=== PATIENT | male | born 1940 | race Caucasian/White ===

== ENCOUNTER 2017-10-17 21:05 | Inpatient (IN) | END 2017-10-20 15:30 | disposition home or self-care (01) | DRG 389 ==

== ENCOUNTER 2017-10-31 19:34 | Emergency (ER) | END 2017-10-31 23:35 | disposition home or self-care (01) ==

== ENCOUNTER 2018-07-01 09:39 | Inpatient (IN) | payer OTHER ==
[~2018-07-01] VITALS: Ht 165.1 cm; Wt 86.2 kg
[~2018-07-01 09:39] MED LIST: AMLO-147 PO; ATOR10TA65 PO; BIMA2.5D BOTH EYES; CEPH-443 PO; DOCU-144 PO; HYDR-4011 PO; HYDR25TA6 PO; METF-849 PO
[2018-07-01] MEDS ORDERED: CEFTRIAXONE 1 GM/50 ML (PMX) 50 ML IVPB STA (10:04)
[2018-07-01] MEDS ORDERED: SODIUM CHLORIDE 0.9% 1L BAG IV* STA (10:04)
[2018-07-01] MEDS ORDERED: ACETAMINOPHEN 500 MG TAB PO STA (10:35)
[2018-07-01] MEDS ORDERED: BENA40TA56 PO (11:28)
[2018-07-01] MEDS ORDERED: MELO7.5T38 ORAL (11:37)
[2018-07-01] MEDS ORDERED: TRIA15CR52 TOP (11:37)
[2018-07-01] MEDS ORDERED: [UNRECOGNIZED DRUG - CODE] ORAL (11:37)
--- NOTE | 2018-07-01 12:11 | ERD ---
ER Documentation Chief Complaint Chief Complaint FEVER, CHILLS SINCE YESTERDAY HPI 77-year-old male presents to the emergency department with his family complaining of fever and chills. Patient was apparently in his usual state of health until the last 24 hours at least at which time he developed fevers and chills. Patient had no other significant symptoms associated with his fevers. He denies any URI symptoms. According to the son, he had an occasional cough but no difficulty breathing or sputum production. He reported no dysuria or hematuria. He had no diarrhea or abdominal pain. He was started on amoxicillin, but has not improved and continued to have high fevers with shaking chills and came to the emergency department for evaluation. ROS All systems reviewed and are negative except as per history of present illness. Medications Home Meds Reported Medications Triamcinolone Acetonide* (Kenalog*) 0.5%-15GM Cr, TOP BID 07/01/18 Sildenafil Citrate (Sildenafil Citrate) 100 Mg Tablet, 1 TAB ORAL DAILY PRN for NEEDED 07/01/18 Meloxicam* (Meloxicam*) 7.5 Mg Tablet, 1 TAB ORAL DAILY PRN for PAIN LEVEL 4-6 07/01/18 Benazepril Hcl* (Benazepril Hcl*) 40 Mg Tablet, 40 MG PO DAILY, #30 TAB 07/01/18 Atorvastatin Calcium (Atorvastatin Calcium) 10 Mg Tablet, 10 MG PO QHS, #30 TAB 10/17/17 Amlodipine Besylate* (Amlodipine Besylate*) 10 Mg Tablet, 10 MG PO DAILY, #30 TAB 10/17/17 Hydrochlorothiazide* (Hydrochlorothiazide*) 25 Mg Tab, 25 MG PO DAILY, #30 TAB 10/17/17 Bimatoprost* (Lumigan*) 0.01%-2.5 Ml Opht Drops, 1 DROP BOTH EYES HS, EA 10/17/17 Metformin* (Glucophage*) 500 Mg Tab, 500 MG PO BID, #30 TAB 10/17/17 Discontinued Scripts Docusate Sodium* (Colace*) 100 Mg Capsule, 100 MG PO TID, #30 CAP Prov:ANTHONY MAIER MD 10/31/17 Hydrocodone/Acetaminophen ([place] 5-325 Tablet) 1 Each Tablet, 1 TAB PO Q6H PRN for PAIN, #7 TAB Prov:ANTHONY MAIER MD 10/31/17 Cephalexin* (Keflex*) 500 Mg Capsule, 500 MG PO QID for 7 Days, CAP Prov:ANTHONY MAIER MD 10/31/17 Allergies Allergies: Coded Allergies: No Known Allergy (Unverified , 07/01/18) PMhx/Soc History of Surgery: Yes (Right knee replacement 2009, Back sx 20 years ago, prostectomy 10/06/17) Anesthesia Reaction: No Hx Neurological Disorder: No Hx Respiratory Disorders: No Hx Cardiac Disorders: Yes (htn) Hx Psychiatric Problems: No Hx Miscellaneous Medical Probl: Yes (hypercholesterol, dm) Hx Alcohol Use: No Hx Substance Use: No Hx Tobacco Use: No FmHx Noncontributory for chief complaint with no known sick contacts Physical Exam Vitals Vital Signs Date Temp Pulse Resp B/P (MAP) Pulse Ox O2 O2 Flow FiO2 Time Delivery Rate 07/01/18 101.9 90 10:53 07/01/18 101.9 10:52 07/01/18 Nasal 2 10:32 Cannula 07/01/18 90 20 146/73 94 Room Air 10:31 (97) 07/01/18 102.1 108 18 153/76 95 09:48 (101) Physical Exam GENERAL: The patient is well developed and appropriate for usual state of health in no apparent distress HEENT: Pupils equal, round, and reactive to light. EOMI. There is no scleral icterus. NECK: C-spine is soft and supple, there is no meningismus. There is no cervical lymphadenopathy. LUNGS: Clear to auscultation bilaterally. There are no rales, wheezes or rhonchi. HEART: Regular rate and rhythm, no murmurs, clicks, rubs or gallops. ABDOMEN: Soft, non-tender, non-distended. There are bowel sounds in all four quadrants. No rebound or guarding. EXTREMITIES: There is no peripheral cyanosis or edema. No focal swelling or erythema. NEURO: The patient moves all four extremities with 5/5 strength. Cranial nerves II - XII are intact. Normal gait. Alert and oriented SKIN: There is no apparent rash or petechiae. HEME/LYMPHATIC: There is no evidence of excessive bruising or lymphedema. PSYCHIATRIC: The patient does not appear anxious or depressed. Result Diagram: 07/01/18 1012 07/01/18 1012 Results 24 hrs Laboratory Tests Test 07/01/18 10:10 07/01/18 10:12 07/01/18 10:13 Lactic Acid Level 1.5 mmol/L White Blood Count 14.6 10^3/ul Red Blood Count 4.14 10^6/ul Hemoglobin 12.6 g/dl Hematocrit 37.2 % Mean Corpuscular Volume 89.9 fl Mean Corpuscular Hemoglobin 30.4 pg Mean Corpuscular 33.9 g/dl Hemoglobin Concent Red Cell Distribution Width 12.5 % Platelet Count 218 10^3/UL Mean Platelet Volume 10.5 fl Immature Granulocytes % 0.800 % Neutrophils % 84.0 % Lymphocytes % 8.8 % Monocytes % 6.0 % Eosinophils % 0.1 % Basophils % 0.3 % Nucleated Red Blood Cells % 0.0 /100WBC Immature Granulocytes # 0.120 10^3/ul Neutrophils # 12.3 10^3/ul Lymphocytes # 1.3 10^3/ul Monocytes # 0.9 10^3/ul Eosinophils # 0.0 10^3/ul Basophils # 0.0 10^3/ul Nucleated Red Blood Cells # 0.0 10^3/ul Prothrombin Time 14.4 Sec Prothrombin Time Ratio 1.1 INR International 1.11 Normalized Ratio Activated Partial Thromboplast 35.4 Sec Time Sodium Level 138 mmol/L Potassium Level 3.5 mmol/L Chloride Level 98 mmol/L Carbon Dioxide Level 26 mmol/L Anion Gap 14 Blood Urea Nitrogen 20 mg/dl Creatinine 1.37 mg/dl Est Glomerular Filtrat mL/min Rate mL/min Glucose Level 175 mg/dl Calcium Level 9.5 mg/dl Total Bilirubin 0.8 mg/dl Direct Bilirubin 0.00 mg/dl Indirect Bilirubin 0.8 mg/dl Aspartate Amino 24 IU/L Transf (AST/SGOT) Alanine 19 IU/L Aminotransferase (ALT/SGPT) Alkaline Phosphatase 57 IU/L Troponin I < 0.012 ng/ml Total Protein 8.2 g/dl Albumin 4.3 g/dl Globulin 3.90 g/dl Albumin/Globulin Ratio 1.10 Urine Color YELLOW Urine Clarity CLEAR Urine pH 6.0 Urine Specific [place] 1.016 Urine Ketones NEGATIVE mg/dL Urine Nitrite NEGATIVE mg/dL Urine Bilirubin NEGATIVE mg/dL Urine Urobilinogen NEGATIVE mg/dL Urine Leukocyte Esterase NEGATIVE Jacqueline/ul Urine Hemoglobin NEGATIVE mg/dL Urine Glucose NEGATIVE mg/dL Urine Total Protein NEGATIVE mg/dl Current Medications Medications Dose Sig/Nuvia Start Time Status Last (Trade) Ordered Route PRN Stop Time Admin Dose Reason Admin Sodium 2,400 ml BOLUS OVER 2 07/01/18 DC 07/01/18 Chloride HOURS STAT 10:04 10:31 (NS) IV* 07/01/18 10:05 Ceftriaxone 50 ml @ ONCE STAT 07/01/18 DC 07/01/18 Sodium 100 mls/hr IVPB 10:04 10:31 07/01/18 10:33 1,000 mg ONCE STAT 07/01/18 DC 07/01/18 Acetaminophen PO 10:35 10:52 (Tylenol 07/01/18 10:36 Tab) Procedures/MDM Patient was taken to a room, seen and evaluated. Comfort measures were initiated. Diagnostic tests were ordered and reviewed. 3 LEAD RHYTHM STRIP: Normal sinus rhythm without ectopy EK lead EKG reviewed by myself: Normal Sinus Rhythm Normal [place] and intervals No ST elevation, depression, or T wave inversion Impression: Normal EKG RADIOLOGY: Reviewed with the radiologist CONSULTATION: Hospitalist was notified for admission REEVALUATION: 1210: Diagnostic tests were appreciated. Case was discussed with the patient who felt much more comfortable staying in the hospital for observation MEDICAL DECISION MAKIN-year-old male presents the emergency department with fever of uncertain etiology. He is at high risk of being diabetic and has an elevated white count. He does not appear to be severely septic as his blood pressure and vital signs are adequate and his lactate is less than 2. Of concern is that I do not know the source of infection at this time and this is even more complicated given his history of recently being on an antibiotic. Patient will be admitted to the hospital for further diagnostic evaluation, IV fluids. He has received empiric antibiotics for fever of unknown source. Departure Diagnosis: Primary Impression: Fever Condition: ADAM Beck Jul 01, 2018 12:11
[2018-07-01 16:35] VITALS: BP 171/74; PULSE 105; RESP 22
[2018-07-01 16:45] VITALS: Ht 165.1 cm; Wt 86.2 kg
[2018-07-01] MEDS ORDERED: GLUCOSE GEL 15 GRAM TUBE BUCCAL PRN (17:30)
[2018-07-01] MEDS ORDERED: GLUCAGON 1 MG INJ IM PRN (17:30)
[2018-07-01] MEDS: ACCU-CHEK XX SCH ×2 (17:30→21:00)
[2018-07-01] MEDS ORDERED: DEXTROSE 50% 50 ML SYRINGE IV PRN ×2 (17:30)
[2018-07-01] MEDS ORDERED: GLUCOSE GEL 15 GRAM TUBE PO PRN ×2 (17:30)
[2018-07-01] MEDS ORDERED: VANCOMYCIN IV PER PHARMACY XX SCH (17:30)
[2018-07-01] MEDS: INSULIN ASPART [NOVOLOG] 3 ML PEN SC SCH ×2 (17:50→20:44)
--- NOTE | 2018-07-01 18:03 | HP ---
DATE OF ADMISSION: 07/01/2018 PRESENTING COMPLAINT: Fever and chills. HISTORY OF PRESENTING COMPLAINT: A 77-year-old male was brought in by his family because of fever an d chills over the last 24 hours. Apparently, symptoms started over 24 hours ago, but the patient has not had no cough, no abdominal pain, no chest pain, no dysuria, no hematuria. His only complaint is left shoulder pain with limiting range of motion but other than that, has no other symptoms. There has been no passing out episodes, no extremity swelling. In that shoulder, there is no gross deformi ty. The patient is not able to move it due to pain, but other than that, he has no other symptoms. PAST MEDICAL HISTORY: 1. High blood pressure. 2. Diabetes. 3. Dyslipidemia. 4. Erectile dysfunction. 5. Glaucoma. PAST SURGICAL HISTORY: 1. Right knee replacement. 2. Back surgery. 3. Cholecystectomy. ALLERGIES: NO KNOWN DRUG ALLERGIES. SOCIAL HISTORY: Denies tobacco, alcohol or illicit drug use. FAMILY HISTORY: Noncontributory. REVIEW OF SYSTEMS: A 12-point review of systems is as per HPI. PHYSICAL EXAMINATION: VITAL SIGNS: T-max is 102.1, pulse 105, respirations 22, blood pressure 171/74, saturations 96% on r oom air. GENERAL: The patient at this time is calm, alert, in no distress. HEENT: Head is normocephalic without evidence of trauma. Pupils are equal and reactive. Mucous mem branes are moist. Posterior pharynx is clear of erythema and exudate. NECK: Supple, nontender without adenopathy. CHEST: Clear to auscultation with good air entry on both sides. CARDIOVASCULAR: Heart sounds, S1 and S2 without added sounds or murmurs. ABDOMEN: Soft, nontender, nondistended. Normoactive bowel sounds. EXTREMITIES: He has no lower extremity edema; however on assessment of his left shoulder, he does gatica ve very limited range of motion and tends to preserve motion by keeping his elbow close to his chest. He is able to fully extend, but with significant pain and the patient is very resistant to evaluati on, but there is no visible deformity. LABORATORY VALUES: He has a leukocytosis of 14,000 with normocytic anemia. His creatinine is 1.37 w hich is actually improved from previous admitted facility. Other than that, his basic metabolic prof ile is unremarkable. Urinalysis is negative. Influenza screen is also negative. ASSESSMENT: This is a 77-year-old male who presented with fever of 1 day's duration to the high of 1 02. His only other significant finding has been reduction in range of motion in left shoulder. He i s currently admitted and managed as follows: 1. Sepsis versus systemic inflammatory response syndrome. Source is not quite clear. 2. Rule out septic joint, left shoulder. 3. Chronic kidney disease. 4. Hypertension with suboptimal control. 5. Chronic diabetes mellitus type 2. 6. Chronic dyslipidemia. 7. Erectile dysfunction. DISPOSITION: He will be admitted and started on empiric antibiotics with ID consult. We will start by getting x-rays of the shoulder. The patient would benefit from an MRI at some point, antipyretics and supportive care as needed. Further intervention will depend on clinical course. Dictated By: LEONARD DARLING MD BA/NTS Conf#: [id number] DID#: [id number] CC: JOSE MIGUEL POLLACK MD; CELIA MORALES;*End*
[2018-07-01] MEDS: metFORMIN 500 MG TAB PO SCH (18:07)
[2018-07-01] MEDS: LEVOFLOXACIN 500MG/D5W (PMX) 100 ML IVPB SCH (18:38)
--- NOTE | 2018-07-01 19:09 | CONS ---
DATE OF ADMISSION: 07/01/2018 DATE OF CONSULTATION: 07/01/2018 TYPE OF CONSULTATION: Infectious disease. REASON FOR CONSULTATION: Antibiotic management. HISTORY OF PRESENT ILLNESS: Dnaish Parson is a 77-year-old male who comes in with fever and chills beginning yesterday. The patient was in his usual state of health until the last 24 hours when he developed fever and chills, had no other significant symptoms. He had no dysuria or hematur ia. He had occasional cough, but no difficulty breathing. He was started on amoxicillin, but did no t improve and continued to spike fevers with shaking chills. Past problems include: 1. Status post right knee replacement in 2009. 2. Back surgery 20 years ago. 3. Status post prostatectomy in 10/06/2017. 4. Hypercholesterolemia. 5. Hypertension. 6. Diabetes mellitus. Acutely, the patient comes in with a white count of 14.6, H and H of 12.6 and 37.2, platelet count 21 8,000. BUN and creatinine is 20/1.37. His glucose was 175. PAST MEDICAL HISTORY: Operations as outlined. FAMILY HISTORY: Noncontributory. SOCIAL HISTORY: He does not smoke, drink or abuse drugs. ALLERGIES: NONE TO PENICILLIN, SULFA OR FOODS. MEDICATIONS: Per chart. REVIEW OF SYSTEMS: As per HPI. PHYSICAL EXAMINATION: VITAL SIGNS: The patient comes in with a temperature of 102.1; otherwise stable. SKIN: Without generalized rash. HEENT: Within normal limits. NECK: Supple. LYMPH NODES: None palpable. CHEST: Decreased breath sounds at the bases without rales or rhonchi. HEART: Without murmur or gallop. ABDOMEN: Soft, nontender, nondistended without organosplenomegaly or masses. EXTREMITIES: Without cyanosis, clubbing or edema. RECTAL AND GENITAL: Deferred. NEUROLOGIC: No focal neurological abnormality. ANCILLARY LABORATORY DATA: His white count was 14.6 with 84% neutrophils. The patient was started o n ceftriaxone. Urinalysis was negative. Influenza type A and B were negative. DIAGNOSTIC DATA: X-ray showed no acute disease. IMPRESSION AND PLAN: The patient probably has an upper respiratory tract infection, but he is spikin g fevers to 102.1 and the etiology of his problems is unclear. He is started on ceftriaxone. Blood cultures, urine and feces are cultured. I will dictate my findings to the hospitalist. Dictated By: JOSE MIGUEL POLLACK MD, JD/GILMA Conf#: [id number] DID#: [id number] CC: CELIA MORALES;*End*
[2018-07-01 19:52] VITALS: BP 156/65; PULSE 100; PULSE 89; RESP 20
[2018-07-01] MEDS: ACETAMINOPHEN 325 MG TAB PO PRN (19:58)
[2018-07-01] MEDS ORDERED: VANCOMYCIN HCL 1.75 GM in SOD CHLORIDE 0.9% 500 ML IVPB SCH (20:00)
[2018-07-01] MEDS: ATORVASTATIN 10 MG TAB PO SCH (20:41)
[2018-07-01] MEDS: BIMATOPROST 0.01% 2.5 ML BTL BOTH EYES SCH (20:43)
[2018-07-02] MEDS: traMADol 50 MG TAB PO PRN ×2 (00:18→21:33)
[2018-07-02] MEDS: ACCU-CHEK XX SCH ×5 (01:07→21:00)
[2018-07-02 01:33] VITALS: BP 124/72; PULSE 84; RESP 20
[2018-07-02] MEDS: ACETAMINOPHEN 325 MG TAB PO PRN ×3 (02:23→19:41)
[2018-07-02 07:32] VITALS: BP 157/64; PULSE 79; RESP 18
[2018-07-02] MEDS: INSULIN ASPART [NOVOLOG] 3 ML PEN SC SCH ×4 (08:00→21:00)
[2018-07-02] MEDS: BENAZEPRIL 40 MG TAB PO SCH (08:44)
[2018-07-02] MEDS: metFORMIN 500 MG TAB PO SCH ×2 (08:44→17:15)
[2018-07-02] MEDS: HYDROCHLOROTHIAZIDE 25 MG TAB PO SCH (08:44)
[2018-07-02] MEDS: AMLODIPINE 10 MG TAB PO SCH (08:44)
[2018-07-02 13:41] VITALS: BP 119/68; PULSE 71; RESP 18
[2018-07-02] MEDS ORDERED: POTASSIUM CHLORIDE (SR) 20 MEQ TAB PO ONE (14:30)
--- NOTE | 2018-07-02 17:16 | CONS ---
Assessment/Plan Assessment/Plan Hospital Course (Demo Recall) Patient is alert looks comfortable complaining of left shoulder pain unable to lift his arm he is temperature yesterday was 103 T-current 99.1. WBC 12.6 H&H 11.2 and 33.6 platelets 195 neutrophils 83.3 BUN 19 creatinine 1.25 Microbiology: Blood urine and influenza swabs negative MRI of the shoulder revealed possible infection. Please see full report Physical examination this is a well-developed well-nourished elderly man who is alert in no distress. Head atraumatic normocephalic. Neck is supple chest rise symmetrical breath sounds clear heart S1-S2 abdomen soft bowel sounds present extremities with left upper extremity significantly limited range of motion. No erythema no fluctuance over the left shoulder Assessment: 1. Febrile illness, rule out infected left shoulder 2. Diabetes 3. Glaucoma 4. 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 Plan: Patient remains stable, he is on vancomycin and levofloxacin, pending Ortho evaluation Consultation Date/Type/Reason Admit Date/Time Jul 01, 2018 at 16:52 Initial Consult Date Type of Consult id Date/Time of Note DATE: 07/02/18 TIME: 17:16 Exam/Review of Systems Exam Vitals Vital Signs Date Temp Pulse Resp B/P (MAP) Pulse Ox O2 O2 Flow FiO2 Time Delivery Rate 07/02/18 99.1 71 18 119/68 96 13:41 (85) 07/01/18 Room Air 19:52 07/01/18 2 10:32 Intake and Output 07/01/18 07/01/18 07/02/18 1515:00 23:00 07:00 IntakeIntake Total 300 ml 1200 ml OutputOutput Total 200 ml BalanceBalance 300 ml 1000 ml Results Result Diagram: 07/02/18 0450 07/02/18 0450 Results 24hrs Laboratory Tests Test 07/01/18 17:50 07/01/18 20:42 07/02/18 04:50 07/02/18 08:17 Bedside Glucose 127 135 94 White Blood Count 12.6 H Red Blood Count 3.66 L Hemoglobin 11.2 L Hematocrit 33.6 L Mean Corpuscular 91.8 Volume Mean Corpuscular 30.6 Hemoglobin Mean Corpuscular 33.3 Hemoglobin Concent Red Cell 12.6 Distribution Width Platelet Count 195 Mean Platelet Volume 10.9 H Immature 0.800 H Granulocytes % Neutrophils % 83.3 H Lymphocytes % 7.6 L Monocytes % 7.6 Eosinophils % 0.2 Basophils % 0.5 Nucleated Red Blood 0.0 Cells % Immature 0.100 H Granulocytes # Neutrophils # 10.5 H Lymphocytes # 1.0 Monocytes # 1.0 H Eosinophils # 0.0 Basophils # 0.1 Nucleated Red Blood 0.0 Cells # Sodium Level 140 Potassium Level 3.3 L Chloride Level 100 Carbon Dioxide Level 26 Anion Gap 14 H Blood Urea Nitrogen 19 Creatinine 1.25 H Est Glomerular Filtrat Rate mL/min Glucose Level 120 # Calcium Level 8.7 Phosphorus Level 2.8 Magnesium Level 1.7 Test 07/02/18 12:13 07/02/18 14:44 Bedside Glucose 110 Erythrocyte 65 H Sedimentation Rate C-Reactive Protein 25.4 H Medications Medication Current Medications Amlodipine Besylate (Norvasc) 10 mg DAILY PO Last administered on 07/02/18 08:44; Admin Dose 10 MG; Start 07/02/18 at 09:00 Atorvastatin Calcium (Lipitor) 10 mg QHS PO Last administered on 07/01/18 20:41; Admin Dose 10 MG; Start 07/01/18 at 21:00 Benazepril HCl (Lotensin) 40 mg DAILY PO Last administered on 07/02/18 08:44; Admin Dose 40 MG; Start 07/02/18 at 09:00 Bimatoprost (Lumigan 0.01% Oph) 1 drop HS BOTH EYES Last administered on 07/01/18 20:43; Admin Dose 1 DROP; Start 07/01/18 at 21:00 Hydrochlorothiazide (Hydrochlorothiazide) 25 mg DAILY PO Last administered on 07/02/18 08:44; Admin Dose 25 MG; Start 07/02/18 at 09:00 Metformin HCl (Glucophage) 500 mg WITH BREAKFAST DINNE PO Last administered on 07/02/18 08:44; Admin Dose 500 MG; Start 07/01/18 at 18:00 Diagnostic Test (Pha) (Accu-Chek) 1 ea AC MEALS AND BEDTIME XX Last administered on 07/02/18 12:13; Admin Dose 1 EA; Start 07/01/18 at 17:30 Acetaminophen (Tylenol Tab) 650 mg Q6H PRN PO MILD PAIN(1-3)OR ELEVATED TEMP Last administered on 3/28/19at 08:45; Admin Dose 650 MG; Start 07/01/18 at 17:00 Diagnostic Test (Pha) (Accu-Chek) 1 ea 02 XX ; Start 07/02/18 at 02:00 Insulin Aspart (Novolog Insulin Pen) NOVOLOG *MILD* ALGORITHM WITH MEALS BEDTIME SC ; Start 07/01/18 at 18:00 Miscellaneous Information 1 ea NOTE XX ; Start 07/01/18 at 17:30 Glucose (Glutose) 15 gm Q15M PRN PO DECREASED GLUCOSE; Start 07/01/18 at 17:30 Glucose (Glutose) 22.5 gm Q15M PRN PO DECREASED GLUCOSE; Start 07/01/18 at 17:30 Dextrose (D50w Syringe) 25 ml Q15M PRN IV DECREASED GLUCOSE; Start 07/01/18 at 17:30 Dextrose (D50w Syringe) 50 ml Q15M PRN IV DECREASED GLUCOSE; Start 07/01/18 at 17:30 Glucagon (Glucagen) 1 mg Q15M PRN IM DECREASED GLUCOSE; Start 07/01/18 at 17:30 Glucose (Glutose) 15 gm Q15M PRN BUCCAL DECREASED GLUCOSE; Start 07/01/18 at 17 :30 Vancomycin HCl (Vanco Iv Per Pharmacy) VANCOMYCIN PER PHARMACY PER PROTOCOL XX ; Start 07/01/18 at 17:30 Levofloxacin/ Dextrose 100 ml @ 100 mls/hr Q24H IVPB Last administered on 07/01/18at 18:38; Admin Dose 100 MLS/HR; Start 07/01/18 at 18:30 Vancomycin HCl 1.5 gm/Sodium Chloride 250 ml @ 83.333 mls/ hr Q24H IVPB ; Start 07/02/18 at 21:00 Tramadol HCl (Ultram) 50 mg Q6H PRN PO MODERATE PAIN LEVEL 4-6 Last administered on 07/02/18at 00:18; Admin Dose 50 MG; Start 07/01/18 at 21:00 INDERJIT MADDEN NP Jul 02, 2018 17:16
[2018-07-02] MEDS: LEVOFLOXACIN 500MG/D5W (PMX) 100 ML IVPB SCH (17:17)
[2018-07-02 20:00] VITALS: BP 147/66; PULSE 99; RESP 18
[2018-07-02] MEDS: VANCOMYCIN HCL 1.5 GM in SOD CHLORIDE 0.9% 250 ML IVPB SCH (21:31)
[2018-07-02] MEDS: ATORVASTATIN 10 MG TAB PO SCH (21:32)
[2018-07-02] MEDS: BIMATOPROST 0.01% 2.5 ML BTL BOTH EYES SCH (21:33)
--- NOTE | 2018-07-02 22:50 | CONS ---
Assessment/Plan Assessment/Plan Hospital Course (Demo Recall) This is a 77-year-old male who was admitted to the hospital for fevers. Currently there is no known source for fevers. Clinically I have low suspicion for infection of the left shoulder. His range of motion is limited but this is explained by his rotator cuff arthropathy. His shoulder pain has been present for several months. It has not significantly worsened since the fevers have ons et. He also has history of diabetes and he may also be having adhesive capsulitis as his external rotation is severely limited as well. At this time am not recommending aspiration of the shoulder. When infection has been treated and ruled out he could be candidate for steroid injection as an outpatient. Eventually he may need a reverse total shoulder. In the meantime I recommend using NSAIDs if not otherwise contraindicated. Consultation Date/Type/Reason Admit Date/Time Jul 01, 2018 at 16:52 Date of Consultation: Jul 02, 2018 Reason for Consultation Left shoulder pain, concern for infection Date/Time of Note DATE: 07/02/18 TIME: 22:37 Hx of Present Illness This is a 77-year-old male who was admitted to the hospital 1 day ago for persistent fevers of unknown origin. Orthopedics was consulted today to rule infection his left shoulder. Per the patient his left shoulder has been hurting him since April when he was visiting [facility] he hurt his shoulder on the bus. Since then he has had significant pain and limited range of motion in his left shoulder. He has not had any treatment for this. Over the last couple months the pain has improved. But there has been episodes when he has increased. 15 days ago he is putting on a jacket and his pain increased at that time but then got better. Lifting and carrying items have been difficult for him for the last 3 months. Overhead motion is painful. It hurts him at night. Denies any numbness and tingling. But states his left arm feels heavy. His range of motion has decreased recently. Patient denies shortness of breath, chest pain, nausea/vomiting, constipation, diarrhea, numbness, and tingling. Past Medical History 1. High blood pressure. 2. Diabetes. 3. Dyslipidemia. 4. Erectile dysfunction. 5. Glaucoma. Home Meds Reported Medications Triamcinolone Acetonide* (Kenalog*) 0.5%-15GM Cr, TOP BID 07/01/18 Sildenafil Citrate (Sildenafil Citrate) 100 Mg Tablet, 1 TAB ORAL DAILY PRN for NEEDED 07/01/18 Meloxicam* (Meloxicam*) 7.5 Mg Tablet, 1 TAB ORAL DAILY PRN for PAIN LEVEL 4-6 07/01/18 Benazepril Hcl* (Benazepril Hcl*) 40 Mg Tablet, 40 MG PO DAILY, #30 TAB 07/01/18 Atorvastatin Calcium (Atorvastatin Calcium) 10 Mg Tablet, 10 MG PO QHS, #30 TAB 10/17/17 Amlodipine Besylate* (Amlodipine Besylate*) 10 Mg Tablet, 10 MG PO DAILY, #30 TAB 10/17/17 Hydrochlorothiazide* (Hydrochlorothiazide*) 25 Mg Tab, 25 MG PO DAILY, #30 TAB 10/17/17 Bimatoprost* (Lumigan*) 0.01%-2.5 Ml Opht Drops, 1 DROP BOTH EYES HS, EA 10/17/17 Metformin* (Glucophage*) 500 Mg Tab, 500 MG PO BID, #30 TAB 10/17/17 Discontinued Scripts Docusate Sodium* (Colace*) 100 Mg Capsule, 100 MG PO TID, #30 CAP Prov:ANTHONY MAIER MD 10/31/17 Hydrocodone/Acetaminophen ([place] 5-325 Tablet) 1 Each Tablet, 1 TAB PO Q6H PRN for PAIN, #7 TAB Prov:ANTHONY MAIER MD 10/31/17 Cephalexin* (Keflex*) 500 Mg Capsule, 500 MG PO QID for 7 Days, CAP Prov:ANTHONY MAIER MD 10/31/17 Medications Current Medications Amlodipine Besylate (Norvasc) 10 mg DAILY PO Last administered on 07/02/18at 08:44; Admin Dose 10 MG; Start 07/02/18 at 09:00 Atorvastatin Calcium (Lipitor) 10 mg QHS PO Last administered on 07/02/18 21:32; Admin Dose 10 MG; Start 07/01/18 at 21:00 Benazepril HCl (Lotensin) 40 mg DAILY PO Last administered on 07/02/18 08:44; Admin Dose 40 MG; Start 07/02/18 at 09:00 Bimatoprost (Lumigan 0.01% Oph) 1 drop HS BOTH EYES Last administered on 07/02/18at 21:33; Admin Dose 1 DROP; Start 07/01/18 at 21:00 Hydrochlorothiazide (Hydrochlorothiazide) 25 mg DAILY PO Last administered on 07/02/18at 08:44; Admin Dose 25 MG; Start 07/02/18 at 09:00 Metformin HCl (Glucophage) 500 mg WITH BREAKFAST DINNE PO Last administered on 07/02/18at 17:15; Admin Dose 500 MG; Start 07/01/18 at 18:00 Diagnostic Test (Pha) (Accu-Chek) 1 ea AC MEALS AND BEDTIME XX Last administered on 07/02/18at 17:16; Admin Dose 1 EA; Start 07/01/18 at 17:30 Acetaminophen (Tylenol Tab) 650 mg Q6H PRN PO MILD PAIN(1-3)OR ELEVATED TEMP Last administered on 07/02/18at 19:41; Admin Dose 650 MG; Start 07/01/18 at 17:00 Diagnostic Test (Pha) (Accu-Chek) 1 ea 02 XX ; Start 07/02/18 at 02:00 Insulin Aspart (Novolog Insulin Pen) NOVOLOG *MILD* ALGORITHM WITH MEALS BEDTIME SC ; Start 07/01/18 at 18:00 Miscellaneous Information 1 ea NOTE XX ; Start 07/01/18 at 17:30 Glucose (Glutose) 15 gm Q15M PRN PO DECREASED GLUCOSE; Start 07/01/18 at 17:30 Glucose (Glutose) 22.5 gm Q15M PRN PO DECREASED GLUCOSE; Start 07/01/18 at 17: 30 Dextrose (D50w Syringe) 25 ml Q15M PRN IV DECREASED GLUCOSE; Start 07/01/18 at 17:30 Dextrose (D50w Syringe) 50 ml Q15M PRN IV DECREASED GLUCOSE; Start 07/01/18 at 17:30 Glucagon (Glucagen) 1 mg Q15M PRN IM DECREASED GLUCOSE; Start 07/01/18 at 17:30 Glucose (Glutose) 15 gm Q15M PRN BUCCAL DECREASED GLUCOSE; Start 07/01/18 at 17:30 Vancomycin HCl (Vanco Iv Per Pharmacy) VANCOMYCIN PER PHARMACY PER PROTOCOL XX ; Start 07/01/18 at 17:30 Levofloxacin/ Dextrose 100 ml @ 100 mls/hr Q24H IVPB Last administered on 07/02/18at 17:17; Admin Dose 100 MLS/HR; Start 07/01/18 at 18:30 Vancomycin HCl 1.5 gm/Sodium Chloride 250 ml @ 83.333 mls/ hr Q24H IVPB Last administered on 07/02/18at 21:31; Admin Dose 83.333 MLS/HR; Start 07/02/18 at 21:00 Tramadol HCl (Ultram) 50 mg Q6H PRN PO MODERATE PAIN LEVEL 4-6 Last administered on 07/02/18at 21:33; Admin Dose 50 MG; Start 07/01/18 at 21:00 Allergies: Coded Allergies: No Known Allergy (Unverified , 07/01/18) Past Surgical History Right total knee arthroplasty Cholecystectomy Past Surgical Hx: other Family History Significant Family History: no pertinent family hx Social History Smoking Status: Former smoker Exam/Review of Systems Exam Vitals Vital Signs Date Temp Pulse Resp B/P (MAP) Pulse Ox O2 O2 Flow FiO2 Time Delivery Rate 07/02/18 100.1 20:26 07/02/18 99 18 147/66 97 20:00 (93) 07/01/18 Room Air 19:52 07/01/18 2 10:32 Intake and Output 07/01/18 07/01/18 07/02/18 1515:00 23:00 07:00 IntakeIntake Total 300 ml 1200 ml OutputOutput Total 200 ml BalanceBalance 300 ml 1000 ml Exam General Examination: General Appearance Awake, alert, in no acute distress, pleasant and cooperative. Heart regular rhythm. Lungs breathing comfortably, no tachypnea or dyspnea. MUSCULOSKELETAL: Left shoulder Skin is intact. There is significant atrophy with scalloping in the supraspinatus and infraspinatus fossa. TTP around the shoulder. ----- Active ROM: FE: 30 Abd: 30 ER: neutral IR: to side ----- Passive ROM: FE: 60 Abd: 45 ER: neutral IR: to side ----- Sensation intact to light touch in a median, ulnar, radial, and axillary distribution. Motor is intact in a median, ulnar, radial, anterior interosseous, and posterior interosseous nerve distribution. Radial and ulnar artery are +2. Wrist extension and flexion are intact. Compartments are soft Results Result Diagram: 07/02/18 0450 07/02/18 0450 Results 24hrs Laboratory Tests Test 07/02/18 04:50 07/02/18 08:17 07/02/18 12:13 07/02/18 14:44 White Blood Count 12.6 H Red Blood Count 3.66 L Hemoglobin 11.2 L Hematocrit 33.6 L Mean Corpuscular 91.8 Volume Mean Corpuscular 30.6 Hemoglobin Mean Corpuscular 33.3 Hemoglobin Concent Red Cell 12.6 Distribution Width Platelet Count 195 Mean Platelet Volume 10.9 H Immature 0.800 H Granulocytes % Neutrophils % 83.3 H Lymphocytes % 7.6 L Monocytes % 7.6 Eosinophils % 0.2 Basophils % 0.5 Nucleated Red Blood 0.0 Cells % Immature 0.100 H Granulocytes # Neutrophils # 10.5 H Lymphocytes # 1.0 Monocytes # 1.0 H Eosinophils # 0.0 Basophils # 0.1 Nucleated Red Blood 0.0 Cells # Sodium Level 140 Potassium Level 3.3 L Chloride Level 100 Carbon Dioxide Level 26 Anion Gap 14 H Blood Urea Nitrogen 19 Creatinine 1.25 H Est Glomerular Filtrat Rate mL/min Glucose Level 120 # Calcium Level 8.7 Phosphorus Level 2.8 Magnesium Level 1.7 Bedside Glucose 94 110 Erythrocyte 65 H Sedimentation Rate C-Reactive Protein 25.4 H Test 07/02/18 17:15 07/02/18 21:36 Bedside Glucose 122 122 Imaging Imaging 2 views of the left shoulder: 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 The humeral head is slightly high riding. There is mild acetabular cessation of the acromion. No acute fracture. Left shoulder MRI: 1. Severe supraspinatus and infraspinatus tendinosis with full-thickness full width tears as above. Moderate to severe subscapularis tendinosis with a possible small focal interstitial tear. 2. Mild to moderate atrophy and fatty infiltration of the supraspinatus and infraspinatus. Edema within the supraspinatus and infraspinatus may represent strain or denervation change. 3. Long head of the biceps tendon not visualized within the bicipital groove compatible with complete tear and retraction, out of field of view. Superior labral degeneration and degenerative tear. 4. Moderate glenohumeral effusion and subacromial subdeltoid fluid accumulation with synovitis. 5. Mild glenohumeral and moderate to severe acromioclavicular arthropathy. 6. 2 cm multilobulated cystic appearing focus adjacent to the coracoid and rotator interval more likely a ganglion/paralabral cyst, although there is a small adjacent vein, and the varix / vascular malformation cannot be completely excluded. Medications Medication Current Medications Amlodipine Besylate (Norvasc) 10 mg DAILY PO Last administered on 07/02/18 08:44; Admin Dose 10 MG; Start 07/02/18 at 09:00 Atorvastatin Calcium (Lipitor) 10 mg QHS PO Last administered on 07/02/18 21:32; Admin Dose 10 MG; Start 07/01/18 at 21:00 Benazepril HCl (Lotensin) 40 mg DAILY PO Last administered on 07/02/18 08:44; Admin Dose 40 MG; Start 07/02/18 at 09:00 Bimatoprost (Lumigan 0.01% Oph) 1 drop HS BOTH EYES Last administered on 07/02/18 21:33; Admin Dose 1 DROP; Start 07/01/18 at 21:00 Hydrochlorothiazide (Hydrochlorothiazide) 25 mg DAILY PO Last administered on 07/02/18 08:44; Admin Dose 25 MG; Start 07/02/18 at 09:00 Metformin HCl (Glucophage) 500 mg WITH BREAKFAST DINNE PO Last administered on 07/02/18 17:15; Admin Dose 500 MG; Start 07/01/18 at 18:00 Diagnostic Test (Pha) (Accu-Chek) 1 ea AC MEALS AND BEDTIME XX Last administered on 07/02/18 17:16; Admin Dose 1 EA; Start 07/01/18 at 17:30 Acetaminophen (Tylenol Tab) 650 mg Q6H PRN PO MILD PAIN(1-3)OR ELEVATED TEMP Last administered on 07/02/18 19:41; Admin Dose 650 MG; Start 07/01/18 at 17:00 Diagnostic Test (Pha) (Accu-Chek) 1 ea 02 XX ; Start 07/02/18 at 02:00 Insulin Aspart (Novolog Insulin Pen) NOVOLOG *MILD* ALGORITHM WITH MEALS BEDTIME SC ; Start 07/01/18 at 18:00 Miscellaneous Information 1 ea NOTE XX ; Start 07/01/18 at 17:30 Glucose (Glutose) 15 gm Q15M PRN PO DECREASED GLUCOSE; Start 07/01/18 at 17:30 Glucose (Glutose) 22.5 gm Q15M PRN PO DECREASED GLUCOSE; Start 07/01/18 at 17:30 Dextrose (D50w Syringe) 25 ml Q15M PRN IV DECREASED GLUCOSE; Start 07/01/18 at 17:30 Dextrose (D50w Syringe) 50 ml Q15M PRN IV DECREASED GLUCOSE; Start 07/01/18 at 17:30 Glucagon (Glucagen) 1 mg Q15M PRN IM DECREASED GLUCOSE; Start 07/01/18 at 17:30 Glucose (Glutose) 15 gm Q15M PRN BUCCAL DECREASED GLUCOSE; Start 07/01/18 at 17:30 Vancomycin HCl (Vanco Iv Per Pharmacy) VANCOMYCIN PER PHARMACY PER PROTOCOL XX ; Start 07/01/18 at 17:30 Levofloxacin/ Dextrose 100 ml @ 100 mls/hr Q24H IVPB Last administered on 07/02/18at 17:17; Admin Dose 100 MLS/HR; Start 07/01/18 at 18:30 Vancomycin HCl 1.5 gm/Sodium Chloride 250 ml @ 83.333 mls/ hr Q24H IVPB Last administered on 07/02/18at 21:31; Admin Dose 83.333 MLS/HR; Start 07/02/18 at 21:00 Tramadol HCl (Ultram) 50 mg Q6H PRN PO MODERATE PAIN LEVEL 4-6 Last administered on 07/02/18at 21:33; Admin Dose 50 MG; Start 07/01/18 at 21:00 CAMILLA MEREDITH MD Jul 02, 2018 22:48
[2018-07-03] MEDS: ACCU-CHEK XX SCH ×5 (01:35→21:00)
[2018-07-03 02:00] VITALS: BP 142/72; PULSE 75; RESP 19
[2018-07-03 08:00] VITALS: BP 133/63; PULSE 94; RESP 18
[2018-07-03] MEDS: INSULIN ASPART [NOVOLOG] 3 ML PEN SC SCH ×4 (08:00→21:00)
[2018-07-03] MEDS: AMLODIPINE 10 MG TAB PO SCH (08:12)
[2018-07-03] MEDS: metFORMIN 500 MG TAB PO SCH ×2 (08:12→17:28)
[2018-07-03] MEDS: HYDROCHLOROTHIAZIDE 25 MG TAB PO SCH (08:12)
[2018-07-03] MEDS: BENAZEPRIL 40 MG TAB PO SCH (08:12)
--- NOTE | 2018-07-03 12:01 | CONS ---
Assessment/Plan Assessment/Plan Hospital Course (Demo Recall) No events, looks comfortable, still with ongoing fevers Microbiology: Blood urine and influenza swabs negative Physical examination this is a well-developed well-nourished elderly man who is alert in no distress. Head atraumatic normocephalic. Neck is supple chest rise symmetrical breath sounds clear heart S1-S2 abdomen soft bowel sounds present extremities with left upper extremity significantly limited range of motion. No erythema no fluctuance over the left shoulder Assessment: 1. Febrile illness? etiology==> no active infectious process in left shoulder per ortho note 2. Diabetes 3. Glaucoma 4. 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 Plan: Clinically stable, will repeat bld and urine cx, check renal US, blader scan to evaluate for retention, change Levaquin to Cefepime and consider WBC scan, procalcitonin level Consultation Date/Type/Reason Admit Date/Time Jul 01, 2018 at 16:52 Initial Consult Date Type of Consult id Date/Time of Note DATE: 07/03/18 TIME: 11:59 Exam/Review of Systems Exam Vitals Vital Signs Date Temp Pulse Resp B/P (MAP) Pulse Ox O2 O2 Flow FiO2 Time Delivery Rate 07/03/18 100.6 94 18 133/63 97 Room Air 08:00 (86) 07/01/18 2 10:32 Intake and Output 07/02/18 07/02/18 07/03/18 1515:00 23:00 07:00 IntakeIntake Total 600 ml 340 ml 250 ml BalanceBalance 600 ml 340 ml 250 ml Results Result Diagram: 07/03/18 0523 07/03/18 0523 Results 24hrs Laboratory Tests Test 07/02/18 12:13 07/02/18 14:44 07/02/18 17:15 07/02/18 21:36 Bedside Glucose 110 122 122 Erythrocyte 65 H Sedimentation Rate C-Reactive Protein 25.4 H Test 07/03/18 05:23 07/03/18 08:10 White Blood Count 10.6 Red Blood Count 3.79 L Hemoglobin 11.5 L Hematocrit 34.6 L Mean Corpuscular 91.3 Volume Mean Corpuscular 30.3 Hemoglobin Mean Corpuscular 33.2 Hemoglobin Concent Red Cell 12.8 Distribution Width Platelet Count 217 Mean Platelet Volume 10.7 H Immature 0.600 H Granulocytes % Neutrophils % 77.4 H Lymphocytes % 11.6 L Monocytes % 8.5 Eosinophils % 1.5 Basophils % 0.4 Nucleated Red Blood 0.0 Cells % Immature 0.060 H Granulocytes # Neutrophils # 8.2 H Lymphocytes # 1.2 Monocytes # 0.9 Eosinophils # 0.2 Basophils # 0.0 Nucleated Red Blood 0.0 Cells # Sodium Level 139 Potassium Level 4.3 Chloride Level 102 Carbon Dioxide Level 27 Anion Gap 10 Blood Urea Nitrogen 20 Creatinine 1.34 H Est Glomerular Filtrat Rate mL/min Glucose Level 114 Calcium Level 9.3 Bedside Glucose 103 Medications Medication Current Medications Amlodipine Besylate (Norvasc) 10 mg DAILY PO Last administered on 07/03/18 08:12; Admin Dose 10 MG; Start 07/02/18 at 09:00 Atorvastatin Calcium (Lipitor) 10 mg QHS PO Last administered on 07/02/18 21:32; Admin Dose 10 MG; Start 07/01/18 at 21:00 Benazepril HCl (Lotensin) 40 mg DAILY PO Last administered on 07/03/18 08:12; Admin Dose 40 MG; Start 07/02/18 at 09:00 Bimatoprost (Lumigan 0.01% Oph) 1 drop HS BOTH EYES Last administered on 07/02/18 21:33; Admin Dose 1 DROP; Start 07/01/18 at 21:00 Hydrochlorothiazide (Hydrochlorothiazide) 25 mg DAILY PO Last administered on 07/03/18 08:12; Admin Dose 25 MG; Start 07/02/18 at 09:00 Metformin HCl (Glucophage) 500 mg WITH BREAKFAST DINNE PO Last administered on 07/03/18 08:12; Admin Dose 500 MG; Start 07/01/18 at 18:00 Diagnostic Test (Pha) (Accu-Chek) 1 ea AC MEALS AND BEDTIME XX Last administered on 07/03/18 07:00; Admin Dose 1 EA; Start 07/01/18 at 17:30 Acetaminophen (Tylenol Tab) 650 mg Q6H PRN PO MILD PAIN(1-3)OR ELEVATED TEMP Last administered on 07/02/18 19:41; Admin Dose 650 MG; Start 07/01/18 at 17:00 Diagnostic Test (Pha) (Accu-Chek) 1 ea 02 XX ; Start 07/02/18 at 02:00 Insulin Aspart (Novolog Insulin Pen) NOVOLOG *MILD* ALGORITHM WITH MEALS BEDTIME SC ; Start 07/01/18 at 18:00 Miscellaneous Information 1 ea NOTE XX ; Start 07/01/18 at 17:30 Glucose (Glutose) 15 gm Q15M PRN PO DECREASED GLUCOSE; Start 07/01/18 at 17:30 Glucose (Glutose) 22.5 gm Q15M PRN PO DECREASED GLUCOSE; Start 07/01/18 at 17:30 Dextrose (D50w Syringe) 25 ml Q15M PRN IV DECREASED GLUCOSE; Start 07/01/18 at 17:30 Dextrose (D50w Syringe) 50 ml Q15M PRN IV DECREASED GLUCOSE; Start 07/01/18 at 17:30 Glucagon (Glucagen) 1 mg Q15M PRN IM DECREASED GLUCOSE; Start 07/01/18 at 17:30 Glucose (Glutose) 15 gm Q15M PRN BUCCAL DECREASED GLUCOSE; Start 07/01/18 at 17:30 Vancomycin HCl (Vanco Iv Per Pharmacy) VANCOMYCIN PER PHARMACY PER PROTOCOL XX ; Start 07/01/18 at 17:30 Levofloxacin/ Dextrose 100 ml @ 100 mls/hr Q24H IVPB Last administered on 07/02/18at 17:17; Admin Dose 100 MLS/HR; Start 07/01/18 at 18:30 Vancomycin HCl 1.5 gm/Sodium Chloride 250 ml @ 83.333 mls/ hr Q24H IVPB Last administered on 07/02/18at 21:31; Admin Dose 83.333 MLS/HR; Start 07/02/18 at 21:00 Tramadol HCl (Ultram) 50 mg Q6H PRN PO MODERATE PAIN LEVEL 4-6 Last administered on 07/02/18at 21:33; Admin Dose 50 MG; Start 07/01/18 at 21:00 INDERJIT MADDEN NP Jul 03, 2018 12:01
[2018-07-03] MEDS: ACETAMINOPHEN 325 MG TAB PO PRN ×2 (12:07→19:54)
--- NOTE | 2018-07-03 13:14 | PN ---
Date/Time of Note Date/Time of Note DATE: 07/03/18 TIME: 13:13 Assessment/Plan VTE Prophylaxis Risk score (from Nsg)>0 risk: 5 SCD applied (from Nsg): Yes Pharmacological prophylaxis: LMWH Lines/Catheters IV Catheter Type (from Nrs): Saline Lock Assessment/Plan Hospital Course S: Spoke in detail with Ortho, also does not believe the left shoulder joint is infected, recommends against aspiration at this time. Recommends continued workup for alternate source of fever. Patient did have recent travel to [place] earlier this year O: General: A&O x3, answering questions appropriately, no distress HEENT: NC/ AT. PERRL. EOM intact Neck: supple CVS: S1, S2, RRR. no murmurs. no pain on chest wall palpation Lungs: CTA b/l. no wheezing or rhonchi Abd: soft, nontender, +BS Ext: still with limited range of motion in L shoulder skin: no rashes, no edema, no joint deformity on gross exam assessment and plan: This is a 77-year-old male who presented with fever of 1 day's duration to the high of 102. His only other significant finding has been reduction in range of motion in left shoulder. He is currently admitted and managed as follows: 1. Sepsis versus systemic inflammatory response syndrome. Source is not quite clear. -Blood cultures negative so far / Influenza screen also negative / Urine culture showing probable contaminant. -TSH WNL -CRP and sed rate are both elevated, will continue to trend -In view of recent travel, will rule out West Nile virus and malaria parasite, will also send hepatitis screen -Work up also for occult DVT and occult malignancy -2d ECHO -likely Viral syndrome 2. Severe rotator cuff pathology with chronic degenerative changes and concern for synovitis rule out septic joint, left shoulder. -All findings are chronic per Ortho joint does not look infected. Also does not suspect any acute pathology that could explain fevers, -He recommends continued workup for alternate source -May benefit from steroid shot versus shoulder replacement once he is recovered from this acute illness 3. Chronic kidney disease. 4. Hypertension with suboptimal control. 5. Chronic diabetes mellitus type 2. 6. Chronic dyslipidemia. 7. Erectile dysfunction. 8. Chronic Glaucoma Dispo: see #1, continued workup Result Diagram: 07/03/1823 07/03/18 05 Results 24hrs Laboratory Tests Test 07/02/18 14:44 07/02/18 17:15 07/02/18 21:36 07/03/18 05:23 Erythrocyte 65 H Sedimentation Rate C-Reactive Protein 25.4 H Bedside Glucose 122 122 White Blood Count 10.6 Red Blood Count 3.79 L Hemoglobin 11.5 L Hematocrit 34.6 L Mean Corpuscular 91.3 Volume Mean Corpuscular 30.3 Hemoglobin Mean Corpuscular 33.2 Hemoglobin Concent Red Cell 12.8 Distribution Width Platelet Count 217 Mean Platelet Volume 10.7 H Immature 0.600 H Granulocytes % Neutrophils % 77.4 H Lymphocytes % 11.6 L Monocytes % 8.5 Eosinophils % 1.5 Basophils % 0.4 Nucleated Red Blood 0.0 Cells % Immature 0.060 H Granulocytes # Neutrophils # 8.2 H Lymphocytes # 1.2 Monocytes # 0.9 Eosinophils # 0.2 Basophils # 0.0 Nucleated Red Blood 0.0 Cells # Sodium Level 139 Potassium Level 4.3 Chloride Level 102 Carbon Dioxide Level 27 Anion Gap 10 Blood Urea Nitrogen 20 Creatinine 1.34 H Est Glomerular Filtrat Rate mL/min Glucose Level 114 Calcium Level 9.3 Test 07/03/18 08:10 07/03/18 12:09 Bedside Glucose 103 100 Exam/Review of Systems Exam Vitals Vital Signs Date Temp Pulse Resp B/P (MAP) Pulse Ox O2 O2 Flow FiO2 Time Delivery Rate 07/03/18 100.3 12:52 07/03/18 94 18 133/63 97 Room Air 08:00 (86) 07/01/18 2 10:32 Intake and Output 07/02/18 07/02/18 07/03/18 1515:00 23:00 07:00 IntakeIntake Total 600 ml 340 ml 250 ml BalanceBalance 600 ml 340 ml 250 ml Results Results 24hrs Laboratory Tests Test 07/02/18 14:44 07/02/18 17:15 07/02/18 21:36 07/03/18 05:23 Erythrocyte 65 H Sedimentation Rate C-Reactive Protein 25.4 H Bedside Glucose 122 122 White Blood Count 10.6 Red Blood Count 3.79 L Hemoglobin 11.5 L Hematocrit 34.6 L Mean Corpuscular 91.3 Volume Mean Corpuscular 30.3 Hemoglobin Mean Corpuscular 33.2 Hemoglobin Concent Red Cell 12.8 Distribution Width Platelet Count 217 Mean Platelet Volume 10.7 H Immature 0.600 H Granulocytes % Neutrophils % 77.4 H Lymphocytes % 11.6 L Monocytes % 8.5 Eosinophils % 1.5 Basophils % 0.4 Nucleated Red Blood 0.0 Cells % Immature 0.060 H Granulocytes # Neutrophils # 8.2 H Lymphocytes # 1.2 Monocytes # 0.9 Eosinophils # 0.2 Basophils # 0.0 Nucleated Red Blood 0.0 Cells # Sodium Level 139 Potassium Level 4.3 Chloride Level 102 Carbon Dioxide Level 27 Anion Gap 10 Blood Urea Nitrogen 20 Creatinine 1.34 H Est Glomerular Filtrat Rate mL/min Glucose Level 114 Calcium Level 9.3 Test 07/03/18 08:10 07/03/18 12:09 Bedside Glucose 103 100 Medications Medication Current Medications Amlodipine Besylate (Norvasc) 10 mg DAILY PO Last administered on 07/03/18 08:12; Admin Dose 10 MG; Start 07/02/18 at 09:00 Atorvastatin Calcium (Lipitor) 10 mg QHS PO Last administered on 07/02/18 21:32; Admin Dose 10 MG; Start 07/01/18 at 21:00 Benazepril HCl (Lotensin) 40 mg DAILY PO Last administered on 07/03/18 08:12; Admin Dose 40 MG; Start 07/02/18 at 09:00 Bimatoprost (Lumigan 0.01% Oph) 1 drop HS BOTH EYES Last administered on 07/02/18 21:33; Admin Dose 1 DROP; Start 07/01/18 at 21:00 Hydrochlorothiazide (Hydrochlorothiazide) 25 mg DAILY PO Last administered on 07/03/18 08:12; Admin Dose 25 MG; Start 07/02/18 at 09:00 Metformin HCl (Glucophage) 500 mg WITH BREAKFAST DINNE PO Last administered on 07/03/18 08:12; Admin Dose 500 MG; Start 07/01/18 at 18:00 Diagnostic Test (Pha) (Accu-Chek) 1 ea AC MEALS AND BEDTIME XX Last administered on 07/03/18 12:09; Admin Dose 1 EA; Start 07/01/18 at 17:30 Acetaminophen (Tylenol Tab) 650 mg Q6H PRN PO MILD PAIN(1-3)OR ELEVATED TEMP Last administered on 07/03/18 12:07; Admin Dose 650 MG; Start 07/01/18 at 17:00 Diagnostic Test (Pha) (Accu-Chek) 1 ea 02 XX ; Start 07/02/18 at 02:00 Insulin Aspart (Novolog Insulin Pen) NOVOLOG *MILD* ALGORITHM WITH MEALS BEDTIME SC ; Start 07/01/18 at 18:00 Miscellaneous Information 1 ea NOTE XX ; Start 07/01/18 at 17:30 Glucose (Glutose) 15 gm Q15M PRN PO DECREASED GLUCOSE; Start 07/01/18 at 17:30 Glucose (Glutose) 22.5 gm Q15M PRN PO DECREASED GLUCOSE; Start 07/01/18 at 17:30 Dextrose (D50w Syringe) 25 ml Q15M PRN IV DECREASED GLUCOSE; Start 07/01/18 at 17:30 Dextrose (D50w Syringe) 50 ml Q15M PRN IV DECREASED GLUCOSE; Start 07/01/18 at 17:30 Glucagon (Glucagen) 1 mg Q15M PRN IM DECREASED GLUCOSE; Start 07/01/18 at 17:30 Glucose (Glutose) 15 gm Q15M PRN BUCCAL DECREASED GLUCOSE; Start 07/01/18 at 17:30 Vancomycin HCl (Vanco Iv Per Pharmacy) VANCOMYCIN PER PHARMACY PER PROTOCOL XX ; Start 07/01/18 at 17:30 Vancomycin HCl 1.5 gm/Sodium Chloride 250 ml @ 83.333 mls/ hr Q24H IVPB Last administered on 07/02/18at 21:31; Admin Dose 83.333 MLS/HR; Start 07/02/18 at 21 :00 Tramadol HCl (Ultram) 50 mg Q6H PRN PO MODERATE PAIN LEVEL 4-6 Last administered on 07/02/18at 21:33; Admin Dose 50 MG; Start 07/01/18 at 21:00 Cefepime HCl 50 ml @ 100 mls/hr Q12 IVPB ; Start 07/03/18 at 21:00 LEONARD DARLING Jul 03, 2018 13:14
[2018-07-03] MEDS ORDERED: BARIUM SULF 2% 450 ML BTL (BERRY SMOOTHIE) PO ONE (13:30)
[2018-07-03 13:54] VITALS: BP 144/62; PULSE 82; RESP 18
--- NOTE | 2018-07-03 14:16 | PN ---
DATE: 07/02/2018 SUBJECTIVE: The patient continues to have fever. He states that he is happy to stay in the hospital until we figure out what is going on. He continues to have persistent shoulder pain which has been going on since beginning of the year. PHYSICAL EXAMINATION: VITAL SIGNS: Temperature 99.1, pulse 71, respirations 18, blood pressure 119/60, saturations 96% on room air. GENERAL: The patient is alert and oriented, very pleasant elderly man. HEENT: Head is normocephalic. Pupils equal and reactive. NECK: Supple. CHEST: Clear. CARDIOVASCULAR: S1 and 2. ABDOMEN: Soft, nontender. EXTREMITIES: His left upper extremity consistent with reduced range of motion of the shoulder. Please see my prior physical examination for details. No lower extremity edema, no skin rash or jaundice. LABORATORY VALUES: WBC count is down to 12,000, hemoglobin is 11, platelet count 195, suggestive of a neutrophil predominance, no bands. His chemistry: Potassium is low at 3.3, creatinine is 1.25, which is slightly improved from prior. Glucose levels are within normal range. Magnesium is borderline low at 1.7. MRI was reviewed and it showed severe supraspinatus and infraspinatus tendinosis with full thickness tear with moderate to severe subscapularis tendinosis with possible small focal interstitial tear. There is edema. There is atrophy of the rotator cuff muscles. There are degenerative changes also noted. There is moderate glenohumeral effusion and subacromial subdeltoid effusion consistent with synovitis. There is also a multilobulated cystic- appearing focus adjacent to the coracoid and rotator interval concerning for a ganglion versus paralabral cyst and the radiologist has recommended continuously sampling if clinical concern for infection. ASSESSMENT: 1. A 77-year-old male who was admitted yesterday with fever of 1 day's duration to the highs of 102 and reduced range of motion of the left shoulder on examination. Sepsis with unclear source, rule out a septic joint, left shoulder. 2. Severe rotator cuff pathology. Shoulder with possible synovitis which could be causing #1. 3. Chronic kidney disease, rule out acute kidney injury. 4. Hypertension with improved control. 5. Chronic diabetes mellitus type 2. 6. Chronic dyslipidemia. 7. History of erectile dysfunction. PLAN: Will get orthopedic consultation, ID consultation has been obtained, appreciate input. Continue empiric antibiotics for now. The patient will likely require joint aspiration and testing. Continue all other supportive care. Plan of care has been discussed with patient. Dictated By: LEONARD DARLING MD BA/GILMA Conf#: [id number] DID#: [id number] CC: LEONARD DARLING MD;*EndCC* MTDD
[2018-07-03] MEDS ORDERED: IOHEXOL 14.3 MG(I)/ML (ADULT) BTL PO ONE (14:30)
[2018-07-03 19:45] VITALS: BP 155/72; PULSE 87; RESP 18
[2018-07-03] MEDS: BIMATOPROST 0.01% 2.5 ML BTL BOTH EYES SCH (21:27)
[2018-07-03] MEDS: CEFEPIME 1GM/50 ML (PMX) 50 ML IVPB SCH (21:27)
[2018-07-03] MEDS: ATORVASTATIN 10 MG TAB PO SCH (21:27)
[2018-07-03] MEDS: VANCOMYCIN HCL 1.5 GM in SOD CHLORIDE 0.9% 250 ML IVPB SCH (22:19)
[2018-07-03] MEDS ORDERED: ACETAMINOPHEN 325 MG TAB PO ONE (22:30)
[2018-07-03] MEDS ORDERED: ZOLPIDEM 5 MG TAB PO ONE (23:00)
[2018-07-04] MEDS: ACCU-CHEK XX SCH ×5 (01:03→20:27)
[2018-07-04 01:53] VITALS: BP 143/65; PULSE 81; RESP 18
[2018-07-04] MEDS: ACETAMINOPHEN 325 MG TAB PO PRN ×3 (03:18→18:11)
[2018-07-04 08:00] VITALS: BP 147/76; PULSE 74; RESP 18
[2018-07-04] MEDS: metFORMIN 500 MG TAB PO SCH (08:00)
[2018-07-04] MEDS: INSULIN ASPART [NOVOLOG] 3 ML PEN SC SCH ×4 (08:00→20:21)
[2018-07-04] MEDS: HYDROCHLOROTHIAZIDE 25 MG TAB PO SCH (08:24)
[2018-07-04] MEDS: BENAZEPRIL 40 MG TAB PO SCH (08:24)
[2018-07-04] MEDS: ENOXAPARIN 40 MG/0.4 ML SYG SC SCH (08:25)
[2018-07-04] MEDS: CEFEPIME 1GM/50 ML (PMX) 50 ML IVPB SCH (08:25)
[2018-07-04] MEDS: AMLODIPINE 10 MG TAB PO SCH (08:25)
--- NOTE | 2018-07-04 13:18 | CONS ---
Assessment/Plan Assessment/Plan Hospital Course (Demo Recall) ID PROGRESS NOTE CURRENT ABX: DAY # => Vanco IV + Cefepime 07/04/18 0601 07/04/18 0601 24H INTERVAL SUMMARY * High fevers persisting -- fever > 102 reported by daughter today - WBC normalized * The only new complaint is acute left shoulder pain w/inability to move the arm -- DIAGNOSTIC IMAGING * 07/04/18 CXR: * 07/01/18 RIGHT SHOULDER MRI: IMPRESSION: * 1. Severe supraspinatus and infraspinatus tendinosis with full-thickness full width tears as above. Moderate to severe subscapularis tendinosis with a possible small focal interstitial tear. * 2. Mild to moderate atrophy and fatty infiltration of the supraspinatus and infraspinatus. Edema within the supraspinatus and infraspinatus may rep resent strain or denervation change. * 3. Long head of the biceps tendon not visualized within the bicipital groove compatible with complete tear and retraction, out of field of view. Superior labral degeneration and degenerative tear. * 4. Moderate glenohumeral effusion and subacromial subdeltoid fluid accumulation with synovitis. * 5. Mild glenohumeral and moderate to severe acromioclavicular arthropathy. * 6. 2 cm multilobulated cystic appearing focus adjacent to the coracoid and rotator interval more likely a ganglion/paralabral cyst, although there is a small adjacent vein, and the varix / vascular malformation cannot be completely excluded. * 7. Percutaneous fluid sampling may be obtained if there is clinical concern for infection. * 07/03/18 RENAL US: IMPRESSION: Normal kidneys. Complex septated fluid collection with internal debris in the soft tissues of the right lateral pelvic sidewall, not significantly changed since the prior study of 2018.. * 07/03/18 CT CHEST: IMPRESSION: * 6.5 cm circumscribed fluid collection along the right pelvic sidewall, leading directly posteromedial to the right external iliac vessels. Mild fat infiltration is seen adjacent to this collection. Differential considerations for this collection include an abscess, seroma, or resolving hematoma. * Irregular urinary bladder wall thickening, asymmetric to the right, thought to represent cystitis. This may reflect a primary urinary bladder infection versus secondary inflammation related to the adjacent collection. Correlation with urinalysis and CBC is recommended. A urinary bladder neoplasm is considered less likely but cannot be excluded. This could further evaluated with cystoscopy if clinically warranted. * Mild to moderate sigmoid colon diverticulosis. * Moderate atherosclerotic calcifications. MICRO/OTHER * 07/03/18 URINE CX (-) 24H * 07/03/18 BCX (-) * 07/03/18 BLOOD SMEAR: MALARIA SMEAR,THICK & THIN Preliminary Organism 1 NO MALARIAL PARASITE SEEN PHYSICAL EXAMINATION: GENERAL: VSS, NAD HEENT: AT, NC, anicteric, NECK: Supple, CHEST: Equal chest rise bilaterally, without dyspnea on observation HEART: Pulse RRR ABDOMEN: Soft / NT = benign EXTREMITIES: Warm, dry == not able to move left shoulder w/(+)left shoulder pain SKIN: No rash, no diaphoresis ID ASSESSMENT 77 yo M admit with: 1. SIRS vs sepsis w/high fevers, leukocytosis ==> unclear etiology possibly due to shoulder synovitis vs pelvic abscess ? 2. Severe rotator cuff pathology. Shoulder with possible synovitis which could be causing #1. * ==> no active infectious process in left shoulder per ortho note = low clinical suspicion per ORTHO 3. Hx of Prostate CANCER --> s/p Prostatectomy was done on October [address]Soroush Mason at [facility] [place]. 4.STABLE abnormal fluid collection RIGHT PELVIC WALL on CT == abdomen is benign == fluid collection was seen on OCTOBER 2017 CT as well * 6.5 cm circumscribed fluid collection along the right pelvic sidewall, leading directly posteromedial to the right external iliac vessels. Mild fat infiltration is seen adjacent to this collection. * Differential considerations for this collection include an abscess, seroma, or resolving hematoma. * Irregular urinary bladder wall thickening, asymmetric to the right, thought to represent cystitis. This may reflect a primary urinary bladder infection versus secondary inflammation related to the adjacent collection. Correlation with urinalysis and CBC is recommended. A urinary bladder neoplasm is consid ered less likely but cannot be excluded. This could further evaluated with cystoscopy if clinically warranted. * ABNORMALITY ON RENAL US: US: Complex septated fluid collection with internal debris in the soft tissues of the right lateral pelvic sidewall, not significantly changed since the prior study of 2018.. 5. Mild to moderate sigmoid colon diverticulosis. 6. Moderate atherosclerotic calcifications. 7. Diabetes 8. Glaucoma 9. 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 10. 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 Repeat BCx 2. Percutaneous fluid sampling of the shoulder may be obtained if there is clinical concern for infection== can we ask radiology to do this? 3. Consider vs surgical consult == pelvic fluid collection 4. Continue Vanco IV & Change Cefepime to MERREM as fevers persisting Consultation Date/Type/Reason Admit Date/Time Jul 01, 2018 at 16:52 Initial Consult Date 07/02/18 Date/Time of Note DATE: 07/04/18 TIME: 13:18 Exam/Review of Systems Exam Vitals Vital Signs Date Temp Pulse Resp B/P (MAP) Pulse Ox O2 O2 Flow FiO2 Time Delivery Rate 07/04/18 98.0 74 18 147/76 99 08:00 (99) 07/03/18 Room Air 13:54 07/01/18 2 10:32 Intake and Output 07/03/18 07/03/18 07/04/18 1515:00 23:00 07:00 IntakeIntake Total 960 ml 730 ml 450 ml OutputOutput Total 600 ml 400 ml BalanceBalance 960 ml 130 ml 50 ml Results Result Diagram: 07/04/18 0601 07/04/18 0601 Results 24hrs Laboratory Tests Test 07/03/18 14:02 07/03/18 14:08 07/03/18 14:21 07/03/18 17:22 Hepatitis B Surface NEGATIVE Antigen Hepatitis B Core REACTIVE H Total Antibody Hepatitis C NEGATIVE Antibody Hepatitis A IgM NON-REACTIVE Antibody D-Dimer 765.05 H D-Dimer Comment Bedside Glucose 104 Test 07/03/18 21:25 07/04/18 06:01 07/04/18 08:02 07/04/18 11:46 Bedside Glucose 135 100 161 White Blood Count 8.2 # Red Blood Count 3.66 L Hemoglobin 11.3 L Hematocrit 33.4 L Mean Corpuscular 91.3 Volume Mean Corpuscular 30.9 Hemoglobin Mean Corpuscular 33.8 Hemoglobin Concent Red Cell 12.9 Distribution Width Platelet Count 243 Mean Platelet 10.5 H Volume Immature 0.500 H Granulocytes % Neutrophils % 74.4 Lymphocytes % 11.8 L Monocytes % 11.2 H Eosinophils % 1.6 Basophils % 0.5 Nucleated Red Blood 0.0 Cells % Immature 0.040 H Granulocytes # Neutrophils # 6.1 Lymphocytes # 1.0 Monocytes # 0.9 Eosinophils # 0.1 Basophils # 0.0 Nucleated Red Blood 0.0 Cells # Sodium Level 139 Potassium Level 3.9 Chloride Level 101 Carbon Dioxide 29 Level Anion Gap 9 Blood Urea Nitrogen 20 Creatinine 1.40 H Est Glomerular Filtrat Rate mL/min Glucose Level 107 Calcium Level 9.4 Medications Medication Current Medications Amlodipine Besylate (Norvasc) 10 mg DAILY PO Last administered on 07/04/18 08:25; Admin Dose 10 MG; Start 07/02/18 at 09:00 Atorvastatin Calcium (Lipitor) 10 mg QHS PO Last administered on 07/03/18 21:27; Admin Dose 10 MG; Start 07/01/18 at 21:00 Benazepril HCl (Lotensin) 40 mg DAILY PO Last administered on 07/04/18 08:24; Admin Dose 40 MG; Start 07/02/18 at 09:00 Bimatoprost (Lumigan 0.01% Oph) 1 drop HS BOTH EYES Last administered on 07/03/18 21:27; Admin Dose 1 DROP; Start 07/01/18 at 21:00 Hydrochlorothiazide (Hydrochlorothiazide) 25 mg DAILY PO Last administered on 07/04/18 08:24; Admin Dose 25 MG; Start 07/02/18 at 09:00 Metformin HCl (Glucophage) 500 mg WITH BREAKFAST DINNE PO Last administered on 07/03/18 08:12; Admin Dose 500 MG; Start 07/01/18 at 18:00 Diagnostic Test (Pha) (Accu-Chek) 1 ea AC MEALS AND BEDTIME XX Last administered on 07/04/18 11:49; Admin Dose 1 EA; Start 07/01/18 at 17:30 Acetaminophen (Tylenol Tab) 650 mg Q6H PRN PO MILD PAIN(1-3)OR ELEVATED TEMP Last administered on 07/04/18 03:18; Admin Dose 650 MG; Start 07/01/18 at 17:00 Diagnostic Test (Pha) (Accu-Chek) 1 ea 02 XX ; Start 07/02/18 at 02:00 Insulin Aspart (Novolog Insulin Pen) NOVOLOG *MILD* ALGORITHM WITH MEALS BEDTIME SC Last administered on 07/04/18at 12:28; Admin Dose 1 UNIT; Start 07/01/18 at 18:00 Miscellaneous Information 1 ea NOTE XX ; Start 07/01/18 at 17:30 Glucose (Glutose) 15 gm Q15M PRN PO DECREASED GLUCOSE; Start 07/01/18 at 17:30 Glucose (Glutose) 22.5 gm Q15M PRN PO DECREASED GLUCOSE; Start 07/01/18 at 17:30 Dextrose (D50w Syringe) 25 ml Q15M PRN IV DECREASED GLUCOSE; Start 07/01/18 at 17:30 Dextrose (D50w Syringe) 50 ml Q15M PRN IV DECREASED GLUCOSE; Start 07/01/18 at 17:30 Glucagon (Glucagen) 1 mg Q15M PRN IM DECREASED GLUCOSE; Start 07/01/18 at 17:30 Glucose (Glutose) 15 gm Q15M PRN BUCCAL DECREASED GLUCOSE; Start 07/01/18 at 17:30 Vancomycin HCl (Vanco Iv Per Pharmacy) VANCOMYCIN PER PHARMACY PER PROTOCOL XX ; Start 07/01/18 at 17:30 Vancomycin HCl 1.5 gm/Sodium Chloride 250 ml @ 83.333 mls/ hr Q24H IVPB Last administered on 07/03/18at 22:19; Admin Dose 83.333 MLS/HR; Start 07/02/18 at 21:00 Tramadol HCl (Ultram) 50 mg Q6H PRN PO MODERATE PAIN LEVEL 4-6 Last admin istered on 07/02/18at 21:33; Admin Dose 50 MG; Start 07/01/18 at 21:00 Cefepime HCl 50 ml @ 100 mls/hr Q12 IVPB Last administered on 07/04/18at 08:25; Admin Dose 100 MLS/HR; Start 07/03/18 at 21:00 Enoxaparin Sodium (Lovenox) 40 mg DAILY SC Last administered on 07/04/18at 08:25; Admin Dose 40 MG; Start 07/04/18 at 09:00 Miscellaneous Information (*Rx Drug Level Order Reminder*) VANCO TROUGH @ 2,000 ON... 1999 ONCE XX ; Start 07/04/18 at 20:00; Stop 07/04/18 at 20:01 ANGELITO ZHONG NP Jul 04, 2018 13:18
[2018-07-04 14:00] VITALS: BP 137/65; PULSE 85; RESP 18
[2018-07-04] MEDS: MEROPENEM 1 GM/50ML(PMX) 50 ML IVPB SCH ×2 (15:06→20:22)
--- NOTE | 2018-07-04 15:09 | PN ---
Date/Time of Note Date/Time of Note DATE: 07/04/18 TIME: 15:05 Assessment/Plan VTE Prophylaxis Risk score (from Ns)>0 risk: 4 SCD applied (from Ns): No SCD contraindicated: low risk/ambulating Pharmacological prophylaxis: LMWH Pharm contraindication: low risk/ambulating Lines/Catheters [facility] Type (from [facility] Peripheral IV Assessment/Plan Hospital Course Assessment and plan 1. Fever, Undetermined etio. No evidence of lt shoulder abscess. Pelvic/abd f luid collection appears subacute. Consider infected hematoma. Ro endocarditis. Follow-up on cultures. Consider flow cytometry/bone marrow smear. No evidence of flu. 2. 2 diabetes 3. Dyslipidemia 4. Hypertension 5. CKD 6. History of hepatitis B viremia? 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 Abdominal/pelvic fluid collection, consider IR guided drainage to rule out infected hematoma 9. Past tobacco Subjective: Intermittent fever no chills no Reiger. No abdominal pain dysuria Objective: Fever noted Physical exam No pallor. Poor oral hygiene Regular no mrg Clear Bs+ nt nd no RRG No edema Result Diagram: 07/04/18 0601 07/04/18 0601 Results 24hrs Laboratory Tests Test 07/03/18 17:22 07/03/18 21:25 07/04/18 06:01 07/04/18 08:02 Bedside Glucose 104 135 100 White Blood Count 8.2 # Red Blood Count 3.66 L Hemoglobin 11.3 L Hematocrit 33.4 L Mean Corpuscular 91.3 Volume Mean Corpuscular 30.9 Hemoglobin Mean Corpuscular 33.8 Hemoglobin Concent Red Cell 12.9 Distribution Width Platelet Count 243 Mean Platelet Volume 10.5 H Immature 0.500 H Granulocytes % Neutrophils % 74.4 Lymphocytes % 11.8 L Monocytes % 11.2 H Eosinophils % 1.6 Basophils % 0.5 Nucleated Red Blood 0.0 Cells % Immature 0.040 H Granulocytes # Neutrophils # 6.1 Lymphocytes # 1.0 Monocytes # 0.9 Eosinophils # 0.1 Basophils # 0.0 Nucleated Red Blood 0.0 Cells # Sodium Level 139 Potassium Level 3.9 Chloride Level 101 Carbon Dioxide Level 29 Anion Gap 9 Blood Urea Nitrogen 20 Creatinine 1.40 H Est Glomerular Filtrat Rate mL/min Glucose Level 107 Calcium Level 9.4 Test 07/04/18 11:46 Bedside Glucose 161 Exam/Review of Systems Exam Vitals Vital Signs Date Temp Pulse Resp B/P (MAP) Pulse Ox O2 O2 Flow FiO2 Time Delivery Rate 07/04/18 101.3 15:00 07/04/18 85 18 137/65 97 14:00 (89) 07/03/18 Room Air 13:54 07/01/18 2 10:32 Intake and Output 07/03/18 07/03/18 07/04/18 1515:00 23:00 07:00 IntakeIntake Total 960 ml 730 ml 450 ml OutputOutput Total 600 ml 400 ml BalanceBalance 960 ml 130 ml 50 ml Results Results 24hrs Laboratory Tests Test 07/03/18 17:22 07/03/18 21:25 07/04/18 06:01 07/04/18 08:02 Bedside Glucose 104 135 100 White Blood Count 8.2 # Red Blood Count 3.66 L Hemoglobin 11.3 L Hematocrit 33.4 L Mean Corpuscular 91.3 Volume Mean Corpuscular 30.9 Hemoglobin Mean Corpuscular 33.8 Hemoglobin Concent Red Cell 12.9 Distribution Width Platelet Count 243 Mean Platelet Volume 10.5 H Immature 0.500 H Granulocytes % Neutrophils % 74.4 Lymphocytes % 11.8 L Monocytes % 11.2 H Eosinophils % 1.6 Basophils % 0.5 Nucleated Red Blood 0.0 Cells % Immature 0.040 H Granulocytes # Neutrophils # 6.1 Lymphocytes # 1.0 Monocytes # 0.9 Eosinophils # 0.1 Basophils # 0.0 Nucleated Red Blood 0.0 Cells # Sodium Level 139 Potassium Level 3.9 Chloride Level 101 Carbon Dioxide Level 29 Anion Gap 9 Blood Urea Nitrogen 20 Creatinine 1.40 H Est Glomerular Filtrat Rate mL/min Glucose Level 107 Calcium Level 9.4 Test 07/04/18 11:46 Bedside Glucose 161 Medications Medication Current Medications Amlodipine Besylate (Norvasc) 10 mg DAILY PO Last administered on 07/04/18at 08:25; Admin Dose 10 MG; Start 07/02/18 at 09:00 Atorvastatin Calcium (Lipitor) 10 mg QHS PO Last administered on 07/03/18at 21:27; Admin Dose 10 MG; Start 07/01/18 at 21:00 Benazepril HCl (Lotensin) 40 mg DAILY PO Last administered on 07/04/18at 08:24; Admin Dose 40 MG; Start 07/02/18 at 09:00 Bimatoprost (Lumigan 0.01% Oph) 1 drop HS BOTH EYES Last administered on 07/03/18 21:27; Admin Dose 1 DROP; Start 07/01/18 at 21:00 Hydrochlorothiazide (Hydrochlorothiazide) 25 mg DAILY PO Last administered on 07/04/18 08:24; Admin Dose 25 MG; Start 07/02/18 at 09:00 Metformin HCl (Glucophage) 500 mg WITH BREAKFAST DINNE PO Last administered on 07/03/18 08:12; Admin Dose 500 MG; Start 07/01/18 at 18:00 Diagnostic Test (Pha) (Accu-Chek) 1 ea AC MEALS AND BEDTIME XX Last administered on 07/04/18 11:49; Admin Dose 1 EA; Start 07/01/18 at 17:30 Acetaminophen (Tylenol Tab) 650 mg Q6H PRN PO MILD PAIN(1-3)OR ELEVATED TEMP Last administered on 07/04/18 13:54; Admin Dose 650 MG; Start 07/01/18 at 17:00 Diagnostic Test (Pha) (Accu-Chek) 1 ea 02 XX ; Start 07/02/18 at 02:00 Insulin Aspart (Novolog Insulin Pen) NOVOLOG *MILD* ALGORITHM WITH MEALS BEDTIME SC Last administered on 07/04/18 12:28; Admin Dose 1 UNIT; Start 07/01/18 at 18:00 Miscellaneous Information 1 ea NOTE XX ; Start 07/01/18 at 17:30 Glucose (Glutose) 15 gm Q15M PRN PO DECREASED GLUCOSE; Start 07/01/18 at 17:30 Glucose (Glutose) 22.5 gm Q15M PRN PO DECREASED GLUCOSE; Start 07/01/18 at 17:30 Dextrose (D50w Syringe) 25 ml Q15M PRN IV DECREASED GLUCOSE; Start 07/01/18 at 17:30 Dextrose (D50w Syringe) 50 ml Q15M PRN IV DECREASED GLUCOSE; Start 07/01/18 at 17:30 Glucagon (Glucagen) 1 mg Q15M PRN IM DECREASED GLUCOSE; Start 07/01/18 at 17:30 Glucose (Glutose) 15 gm Q15M PRN BUCCAL DECREASED GLUCOSE; Start 07/01/18 at 17:30 Vancomycin HCl (Vanco Iv Per Pharmacy) VANCOMYCIN PER PHARMACY PER PROTOCOL XX ; Start 07/01/18 at 17:30 Vancomycin HCl 1.5 gm/Sodium Chloride 250 ml @ 83.333 mls/ hr Q24H IVPB Last administered on 07/03/18at 22:19; Admin Dose 83.333 MLS/HR; Start 07/02/18 at 21:00 Tramadol HCl (Ultram) 50 mg Q6H PRN PO MODERATE PAIN LEVEL 4-6 Last administered on 07/02/18at 21:33; Admin Dose 50 MG; Start 07/01/18 at 21:00 Enoxaparin Sodium (Lovenox) 40 mg DAILY SC Last administered on 07/04/18at 08:25; Admin Dose 40 MG; Start 07/04/18 at 09:00 Miscellaneous Information (*Rx Drug Level Order Reminder*) VANCO TROUGH @ 2,000 ON... 2000 ONCE XX ; Start 07/04/18 at 20:00; Stop 07/04/18 at 20:01 Meropenem/Sodium Chloride 50 ml @ 100 mls/hr Q12 IVPB ; Start 07/04/18 at 14:30 JUSTYNA ROGERS MD Jul 04, 2018 15:09
[2018-07-04] MEDS: SOD CHLORIDE 0.9% 1,000 ML IV SCH ×2 (15:57→20:24)
[2018-07-04 19:42] VITALS: BP 120/59; PULSE 98; RESP 20
[2018-07-04] MEDS: BIMATOPROST 0.01% 2.5 ML BTL BOTH EYES SCH (20:22)
[2018-07-04] MEDS: ATORVASTATIN 10 MG TAB PO SCH (20:23)
[2018-07-04] MEDS: LACTOBACILLUS RHAMNOSUS CAP PO SCH (20:23)
[2018-07-04] MEDS ORDERED: ZOLPIDEM 5 MG TAB PO ONE (21:00)
[2018-07-04] MEDS: VANCOMYCIN HCL 1.5 GM in SOD CHLORIDE 0.9% 250 ML IVPB SCH (21:08)
[2018-07-05] MEDS: ACCU-CHEK XX SCH ×5 (01:02→21:20)
[2018-07-05] MEDS: ACETAMINOPHEN 325 MG TAB PO PRN ×4 (01:41→16:21)
[2018-07-05 01:49] VITALS: BP 134/63; PULSE 80; RESP 20
[2018-07-05 07:30] VITALS: BP 154/67; PULSE 80; RESP 18
[2018-07-05] MEDS: INSULIN ASPART [NOVOLOG] 3 ML PEN SC SCH ×4 (08:00→20:07)
[2018-07-05] MEDS: AMLODIPINE 10 MG TAB PO SCH (08:07)
[2018-07-05] MEDS: LACTOBACILLUS RHAMNOSUS CAP PO SCH ×2 (08:07→20:08)
[2018-07-05] MEDS: BENAZEPRIL 40 MG TAB PO SCH (08:07)
[2018-07-05] MEDS: MEROPENEM 1 GM/50ML(PMX) 50 ML IVPB SCH ×2 (08:07→20:07)
[2018-07-05] MEDS: ENOXAPARIN 40 MG/0.4 ML SYG SC SCH (08:14)
[2018-07-05] MEDS: SOD CHLORIDE 0.9% 1,000 ML IV SCH ×2 (12:18→22:00)
--- NOTE | 2018-07-05 12:27 | PN ---
Date/Time of Note Date/Time of Note DATE: 07/05/18 TIME: 12:24 Assessment/Plan VTE Prophylaxis Risk score (from Ns)>0 risk: 4 SCD applied (from Ns): No SCD contraindicated: low risk/ambulating Pharmacological prophylaxis: LMWH Lines/Catheters [facility] (from [facility]): Peripheral IV Assessment/Plan Hospital Course Assessment and plan 1. Fever, etio? No evidence of flu or shoulder abscess. Fluid collection appears subacute. Ro endocarditis. F/u cultures/ echo. Consider flow cytometry/bm smear. Viral process? 2. II Dm 3. Dyslipidemia/anabolic syndrome 4. Hypertension 5. CKD 6. History of hepatitis B viremia? 7. Left shoulder DJD; sp injury 8. Abd/pelvic fluid collection, consider IR guided drainage, to rule out infected hematoma 9. Past tobacco 10. Poor oral hygiene. Denies any recent dental work, or toothaches. Subjective: 07/04 intermittent fever no chills no Reiger. No abdominal pain dysuria 07/05 fever appears improved but is on antibiotics Objective: Fever; vss Physical exam No pallor. Poor oral hygiene Regular no mrg Clear Bs+ nt nd no RRG No edema Result Diagram: 07/05/18 0614 07/05/18 0614 Results 24hrs Laboratory Tests Test 07/04/18 17:05 07/04/18 20:00 07/04/18 20:20 07/05/18 06:14 Bedside Glucose 154 145 Vancomycin Level 9.7 L Trough White Blood Count 9.2 Red Blood Count 3.54 L Hemoglobin 10.9 L Hematocrit 32.7 L Mean Corpuscular 92.4 Volume Mean Corpuscular 30.8 Hemoglobin Mean Corpuscular 33.3 Hemoglobin Concent Red Cell 13.0 Distribution Width Platelet Count 267 Mean Platelet Volume 10.3 Immature 0.900 H Granulocytes % Neutrophils % 70.9 Lymphocytes % 14.3 L Monocytes % 11.8 H Eosinophils % 1.7 Basophils % 0.4 Nucleated Red Blood 0.0 Cells % Immature 0.080 H Granulocytes # Neutrophils # 6.5 Lymphocytes # 1.3 Monocytes # 1.1 H Eosinophils # 0.2 Basophils # 0.0 Nucleated Red Blood 0.0 Cells # Sodium Level 139 Potassium Level 3.8 Chloride Level 103 Carbon Dioxide Level 28 Anion Gap 8 Blood Urea Nitrogen 22 H Creatinine 1.51 H Est Glomerular Filtrat Rate mL/min Glucose Level 107 Calcium Level 9.0 Total Bilirubin 0.6 Direct Bilirubin 0.00 Indirect Bilirubin 0.6 Aspartate Amino 72 H Transf (AST/SGOT) Alanine 73 H Aminotransferase (AL T/SGPT) Alkaline Phosphatase 107 Total Protein 7.0 Albumin 3.6 Globulin 3.40 H Albumin/Globulin 1.05 Ratio Prostate Specific 0.5 Antigen Test 07/05/18 07:55 07/05/18 11:43 Bedside Glucose 112 135 Exam/Review of Systems Exam Vitals Vital Signs Date Temp Pulse Resp B/P (MAP) Pulse Ox O2 O2 Flow FiO2 Time Delivery Rate 07/05/18 99.8 07:57 07/05/18 80 18 154/67 96 Room Air 07:30 (96) 07/01/18 2 10:32 Intake and Output 07/04/18 07/04/18 07/05/18 1515:00 23:00 07:00 IntakeIntake Total 810 ml 620 ml 250 ml OutputOutput Total 400 ml 425 ml 1375 ml BalanceBalance 410 ml 195 ml -1125 ml Results Results 24hrs Laboratory Tests Test 07/04/18 17:05 07/04/18 20:00 07/04/18 20:20 07/05/18 06:14 Bedside Glucose 154 145 Vancomycin Level 9.7 L Trough White Blood Count 9.2 Red Blood Count 3.54 L Hemoglobin 10.9 L Hematocrit 32.7 L Mean Corpuscular 92.4 Volume Mean Corpuscular 30.8 Hemoglobin Mean Corpuscular 33.3 Hemoglobin Concent Red Cell 13.0 Distribution Width Platelet Count 267 Mean Platelet Volume 10.3 Immature 0.900 H Granulocytes % Neutrophils % 70.9 Lymphocytes % 14.3 L Monocytes % 11.8 H Eosinophils % 1.7 Basophils % 0.4 Nucleated Red Blood 0.0 Cells % Immature 0.080 H Granulocytes # Neutrophils # 6.5 Lymphocytes # 1.3 Monocytes # 1.1 H Eosinophils # 0.2 Basophils # 0.0 Nucleated Red Blood 0.0 Cells # Sodium Level 139 Potassium Level 3.8 Chloride Level 103 Carbon Dioxide Level 28 Anion Gap 8 Blood Urea Nitrogen 22 H Creatinine 1.51 H Est Glomerular Filtrat Rate mL/min Glucose Level 107 Calcium Level 9.0 Total Bilirubin 0.6 Direct Bilirubin 0.00 Indirect Bilirubin 0.6 Aspartate Amino 72 H Transf (AST/SGOT) Alanine 73 H Aminotransferase (AL T/SGPT) Alkaline Phosphatase 107 Total Protein 7.0 Albumin 3.6 Globulin 3.40 H Albumin/Globulin 1.05 Ratio Prostate Specific 0.5 Antigen Test 07/05/18 07:55 07/05/18 11:43 Bedside Glucose 112 135 Medications Medication Current Medications Amlodipine Besylate (Norvasc) 10 mg DAILY PO Last administered on 07/05/18 08:07; Admin Dose 10 MG; Start 07/02/18 at 09:00 Atorvastatin Calcium (Lipitor) 10 mg QHS PO Last administered on 07/04/18 20: 23; Admin Dose 10 MG; Start 07/01/18 at 21:00 Benazepril HCl (Lotensin) 40 mg DAILY PO Last administered on 07/05/18 08:07; Admin Dose 40 MG; Start 07/02/18 at 09:00 Bimatoprost (Lumigan 0.01% Oph) 1 drop HS BOTH EYES Last administered on 07/04/18 20:22; Admin Dose 1 DROP; Start 07/01/18 at 21:00 Diagnostic Test (Pha) (Accu-Chek) 1 ea AC MEALS AND BEDTIME XX Last administered on 07/05/18at 11:45; Admin Dose 1 EA; Start 07/01/18 at 17:30 Diagnostic Test (Pha) (Accu-Chek) 1 ea 02 XX ; Start 07/02/18 at 02:00 Insulin Aspart (Novolog Insulin Pen) NOVOLOG *MILD* ALGORITHM WITH MEALS BEDTIME SC Last administered on 07/04/18at 17:10; Admin Dose 1 UNIT; Start 07/01/18 at 18:00 Miscellaneous Information 1 ea NOTE XX ; Start 07/01/18 at 17:30 Glucose (Glutose) 15 gm Q15M PRN PO DECREASED GLUCOSE; Start 07/01/18 at 17:30 Glucose (Glutose) 22.5 gm Q15M PRN PO DECREASED GLUCOSE; Start 07/01/18 at 17:30 Dextrose (D50w Syringe) 25 ml Q15M PRN IV DECREASED GLUCOSE; Start 07/01/18 at 17:30 Dextrose (D50w Syringe) 50 ml Q15M PRN IV DECREASED GLUCOSE; Start 07/01/18 at 17:30 Glucagon (Glucagen) 1 mg Q15M PRN IM DECREASED GLUCOSE; Start 07/01/18 at 17:30 Glucose (Glutose) 15 gm Q15M PRN BUCCAL DECREASED GLUCOSE; Start 07/01/18 at 17:30 Vancomycin HCl (Vanco Iv Per Pharmacy) VANCOMYCIN PER PHARMACY PER PROTOCOL XX ; Start 07/01/18 at 17:30 Tramadol HCl (Ultram) 50 mg Q6H PRN PO MODERATE PAIN LEVEL 4-6 Last administered on 07/02/18 21:33; Admin Dose 50 MG; Start 07/01/18 at 21:00 Enoxaparin Sodium (Lovenox) 40 mg DAILY SC Last administered on 07/05/18 08:14; Admin Dose 40 MG; Start 07/04/18 at 09:00 Meropenem/Sodium Chloride 50 ml @ 100 mls/hr Q12 IVPB Last administered on 08:07; Admin Dose 100 MLS/HR; Start 07/04/18 at 14:30 Acetaminophen (Tylenol Tab) 650 mg Q4 PRN PO MILD PAIN(1-3)OR ELEVATED TEMP Last administered on 07/05/18 08:12; Admin Dose 650 MG; Start 07/04/18 at 15:30 Lactobacillus Acidophilus/ Rhamnosus (Culturelle) 1 cap BID PO Last administere d on 07/05/18 08:07; Admin Dose 1 CAP; Start 07/04/18 at 21:00 Sodium Chloride 1,000 ml @ 100 mls/hr Q10H IV Last administered on 07/05/18 12:18; Admin Dose 100 MLS/HR; Start 07/04/18 at 16:00 Vancomycin HCl 1.75 gm/Sodium Chloride 500 ml @ 125 mls/hr Q24H IVPB ; Start 07/05/18 at 21:00 JUSTYNA ROGERS MD Jul 05, 2018 12:27
--- NOTE | 2018-07-05 16:13 | CONS ---
Assessment/Plan Assessment/Plan Hospital Course (Demo Recall) ID PROGRESS NOTE CURRENT ABX: DAY # => Vanco IV + MERREM s/p Cefepime 07/05/18 0614 07/05/18 0614 24H INTERVAL SUMMARY * Fever of unknown origin -- So far etiology remains a mystery * Today doing OK, no fever spike -- ABX changed to Merrem last night * Per Ortho = shoulder synovitis not infection * ABD/Pelvis is benign -- no pain on palpation w/chronic right pelvic wall fluid collection -- unclear ? * Malaria smear (-) * BCx remain (-) -- r/o SBE? * The only new complaint is acute left shoulder pain w/inability to move the arm -- per ortho the status unchanged since APR 2018 DIAGNOSTIC IMAGING * 07/04/18 CXR: * 07/01/18 RIGHT SHOULDER MRI: IMPRESSION: * 1. Severe supraspinatus and infraspinatus tendinosis with full-thickness full width tears as above. Moderate to severe subscapularis tendinosis with a possible small focal interstitial tear. * 2. Mild to moderate atrophy and fatty infiltration of the supraspinatus and infraspinatus. Edema within the supraspinatus and infraspinatus may represent strain or denervation change. * 3. Long head of the biceps tendon not visualized within the bicipital groove compatible with complete tear and retraction, out of field of view. Superior labral degeneration and degenerative tear. * 4. Moderate glenohumeral effusion and subacromial subdeltoid fluid accumulation with synovitis. * 5. Mild glenohumeral and moderate to severe acromioclavicular arthropathy. * 6. 2 cm multilobulated cystic appearing focus adjacent to the coracoid and rotator interval more likely a ganglion/paralabral cyst, although there is a small adjacent vein, and the varix / vascular malformation cannot be completely excluded. * 7. Percutaneous fluid sampling may be obtained if there is clinical concern for infection. * 07/03/18 RENAL US: IMPRESSION: Normal kidneys. Complex septated fluid collection with internal debris in the soft tissues of the right lateral pelvic sidewall, not significantly changed since the prior study of 2018.. * 07/03/18 CT CHEST: IMPRESSION: * 6.5 cm circumscribed fluid collection along the right pelvic sidewall, leading directly posteromedial to the right external iliac vessels. Mild f at infiltration is seen adjacent to this collection. Differential considerations for this collection include an abscess, seroma, or resolving hematoma. * Irregular urinary bladder wall thickening, asymmetric to the right, thought to represent cystitis. This may reflect a primary urinary bladder infection versus secondary inflammation related to the adjacent collection. Correlation with urinalysis and CBC is recommended. A urinary bladder neoplasm is considered less likely but cannot be excluded. This could further evaluated with cystoscopy if clinically warranted. * Mild to moderate sigmoid colon diverticulosis. * Moderate atherosclerotic calcifications. MICRO/OTHER * 07/04/18 BCx (-) 24H * 07/03/18 URINE CX (-) 24H * 07/03/18 BCX (-) * 07/03/18 BLOOD SMEAR: MALARIA SMEAR,THICK & THIN Preliminary Organism 1 NO MALARIAL PARASITE SEEN * 07/01/18 URINE CX: URINE CULTURE Final Organism 1 MIXED GRAM POSITIVE ORGANISMS COLONY COUNT 20,000 - 30,000 CFU/ml PHYSICAL EXAMINATION: GENERAL: VSS, NAD HEENT: AT, NC, anicteric, NECK: Supple, CHEST: Equal chest rise bilaterally, without dyspnea on observation HEART: Pulse RRR ABDOMEN: Soft / NT = benign EXTREMITIES: Warm, dry == not able to move left shoulder w/(+)left shoulder pain SKIN: No rash, no diaphoresis ID ASSESSMENT 77 yo M admit with: 1. SIRS vs sepsis w/high fevers, leukocytosis ==> unclear etiology possibly due to shoulder synovitis vs pelvic abscess ? 2. Severe rotator cuff pathology. Shoulder with possible synovitis which could be causing #1. * ==> no active infectious process in left shoulder per ortho note = low clinical suspicion per ORTHO 3. Hx of Prostate CANCER --> s/p Prostatectomy was done on October [address]Soroush Mason at [facility]. * PSA is normal range (Hx of prostate cancer and mixed pathogen UTI) 4.STABLE abnormal fluid collection RIGHT PELVIC WALL on CT == abdomen is benign == fluid collection was seen on OCTOBER 2017 CT as well * 6.5 cm circumscribed fluid collection along the right pelvic sidewall, leading directly posteromedial to the right external iliac vessels. Mild fat infiltration is seen adjacent to this collection. * Differential considerations for this collection include an abscess, seroma, or resolving hematoma. * Irregular urinary bladder wall thickening, asymmetric to the right, thought to represent cystitis. This may reflect a primary urinary bladder infection versus secondary inflammation related to the adjacent collection. Correlation with urinalysis and CBC is recommended. A urinary bladder neoplasm is consi dered less likely but cannot be excluded. This could further evaluated with cystoscopy if clinically warranted. * ABNORMALITY ON RENAL US: US: Complex septated fluid collection with internal debris in the soft tissues of the right lateral pelvic sidewall, not significantly changed since the prior study of 2018.. 5. Mild to moderate sigmoid colon diverticulosis. 6. Moderate atherosclerotic calcifications. 7. Diabetes 8. Glaucoma 9. 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 10. 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 Mixed pathogen bacteruria = NO SIGNIFICANT = not compelling for acute vs chronic prostatitis * PSA is normal range (Hx of prostate cancer and mixed pathogen bacteruria) (-)MRSA Nares ABX ALLERGIES: None to ABX INVASIVES: PIV CURRENT ABX: DAY # => Vanco IV + MERREM s/p Cefepime ID RECOMMENDATIONS/PLAN: 1. Repeat BCx PRN fevers 2. Percutaneous fluid sampling of the shoulder may be obtained if there is clini gregorio concern for infection== can we ask radiology to do this? 3. Consider vs surgical consult == pelvic fluid collection sampling ? 4. Continue Vanco IV & MERREM 5. Consider WBC Indium-Nuclear Scan Consultation Date/Type/Reason Admit Date/Time Jul 01, 2018 at 16:52 Initial Consult Date 07/02/18 Date/Time of Note DATE: 07/05/18 TIME: 15:34 Exam/Review of Systems Exam Vitals Vital Signs Date Temp Pulse Resp B/P (MAP) Pulse Ox O2 O2 Flow FiO2 Time Delivery Rate 07/05/18 99.8 07:57 07/05/18 80 18 154/67 96 Room Air 07:30 (96) 07/01/18 2 10:32 Intake and Output 07/04/18 07/04/18 07/05/18 1414:59 22:59 06:59 IntakeIntake Total 810 ml 620 ml 250 ml OutputOutput Total 400 ml 425 ml 1375 ml BalanceBalance 410 ml 195 ml -1125 ml Results Result Diagram: 07/05/18 0614 07/05/1814 Results 24hrs Laboratory Tests Test 07/04/18 17:05 07/04/18 20:00 07/04/18 20:20 07/05/18 06:14 Bedside Glucose 154 145 Vancomycin Level 9.7 L Trough White Blood Count 9.2 Red Blood Count 3.54 L Hemoglobin 10.9 L Hematocrit 32.7 L Mean Corpuscular 92.4 Volume Mean Corpuscular 30.8 Hemoglobin Mean Corpuscular 33.3 Hemoglobin Concent Red Cell 13.0 Distribution Width Platelet Count 267 Mean Platelet Volume 10.3 Immature 0.900 H Granulocytes % Neutrophils % 70.9 Lymphocytes % 14.3 L Monocytes % 11.8 H Eosinophils % 1.7 Basophils % 0.4 Nucleated Red Blood 0.0 Cells % Immature 0.080 H Granulocytes # Neutrophils # 6.5 Lymphocytes # 1.3 Monocytes # 1.1 H Eosinophils # 0.2 Basophils # 0.0 Nucleated Red Blood 0.0 Cells # Sodium Level 139 Potassium Level 3.8 Chloride Level 103 Carbon Dioxide Level 28 Anion Gap 8 Blood Urea Nitrogen 22 H Creatinine 1.51 H Est Glomerular Filtrat Rate mL/min Glucose Level 107 Calcium Level 9.0 Total Bilirubin 0.6 Direct Bilirubin 0.00 Indirect Bilirubin 0.6 Aspartate Amino 72 H Transf (AST/SGOT) Alanine 73 H Aminotransferase (AL T/SGPT) Alkaline Phosphatase 107 Total Protein 7.0 Albumin 3.6 Globulin 3.40 H Albumin/Globulin 1.05 Ratio Prostate Specific 0.5 Antigen Test 07/05/18 07:55 07/05/18 11:43 Bedside Glucose 112 135 Medications Medication Current Medications Amlodipine Besylate (Norvasc) 10 mg DAILY PO Last administered on 07/05/18 08:07; Admin Dose 10 MG; Start 07/02/18 at 09:00 Atorvastatin Calcium (Lipitor) 10 mg QHS PO Last administered on 07/04/18 20:23; Admin Dose 10 MG; Start 07/01/18 at 21:00 Benazepril HCl (Lotensin) 40 mg DAILY PO Last administered on 07/05/18 08:07; Admin Dose 40 MG; Start 07/02/18 at 09:00 Bimatoprost (Lumigan 0.01% Oph) 1 drop HS BOTH EYES Last administered on 07/04/18 20:22; Admin Dose 1 DROP; Start 07/01/18 at 21:00 Diagnostic Test (Pha) (Accu-Chek) 1 ea AC MEALS AND BEDTIME XX Last administered on 07/05/18at 11:45; Admin Dose 1 EA; Start 07/01/18 at 17:30 Diagnostic Test (Pha) (Accu-Chek) 1 ea 02 XX ; Start 07/02/18 at 02:00 Insulin Aspart (Novolog Insulin Pen) NOVOLOG *MILD* ALGORITHM WITH MEALS BEDTIME SC Last administered on 07/04/18at 17:10; Admin Dose 1 UNIT; Start 07/01/18 at 18:00 Miscellaneous Information 1 ea NOTE XX ; Start 07/01/18 at 17:30 Glucose (Glutose) 15 gm Q15M PRN PO DECREASED GLUCOSE; Start 07/01/18 at 17:30 Glucose (Glutose) 22.5 gm Q15M PRN PO DECREASED GLUCOSE; Start 07/01/18 at 17:30 Dextrose (D50w Syringe) 25 ml Q15M PRN IV DECREASED GLUCOSE; Start 07/01/18 at 17:30 Dextrose (D50w Syringe) 50 ml Q15M PRN IV DECREASED GLUCOSE; Start 07/01/18 at 17:30 Glucagon (Glucagen) 1 mg Q15M PRN IM DECREASED GLUCOSE; Start 07/01/18 at 17:30 Glucose (Glutose) 15 gm Q15M PRN BUCCAL DECREASED GLUCOSE; Start 07/01/18 at 17:30 Vancomycin HCl (Vanco Iv Per Pharmacy) VANCOMYCIN PER PHARMACY PER PROTOCOL XX ; Start 07/01/18 at 17:30 Tramadol HCl (Ultram) 50 mg Q6H PRN PO MODERATE PAIN LEVEL 4-6 Last administered on 07/02/18at 21:33; Admin Dose 50 MG; Start 07/01/18 at 21:00 Enoxaparin Sodium (Lovenox) 40 mg DAILY SC Last administered on 07/05/18at 08:14; Admin Dose 40 MG; Start 07/04/18 at 09:00 Meropenem/Sodium Chloride 50 ml @ 100 mls/hr Q12 IVPB Last administered on 07/05/18at 08:07; Admin Dose 100 MLS/HR; Start 07/04/18 at 14:30 Acetaminophen (Tylenol Tab) 650 mg Q4 PRN PO MILD PAIN(1-3)OR ELEVATED TEMP Last administered on 07/05/18at 12:25; Admin Dose 650 MG; Start 07/04/18 at 15:30 Lactobacillus Acidophilus/ Rhamnosus (Culturelle) 1 cap BID PO Last administered on 07/05/18at 08:07; Admin Dose 1 CAP; Start 07/04/18 at 21:00 Sodium Chloride 1,000 ml @ 100 mls/hr Q10H IV Last administered on 07/05/18at 12:18; Admin Dose 100 MLS/HR; Start 07/04/18 at 16:00 Vancomycin HCl 1.75 gm/Sodium Chloride 500 ml @ 125 mls/hr Q24H IVPB ; Start 07/05/18 at 21:00 ANGELITO ZHONG NP Jul 05, 2018 15:44
[2018-07-05 19:26] VITALS: BP 127/59; PULSE 78; RESP 18
[2018-07-05] MEDS: ATORVASTATIN 10 MG TAB PO SCH (20:08)
[2018-07-05] MEDS: BIMATOPROST 0.01% 2.5 ML BTL BOTH EYES SCH (20:08)
[2018-07-05] MEDS ORDERED: ZOLPIDEM 5 MG TAB PO ONE (21:00)
[2018-07-05] MEDS: VANCOMYCIN HCL 1.75 GM in SOD CHLORIDE 0.9% 500 ML IVPB SCH (21:27)
[2018-07-06] MEDS: ACCU-CHEK XX SCH ×5 (01:13→21:00)
[2018-07-06 02:02] VITALS: BP 128/60; PULSE 87; RESP 18
[2018-07-06] MEDS: ACETAMINOPHEN 325 MG TAB PO PRN ×4 (02:04→21:07)
[2018-07-06] MEDS: SOD CHLORIDE 0.9% 1,000 ML IV SCH ×2 (04:05→14:34)
[2018-07-06 07:24] VITALS: BP 146/70; PULSE 80; RESP 16
[2018-07-06] MEDS: INSULIN ASPART [NOVOLOG] 3 ML PEN SC SCH ×4 (08:00→21:00)
[2018-07-06] MEDS: AMLODIPINE 10 MG TAB PO SCH (08:21)
[2018-07-06] MEDS: LACTOBACILLUS RHAMNOSUS CAP PO SCH ×2 (08:21→20:30)
[2018-07-06] MEDS: MEROPENEM 1 GM/50ML(PMX) 50 ML IVPB SCH ×2 (08:21→20:30)
[2018-07-06] MEDS: BENAZEPRIL 40 MG TAB PO SCH (08:21)
[2018-07-06] MEDS: ENOXAPARIN 40 MG/0.4 ML SYG SC SCH (08:22)
[2018-07-06 13:50] VITALS: BP 144/67; PULSE 96; RESP 16
--- NOTE | 2018-07-06 14:51 | CONS ---
Assessment/Plan Assessment/Plan Hospital Course (Demo Recall) Alert feels good denies pain, no nausea vomiting diarrhea. T-max 100.9 T- current 99.7. WBC 8.3, neutrophils 72.1 BUN 18 creatinine 1.17. Microbiology: Blood cultures remain negative since admission, urine culture negative CT of the chest abdomen and pelvis revealed 6.5 cm fluid collection along the right pelvic sidewall. Please see full report in the chart Antimicrobials: Vancomycin, meropenem Physical examination this is a well-developed well-nourished elderly man who is alert in no distress. Head atraumatic normocephalic. Neck is supple chest rise symmetrical breath sounds clear heart S1-S2 abdomen soft bowel sounds present extremities with left upper extremity significantly limited range of motion. No erythema no fluctuance over the left shoulder Assessment: 1. Febrile illness, possible pelvic abscess per CT, rule out malignancy versus other 2. Diabetes 3. Glaucoma 4. 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 Plan: Clinically stable, WBC scan noted, continue antibiotics, consider CT- guided fluid aspiration, consider hematology evaluation Consultation Date/Type/Reason Admit Date/Time Jul 01, 2018 at 16:52 Initial Consult Date Type of Consult id Date/Time of Note DATE: 07/06/18 TIME: 14:48 Exam/Review of Systems Exam Vitals Vital Signs Date Temp Pulse Resp B/P (MAP) Pulse Ox O2 O2 Flow FiO2 Time Delivery Rate 07/06/18 99.7 96 16 144/67 99 Room Air 13:50 (92) Intake and Output 07/05/18 07/05/18 07/06/18 1414:59 22:59 06:59 IntakeIntake Total 1050 ml 1250 ml 1503 ml OutputOutput Total 280 ml 225 ml 1325 ml BalanceBalance 770 ml 1025 ml 178 ml Results Result Diagram: 07/06/18 0604 07/06/18 0604 Results 24hrs Laboratory Tests Test 07/05/18 17:04 07/05/18 20:05 07/06/18 01:12 07/06/18 06:04 Bedside Glucose 126 197 148 White Blood Count 8.3 Red Blood Count 3.31 L Hemoglobin 10.2 L Hematocrit 30.3 L Mean Corpuscular 91.5 Volume Mean Corpuscular 30.8 Hemoglobin Mean Corpuscular 33.7 Hemoglobin Concent Red Cell Distribution 13.0 Width Platelet Count 276 Mean Platelet Volume 9.5 Immature Granulocytes 0.700 H % Neutrophils % 72.1 Lymphocytes % 14.1 L Monocytes % 11.2 H Eosinophils % 1.4 Basophils % 0.5 Nucleated Red Blood 0.0 Cells % Immature Granulocytes 0.060 H # Neutrophils # 6.0 Lymphocytes # 1.2 Monocytes # 0.9 Eosinophils # 0.1 Basophils # 0.0 Nucleated Red Blood 0.0 Cells # Sodium Level 140 Potassium Level 3.5 Chloride Level 107 Carbon Dioxide Level 25 Anion Gap 8 Blood Urea Nitrogen 18 Creatinine 1.17 Est Glomerular Filtrat Rate mL/min Glucose Level 111 Calcium Level 8.7 Total Bilirubin 0.4 Direct Bilirubin 0.00 Indirect Bilirubin 0.4 Aspartate Amino 73 H Transf (AST/SGOT) Alanine 85 H Aminotransferase (ALT/ SGPT) Alkaline Phosphatase 103 Total Protein 6.6 Albumin 3.2 L Globulin 3.40 H Albumin/Globulin Ratio 0.94 Test 07/06/18 08:19 07/06/18 12:28 Bedside Glucose 109 105 Medications Medication Current Medications Amlodipine Besylate (Norvasc) 10 mg DAILY PO Last administered on 07/06/18 08:21; Admin Dose 10 MG; Start 07/02/18 at 09:00 Atorvastatin Calcium (Lipitor) 10 mg QHS PO Last administered on 07/05/18 20:08; Admin Dose 10 MG; Start 07/01/18 at 21:00 Benazepril HCl (Lotensin) 40 mg DAILY PO Last administered on 07/06/18 08:21; Admin Dose 40 MG; Start 07/02/18 at 09:00 Bimatoprost (Lumigan 0.01% Oph) 1 drop HS BOTH EYES Last administered on 07/05/18 20:08; Admin Dose 1 DROP; Start 07/01/18 at 21:00 Diagnostic Test (Pha) (Accu-Chek) 1 ea AC MEALS AND BEDTIME XX Last administered on 07/06/18at 12:28; Admin Dose 1 EA; Start 07/01/18 at 17:30 Diagnostic Test (Pha) (Accu-Chek) 1 ea 02 XX Last administered on 07/06/18at 01:13; Admin Dose 1 EA; Start 07/02/18 at 02:00 Insulin Aspart (Novolog Insulin Pen) NOVOLOG *MILD* ALGORITHM WITH MEALS BEDTIME SC Last administered on 07/05/18at 20:07; Admin Dose 1 UNIT; Start 07/01/18 at 18:00 Miscellaneous Information 1 ea NOTE XX ; Start 07/01/18 at 17:30 Glucose (Glutose) 15 gm Q15M PRN PO DECREASED GLUCOSE; Start 07/01/18 at 17:30 Glucose (Glutose) 22.5 gm Q15M PRN PO DECREASED GLUCOSE; Start 07/01/18 at 17:30 Dextrose (D50w Syringe) 25 ml Q15M PRN IV DECREASED GLUCOSE; Start 07/01/18 at 17:30 Dextrose (D50w Syringe) 50 ml Q15M PRN IV DECREASED GLUCOSE; Start 07/01/18 at 17:30 Glucagon (Glucagen) 1 mg Q15M PRN IM DECREASED GLUCOSE; Start 07/01/18 at 17:30 Glucose (Glutose) 15 gm Q15M PRN BUCCAL DECREASED GLUCOSE; Start 07/01/18 at 17:30 Vancomycin HCl (Vanco Iv Per Pharmacy) VANCOMYCIN PER PHARMACY PER PROTOCOL XX ; Start 07/01/18 at 17:30 Tramadol HCl (Ultram) 50 mg Q6H PRN PO MODERATE PAIN LEVEL 4-6 Last administered on 07/02/18at 21:33; Admin Dose 50 MG; Start 07/01/18 at 21:00 Enoxaparin Sodium (Lovenox) 40 mg DAILY SC Last administered on 07/06/18at 08:22; Admin Dose 40 MG; Start 07/04/18 at 09:00 Meropenem/Sodium Chloride 50 ml @ 100 mls/hr Q12 IVPB Last administered on 07/06/18 08:21; Admin Dose 100 MLS/HR; Start 07/04/18 at 14:30 Acetaminophen (Tylenol Tab) 650 mg Q4 PRN PO MILD PAIN(1-3)OR ELEVATED TEMP Last administered on 07/06/18 08:45; Admin Dose 650 MG; Start 07/04/18 at 15:30 Lactobacillus Acidophilus/ Rhamnosus (Culturelle) 1 cap BID PO Last administered on 07/06/18 08:21; Admin Dose 1 CAP; Start 07/04/18 at 21:00 Sodium Chloride 1,000 ml @ 100 mls/hr Q10H IV Last administered on 07/06/18at 14:34; Admin Dose 100 MLS/HR; Start 07/04/18 at 16:00 Vancomycin HCl 1.75 gm/Sodium Chloride 500 ml @ 125 mls/hr Q24H IVPB Last administered on 07/05/18at 21:27; Admin Dose 125 MLS/HR; Start 07/05/18 at 21:00 INDERJIT MADDEN NP Jul 06, 2018 14:51
--- NOTE | 2018-07-06 17:41 | PN ---
Date/Time of Note Date/Time of Note DATE: 07/06/18 TIME: 17:40 Assessment/Plan VTE Prophylaxis Risk score (from N[facility])>0 risk: 4 SCD applied (from [facility] [place]): No SCD contraindicated: other Pharmacological prophylaxis: LMWH Lines/Catheters IV Catheter Type ([facility]): Peripheral IV Assessment/Plan Hospital Course SUBJECTIVE: Complains of chills. Remains afebrile. OBJECTIVE: Physical Exam General: Adequately build 77 year-old male lying in bed in no apparent distress. HEENT: Normocephalic, atraumatic. Eyes: Anicteric sclerae, conjunctivae clear. ENT: Nasal septum midline, oral mucosa moist. Neck supple. Respiratory: Bilaterally diminished breath sounds. No use of accessory muscles of respiration. No adventitious breath sounds. Cardiovascular: S1, S2 heard. Regular rate and rhythm. Abdomen: Soft, nontender, and nondistended. Bowel sounds positive in all 4 quadr ants. Genitourinary: Deferred. Extremities: No cyanosis, no clubbing, no edema. Peripheral pulses palpable. Neurologic: Cranial nerves II through XII grossly intact. The patient is awake, alert, and oriented. Skin: Normal skin turgor. No skin rashes. Labs & Vitals per chart ASSESSMENT & PLAN 77-year-old male with comorbidities including hypertension, diabetes mellitus, dyslipidemia, and erectile dysfunction who came to the emergency room because of fevers and chills over 24 hours. The patient was noticed to have leukocytosis, febrile illness, and tachycardia in the emergency room. The patient was admitted to inpatient setting for further treatment and evaluation. 1. Sepsis with leukocytosis, tachycardia, and febrile illness. -Etiology unclear. -Being followed by infectious diseases. -Pancultures negative so far. -MRI of the left shoulder reviewed by orthopedic surgery and orthopedic surgeon thinks there is no evidence of any septic joint. -CT showing 6.5 cm circumscribed fluid collection along the right pelvic sidewall. -WBC scan showing area of mildly to moderately increased activity along the right pelvic sidewall corresponding to the circumscribed fluid collection on the CT scan. 2. 6.5 cm fluid collection located on the right pelvic sidewall. -Etiology unclear. -Obtain a CT-guided drainage. -Send fluid for studies including culture. 3. Diabetes mellitus type 2. -Continue sliding scale insulin. 4. Dyslipidemia. -Continue statins. 5. Essential hypertension. -Continue antihypertensives. 6. Normocytic, normochromic anemia. -Most probably due to chronic disease. -Monitor H&H closely. 7. Fluids, electrolytes, and nutrition. -Carbohydrate controlled diet. 8. DVT prophylaxis. -SQ Lovenox. 9. Plan. -Continue antimicrobials as per ID. -Obtain CT-guided drainage of the pelvic fluid collection. The patient was seen in collaboration with Dr. Lee. Result Diagram: 07/06/18 0604 07/06/18 0604 Results 24hrs Laboratory Tests Test 07/05/18 20:05 07/06/18 01:12 07/06/18 06:04 07/06/18 08:19 Bedside Glucose 197 148 109 White Blood Count 8.3 Red Blood Count 3.31 L Hemoglobin 10.2 L Hematocrit 30.3 L Mean Corpuscular Volume 91.5 Mean Corpuscular 30.8 Hemoglobin Mean Corpuscular 33.7 Hemoglobin Concent Red Cell Distribution 13.0 Width Platelet Count 276 Mean Platelet Volume 9.5 Immature Granulocytes % 0.700 H Neutrophils % 72.1 Lymphocytes % 14.1 L Monocytes % 11.2 H Eosinophils % 1.4 Basophils % 0.5 Nucleated Red Blood 0.0 Cells % Immature Granulocytes # 0.060 H Neutrophils # 6.0 Lymphocytes # 1.2 Monocytes # 0.9 Eosinophils # 0.1 Basophils # 0.0 Nucleated Red Blood 0.0 Cells # Sodium Level 140 Potassium Level 3.5 Chloride Level 107 Carbon Dioxide Level 25 Anion Gap 8 Blood Urea Nitrogen 18 Creatinine 1.17 Est Glomerular Filtrat Rate mL/min Glucose Level 111 Calcium Level 8.7 Total Bilirubin 0.4 Direct Bilirubin 0.00 Indirect Bilirubin 0.4 Aspartate Amino 73 H Transf (AST/SGOT) Alanine 85 H Aminotransferase (ALT/S GPT) Alkaline Phosphatase 103 Total Protein 6.6 Albumin 3.2 L Globulin 3.40 H Albumin/Globulin Ratio 0.94 Test 07/06/18 12:28 07/06/18 17:06 Bedside Glucose 105 113 Exam/Review of Systems Exam Vitals Vital Signs Date Temp Pulse Resp B/P (MAP) Pulse Ox O2 O2 Flow FiO2 Time Delivery Rate 07/06/18 99.7 96 16 144/67 99 Room Air 13:50 (92) Intake and Output 07/05/18 07/05/18 07/06/18 1515:00 23:00 07:00 IntakeIntake Total 1050 ml 1250 ml 1503 ml OutputOutput Total 280 ml 225 ml 1325 ml BalanceBalance 770 ml 1025 ml 178 ml Results Results 24hrs Laboratory Tests Test 07/05/18 20:05 07/06/18 01:12 07/06/18 06:04 07/06/18 08:19 Bedside Glucose 197 148 109 White Blood Count 8.3 Red Blood Count 3.31 L Hemoglobin 10.2 L Hematocrit 30.3 L Mean Corpuscular Volume 91.5 Mean Corpuscular 30.8 Hemoglobin Mean Corpuscular 33.7 Hemoglobin Concent Red Cell Distribution 13.0 Width Platelet Count 276 Mean Platelet Volume 9.5 Immature Granulocytes % 0.700 H Neutrophils % 72.1 Lymphocytes % 14.1 L Monocytes % 11.2 H Eosinophils % 1.4 Basophils % 0.5 Nucleated Red Blood 0.0 Cells % Immature Granulocytes # 0.060 H Neutrophils # 6.0 Lymphocytes # 1.2 Monocytes # 0.9 Eosinophils # 0.1 Basophils # 0.0 Nucleated Red Blood 0.0 Cells # Sodium Level 140 Potassium Level 3.5 Chloride Level 107 Carbon Dioxide Level 25 Anion Gap 8 Blood Urea Nitrogen 18 Creatinine 1.17 Est Glomerular Filtrat Rate mL/min Glucose Level 111 Calcium Level 8.7 Total Bilirubin 0.4 Direct Bilirubin 0.00 Indirect Bilirubin 0.4 Aspartate Amino 73 H Transf (AST/SGOT) Alanine 85 H Aminotransferase (ALT/S GPT) Alkaline Phosphatase 103 Total Protein 6.6 Albumin 3.2 L Globulin 3.40 H Albumin/Globulin Ratio 0.94 Test 07/06/18 12:28 07/06/18 17:06 Bedside Glucose 105 113 Medications Medication Current Medications Amlodipine Besylate (Norvasc) 10 mg DAILY PO Last administered on 07/06/18at 08:21; Admin Dose 10 MG; Start 07/02/18 at 09:00 Atorvastatin Calcium (Lipitor) 10 mg QHS PO Last administered on 07/05/18at 20:08; Admin Dose 10 MG; Start 07/01/18 at 21:00 Benazepril HCl (Lotensin) 40 mg DAILY PO Last administered on 07/06/18at 08:21; Admin Dose 40 MG; Start 07/02/18 at 09:00 Bimatoprost (Lumigan 0.01% Oph) 1 drop HS BOTH EYES Last administered on 07/05/18 20:08; Admin Dose 1 DROP; Start 07/01/18 at 21:00 Diagnostic Test (Pha) (Accu-Chek) 1 ea AC MEALS AND BEDTIME XX Last administered on 07/06/18at 17:16; Admin Dose 1 EA; Start 07/01/18 at 17:30 Diagnostic Test (Pha) (Accu-Chek) 1 ea 02 XX Last administered on 07/06/18at 01:13; Admin Dose 1 EA; Start 07/02/18 at 02:00 Insulin Aspart (Novolog Insulin Pen) NOVOLOG *MILD* ALGORITHM WITH MEALS BEDTIME SC Last administered on 07/05/18 20:07; Admin Dose 1 UNIT; Start 07/01/18 at 18:00 Miscellaneous Information 1 ea NOTE XX ; Start 07/01/18 at 17:30 Glucose (Glutose) 15 gm Q15M PRN PO DECREASED GLUCOSE; Start 07/01/18 at 17:30 Glucose (Glutose) 22.5 gm Q15M PRN PO DECREASED GLUCOSE; Start 07/01/18 at 17:30 Dextrose (D50w Syringe) 25 ml Q15M PRN IV DECREASED GLUCOSE; Start 07/01/18 at 17:30 Dextrose (D50w Syringe) 50 ml Q15M PRN IV DECREASED GLUCOSE; Start 07/01/18 at 17:30 Glucagon (Glucagen) 1 mg Q15M PRN IM DECREASED GLUCOSE; Start 07/01/18 at 17:30 Glucose (Glutose) 15 gm Q15M PRN BUCCAL DECREASED GLUCOSE; Start 07/01/18 at 17:30 Vancomycin HCl (Vanco Iv Per Pharmacy) VANCOMYCIN PER PHARMACY PER PROTOCOL XX ; Start 07/01/18 at 17:30 Tramadol HCl (Ultram) 50 mg Q6H PRN PO MODERATE PAIN LEVEL 4-6 Last administered on 07/02/18at 21:33; Admin Dose 50 MG; Start 07/01/18 at 21:00 Enoxaparin Sodium (Lovenox) 40 mg DAILY SC Last administered on 07/06/18at 08:22; Admin Dose 40 MG; Start 07/04/18 at 09:00 Meropenem/Sodium Chloride 50 ml @ 100 mls/hr Q12 IVPB Last administered on 4/1/19at 08:21; Admin Dose 100 MLS/HR; Start 07/04/18 at 14:30 Acetaminophen (Tylenol Tab) 650 mg Q4 PRN PO MILD PAIN(1-3)OR ELEVATED TEMP Last administered on 07/06/18 17:15; Admin Dose 650 MG; Start 07/04/18 at 15:30 Lactobacillus Acidophilus/ Rhamnosus (Culturelle) 1 cap BID PO Last administered on 07/06/18 08:21; Admin Dose 1 CAP; Start 07/04/18 at 21:00 Sodium Chloride 1,000 ml @ 100 mls/hr Q10H IV Last administered on 07/06/18 14:34; Admin Dose 100 MLS/HR; Start 07/04/18 at 16:00 Vancomycin HCl 1.75 gm/Sodium Chloride 500 ml @ 125 mls/hr Q24H IVPB Last administered on 07/05/18 21:27; Admin Dose 125 MLS/HR; Start 07/05/18 at 21:00 MAHI TRIPATHI NP Jul 06, 2018 17:41
[2018-07-06 20:00] VITALS: BP 146/67; PULSE 96; RESP 19
[2018-07-06] MEDS: ATORVASTATIN 10 MG TAB PO SCH (20:30)
[2018-07-06] MEDS: LATANOPROST 0.005% 2.5 ML OPH BOTH EYES SCH (21:00)
[2018-07-06] MEDS: VANCOMYCIN HCL 1.75 GM in SOD CHLORIDE 0.9% 500 ML IVPB SCH (21:09)
[2018-07-06] MEDS ORDERED: ZOLPIDEM 5 MG TAB PO ONE (22:00)
[2018-07-07] VITALS (7 sets, daily range): BP systolic 102–147; BP diastolic 56–66; PULSE 75–97; RESP 16–20
[2018-07-07] MEDS: ACCU-CHEK XX SCH ×6 (02:00→20:44)
[2018-07-07] MEDS: INSULIN ASPART [NOVOLOG] 3 ML PEN SC SCH ×4 (08:00→20:44)
[2018-07-07] MEDS: MEROPENEM 1 GM/50ML(PMX) 50 ML IVPB SCH ×2 (08:43→20:41)
[2018-07-07] MEDS: AMLODIPINE 10 MG TAB PO SCH (08:44)
[2018-07-07] MEDS: LACTOBACILLUS RHAMNOSUS CAP PO SCH ×2 (08:44→20:41)
[2018-07-07] MEDS: BENAZEPRIL 40 MG TAB PO SCH (08:44)
[2018-07-07] MEDS: ACETAMINOPHEN 325 MG TAB PO PRN ×2 (08:47→20:41)
[2018-07-07] MEDS ORDERED: LIDOCAINE 1% (MDV) 20 ML INJ ONE (09:56)
[2018-07-07] MEDS ORDERED: SOD CHLORIDE 0.9% 500 ML ONE (10:22)
[2018-07-07] MEDS ORDERED: FENTAnyl 50 MCG/ML VIAL ONE (10:22)
[2018-07-07] MEDS: traMADol 50 MG TAB PO PRN (11:39)
--- NOTE | 2018-07-07 12:08 | CONS ---
Assessment/Plan Assessment/Plan Hospital Course (Demo Recall) No events, s/p CT guided right lateral pelvic fluid collection drainage CT of the chest abdomen and pelvis revealed 6.5 cm fluid collection along the right pelvic sidewall. Please see full report in the chart Antimicrobials: Vancomycin, meropenem Physical examination this is a well-developed well-nourished elderly man who is alert in no distress. Head atraumatic normocephalic. Neck is supple chest rise symmetrical breath sounds clear heart S1-S2 abdomen soft bowel sounds present extremities with left upper extremity significantly limited range of motion. No erythema no fluctuance over the left shoulder Assessment: 1. Febrile illness, possible pelvic abscess per CT, s/p CT guided drainage 2. Diabetes 3. Glaucoma 4. 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 Plan: Stable, with ongoing fevers, continue abx, await for fluid cx Consultation Date/Type/Reason Admit Date/Time Jul 01, 2018 at 16:52 Initial Consult Date Type of Consult id Date/Time of Note DATE: 07/07/18 TIME: 12:05 Exam/Review of Systems Exam Vitals Vital Signs Date Temp Pulse Resp B/P (MAP) Pulse Ox O2 O2 Flow FiO2 Time Delivery Rate 07/07/18 99.7 81 18 134/63 95 11:51 (86) 07/06/18 Room Air 13:50 Intake and Output 07/06/18 07/06/18 07/07/18 1515:00 23:00 07:00 IntakeIntake Total 947 ml 950 ml 500 ml OutputOutput Total 320 ml BalanceBalance 627 ml 950 ml 500 ml Results Result Diagram: 07/07/18 0658 07/07/18 0658 Results 24hrs Laboratory Tests Test 07/06/18 12:28 07/06/18 17:06 07/06/18 20:28 07/07/18 06:58 Bedside Glucose 105 113 127 White Blood Count 7.7 Red Blood Count 3.36 L Hemoglobin 10.2 L Hematocrit 30.7 L Mean Corpuscular Volume 91.4 Mean Corpuscular 30.4 Hemoglobin Mean Corpuscular 33.2 Hemoglobin Concent Red Cell Distribution 13.1 Width Platelet Count 322 Mean Platelet Volume 9.7 Immature Granulocytes % 0.500 H Neutrophils % 72.0 Lymphocytes % 14.5 L Monocytes % 10.6 Eosinophils % 1.7 Basophils % 0.7 Nucleated Red Blood 0.0 Cells % Immature Granulocytes # 0.040 H Neutrophils # 5.5 Lymphocytes # 1.1 Monocytes # 0.8 Eosinophils # 0.1 Basophils # 0.1 Nucleated Red Blood 0.0 Cells # Prothrombin Time 14.5 Prothrombin Time Ratio 1.1 INR International 1.12 Normalized Ratio Activated 38.6 H Partial Thromboplast Time Sodium Level 140 Potassium Level 3.6 Chloride Level 107 Carbon Dioxide Level 24 Anion Gap 9 Blood Urea Nitrogen 14 Creatinine 1.02 Est Glomerular Filtrat Rate mL/min Glucose Level 108 Hemoglobin A1c 5.9 Calcium Level 8.7 Phosphorus Level 2.8 Magnesium Level 2.0 Triglycerides Level 89 Cholesterol Level 101 LDL Cholesterol, 61 Calculated HDL Cholesterol 22 L Cholesterol/HDL Ratio 4.5 Test 07/07/18 08:43 Bedside Glucose 121 Medications Medication Current Medications Amlodipine Besylate (Norvasc) 10 mg DAILY PO Last administered on 07/07/18 08:44; Admin Dose 10 MG; Start 07/02/18 at 09:00 Atorvastatin Calcium (Lipitor) 10 mg QHS PO Last administered on 07/06/18at 20:30; Admin Dose 10 MG; Start 07/01/18 at 21:00 Benazepril HCl (Lotensin) 40 mg DAILY PO Last administered on 07/07/18 08:44; Admin Dose 40 MG; Start 07/02/18 at 09:00 Diagnostic Test (Pha) (Accu-Chek) 1 ea AC MEALS AND BEDTIME XX Last administered on 07/06/18at 17:16; Admin Dose 1 EA; Start 07/01/18 at 17:30 Diagnostic Test (Pha) (Accu-Chek) 1 ea 02 XX Last administered on 07/06/18at 01:13; Admin Dose 1 EA; Start 07/02/18 at 02:00 Insulin Aspart (Novolog Insulin Pen) NOVOLOG *MILD* ALGORITHM WITH MEALS BE DTIME SC Last administered on 07/05/18at 20:07; Admin Dose 1 UNIT; Start 07/01/18 at 18:00 Miscellaneous Information 1 ea NOTE XX ; Start 07/01/18 at 17:30 Glucose (Glutose) 15 gm Q15M PRN PO DECREASED GLUCOSE; Start 07/01/18 at 17:30 Glucose (Glutose) 22.5 gm Q15M PRN PO DECREASED GLUCOSE; Start 07/01/18 at 17:30 Dextrose (D50w Syringe) 25 ml Q15M PRN IV DECREASED GLUCOSE; Start 07/01/18 at 17:30 Dextrose (D50w Syringe) 50 ml Q15M PRN IV DECREASED GLUCOSE; Start 07/01/18 at 17:30 Glucagon (Glucagen) 1 mg Q15M PRN IM DECREASED GLUCOSE; Start 07/01/18 at 17:30 Glucose (Glutose) 15 gm Q15M PRN BUCCAL DECREASED GLUCOSE; Start 07/01/18 at 17:30 Vancomycin HCl (Vanco Iv Per Pharmacy) VANCOMYCIN PER PHARMACY PER PROTOCOL XX ; Start 07/01/18 at 17:30 Tramadol HCl (Ultram) 50 mg Q6H PRN PO MODERATE PAIN LEVEL 4-6 Last administered on 07/07/18 11:39; Admin Dose 50 MG; Start 07/01/18 at 21:00 Enoxaparin Sodium (Lovenox) 40 mg DAILY SC Last administered on 07/06/18 08:22; Admin Dose 40 MG; Start 07/04/18 at 09:00; Status Hold Meropenem/Sodium Chloride 50 ml @ 100 mls/hr Q12 IVPB Last administered on 07/07/18 08:43; Admin Dose 100 MLS/HR; Start 07/04/18 at 14:30 Acetaminophen (Tylenol Tab) 650 mg Q4 PRN PO MILD PAIN(1-3)OR ELEVATED TEMP Last administered on 07/07/18 08:47; Admin Dose 650 MG; Start 07/04/18 at 15:30 Lactobacillus Acidophilus/ Rhamnosus (Culturelle) 1 cap BID PO Last administered on 07/07/18 08:44; Admin Dose 1 CAP; Start 07/04/18 at 21:00 Vancomycin HCl 1.75 gm/Sodium Chloride 500 ml @ 125 mls/hr Q24H IVPB Last administered on 07/06/18 21:09; Admin Dose 125 MLS/HR; Start 07/05/18 at 21:00 Latanoprost (Xalatan) 1 drop QHS BOTH EYES ; Start 07/06/18 at 21:00 INDERJIT MADDEN NP Jul 07, 2018 12:08
--- NOTE | 2018-07-07 15:47 | PN ---
Date/Time of Note Date/Time of Note DATE: 07/07/18 TIME: 15:45 Assessment/Plan VTE Prophylaxis Risk score (from Ns)>0 risk: 7 [place] [facility] [place] contraindicated: other Pharmacological prophylaxis: LMWH Lines/Catheters IV C[facility]ter Type (from [facility]): Peripheral IV Assessment/Plan Hospital Course SUBJECTIVE: Denies any chills. OBJECTIVE: Physical Exam General: Adequately build 77 year-old male lying in bed in no apparent distress. HEENT: Normocephalic, atraumatic. Eyes: Anicteric sclerae, conjunctivae clear. ENT: Nasal septum midline, oral mucosa moist. Neck supple. Respiratory: Bilaterally diminished breath sounds. No use of accessory muscles of respiration. No adventitious breath sounds. Cardiovascular: S1, S2 heard. Regular rate and rhythm. Abdomen: Soft, nontender, and nondistended. Bowel sounds positive in all 4 quadrants. RLQ drain in place. Genitourinary: Deferred. Extremities: No cyanosis, no clubbing, no edema. Peripheral pulses palpable. Neurologic: Cranial nerves II through XII grossly intact. The patient is awake, alert, and oriented. Skin: Normal skin turgor. No skin rashes. Labs & Vitals per chart ASSESSMENT & PLAN 77-year-old male with comorbidities including hypertension, diabetes mellitus, dyslipidemia, and erectile dysfunction who came to the emergency room because of fevers and chills over 24 hours. The patient was noticed to have leukocytosis, febrile illness, and tachycardia in the emergency room. The patient was admitted to inpatient setting for further treatment and evaluation. 1. Sepsis with leukocytosis, tachycardia, and febrile illness. -Etiology unclear. -Being followed by infectious diseases. -Pancultures negative so far. -MRI of the left shoulder reviewed by orthopedic surgery and orthopedic surgeon thinks there is no evidence of any septic joint. -CT showing 6.5 cm circumscribed fluid collection along the right pelvic sidewall. -WBC scan showing area of mildly to moderately increased activity along the right pelvic sidewall corresponding to the circumscribed fluid collection on the CT scan. 2. 6.5 cm fluid collection located on the right pelvic sidewall. -Etiology unclear. -Status post CT-guided drainage on 07/07/2018. -Sent fluid for studies including culture. 3. Diabetes mellitus type 2. -Continue sliding scale insulin. -A1C 5.9. 4. Dyslipidemia. -Continue statins. 5. Essential hypertension. -Continue antihypertensives. 6. Normocytic, normochromic anemia. -Most probably due to chronic disease. -Monitor H&H closely. 7. Fluids, electrolytes, and nutrition. -Carbohydrate controlled diet. 8. DVT prophylaxis. -SQ Lovenox. 9. Plan. -Continue antimicrobials as per ID. -Await final cultures from the drain. The patient was seen in collaboration with Dr. Lee. Result Diagram: 07/07/18 0658 07/07/18 0658 Results 24hrs Laboratory Tests Test 07/06/18 17:06 07/06/18 20:28 07/07/18 06:58 07/07/18 08:43 Bedside Glucose 113 127 121 White Blood Count 7.7 Red Blood Count 3.36 L Hemoglobin 10.2 L Hematocrit 30.7 L Mean Corpuscular Volume 91.4 Mean Corpuscular 30.4 Hemoglobin Mean Corpuscular 33.2 Hemoglobin Concent Red Cell Distribution 13.1 Width Platelet Count 322 Mean Platelet Volume 9.7 Immature Granulocytes % 0.500 H Neutrophils % 72.0 Lymphocytes % 14.5 L Monocytes % 10.6 Eosinophils % 1.7 Basophils % 0.7 Nucleated Red Blood 0.0 Cells % Immature Granulocytes # 0.040 H Neutrophils # 5.5 Lymphocytes # 1.1 Monocytes # 0.8 Eosinophils # 0.1 Basophils # 0.1 Nucleated Red Blood 0.0 Cells # Prothrombin Time 14.5 Prothrombin Time Ratio 1.1 INR International 1.12 Normalized Ratio Activated 38.6 H Partial Thromboplast Time Sodium Level 140 Potassium Level 3.6 Chloride Level 107 Carbon Dioxide Level 24 Anion Gap 9 Blood Urea Nitrogen 14 Creatinine 1.02 Est Glomerular Filtrat Rate mL/min Glucose Level 108 Hemoglobin A1c 5.9 Calcium Level 8.7 Phosphorus Level 2.8 Magnesium Level 2.0 Triglycerides Level 89 Cholesterol Level 101 LDL Cholesterol, 61 Calculated HDL Cholesterol 22 L Cholesterol/HDL Ratio 4.5 Test 07/07/18 11:00 07/07/18 12:40 Body Fluid Type PELVIC Body Fluid Volume 3.0 Body Fluid Color YELLOW Body Fluid Appearance HAZY Body Fluid WBC 2582 Body Fluid RBC (Auto) 1000 Body Fluid Polynuclear 75.0 WBCs (%) Body Fluid Mononuclear 25.0 Cells % Auto Bedside Glucose 117 Exam/Review of Systems Exam Vitals Vital Signs Date Temp Pulse Resp B/P (MAP) Pulse Ox O2 O2 Flow FiO2 Time Delivery Rate 07/07/18 75 16 105/56 97 13:55 (72) 07/07/18 98.2 13:09 07/06/18 Room Air 13:50 Intake and Output 07/06/18 07/06/18 07/07/18 1515:00 23:00 07:00 IntakeIntake Total 947 ml 950 ml 500 ml OutputOutput Total 320 ml BalanceBalance 627 ml 950 ml 500 ml Results Results 24hrs Laboratory Tests Test 07/06/18 17:06 07/06/18 20:28 07/07/18 06:58 07/07/18 08:43 Bedside Glucose 113 127 121 White Blood Count 7.7 Red Blood Count 3.36 L Hemoglobin 10.2 L Hematocrit 30.7 L Mean Corpuscular Volume 91.4 Mean Corpuscular 30.4 Hemoglobin Mean Corpuscular 33.2 Hemoglobin Concent Red Cell Distribution 13.1 Width Platelet Count 322 Mean Platelet Volume 9.7 Immature Granulocytes % 0.500 H Neutrophils % 72.0 Lymphocytes % 14.5 L Monocytes % 10.6 Eosinophils % 1.7 Basophils % 0.7 Nucleated Red Blood 0.0 Cells % Immature Granulocytes # 0.040 H Neutrophils # 5.5 Lymphocytes # 1.1 Monocytes # 0.8 Eosinophils # 0.1 Basophils # 0.1 Nucleated Red Blood 0.0 Cells # Prothrombin Time 14.5 Prothrombin Time Ratio 1.1 INR International 1.12 Normalized Ratio Activated 38.6 H Partial Thromboplast Time Sodium Level 140 Potassium Level 3.6 Chloride Level 107 Carbon Dioxide Level 24 Anion Gap 9 Blood Urea Nitrogen 14 Creatinine 1.02 Est Glomerular Filtrat Rate mL/min Glucose Level 108 Hemoglobin A1c 5.9 Calcium Level 8.7 Phosphorus Level 2.8 Magnesium Level 2.0 Triglycerides Level 89 Cholesterol Level 101 LDL Cholesterol, 61 Calculated HDL Cholesterol 22 L Cholesterol/HDL Ratio 4.5 Test 07/07/18 11:00 07/07/18 12:40 Body Fluid Type PELVIC Body Fluid Volume 3.0 Body Fluid Color YELLOW Body Fluid Appearance HAZY Body Fluid WBC 2582 Body Fluid RBC (Auto) 1000 Body Fluid Polynuclear 75.0 WBCs (%) Body Fluid Mononuclear 25.0 Cells % Auto Bedside Glucose 117 Medications Medication Current Medications Amlodipine Besylate (Norvasc) 10 mg DAILY PO Last administered on 07/07/18 08:44; Admin Dose 10 MG; Start 07/02/18 at 09:00 Atorvastatin Calcium (Lipitor) 10 mg QHS PO Last administered on 07/06/18 20:30; Admin Dose 10 MG; Start 07/01/18 at 21:00 Benazepril HCl (Lotensin) 40 mg DAILY PO Last administered on 07/07/18 08:44; Admin Dose 40 MG; Start 07/02/18 at 09:00 Diagnostic Test (Pha) (Accu-Chek) 1 ea AC MEALS AND BEDTIME XX Last admini stered on 07/06/18 17:16; Admin Dose 1 EA; Start 07/01/18 at 17:30 Diagnostic Test (Pha) (Accu-Chek) 1 ea 02 XX Last administered on 07/06/18 01:13; Admin Dose 1 EA; Start 07/02/18 at 02:00 Insulin Aspart (Novolog Insulin Pen) NOVOLOG *MILD* ALGORITHM WITH MEALS BEDTIME SC Last administered on 07/05/18 20:07; Admin Dose 1 UNIT; Start 07/01/18 at 18:00 Miscellaneous Information 1 ea NOTE XX ; Start 07/01/18 at 17:30 Glucose (Glutose) 15 gm Q15M PRN PO DECREASED GLUCOSE; Start 07/01/18 at 17:30 Glucose (Glutose) 22.5 gm Q15M PRN PO DECREASED GLUCOSE; Start 07/01/18 at 17:30 Dextrose (D50w Syringe) 25 ml Q15M PRN IV DECREASED GLUCOSE; Start 07/01/18 at 17:30 Dextrose (D50w Syringe) 50 ml Q15M PRN IV DECREASED GLUCOSE; Start 07/01/18 at 17:30 Glucagon (Glucagen) 1 mg Q15M PRN IM DECREASED GLUCOSE; Start 07/01/18 at 17:30 Glucose (Glutose) 15 gm Q15M PRN BUCCAL DECREASED GLUCOSE; Start 07/01/18 at 17:30 Vancomycin HCl (Vanco Iv Per Pharmacy) VANCOMYCIN PER PHARMACY PER PROTOCOL XX ; Start 07/01/18 at 17:30 Tramadol HCl (Ultram) 50 mg Q6H PRN PO MODERATE PAIN LEVEL 4-6 Last admi nistered on 07/07/18 11:39; Admin Dose 50 MG; Start 07/01/18 at 21:00 Enoxaparin Sodium (Lovenox) 40 mg DAILY SC Last administered on 07/06/18 08:22; Admin Dose 40 MG; Start 07/04/18 at 09:00; Status Hold Meropenem/Sodium Chloride 50 ml @ 100 mls/hr Q12 IVPB Last administered on 07/07/18 08:43; Admin Dose 100 MLS/HR; Start 07/04/18 at 14:30 Acetaminophen (Tylenol Tab) 650 mg Q4 PRN PO MILD PAIN(1-3)OR ELEVATED TEMP Last administered on 07/07/18 08:47; Admin Dose 650 MG; Start 07/04/18 at 15:30 Lactobacillus Acidophilus/ Rhamnosus (Culturelle) 1 cap BID PO Last administered on 07/07/18 08:44; Admin Dose 1 CAP; Start 07/04/18 at 21:00 Vancomycin HCl 1.75 gm/Sodium Chloride 500 ml @ 125 mls/hr Q24H IVPB Last administered on 07/06/18at 21:09; Admin Dose 125 MLS/HR; Start 07/05/18 at 21:00 Latanoprost (Xalatan) 1 drop QHS BOTH EYES ; Start 07/06/18 at 21:00 Morphine Sulfate (morphine) 2 mg Q4H PRN IV SEVERE PAIN LEVEL 7-10; Start 07/07/18 at 13:00 MAHI TRIPATHI NP Jul 07, 2018 15:47
[2018-07-07] MEDS: morphine 2 MG INJ IV PRN (16:50)
[2018-07-07] MEDS: LATANOPROST 0.005% 2.5 ML OPH BOTH EYES SCH (20:41)
[2018-07-07] MEDS: ATORVASTATIN 10 MG TAB PO SCH (20:41)
--- NOTE | 2018-07-07 21:55 | RADRPT ---
Echocardiogram Report Patient Name: Vishnu WILCOX ID: [id number] : 1940 (77y 8m)Study Date: 07/05/2018 3:23:30 PM Gender: MAccession #: [id number] Tech: JEB Location: Ref.Physician: JUSTYNA ROGERS Height(Cm): 165 BSA: 1.99Weight(Kg): 86.2 Quality: AdequateAccount #: Procedures: Echocardiographic Report: Transthoracic echocardiogram with complete 2D, M-Mode, and doppler examination. Indications: Fever. Measurements: 2D/M Mode Doppler Measurement Value Normal Range Measurement Value Normal Range LVIDd 2D 5.1 [ 4.2 - 5.8 ] cm AV Peak Mike 1.3 [ 100.0 - 170.0 ] cm/se c LVIDs 2D 3.2 [ 2.5 - 4.0 ] cm AV Peak PG 7.0 [ 2.0 - 9.0 ] mmHg LVPWd 2D 1.2 [ 0.6 - 1.0 ] cm LVOT Peak Mike 1.0 [ 70.0 - 110.0 ] cm/sec IVSd 2D 1.3 [ 0.6 - 1.0 ] cm LVOT Peak PG 4.0 [ 2.0 - 6.0 ] mmHg AoR Diam 2D 3.8 [ 2.6 - 3.4 ] cm MV E Peak Mike 0.4 [ 60.0 - 130.0 ] cm/sec EDV 2D 124.0 [ 62.0 - 150.0 ] ml MV A Peak Mike 0.6 [ 100.0 - 120.0 ] cm/se c ESV 2D 39.7 [ 21.0 - 61.0 ] ml MV E/A 0.7 [ 0.8 - 1.5 ] ratio EF 2D 68.0 [ 52.0 - 72.0 ] percent MV PHT 88.0 [ 20.0 - 100.0 ] msec LA Dimen 2D 4.1 [ 3.0 - 4.0 ] cm MV Decel Time 301 [ 104 - 258 ] msec MV Decel Dane 1 Lat E` Mike 0.1 [ 10.0 - 15.0 ] cm/sec Lateral E/E` 5.9 [ 1.0 - 2.0 ] ratio Med E` Mike 0.1 cm/sec MV E/A 0.7 [ 0.8 - 1.5 ] ratio MVA PHT 2.5 [ 2.0 - 4.0 ] cm2 TR Peak Mike 2.4 [ 100.0 - 280.0 ] cm/se c TR Peak PG 22.0 mmHg PV Peak Mike 1.0 [ 40.0 - 80.0 ] cm/sec PV Peak PG 4.0 mmHg RVSP 25.0 [ 10.0 - 36.0 ] mmHg RA Pressure 3.0 mmHg Findings: Left Ventricle: Normal left ventricular systolic function. Normal left ventricular cavity size. Mild concentric left ventricular hypertrophy. Ejection fraction is visually estimated at 60 %. Tissue Doppler/Mitral Doppler indices are consistent with impaired relaxation (Stage I diastolic dysfunction). Right Ventricle: Normal right ventricular size. Normal right ventricular systolic function. Left Atrium: The left atrium is normal in size. Right Atrium: The right atrium is normal in size. Mitral Valve: Mitral valve leaflets appear mildly thickened. Mild mitral annular calcification. Trace mitral regurgitation. Aortic Valve: No significant aortic stenosis or insufficiency. Aortic cusps appear mildly calcified. Tricuspid Valve: Normal appearance of the tricuspid valve. Estimated peak PA systolic pressure 25 mmHg. There is trace tricuspid regurgitation. Pulmonic Valve: Pulmonic valve not well visualized. Pericardium: Normal pericardium with no significant pericardial effusion. Aorta: Normal aortic root. IVC: Normal size and normal respiratory collapse consistent with normal right atrial pressure. Conclusions: Normal left ventricular systolic function. Normal left ventricular cavity size. Mild concentric left ventricular hypertrophy. Ejection fraction is visually estimated at 60 %. Tissue Doppler/Mitral Doppler indices are consistent with impaired relaxation (Stage I diastolic dysfunction). Normal right ventricular size. Normal right ventricular systolic function. The left atrium is normal in size. The right atrium is normal in size. No significant valvular stenosis or regurgitation seen. Normal pericardium with no significant pericardial effusion. Electronically Signed By: Dilshad Tadeo 2018-07-07 21:54:59 PDT
[2018-07-07] MEDS: VANCOMYCIN HCL 1.75 GM in SOD CHLORIDE 0.9% 500 ML IVPB SCH (22:47)
[2018-07-08] VITALS: BP 140/68; PULSE 81; RESP 18
[2018-07-08] MEDS: morphine 2 MG INJ IV PRN (00:39)
[2018-07-08 02:00] VITALS: BP 122/58; PULSE 71; RESP 17
--- NOTE | 2018-07-08 05:42 | PN ---
Date/Time of Note Date/Time of Note DATE: 07/08/18 TIME: 05:42 Assessment/Plan VTE Prophylaxis Risk score (from Ns)>0 risk: 7 SCD applied ([place] [facility] [place] No SCD contraindicated: other Pharmacological prophylaxis: LMWH Lines/Catheters IV Catheter Type (from [facility]): [place] Assessment/Plan Hospital Course SUBJECTIVE: Denies any chills. Complains of diarrhea. OBJECTIVE: Physical Exam General: Adequately build 77 year-old male lying in bed in no apparent distress. HEENT: Normocephalic, atraumatic. Eyes: Anicteric sclerae, conjunctivae clear. ENT: Nasal septum midline, oral mucosa moist. Neck supple. Respiratory: Bilaterally diminished breath sounds. No use of accessory muscles of respiration. No adventitious breath sounds. Cardiovascular: S1, S2 heard. Regular rate and rhythm. Abdomen: Soft, nontender, and nondistended. Bowel sounds positive in all 4 quadr ants. RLQ drain in place. Genitourinary: Deferred. Extremities: No cyanosis, no clubbing, no edema. Peripheral pulses palpable. Neurologic: Cranial nerves II through XII grossly intact. The patient is awake, alert, and oriented. Skin: Normal skin turgor. No skin rashes. Labs & Vitals per chart ASSESSMENT & PLAN 77-year-old male with comorbidities including hypertension, diabetes mellitus, dyslipidemia, and erectile dysfunction who came to the emergency room because of fevers and chills over 24 hours. The patient was noticed to have leukocytosis, febrile illness, and tachycardia in the emergency room. The patient was admitted to inpatient setting for further treatment and evaluation. 1. Sepsis with leukocytosis, tachycardia, and febrile illness. -Etiology unclear. -Being followed by infectious diseases. -Pancultures negative so far. -MRI of the left shoulder reviewed by orthopedic surgery and orthopedic surgeon thinks there is no evidence of any septic joint. -CT showing 6.5 cm circumscribed fluid collection along the right pelvic sidewall. -WBC scan showing area of mildly to moderately increased activity along the right pelvic sidewall corresponding to the circumscribed fluid collection on the CT scan. 2. 6.5 cm fluid collection located on the right pelvic sidewall. -Etiology unclear. -Status post CT-guided drainage on 07/07/2018. -Sent fluid for studies including culture. 3. Diabetes mellitus type 2. -Continue sliding scale insulin. -A1C 5.9. 4. Dyslipidemia. -Continue statins. 5. Essential hypertension. -Continue antihypertensives. 6. Normocytic, normochromic anemia. -Most probably due to chronic disease. -Monitor H&H closely. 7. Fluids, electrolytes, and nutrition. -Carbohydrate controlled diet. 8. DVT prophylaxis. -SQ Lovenox. 9. Plan. -Continue antimicrobials as per ID. -Await final cultures from the drain. Plan of care was updated to the patient's son over the phone. The patient was seen in collaboration with Dr. Lee. Result Diagram: 07/07/1858 07/07/1858 Results 24hrs Laboratory Tests Test 07/07/18 06:58 07/07/18 08:43 07/07/18 11:00 07/07/18 12:40 White Blood Count 7.7 Red Blood Count 3.36 L Hemoglobin 10.2 L Hematocrit 30.7 L Mean Corpuscular Volume 91.4 Mean Corpuscular 30.4 Hemoglobin Mean Corpuscular 33.2 Hemoglobin Concent Red Cell Distribution 13.1 Width Platelet Count 322 Mean Platelet Volume 9.7 Immature Granulocytes % 0.500 H Neutrophils % 72.0 Lymphocytes % 14.5 L Monocytes % 10.6 Eosinophils % 1.7 Basophils % 0.7 Nucleated Red Blood 0.0 Cells % Immature Granulocytes # 0.040 H Neutrophils # 5.5 Lymphocytes # 1.1 Monocytes # 0.8 Eosinophils # 0.1 Basophils # 0.1 Nucleated Red Blood 0.0 Cells # Prothrombin Time 14.5 Prothrombin Time Ratio 1.1 INR International 1.12 Normalized Ratio Activated 38.6 H Partial Thromboplast Time Sodium Level 140 Potassium Level 3.6 Chloride Level 107 Carbon Dioxide Level 24 Anion Gap 9 Blood Urea Nitrogen 14 Creatinine 1.02 Est Glomerular Filtrat Rate mL/min Glucose Level 108 Hemoglobin A1c 5.9 Calcium Level 8.7 Phosphorus Level 2.8 Magnesium Level 2.0 Triglycerides Level 89 Cholesterol Level 101 LDL Cholesterol, 61 Calculated HDL Cholesterol 22 L Cholesterol/HDL Ratio 4.5 Bedside Glucose 121 117 Body Fluid Type PELVIC Body Fluid Volume 3.0 Body Fluid Color YELLOW Body Fluid Appearance HAZY Body Fluid WBC 2582 Body Fluid RBC (Auto) 1000 Body Fluid Polynuclear 75.0 WBCs (%) Body Fluid Mononuclear 25.0 Cells % Auto Test 07/07/18 17:18 07/07/18 20:43 Bedside Glucose 113 129 Exam/Review of Systems Exam Vitals Vital Signs Date Temp Pulse Resp B/P (MAP) Pulse Ox O2 O2 Flow FiO2 Time Delivery Rate 07/08/18 98.6 71 17 122/58 94 02:00 (79) 07/06/18 Room Air 13:50 Intake and Output 07/07/18 07/07/18 07/08/18 1515:00 23:00 07:00 IntakeIntake Total 690 ml 50 ml 500 ml OutputOutput Total 0 ml BalanceBalance 690 ml 50 ml 500 ml Results Results 24hrs Laboratory Tests Test 07/07/18 06:58 07/07/18 08:43 07/07/18 11:00 07/07/18 12:40 White Blood Count 7.7 Red Blood Count 3.36 L Hemoglobin 10.2 L Hematocrit 30.7 L Mean Corpuscular Volume 91.4 Mean Corpuscular 30.4 Hemoglobin Mean Corpuscular 33.2 Hemoglobin Concent Red Cell Distribution 13.1 Width Platelet Count 322 Mean Platelet Volume 9.7 Immature Granulocytes % 0.500 H Neutrophils % 72.0 Lymphocytes % 14.5 L Monocytes % 10.6 Eosinophils % 1.7 Basophils % 0.7 Nucleated Red Blood 0.0 Cells % Immature Granulocytes # 0.040 H Neutrophils # 5.5 Lymphocytes # 1.1 Monocytes # 0.8 Eosinophils # 0.1 Basophils # 0.1 Nucleated Red Blood 0.0 Cells # Prothrombin Time 14.5 Prothrombin Time Ratio 1.1 INR International 1.12 Normalized Ratio Activated 38.6 H Partial Thromboplast Time Sodium Level 140 Potassium Level 3.6 Chloride Level 107 Carbon Dioxide Level 24 Anion Gap 9 Blood Urea Nitrogen 14 Creatinine 1.02 Est Glomerular Filtrat Rate mL/min Glucose Level 108 Hemoglobin A1c 5.9 Calcium Level 8.7 Phosphorus Level 2.8 Magnesium Level 2.0 Triglycerides Level 89 Cholesterol Level 101 LDL Cholesterol, 61 Calculated HDL Cholesterol 22 L Cholesterol/HDL Ratio 4.5 Bedside Glucose 121 117 Body Fluid Type PELVIC Body Fluid Volume 3.0 Body Fluid Color YELLOW Body Fluid Appearance HAZY Body Fluid WBC 2582 Body Fluid RBC (Auto) 1000 Body Fluid Polynuclear 75.0 WBCs (%) Body Fluid Mononuclear 25.0 Cells % Auto Test 07/07/18 17:18 07/07/18 20:43 Bedside Glucose 113 129 Medications Medication Current Medications Amlodipine Besylate (Norvasc) 10 mg DAILY PO Last administered on 07/07/18 08:44; Admin Dose 10 MG; Start 07/02/18 at 09:00 Atorvastatin Calcium (Lipitor) 10 mg QHS PO Last administered on 07/07/18 20:41; Admin Dose 10 MG; Start 07/01/18 at 21:00 Benazepril HCl (Lotensin) 40 mg DAILY PO Last administered on 07/07/18 08:44; Admin Dose 40 MG; Start 07/02/18 at 09:00 Diagnostic Test (Pha) (Accu-Chek) 1 ea AC MEALS AND BEDTIME XX Last administered on 07/06/18 17:16; Admin Dose 1 EA; Start 07/01/18 at 17:30 Diagnostic Test (Pha) (Accu-Chek) 1 ea 02 XX Last administered on 07/06/18 0 1:13; Admin Dose 1 EA; Start 07/02/18 at 02:00 Insulin Aspart (Novolog Insulin Pen) NOVOLOG *MILD* ALGORITHM WITH MEALS BEDTIME SC Last administered on 07/05/18 20:07; Admin Dose 1 UNIT; Start 06/06 10/23 at 18:00 Miscellaneous Information 1 ea NOTE XX ; Start 07/01/18 at 17:30 Glucose (Glutose) 15 gm Q15M PRN PO DECREASED GLUCOSE; Start 07/01/18 at 17:30 Glucose (Glutose) 22.5 gm Q15M PRN PO DECREASED GLUCOSE; Start 07/01/18 at 17:30 Dextrose (D50w Syringe) 25 ml Q15M PRN IV DECREASED GLUCOSE; Start 07/01/18 at 17:30 Dextrose (D50w Syringe) 50 ml Q15M PRN IV DECREASED GLUCOSE; Start 07/01/18 at 17:30 Glucagon (Glucagen) 1 mg Q15M PRN IM DECREASED GLUCOSE; Start 07/01/18 at 17:30 Glucose (Glutose) 15 gm Q15M PRN BUCCAL DECREASED GLUCOSE; Start 07/01/18 at 17:30 Vancomycin HCl (Vanco Iv Per Pharmacy) VANCOMYCIN PER PHARMACY PER PROTOCOL XX ; Start 07/01/18 at 17:30 Tramadol HCl (Ultram) 50 mg Q6H PRN PO MODERATE PAIN LEVEL 4-6 Last administered on 07/07/18 11:39; Admin Dose 50 MG; Start 07/01/18 at 21:00 Enoxaparin Sodium (Lovenox) 40 mg DAILY SC Last administered on 07/06/18 08:22; Admin Dose 40 MG; Start 07/04/18 at 09:00; Status Hold Meropenem/Sodium Chloride 50 ml @ 100 mls/hr Q12 IVPB Last administered on 07/07/18 20:41; Admin Dose 100 MLS/HR; Start 07/04/18 at 14:30 Acetaminophen (Tylenol Tab) 650 mg Q4 PRN PO MILD PAIN(1-3)OR ELEVATED TEMP Last administered on 07/07/18 20:41; Admin Dose 650 MG; Start 07/04/18 at 15:30 Lactobacillus Acidophilus/ Rhamnosus (Culturelle) 1 cap BID PO Last administered on 07/07/18 20:41; Admin Dose 1 CAP; Start 07/04/18 at 21:00 Vancomycin HCl 1.75 gm/Sodium Chloride 500 ml @ 125 mls/hr Q24H IVPB Last administered on 07/07/18 22:47; Admin Dose 125 MLS/HR; Start 07/05/18 at 21:00 Latanoprost (Xalatan) 1 drop QHS BOTH EYES Last administered on 07/07/18 20:41; Admin Dose 1 DROP; Start 07/06/18 at 21:00 Morphine Sulfate (morphine) 2 mg Q4H PRN IV SEVERE PAIN LEVEL 7-10 Last administered on 07/08/18 00:39; Admin Dose 2 MG; Start 07/07/18 at 13:00 MAHI TRIPATHI NP Jul 08, 2018 05:42
[2018-07-08] MEDS: ACCU-CHEK XX SCH ×4 (07:30→21:00)
[2018-07-08 08:00] VITALS: BP 151/64; PULSE 76; RESP 18
[2018-07-08] MEDS: INSULIN ASPART [NOVOLOG] 3 ML PEN SC SCH ×4 (08:00→20:32)
[2018-07-08] MEDS: MEROPENEM 1 GM/50ML(PMX) 50 ML IVPB SCH ×2 (09:05→20:31)
[2018-07-08] MEDS: BENAZEPRIL 40 MG TAB PO SCH (09:05)
[2018-07-08] MEDS: AMLODIPINE 10 MG TAB PO SCH (09:05)
[2018-07-08] MEDS: LACTOBACILLUS RHAMNOSUS CAP PO SCH ×2 (09:05→20:32)
[2018-07-08] MEDS: traMADol 50 MG TAB PO PRN (09:14)
[2018-07-08] MEDS: ENOXAPARIN 40 MG/0.4 ML SYG SC SCH (09:15)
[2018-07-08 14:00] VITALS: BP 128/50; PULSE 78; RESP 18
--- NOTE | 2018-07-08 14:09 | CONS ---
Assessment/Plan Assessment/Plan Hospital Course (Demo Recall) Patient is alert feels better had been afebrile overnight with a T-max yesterday at 10 PM of 99.6. WBC today 9.5 neutrophils 80.7 BUN 16 creatinine 1.02 Antimicrobials: Vanco, meropenem Microbiology: All cultures negative preliminary CT of the chest abdomen and pelvis revealed 6.5 cm fluid collection along the right pelvic sidewall. Please see full report in the chart Physical examination this is a well-developed well-nourished elderly man who is alert in no distress. Head atraumatic normocephalic. Neck is supple chest rise symmetrical breath sounds clear heart S1-S2 abdomen soft bowel sounds present extremities with left upper extremity significantly limited range of motion. No erythema no fluctuance over the left shoulder Assessment: 1. Febrile illness, possible pelvic abscess per CT, s/p CT guided drainage 2. Diabetes 3. Glaucoma 4. 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 Plan: Stable, continue abx, await for fluid cx Consultation Date/Type/Reason Admit Date/Time Jul 01, 2018 at 16:52 Initial Consult Date Type of Consult id Date/Time of Note DATE: 07/08/18 TIME: 14:09 Exam/Review of Systems Exam Vitals Vital Signs Date Temp Pulse Resp B/P (MAP) Pulse Ox O2 O2 Flow FiO2 Time Delivery Rate 07/08/18 98.6 76 18 151/64 96 08:00 (93) 07/06/18 Room Air 13:50 Intake and Output 07/07/18 07/07/18 07/08/18 1414:59 22:59 06:59 IntakeIntake Total 690 ml 50 ml 500 ml OutputOutput Total 0 ml BalanceBalance 690 ml 50 ml 500 ml Results Result Diagram: 07/08/1861807/08/18618 Results 24hrs Laboratory Tests Test 07/07/18 17:18 07/07/18 20:43 07/08/18 06:19 07/08/18 08:09 Bedside Glucose 113 129 108 White Blood Count 9.5 # Red Blood Count 3.52 L Hemoglobin 10.7 L Hematocrit 32.4 L Mean Corpuscular Volume 92.0 Mean Corpuscular 30.4 Hemoglobin Mean Corpuscular 33.0 Hemoglobin Concent Red Cell Distribution 13.2 Width Platelet Count 372 Mean Platelet Volume 9.6 Immature Granulocytes % 0.400 Neutrophils % 80.7 H Lymphocytes % 10.2 L Monocytes % 6.2 Eosinophils % 2.0 Basophils % 0.5 Nucleated Red Blood 0.0 Cells % Immature Granulocytes # 0.040 H Neutrophils # 7.7 H Lymphocytes # 1.0 Monocytes # 0.6 Eosinophils # 0.2 Basophils # 0.1 Nucleated Red Blood 0.0 Cells # Sodium Level 140 Potassium Level 3.5 Chloride Level 104 Carbon Dioxide Level 25 Anion Gap 11 Blood Urea Nitrogen 16 Creatinine 1.02 Est Glomerular Filtrat Rate mL/min Glucose Level 98 Calcium Level 8.7 Phosphorus Level 3.2 Magnesium Level 2.1 Test 07/08/18 12:10 Bedside Glucose 109 Medications Medication Current Medications Amlodipine Besylate (Norvasc) 10 mg DAILY PO Last administered on 07/08/18 09:05; Admin Dose 10 MG; Start 07/02/18 at 09:00 Atorvastatin Calcium (Lipitor) 10 mg QHS PO Last administered on 07/07/18 20:41; Admin Dose 10 MG; Start 07/01/18 at 21:00 Benazepril HCl (Lotensin) 40 mg DAILY PO Last administered on 07/08/18 09:05; Admin Dose 40 MG; Start 07/02/18 at 09:00 Diagnostic Test (Pha) (Accu-Chek) 1 ea AC MEALS AND BEDTIME XX Last administered on 07/06/18at 17:16; Admin Dose 1 EA; Start 07/01/18 at 17:30 Diagnostic Test (Pha) (Accu-Chek) 1 ea 02 XX Last administered on 07/06/18at 01:13; Admin Dose 1 EA; Start 07/02/18 at 02:00 Insulin Aspart (Novolog Insulin Pen) NOVOLOG *MILD* ALGORITHM WITH MEALS BEDTIME SC Last administered on 07/05/18at 20:07; Admin Dose 1 UNIT; Start 07/01/18 at 18:00 Miscellaneous Information 1 ea NOTE XX ; Start 07/01/18 at 17:30 Glucose (Glutose) 15 gm Q15M PRN PO DECREASED GLUCOSE; Start 07/01/18 at 17:30 Glucose (Glutose) 22.5 gm Q15M PRN PO DECREASED GLUCOSE; Start 07/01/18 at 17:30 Dextrose (D50w Syringe) 25 ml Q15M PRN IV DECREASED GLUCOSE; Start 07/01/18 at 17:30 Dextrose (D50w Syringe) 50 ml Q15M PRN IV DECREASED GLUCOSE; Start 07/01/18 at 17:30 Glucagon (Glucagen) 1 mg Q15M PRN IM DECREASED GLUCOSE; Start 07/01/18 at 17:30 Glucose (Glutose) 15 gm Q15M PRN BUCCAL DECREASED GLUCOSE; Start 07/01/18 at 17:30 Vancomycin HCl (Vanco Iv Per Pharmacy) VANCOMYCIN PER PHARMACY PER PROTOCOL XX ; Start 07/01/18 at 17:30 Tramadol HCl (Ultram) 50 mg Q6H PRN PO MODERATE PAIN LEVEL 4-6 Last administered on 07/08/18 09:14; Admin Dose 50 MG; Start 07/01/18 at 21:00 Enoxaparin Sodium (Lovenox) 40 mg DAILY SC Last administered on 07/08/18 09:15; Admin Dose 40 MG; Start 07/04/18 at 09:00 Meropenem/Sodium Chloride 50 ml @ 100 mls/hr Q12 IVPB Last administered on 07/08/18 09:05; Admin Dose 100 MLS/HR; Start 07/04/18 at 14:30 Acetaminophen (Tylenol Tab) 650 mg Q4 PRN PO MILD PAIN(1-3)OR ELEVATED TEMP Last administered on 07/07/18 20:41; Admin Dose 650 MG; Start 07/04/18 at 15:30 Lactobacillus Acidophilus/ Rhamnosus (Culturelle) 1 cap BID PO Last administered on 07/08/18 09:05; Admin Dose 1 CAP; Start 07/04/18 at 21:00 Vancomycin HCl 1.75 gm/Sodium Chloride 500 ml @ 125 mls/hr Q24H IVPB Last administered on 07/07/18 22:47; Admin Dose 125 MLS/HR; Start 07/05/18 at 21:00 Latanoprost (Xalatan) 1 drop QHS BOTH EYES Last administered on 07/07/18 20:41; Admin Dose 1 DROP; Start 07/06/18 at 21:00 Morphine Sulfate (morphine) 2 mg Q4H PRN IV SEVERE PAIN LEVEL 7-10 Last administered on 07/08/18 00:39; Admin Dose 2 MG; Start 07/07/18 at 13:00 INDERJIT MADDEN NP Jul 08, 2018 14:09
[2018-07-08 20:00] VITALS: BP 131/64; PULSE 78; RESP 18
[2018-07-08] MEDS: LATANOPROST 0.005% 2.5 ML OPH BOTH EYES SCH (20:32)
[2018-07-08] MEDS: ATORVASTATIN 10 MG TAB PO SCH (20:32)
[2018-07-08] MEDS: VANCOMYCIN HCL 1.75 GM in SOD CHLORIDE 0.9% 500 ML IVPB SCH (21:55)
[2018-07-08] MEDS ORDERED: traZODone 50 MG TAB PO ONE (23:00)
[2018-07-09 02:00] VITALS: BP 135/64; PULSE 70; RESP 18
[2018-07-09] MEDS: ACCU-CHEK XX SCH ×5 (02:00→20:37)
[2018-07-09] MEDS: INSULIN ASPART [NOVOLOG] 3 ML PEN SC SCH ×4 (07:57→21:00)
[2018-07-09 08:19] VITALS: BP 143/70; PULSE 79; RESP 18
[2018-07-09] MEDS: BENAZEPRIL 40 MG TAB PO SCH (08:32)
[2018-07-09] MEDS: LACTOBACILLUS RHAMNOSUS CAP PO SCH ×2 (08:32→20:34)
[2018-07-09] MEDS: MEROPENEM 1 GM/50ML(PMX) 50 ML IVPB SCH (08:32)
[2018-07-09] MEDS: ENOXAPARIN 40 MG/0.4 ML SYG SC SCH (08:33)
[2018-07-09] MEDS: AMLODIPINE 10 MG TAB PO SCH (08:33)
--- NOTE | 2018-07-09 12:38 | CONS ---
Assessment/Plan Assessment/Plan Hospital Course (Demo Recall) No events, low grade temps persist, nad Antimicrobials: Vanco, meropenem Microbiology: All cultures negative, fluid cx + Staph CT of the chest abdomen and pelvis revealed 6.5 cm fluid collection along the right pelvic sidewall. Please see full report in the chart Physical examination this is a well-developed well-nourished elderly man who is alert in no distress. Head atraumatic normocephalic. Neck is supple chest rise symmetrical breath sounds clear heart S1-S2 abdomen soft bowel sounds present extremities with left upper extremity significantly limited range of motion. No erythema no fluctuance over the left shoulder Assessment: 1. Febrile illness, possible pelvic abscess per CT, s/p CT guided drainage 2. Diabetes 3. Glaucoma 4. 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 Plan: Clinically stable, dc Merrem, continue Vanco, check for HIV, procalcitonin level Consultation Date/Type/Reason Admit Date/Time Jul 01, 2018 at 16:52 Initial Consult Date Type of Consult id Date/Time of Note DATE: 07/09/18 TIME: 12:36 Exam/Review of Systems Exam Vitals Vital Signs Date Temp Pulse Resp B/P (MAP) Pulse Ox O2 O2 Flow FiO2 Time Delivery Rate 07/09/18 98.0 79 18 143/70 98 08:19 (94) 07/06/18 Room Air 13:50 Intake and Output 07/08/18 07/08/18 07/09/18 1515:00 23:00 07:00 IntakeIntake Total 780 ml 400 ml 500 ml OutputOutput Total 50 ml 100 ml BalanceBalance 780 ml 350 ml 400 ml Results Result Diagram: 07/09/18 0518 07/09/18 0518 Results 24hrs Laboratory Tests Test 07/08/18 17:39 07/08/18 20:20 07/08/18 20:29 07/09/18 05:18 Bedside Glucose 98 116 Vancomycin Level 13.2 Trough White Blood Count 9.1 Red Blood Count 3.30 L Hemoglobin 10.1 L Hematocrit 30.6 L Mean Corpuscular 92.7 Volume Mean Corpuscular 30.6 Hemoglobin Mean Corpuscular 33.0 Hemoglobin Concent Red Cell Distribution 12.9 Width Platelet Count 387 Mean Platelet Volume 9.4 Immature Granulocytes 0.700 H % Neutrophils % 77.2 H Lymphocytes % 13.0 L Monocytes % 6.2 Eosinophils % 2.5 Basophils % 0.4 Nucleated Red Blood 0.0 Cells % Immature Granulocytes 0.060 H # Neutrophils # 7.0 Lymphocytes # 1.2 Monocytes # 0.6 Eosinophils # 0.2 Basophils # 0.0 Nucleated Red Blood 0.0 Cells # Sodium Level 141 Potassium Level 3.8 Chloride Level 108 Carbon Dioxide Level 26 Anion Gap 7 Blood Urea Nitrogen 17 Creatinine 1.07 Est Glomerular Filtrat Rate mL/min Glucose Level 100 Calcium Level 8.9 Phosphorus Level 3.3 Magnesium Level 2.2 Test 07/09/18 08:13 07/09/18 08:34 07/09/18 11:36 Bedside Glucose 118 114 Lab Scanned Report REFERENCE LAB Medications Medication Current Medications Amlodipine Besylate (Norvasc) 10 mg DAILY PO Last administered on 07/09/18 08:33; Admin Dose 10 MG; Start 07/02/18 at 09:00 Atorvastatin Calcium (Lipitor) 10 mg QHS PO Last administered on 07/08/18 20:32; Admin Dose 10 MG; Start 07/01/18 at 21:00 Benazepril HCl (Lotensin) 40 mg DAILY PO Last administered on 07/09/18 08:32; Admin Dose 40 MG; Start 07/02/18 at 09:00 Diagnostic Test (Pha) (Accu-Chek) 1 ea AC MEALS AND BEDTIME XX Last administered on 07/06/18 17:16; Admin Dose 1 EA; Start 07/01/18 at 17:30 Diagnostic Test (Pha) (Accu-Chek) 1 ea 02 XX Last administered on 07/06/18at 01:13; Admin Dose 1 EA; Start 07/02/18 at 02:00 Insulin Aspart (Novolog Insulin Pen) NOVOLOG *MILD* ALGORITHM WITH MEALS BEDTIME SC Last administered on 07/05/18 20:07; Admin Dose 1 UNIT; Start 07/01/18 at 18:00 Miscellaneous Information 1 ea NOTE XX ; Start 07/01/18 at 17:30 Glucose (Glutose) 15 gm Q15M PRN PO DECREASED GLUCOSE; Start 07/01/18 at 17:30 Glucose (Glutose) 22.5 gm Q15M PRN PO DECREASED GLUCOSE; Start 07/01/18 at 17:30 Dextrose (D50w Syringe) 25 ml Q15M PRN IV DECREASED GLUCOSE; Start 07/01/18 at 17:30 Dextrose (D50w Syringe) 50 ml Q15M PRN IV DECREASED GLUCOSE; Start 07/01/18 at 17:30 Glucagon (Glucagen) 1 mg Q15M PRN IM DECREASED GLUCOSE; Start 07/01/18 at 17:30 Glucose (Glutose) 15 gm Q15M PRN BUCCAL DECREASED GLUCOSE; Start 07/01/18 at 17:30 Vancomycin HCl (Vanco Iv Per Pharmacy) VANCOMYCIN PER PHARMACY PER PROTOCOL XX ; Start 07/01/18 at 17:30 Tramadol HCl (Ultram) 50 mg Q6H PRN PO MODERATE PAIN LEVEL 4-6 Last administered on 07/08/18 09:14; Admin Dose 50 MG; Start 07/01/18 at 21:00 Enoxaparin Sodium (Lovenox) 40 mg DAILY SC Last administered on 07/09/18 08:33; Admin Dose 40 MG; Start 07/04/18 at 09:00 Acetaminophen (Tylenol Tab) 650 mg Q4 PRN PO MILD PAIN(1-3)OR ELEVATED TEMP Last administered on 07/07/18 20:41; Admin Dose 650 MG; Start 07/04/18 at 15:30 Lactobacillus Acidophilus/ Rhamnosus (Culturelle) 1 cap BID PO Last administered on 07/09/18 08:32; Admin Dose 1 CAP; Start 07/04/18 at 21:00 Vancomycin HCl 1.75 gm/Sodium Chloride 500 ml @ 125 mls/hr Q24H IVPB Last administered on 07/08/18 21:55; Admin Dose 125 MLS/HR; Start 07/05/18 at 21:00 Latanoprost (Xalatan) 1 drop QHS BOTH EYES Last administered on 07/08/18 20:32; Admin Dose 1 DROP; Start 07/06/18 at 21:00 Morphine Sulfate (morphine) 2 mg Q4H PRN IV SEVERE PAIN LEVEL 7-10 Last administered on 07/08/18 00:39; Admin Dose 2 MG; Start 07/07/18 at 13:00 INDERJIT MADDEN NP Jul 09, 2018 12:38
--- NOTE | 2018-07-09 13:36 | PN ---
Date/Time of Note Date/Time of Note DATE: 07/09/18 TIME: 13:35 Assessment/Plan VTE Prophylaxis Risk score (from Ns)>0 risk: 6 SCD applied (from Ns): Yes Pharmacological prophylaxis: LMWH Lines/Catheters IV Catheter Type (from [facility]ine Lock Assessment/Plan Hospital Course SUBJECTIVE: Denies any chills. OBJECTIVE: Physical Exam General: Adequately build 77 year-old male lying in bed in no apparent distress. HEENT: Normocephalic, atraumatic. Eyes: Anicteric sclerae, conjunctivae clear. ENT: Nasal septum midline, oral mucosa moist. Neck supple. Respiratory: Bilaterally diminished breath sounds. No use of accessory muscles of respiration. No adventitious breath sounds. Cardiovascular: S1, S2 heard. Regular rate and rhythm. Abdomen: Soft, nontender, and nondistended. Bowel sounds positive in all 4 quadrants. RLQ drain in place. Genitourinary: Deferred. Extremities: No cyanosis, no clubbing, no edema. Peripheral pulses palpable. Neurologic: Cranial nerves II through XII grossly intact. The patient is awake, alert, and oriented. Skin: Normal skin turgor. No skin rashes. Labs & Vitals per chart ASSESSMENT & PLAN 77-year-old male with comorbidities including hypertension, diabetes mellitus, dyslipidemia, and erectile dysfunction who came to the emergency room because of fevers and chills over 24 hours. The patient was noticed to have leukocytosis, febrile illness, and tachycardia in the emergency room. The patient was admitted to inpatient setting for further treatment and evaluation. 1. Sepsis with leukocytosis, tachycardia, and febrile illness. -Being followed by infectious diseases. -MRI of the left shoulder reviewed by orthopedic surgery and orthopedic surgeon thinks there is no evidence of any septic joint. -CT showing 6.5 cm circumscribed fluid collection along the right pelvic sidewall. -WBC scan showing area of mildly to moderately increased activity along the right pelvic sidewall corresponding to the circumscribed fluid collection on the CT scan. 2. 6.5 cm fluid collection located on the right pelvic sidewall. -Etiology unclear. -Status post CT-guided drainage on 07/07/2018. -Culture showing Staph aureus. 3. Diabetes mellitus type 2. -Continue sliding scale insulin. -A1C 5.9. 4. Dyslipidemia. -Continue statins. 5. Essential hypertension. -Continue antihypertensives. 6. Normocytic, normochromic anemia. -Most probably due to chronic disease. -Monitor H&H closely. 7. Fluids, electrolytes, and nutrition. -Carbohydrate controlled diet. 8. DVT prophylaxis. -SQ Lovenox. 9. Plan. -Continue antimicrobials as per ID. -Await final cultures from the drain. The patient was seen in collaboration with Dr. Lee. Result Diagram: 07/09/1818 07/09/1818 Results 24hrs Laboratory Tests Test 07/08/18 17:39 07/08/18 20:20 07/08/18 20:29 07/09/18 05:18 Bedside Glucose 98 116 Vancomycin Level 13.2 Trough White Blood Count 9.1 Red Blood Count 3.30 L Hemoglobin 10.1 L Hematocrit 30.6 L Mean Corpuscular 92.7 Volume Mean Corpuscular 30.6 Hemoglobin Mean Corpuscular 33.0 Hemoglobin Concent Red Cell Distribution 12.9 Width Platelet Count 387 Mean Platelet Volume 9.4 Immature Granulocytes 0.700 H % Neutrophils % 77.2 H Lymphocytes % 13.0 L Monocytes % 6.2 Eosinophils % 2.5 Basophils % 0.4 Nucleated Red Blood 0.0 Cells % Immature Granulocytes 0.060 H # Neutrophils # 7.0 Lymphocytes # 1.2 Monocytes # 0.6 Eosinophils # 0.2 Basophils # 0.0 Nucleated Red Blood 0.0 Cells # Sodium Level 141 Potassium Level 3.8 Chloride Level 108 Carbon Dioxide Level 26 Anion Gap 7 Blood Urea Nitrogen 17 Creatinine 1.07 Est Glomerular Filtrat Rate mL/min Glucose Level 100 Calcium Level 8.9 Phosphorus Level 3.3 Magnesium Level 2.2 Test 07/09/18 08:13 07/09/18 08:34 07/09/18 11:36 Bedside Glucose 118 114 Lab Scanned Report REFERENCE LAB Exam/Review of Systems Exam Vitals Vital Signs Date Temp Pulse Resp B/P (MAP) Pulse Ox O2 O2 Flow FiO2 Time Delivery Rate 07/09/18 98.0 79 18 143/70 98 08:19 (94) 07/06/18 Room Air 13:50 Intake and Output 07/08/18 07/08/18 07/09/18 1515:00 23:00 07:00 IntakeIntake Total 780 ml 400 ml 500 ml OutputOutput Total 50 ml 100 ml BalanceBalance 780 ml 350 ml 400 ml Results Results 24hrs Laboratory Tests Test 07/08/18 17:39 07/08/18 20:20 07/08/18 20:29 07/09/18 05:18 Bedside Glucose 98 116 Vancomycin Level 13.2 Trough White Blood Count 9.1 Red Blood Count 3.30 L Hemoglobin 10.1 L Hematocrit 30.6 L Mean Corpuscular 92.7 Volume Mean Corpuscular 30.6 Hemoglobin Mean Corpuscular 33.0 Hemoglobin Concent Red Cell Distribution 12.9 Width Platelet Count 387 Mean Platelet Volume 9.4 Immature Granulocytes 0.700 H % Neutrophils % 77.2 H Lymphocytes % 13.0 L Monocytes % 6.2 Eosinophils % 2.5 Basophils % 0.4 Nucleated Red Blood 0.0 Cells % Immature Granulocytes 0.060 H # Neutrophils # 7.0 Lymphocytes # 1.2 Monocytes # 0.6 Eosinophils # 0.2 Basophils # 0.0 Nucleated Red Blood 0.0 Cells # Sodium Level 141 Potassium Level 3.8 Chloride Level 108 Carbon Dioxide Level 26 Anion Gap 7 Blood Urea Nitrogen 17 Creatinine 1.07 Est Glomerular Filtrat Rate mL/min Glucose Level 100 Calcium Level 8.9 Phosphorus Level 3.3 Magnesium Level 2.2 Test 07/09/18 08:13 07/09/18 08:34 07/09/18 11:36 Bedside Glucose 118 114 Lab Scanned Report REFERENCE LAB Medications Medication Current Medications Amlodipine Besylate (Norvasc) 10 mg DAILY PO Last administered on 07/09/18 08:33; Admin Dose 10 MG; Start 07/02/18 at 09:00 Atorvastatin Calcium (Lipitor) 10 mg QHS PO Last administered on 07/08/18 20:32; Admin Dose 10 MG; Start 07/01/18 at 21:00 Benazepril HCl (Lotensin) 40 mg DAILY PO Last administered on 07/09/18 08:32; Admin Dose 40 MG; Start 07/02/18 at 09:00 Diagnostic Test (Pha) (Accu-Chek) 1 ea AC MEALS AND BEDTIME XX Last administered on 07/06/18 17:16; Admin Dose 1 EA; Start 07/01/18 at 17:30 Diagnostic Test (Pha) (Accu-Chek) 1 ea 02 XX Last administered on 07/06/18 01:13; Admin Dose 1 EA; Start 07/02/18 at 02:00 Insulin Aspart (Novolog Insulin Pen) NOVOLOG *MILD* ALGORITHM WITH MEALS BEDTIME SC Last administered on 07/05/18at 20:07; Admin Dose 1 UNIT; Start 07/01/18 at 18:00 Miscellaneous Information 1 ea NOTE XX ; Start 07/01/18 at 17:30 Glucose (Glutose) 15 gm Q15M PRN PO DECREASED GLUCOSE; Start 07/01/18 at 17:30 Glucose (Glutose) 22.5 gm Q15M PRN PO DECREASED GLUCOSE; Start 07/01/18 at 17:30 Dextrose (D50w Syringe) 25 ml Q15M PRN IV DECREASED GLUCOSE; Start 07/01/18 at 17:30 Dextrose (D50w Syringe) 50 ml Q15M PRN IV DECREASED GLUCOSE; Start 07/01/18 at 17:30 Glucagon (Glucagen) 1 mg Q15M PRN IM DECREASED GLUCOSE; Start 07/01/18 at 17:30 Glucose (Glutose) 15 gm Q15M PRN BUCCAL DECREASED GLUCOSE; Start 07/01/18 at 17:30 Vancomycin HCl (Vanco Iv Per Pharmacy) VANCOMYCIN PER PHARMACY PER PROTOCOL XX ; Start 07/01/18 at 17:30 Tramadol HCl (Ultram) 50 mg Q6H PRN PO MODERATE PAIN LEVEL 4-6 Last administered on 07/08/18at 09:14; Admin Dose 50 MG; Start 07/01/18 at 21:00 Enoxaparin Sodium (Lovenox) 40 mg DAILY SC Last administered on 07/09/18 08:33; Admin Dose 40 MG; Start 07/04/18 at 09:00 Acetaminophen (Tylenol Tab) 650 mg Q4 PRN PO MILD PAIN(1-3)OR ELEVATED TEMP Last administered on 07/07/18 20:41; Admin Dose 650 MG; Start 07/04/18 at 15:30 Lactobacillus Acidophilus/ Rhamnosus (Culturelle) 1 cap BID PO Last administ ered on 07/09/18 08:32; Admin Dose 1 CAP; Start 07/04/18 at 21:00 Vancomycin HCl 1.75 gm/Sodium Chloride 500 ml @ 125 mls/hr Q24H IVPB Last administered on 07/08/18 21:55; Admin Dose 125 MLS/HR; Start 07/05/18 at 21:00 Latanoprost (Xalatan) 1 drop QHS BOTH EYES Last administered on 07/08/18at 20:32; Admin Dose 1 DROP; Start 07/06/18 at 21:00 Morphine Sulfate (morphine) 2 mg Q4H PRN IV SEVERE PAIN LEVEL 7-10 Last administered on 07/08/18at 00:39; Admin Dose 2 MG; Start 07/07/18 at 13:00 MAHI TRIPATHI NP Jul 09, 2018 13:36
[2018-07-09 13:50] VITALS: BP 145/65; PULSE 89; RESP 19
[2018-07-09] MEDS: traMADol 50 MG TAB PO PRN ×2 (14:56→21:39)
[2018-07-09 20:00] VITALS: BP 129/64; PULSE 77; RESP 17
[2018-07-09] MEDS: LATANOPROST 0.005% 2.5 ML OPH BOTH EYES SCH (20:34)
[2018-07-09] MEDS: ATORVASTATIN 10 MG TAB PO SCH (20:34)
[2018-07-09] MEDS: VANCOMYCIN HCL 1.75 GM in SOD CHLORIDE 0.9% 500 ML IVPB SCH (21:39)
[2018-07-09] MEDS: traZODone 50 MG TAB PO SCH (23:44)
[2018-07-10 02:00] VITALS: BP 124/58; PULSE 78; RESP 18
[2018-07-10] MEDS: ACCU-CHEK XX SCH ×5 (02:00→20:39)
[2018-07-10] MEDS: traMADol 50 MG TAB PO PRN (05:12)
[2018-07-10] MEDS: INSULIN ASPART [NOVOLOG] 3 ML PEN SC SCH ×4 (08:00→20:38)
[2018-07-10] MEDS: BENAZEPRIL 40 MG TAB PO SCH (08:09)
[2018-07-10] MEDS: LACTOBACILLUS RHAMNOSUS CAP PO SCH ×2 (08:09→20:38)
[2018-07-10] MEDS: AMLODIPINE 10 MG TAB PO SCH (08:10)
[2018-07-10] MEDS: ENOXAPARIN 40 MG/0.4 ML SYG SC SCH (08:11)
[2018-07-10 08:23] VITALS: BP 126/66; PULSE 75; RESP 19
--- NOTE | 2018-07-10 12:14 | PN ---
Date/Time of Note Date/Time of Note DATE: 07/10/18 TIME: 12:13 Assessment/Plan VTE Prophylaxis Risk score (from Ns)>0 risk: 7 SCD applied (from [facility]): Yes Pharmacological prophylaxis: LMWH Lines/Catheters IV [facility] Type (from [facility] Saline Lock Assessment/Plan Hospital Course SUBJECTIVE: Denies any chills. OBJECTIVE: Physical Exam General: Adequately build 77 year-old male lying in bed in no apparent distress. HEENT: Normocephalic, atraumatic. Eyes: Anicteric sclerae, conjunctivae clear. ENT: Nasal septum midline, oral mucosa moist. Neck supple. Respiratory: Bilaterally diminished breath sounds. No use of accessory muscles of respiration. No adventitious breath sounds. Cardiovascular: S1, S2 heard. Regular rate and rhythm. Abdomen: Soft, nontender, and nondistended. Bowel sounds positive in all 4 quadrants. RLQ drain in place. Genitourinary: Deferred. Extremities: No cyanosis, no clubbing, no edema. Peripheral pulses palpable. Neurologic: Cranial nerves II through XII grossly intact. The patient is awake, alert, and oriented. Skin: Normal skin turgor. No skin rashes. Labs & Vitals per chart ASSESSMENT & PLAN 77-year-old male with comorbidities including hypertension, diabetes mellitus, dyslipidemia, and erectile dysfunction who came to the emergency room because of fevers and chills over 24 hours. The patient was noticed to have leukocytosis, febrile illness, and tachycardia in the emergency room. The patient was admitted to inpatient setting for further treatment and evaluation. 1. Sepsis with leukocytosis, tachycardia, and febrile illness. -Being followed by infectious diseases. -MRI of the left shoulder reviewed by orthopedic surgery and orthopedic surgeon thinks there is no evidence of any septic joint. -CT showing 6.5 cm circumscribed fluid collection along the right pelvic sidewall. -WBC scan showing area of mildly to moderately increased activity along the right pelvic sidewall corresponding to the circumscribed fluid collection on the CT scan. 2. 6.5 cm fluid collection located on the right pelvic sidewall. -Etiology unclear. -Status post CT-guided drainage on 07/07/2018. -Cultures showing Staph aureus. 3. Diabetes mellitus type 2. -Continue sliding scale insulin. -A1C 5.9. 4. Dyslipidemia. -Continue statins. 5. Essential hypertension. -Continue antihypertensives. 6. Normocytic, normochromic anemia. -Most probably due to chronic disease. -Monitor H&H closely. 7. Fluids, electrolytes, and nutrition. -Carbohydrate controlled diet. 8. DVT prophylaxis. -SQ Lovenox. 9. Plan. -Continue antimicrobials as per ID. -Await final cultures from the drain. -Talked to the interventional neurologist regarding minimal fluid coming out of the drain. Removal of drain ordered. The patient was seen in collaboration with Dr. Lee. Result Diagram: 07/10/18 0506 07/10/18 0506 Results 24hrs Laboratory Tests Test 07/09/18 13:04 07/09/18 17:38 07/09/18 20:40 07/10/18 05:06 HIV (1&2) Antibody NEGATIVE Bedside Glucose 113 121 White Blood Count 9.6 Red Blood Count 3.40 L Hemoglobin 10.3 L Hematocrit 31.1 L Mean Corpuscular Volume 91.5 Mean Corpuscular 30.3 Hemoglobin Mean Corpuscular 33.1 Hemoglobin Concent Red Cell Distribution 12.8 Width Platelet Count 410 Mean Platelet Volume 9.2 Immature Granulocytes % 0.300 Neutrophils % 79.8 H Lymphocytes % 11.5 L Monocytes % 6.3 Eosinophils % 1.8 Basophils % 0.3 Nucleated Red Blood 0.0 Cells % Immature Granulocytes # 0.030 Neutrophils # 7.6 H Lymphocytes # 1.1 Monocytes # 0.6 Eosinophils # 0.2 Basophils # 0.0 Nucleated Red Blood 0.0 Cells # Sodium Level 139 Potassium Level 4.0 Chloride Level 102 Carbon Dioxide Level 27 Anion Gap 10 Blood Urea Nitrogen 18 Creatinine 1.10 Est Glomerular Filtrat Rate mL/min Glucose Level 104 Calcium Level 8.9 Phosphorus Level 3.3 Magnesium Level 2.2 Test 07/10/18 08:07 Bedside Glucose 101 Exam/Review of Systems Exam Vitals Vital Signs Date Temp Pulse Resp B/P (MAP) Pulse Ox O2 O2 Flow FiO2 Time Delivery Rate 07/10/18 97.8 75 19 126/66 94 Room Air 08:23 (86) Intake and Output 07/09/18 07/09/18 07/10/18 1414:59 22:59 06:59 IntakeIntake Total 650 ml 360 ml 400 ml OutputOutput Total 1900 ml BalanceBalance 650 ml 360 ml -1500 ml Results Results 24hrs Laboratory Tests Test 07/09/18 13:04 07/09/18 17:38 07/09/18 20:40 07/10/18 05:06 HIV (1&2) Antibody NEGATIVE Bedside Glucose 113 121 White Blood Count 9.6 Red Blood Count 3.40 L Hemoglobin 10.3 L Hematocrit 31.1 L Mean Corpuscular Volume 91.5 Mean Corpuscular 30.3 Hemoglobin Mean Corpuscular 33.1 Hemoglobin Concent Red Cell Distribution 12.8 Width Platelet Count 410 Mean Platelet Volume 9.2 Immature Granulocytes % 0.300 Neutrophils % 79.8 H Lymphocytes % 11.5 L Monocytes % 6.3 Eosinophils % 1.8 Basophils % 0.3 Nucleated Red Blood 0.0 Cells % Immature Granulocytes # 0.030 Neutrophils # 7.6 H Lymphocytes # 1.1 Monocytes # 0.6 Eosinophils # 0.2 Basophils # 0.0 Nucleated Red Blood 0.0 Cells # Sodium Level 139 Potassium Level 4.0 Chloride Level 102 Carbon Dioxide Level 27 Anion Gap 10 Blood Urea Nitrogen 18 Creatinine 1.10 Est Glomerular Filtrat Rate mL/min Glucose Level 104 Calcium Level 8.9 Phosphorus Level 3.3 Magnesium Level 2.2 Test 07/10/18 08:07 Bedside Glucose 101 Medications Medication Current Medications Amlodipine Besylate (Norvasc) 10 mg DAILY PO Last administered on 07/10/18at 08:10; Admin Dose 10 MG; Start 07/02/18 at 09:00 Atorvastatin Calcium (Lipitor) 10 mg QHS PO Last administered on 07/09/18at 20:34; Admin Dose 10 MG; Start 07/01/18 at 21:00 Benazepril HCl (Lotensin) 40 mg DAILY PO Last administered on 07/10/18at 08:09; Admin Dose 40 MG; Start 07/02/18 at 09:00 Diagnostic Test (Pha) (Accu-Chek) 1 ea AC MEALS AND BEDTIME XX Last administered on 07/06/18at 17:16; Admin Dose 1 EA; Start 07/01/18 at 17:30 Diagnostic Test (Pha) (Accu-Chek) 1 ea 02 XX Last administered on 07/06/18at 01:13; Admin Dose 1 EA; Start 07/02/18 at 02:00 Insulin Aspart (Novolog Insulin Pen) NOVOLOG *MILD* ALGORITHM WITH MEALS BE DTIME SC Last administered on 07/05/18 20:07; Admin Dose 1 UNIT; Start 07/01/18 at 18:00 Miscellaneous Information 1 ea NOTE XX ; Start 07/01/18 at 17:30 Glucose (Glutose) 15 gm Q15M PRN PO DECREASED GLUCOSE; Start 07/01/18 at 17:30 Glucose (Glutose) 22.5 gm Q15M PRN PO DECREASED GLUCOSE; Start 07/01/18 at 17:30 Dextrose (D50w Syringe) 25 ml Q15M PRN IV DECREASED GLUCOSE; Start 07/01/18 at 17:30 Dextrose (D50w Syringe) 50 ml Q15M PRN IV DECREASED GLUCOSE; Start 07/01/18 at 17:30 Glucagon (Glucagen) 1 mg Q15M PRN IM DECREASED GLUCOSE; Start 07/01/18 at 17:30 Glucose (Glutose) 15 gm Q15M PRN BUCCAL DECREASED GLUCOSE; Start 07/01/18 at 17:30 Vancomycin HCl (Vanco Iv Per Pharmacy) VANCOMYCIN PER PHARMACY PER PROTOCOL XX ; Start 07/01/18 at 17:30 Tramadol HCl (Ultram) 50 mg Q6H PRN PO MODERATE PAIN LEVEL 4-6 Last administered on 07/10/18 05:12; Admin Dose 50 MG; Start 07/01/18 at 21:00 Enoxaparin Sodium (Lovenox) 40 mg DAILY SC Last administered on 07/10/18 08:11; Admin Dose 40 MG; Start 07/04/18 at 09:00 Acetaminophen (Tylenol Tab) 650 mg Q4 PRN PO MILD PAIN(1-3)OR ELEVATED TEMP Last administered on 07/07/18 20:41; Admin Dose 650 MG; Start 07/04/18 at 15:30 Lactobacillus Acidophilus/ Rhamnosus (Culturelle) 1 cap BID PO Last administered on 07/10/18 08:09; Admin Dose 1 CAP; Start 07/04/18 at 21:00 Vancomycin HCl 1.75 gm/Sodium Chloride 500 ml @ 125 mls/hr Q24H IVPB Last administered on 07/09/18 21:39; Admin Dose 125 MLS/HR; Start 07/05/18 at 21:00 Latanoprost (Xalatan) 1 drop QHS BOTH EYES Last administered on 07/09/18 20:34; Admin Dose 1 DROP; Start 07/06/18 at 21:00 Morphine Sulfate (morphine) 2 mg Q4H PRN IV SEVERE PAIN LEVEL 7-10 Last administered on 07/08/18at 00:39; Admin Dose 2 MG; Start 07/07/18 at 13:00 Trazodone HCl (Desyrel) 25 mg HS PO Last administered on 07/09/18at 23:44; Admin Dose 25 MG; Start 07/09/18 at 23:00 MAHI TRIPATHI NP Jul 10, 2018 12:14
[2018-07-10 14:00] VITALS: BP 146/65; PULSE 93; RESP 18
--- NOTE | 2018-07-10 14:34 | CONS ---
Assessment/Plan Assessment/Plan Hospital Course (Demo Recall) No acute changes patient is alert looks comfortable no fevers overnight. Fluid cultures growing coag negative staph susceptible to Cipro Bactrim Antimicrobials: Vanco CT of the chest abdomen and pelvis revealed 6.5 cm fluid collection along the right pelvic sidewall. Please see full report in the chart Physical examination this is a well-developed well-nourished elderly man who is alert in no distress. Head atraumatic normocephalic. Neck is supple chest rise symmetrical breath sounds clear heart S1-S2 abdomen soft bowel sounds present extremities with left upper extremity significantly limited range of motion. No erythema no fluctuance over the left shoulder Assessment: 1. Febrile illness, possible pelvic abscess per CT, s/p CT guided drainage 2. Diabetes 3. Glaucoma 4. 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 Plan: Remains stable, change antibiotics to oral Cipro Consultation Date/Type/Reason Admit Date/Time Jul 01, 2018 at 16:52 Initial Consult Date Type of Consult id Date/Time of Note DATE: 07/10/18 TIME: 14:33 Exam/Review of Systems Exam Vitals Vital Signs Date Temp Pulse Resp B/P (MAP) Pulse Ox O2 O2 Flow FiO2 Time Delivery Rate 07/10/18 97.8 75 19 126/66 94 Room Air 08:23 (86) Intake and Output 07/09/18 07/09/18 07/10/18 1515:00 23:00 07:00 IntakeIntake Total 650 ml 360 ml 400 ml OutputOutput Total 1900 ml BalanceBalance 650 ml 360 ml -1500 ml Results Result Diagram: 07/10/18 0506 07/10/18 0506 Results 24hrs Laboratory Tests Test 07/09/18 17:38 07/09/18 20:40 07/10/18 05:06 07/10/18 08:07 Bedside Glucose 113 121 101 White Blood Count 9.6 Red Blood Count 3.40 L Hemoglobin 10.3 L Hematocrit 31.1 L Mean Corpuscular Volume 91.5 Mean Corpuscular 30.3 Hemoglobin Mean Corpuscular 33.1 Hemoglobin Concent Red Cell Distribution 12.8 Width Platelet Count 410 Mean Platelet Volume 9.2 Immature Granulocytes % 0.300 Neutrophils % 79.8 H Lymphocytes % 11.5 L Monocytes % 6.3 Eosinophils % 1.8 Basophils % 0.3 Nucleated Red Blood 0.0 Cells % Immature Granulocytes # 0.030 Neutrophils # 7.6 H Lymphocytes # 1.1 Monocytes # 0.6 Eosinophils # 0.2 Basophils # 0.0 Nucleated Red Blood 0.0 Cells # Sodium Level 139 Potassium Level 4.0 Chloride Level 102 Carbon Dioxide Level 27 Anion Gap 10 Blood Urea Nitrogen 18 Creatinine 1.10 Est Glomerular Filtrat Rate mL/min Glucose Level 104 Calcium Level 8.9 Phosphorus Level 3.3 Magnesium Level 2.2 Test 07/10/18 12:08 Bedside Glucose 114 Medications Medication Current Medications Amlodipine Besylate (Norvasc) 10 mg DAILY PO Last administered on 07/10/18 08:10; Admin Dose 10 MG; Start 07/02/18 at 09:00 Atorvastatin Calcium (Lipitor) 10 mg QHS PO Last administered on 07/09/18 20:34; Admin Dose 10 MG; Start 07/01/18 at 21:00 Benazepril HCl (Lotensin) 40 mg DAILY PO Last administered on 07/10/18 08:09; Admin Dose 40 MG; Start 07/02/18 at 09:00 Diagnostic Test (Pha) (Accu-Chek) 1 ea AC MEALS AND BEDTIME XX Last administered on 07/06/18at 17:16; Admin Dose 1 EA; Start 07/01/18 at 17:30 Diagnostic Test (Pha) (Accu-Chek) 1 ea 02 XX Last administered on 07/06/18at 01:13; Admin Dose 1 EA; Start 07/02/18 at 02:00 Insulin Aspart (Novolog Insulin Pen) NOVOLOG *MILD* ALGORITHM WITH MEALS BEDTIME SC Last administered on 07/05/18at 20:07; Admin Dose 1 UNIT; Start 07/01/18 at 18:00 Miscellaneous Information 1 ea NOTE XX ; Start 07/01/18 at 17:30 Glucose (Glutose) 15 gm Q15M PRN PO DECREASED GLUCOSE; Start 07/01/18 at 17:30 Glucose (Glutose) 22.5 gm Q15M PRN PO DECREASED GLUCOSE; Start 07/01/18 at 17:30 Dextrose (D50w Syringe) 25 ml Q15M PRN IV DECREASED GLUCOSE; Start 07/01/18 at 17:30 Dextrose (D50w Syringe) 50 ml Q15M PRN IV DECREASED GLUCOSE; Start 07/01/18 at 17:30 Glucagon (Glucagen) 1 mg Q15M PRN IM DECREASED GLUCOSE; Start 07/01/18 at 17:30 Glucose (Glutose) 15 gm Q15M PRN BUCCAL DECREASED GLUCOSE; Start 07/01/18 at 17:30 Vancomycin HCl (Vanco Iv Per Pharmacy) VANCOMYCIN PER PHARMACY PER PROTOCOL XX ; Start 07/01/18 at 17:30 Tramadol HCl (Ultram) 50 mg Q6H PRN PO MODERATE PAIN LEVEL 4-6 Last administered on 07/10/18 05:12; Admin Dose 50 MG; Start 07/01/18 at 21:00 Enoxaparin Sodium (Lovenox) 40 mg DAILY SC Last administered on 07/10/18 08:11; Admin Dose 40 MG; Start 07/04/18 at 09:00 Acetaminophen (Tylenol Tab) 650 mg Q4 PRN PO MILD PAIN(1-3)OR ELEVATED TEMP Last administered on 07/07/18 20:41; Admin Dose 650 MG; Start 07/04/18 at 15:30 Lactobacillus Acidophilus/ Rhamnosus (Culturelle) 1 cap BID PO Last administered on 07/10/18 08:09; Admin Dose 1 CAP; Start 07/04/18 at 21:00 Vancomycin HCl 1.75 gm/Sodium Chloride 500 ml @ 125 mls/hr Q24H IVPB Last administered on 07/09/18 21:39; Admin Dose 125 MLS/HR; Start 07/05/18 at 21:00 Latanoprost (Xalatan) 1 drop QHS BOTH EYES Last administered on 07/09/18 20:34; Admin Dose 1 DROP; Start 07/06/18 at 21:00 Morphine Sulfate (morphine) 2 mg Q4H PRN IV SEVERE PAIN LEVEL 7-10 Last administered on 07/08/18 00:39; Admin Dose 2 MG; Start 07/07/18 at 13:00 Trazodone HCl (Desyrel) 25 mg HS PO Last administered on 07/09/18 23:44; Admin Dose 25 MG; Start 07/09/18 at 23:00 INDERJIT MADDEN NP Jul 10, 2018 14:34
[2018-07-10] MEDS: CIPROFLOXACIN 500 MG TAB PO SCH (17:32)
[2018-07-10 20:00] VITALS: BP 139/67; PULSE 82; RESP 18
[2018-07-10] MEDS: ATORVASTATIN 10 MG TAB PO SCH (20:38)
[2018-07-10] MEDS: traZODone 50 MG TAB PO SCH (20:38)
[2018-07-10] MEDS: LATANOPROST 0.005% 2.5 ML OPH BOTH EYES SCH (20:38)
[2018-07-10] MEDS: ACETAMINOPHEN 325 MG TAB PO PRN (20:41)
[2018-07-10] MEDS: morphine 2 MG INJ IV PRN (20:42)
[2018-07-11 02:00] VITALS: BP 124/58; PULSE 72; RESP 18
[2018-07-11] MEDS: ACCU-CHEK XX SCH ×5 (02:00→21:00)
[2018-07-11] MEDS: CIPROFLOXACIN 500 MG TAB PO SCH (06:10)
[2018-07-11 08:00] VITALS: BP 126/60; PULSE 70; RESP 18
[2018-07-11] MEDS: INSULIN ASPART [NOVOLOG] 3 ML PEN SC SCH ×4 (08:00→21:00)
[2018-07-11] MEDS: AMLODIPINE 10 MG TAB PO SCH (08:52)
[2018-07-11] MEDS: BENAZEPRIL 40 MG TAB PO SCH (08:53)
[2018-07-11] MEDS: ENOXAPARIN 40 MG/0.4 ML SYG SC SCH (08:55)
[2018-07-11] MEDS: LACTOBACILLUS RHAMNOSUS CAP PO SCH ×2 (09:01→21:18)
--- NOTE | 2018-07-11 14:46 | PN ---
Date/Time of Note Date/Time of Note DATE: 07/11/18 TIME: 14:43 Assessment/Plan VTE Prophylaxis Risk score (from Ns)>0 risk: 7 [place] [facility] [place] contraindicated: other Pharmacological prophylaxis: LMWH Lines/Catheters IV Catheter Type (from [facility]): Saline Lock Assessment/Plan Hospital Course SUBJECTIVE: The patient had febrile episodes the last night. OBJECTIVE: Physical Exam General: Adequately build 77 year-old male lying in bed in no apparent distress. HEENT: Normocephalic, atraumatic. Eyes: Anicteric sclerae, conjunctivae clear. ENT: Nasal septum midline, oral mucosa moist. Neck supple. Respiratory: Bilaterally diminished breath sounds. No use of accessory muscles of respiration. No adventitious breath sounds. Cardiovascular: S1, S2 heard. Regular rate and rhythm. Abdomen: Soft, nontender, and nondistended. Bowel sounds positive in all 4 quadrants. Genitourinary: Deferred. Extremities: No cyanosis, no clubbing, no edema. Peripheral pulses palpable. Neurologic: Cranial nerves II through XII grossly intact. The patient is awake, alert, and oriented. Skin: Normal skin turgor. No skin rashes. Labs & Vitals per chart ASSESSMENT & PLAN 77-year-old male with comorbidities including hypertension, diabetes mellitus, dyslipidemia, and erectile dysfunction who came to the emergency room because of fevers and chills over 24 hours. The patient was noticed to have leukocytosis, febrile illness, and tachycardia in the emergency room. The patient was admitted to inpatient setting for further treatment and evaluation. 1. Sepsis with leukocytosis, tachycardia, and febrile illness. -Being followed by infectious diseases. -MRI of the left shoulder reviewed by orthopedic surgery and orthopedic surgeon thinks there is no evidence of any septic joint. -CT showing 6.5 cm circumscribed fluid collection along the right pelvic sidewall. -WBC scan showing area of mildly to moderately increased activity along the r ight pelvic sidewall corresponding to the circumscribed fluid collection on the CT scan. -West Nile virus IgG antibody positive, although IgM antibody negative. 2. 6.5 cm fluid collection located on the right pelvic sidewall. -Etiology unclear. -Status post CT-guided drainage on 07/07/2018. Status post removal of drain on 07/10/2018. -Cultures showing Staph aureus. 3. Diabetes mellitus type 2. -Continue sliding scale insulin. -A1C 5.9. 4. Dyslipidemia. -Continue statins. 5. Essential hypertension. -Continue antihypertensives. 6. Normocytic, normochromic anemia. -Most probably due to chronic disease. -Monitor H&H closely. 7. Fluids, electrolytes, and nutrition. -Carbohydrate controlled diet. 8. DVT prophylaxis. -SQ Lovenox. 9. Plan. -Continue antimicrobials as per ID. -Repeat blood cultures sent because of febrile episodes. The patient was seen in collaboration with Dr. Torrez. Result Diagram: 07/11/18 0535 07/11/18 0535 Results 24hrs Laboratory Tests Test 07/10/18 17:30 07/10/18 20:34 07/11/18 05:35 07/11/18 08:10 Bedside Glucose 137 127 96 White Blood Count 11.6 #H Red Blood Count 3.19 L Hemoglobin 9.7 L Hematocrit 29.5 L Mean Corpuscular Volume 92.5 Mean Corpuscular 30.4 Hemoglobin Mean Corpuscular 32.9 Hemoglobin Concent Red Cell Distribution 12.8 Width Platelet Count 434 H Mean Platelet Volume 9.2 Immature Granulocytes % 0.600 H Neutrophils % 82.4 H Lymphocytes % 9.1 L Monocytes % 6.1 Eosinophils % 1.5 Basophils % 0.3 Nucleated Red Blood 0.0 Cells % Immature Granulocytes # 0.070 H Neutrophils # 9.5 H Lymphocytes # 1.1 Monocytes # 0.7 Eosinophils # 0.2 Basophils # 0.0 Nucleated Red Blood 0.0 Cells # Sodium Level 138 Potassium Level 4.2 Chloride Level 103 Carbon Dioxide Level 30 Anion Gap 5 Blood Urea Nitrogen 15 Creatinine 1.16 Est Glomerular Filtrat Rate mL/min Glucose Level 100 Calcium Level 9.0 Phosphorus Level 3.8 Magnesium Level 2.2 Test 07/11/18 12:02 Bedside Glucose 139 Exam/Review of Systems Exam Vitals Vital Signs Date Temp Pulse Resp B/P (MAP) Pulse Ox O2 O2 Flow FiO2 Time Delivery Rate 07/11/18 99.0 70 18 126/60 96 Room Air 08:00 (82) Intake and Output 07/10/18 07/10/18 07/11/18 1515:00 23:00 07:00 IntakeIntake Total 480 ml 360 ml 300 ml OutputOutput Total 500 ml BalanceBalance 480 ml 360 ml -200 ml Results Results 24hrs Laboratory Tests Test 07/10/18 17:30 07/10/18 20:34 07/11/18 05:35 07/11/18 08:10 Bedside Glucose 137 127 96 White Blood Count 11.6 #H Red Blood Count 3.19 L Hemoglobin 9.7 L Hematocrit 29.5 L Mean Corpuscular Volume 92.5 Mean Corpuscular 30.4 Hemoglobin Mean Corpuscular 32.9 Hemoglobin Concent Red Cell Distribution 12.8 Width Platelet Count 434 H Mean Platelet Volume 9.2 Immature Granulocytes % 0.600 H Neutrophils % 82.4 H Lymphocytes % 9.1 L Monocytes % 6.1 Eosinophils % 1.5 Basophils % 0.3 Nucleated Red Blood 0.0 Cells % Immature Granulocytes # 0.070 H Neutrophils # 9.5 H Lymphocytes # 1.1 Monocytes # 0.7 Eosinophils # 0.2 Basophils # 0.0 Nucleated Red Blood 0.0 Cells # Sodium Level 138 Potassium Level 4.2 Chloride Level 103 Carbon Dioxide Level 30 Anion Gap 5 Blood Urea Nitrogen 15 Creatinine 1.16 Est Glomerular Filtrat Rate mL/min Glucose Level 100 Calcium Level 9.0 Phosphorus Level 3.8 Magnesium Level 2.2 Test 07/11/18 12:02 Bedside Glucose 139 Medications Medication Current Medications Amlodipine Besylate (Norvasc) 10 mg DAILY PO Last administered on 07/11/18at 08:52; Admin Dose 10 MG; Start 07/02/18 at 09:00 Atorvastatin Calcium (Lipitor) 10 mg QHS PO Last administered on 07/10/18at 20:38; Admin Dose 10 MG; Start 07/01/18 at 21:00 Benazepril HCl (Lotensin) 40 mg DAILY PO Last administered on 07/11/18at 08:53; Admin Dose 40 MG; Start 07/02/18 at 09:00 Diagnostic Test (Pha) (Accu-Chek) 1 ea AC MEALS AND BEDTIME XX Last administered on 07/06/18at 17:16; Admin Dose 1 EA; Start 07/01/18 at 17:30 Diagnostic Test (Pha) (Accu-Chek) 1 ea 02 XX Last administered on 07/06/18 01:13; Admin Dose 1 EA; Start 07/02/18 at 02:00 Insulin Aspart (Novolog Insulin Pen) NOVOLOG *MILD* ALGORITHM WITH MEALS BEDTIME SC Last administered on 07/05/18 20:07; Admin Dose 1 UNIT; Start 07/01/18 at 18:00 Miscellaneous Information 1 ea NOTE XX ; Start 07/01/18 at 17:30 Glucose (Glutose) 15 gm Q15M PRN PO DECREASED GLUCOSE; Start 07/01/18 at 17:30 Glucose (Glutose) 22.5 gm Q15M PRN PO DECREASED GLUCOSE; Start 07/01/18 at 17:30 Dextrose (D50w Syringe) 25 ml Q15M PRN IV DECREASED GLUCOSE; Start 07/01/18 at 17:30 Dextrose (D50w Syringe) 50 ml Q15M PRN IV DECREASED GLUCOSE; Start 07/01/18 at 17:30 Glucagon (Glucagen) 1 mg Q15M PRN IM DECREASED GLUCOSE; Start 07/01/18 at 17:30 Glucose (Glutose) 15 gm Q15M PRN BUCCAL DECREASED GLUCOSE; Start 07/01/18 at 17:30 Tramadol HCl (Ultram) 50 mg Q6H PRN PO MODERATE PAIN LEVEL 4-6 Last administered on 07/10/18 05:12; Admin Dose 50 MG; Start 07/01/18 at 21:00 Enoxaparin Sodium (Lovenox) 40 mg DAILY SC Last administered on 07/11/18 08:55; Admin Dose 40 MG; Start 07/04/18 at 09:00 Acetaminophen (Tylenol Tab) 650 mg Q4 PRN PO MILD PAIN(1-3)OR ELEVATED TEMP Last administered on 07/10/18 20:41; Admin Dose 650 MG; Start 07/04/18 at 15:30 Lactobacillus Acidophilus/ Rhamnosus (Culturelle) 1 cap BID PO Last administered on 07/11/18 09:01; Admin Dose 1 CAP; Start 07/04/18 at 21:00 Latanoprost (Xalatan) 1 drop QHS BOTH EYES Last administered on 07/10/18 20:38; Admin Dose 1 DROP; Start 07/06/18 at 21:00 Morphine Sulfate (morphine) 2 mg Q4H PRN IV SEVERE PAIN LEVEL 7-10 Last administered on 07/10/18 20:42; Admin Dose 2 MG; Start 07/07/18 at 13:00 Trazodone HCl (Desyrel) 25 mg HS PO Last administered on 07/10/18at 20:38; Admin Dose 25 MG; Start 07/09/18 at 23:00 Piperacillin Sod/ Tazobactam Sod 100 ml @ 200 mls/hr Q8 IVPB ; Start 07/11/18 at 14:00 MAHI TRIPATHI NP Jul 11, 2018 14:46
[2018-07-11] MEDS: PIPER-TAZO 3.375 GM IV (PMX) 100 ML IVPB SCH ×2 (14:57→21:25)
[2018-07-11] MEDS: ACETAMINOPHEN 325 MG TAB PO PRN (15:17)
[2018-07-11 15:31] VITALS: BP 124/58; PULSE 76; RESP 18
--- NOTE | 2018-07-11 17:34 | CONS ---
Assessment/Plan Assessment/Plan Hospital Course (Demo Recall) Catheter was removed today patient had been spiking fevers with a T-max of 101.4. He is alert denies pain no nausea vomiting diarrhea no dysuria. WBC 11.6 platelets 434 neutrophils 82.4 BUN 15 creatinine 1.16 Antimicrobials: Cipro CT of the chest abdomen and pelvis revealed 6.5 cm fluid collection along the right pelvic sidewall. Please see full report in the chart Physical examination this is a well-developed well-nourished elderly man who is alert in no distress. Head atraumatic normocephalic. Neck is supple chest rise symmetrical breath sounds clear heart S1-S2 abdomen soft bowel sounds present extremities with left upper extremity significantly limited range of mot ion. No erythema no fluctuance over the left shoulder Assessment: 1. Ongoing fevers, etiology unclear, status post CT guided drainage of pelvic fluid with culture grew coag negative staph 2. Diabetes 3. Glaucoma 4. 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 Plan: Clinically stable, repeat blood cultures, change antibiotics to Zosyn, ESR in am Consultation Date/Type/Reason Admit Date/Time Jul 01, 2018 at 16:52 Initial Consult Date Type of Consult id Date/Time of Note DATE: 07/11/18 TIME: 17:30 Exam/Review of Systems Exam Vitals Vital Signs Date Temp Pulse Resp B/P (MAP) Pulse Ox O2 O2 Flow FiO2 Time Delivery Rate 07/11/18 98.9 16:06 07/11/18 76 18 124/58 98 Room Air 15:31 (80) Intake and Output 07/10/18 07/10/18 07/11/18 1515:00 23:00 07:00 IntakeIntake Total 480 ml 360 ml 300 ml OutputOutput Total 500 ml BalanceBalance 480 ml 360 ml -200 ml Results Result Diagram: 07/11/18 0535 07/11/18 0535 Results 24hrs Laboratory Tests Test 07/10/18 20:34 07/11/18 05:35 07/11/18 08:10 07/11/18 12:02 Bedside Glucose 127 96 139 White Blood Count 11.6 #H Red Blood Count 3.19 L Hemoglobin 9.7 L Hematocrit 29.5 L Mean Corpuscular Volume 92.5 Mean Corpuscular 30.4 Hemoglobin Mean Corpuscular 32.9 Hemoglobin Concent Red Cell Distribution 12.8 Width Platelet Count 434 H Mean Platelet Volume 9.2 Immature Granulocytes % 0.600 H Neutrophils % 82.4 H Lymphocytes % 9.1 L Monocytes % 6.1 Eosinophils % 1.5 Basophils % 0.3 Nucleated Red Blood 0.0 Cells % Immature Granulocytes # 0.070 H Neutrophils # 9.5 H Lymphocytes # 1.1 Monocytes # 0.7 Eosinophils # 0.2 Basophils # 0.0 Nucleated Red Blood 0.0 Cells # Sodium Level 138 Potassium Level 4.2 Chloride Level 103 Carbon Dioxide Level 30 Anion Gap 5 Blood Urea Nitrogen 15 Creatinine 1.16 Est Glomerular Filtrat Rate mL/min Glucose Level 100 Calcium Level 9.0 Phosphorus Level 3.8 Magnesium Level 2.2 Test 07/11/18 16:57 Bedside Glucose 109 Medications Medication Current Medications Amlodipine Besylate (Norvasc) 10 mg DAILY PO Last administered on 07/11/18 08:52; Admin Dose 10 MG; Start 07/02/18 at 09:00 Atorvastatin Calcium (Lipitor) 10 mg QHS PO Last administered on 07/10/18 20:38; Admin Dose 10 MG; Start 07/01/18 at 21:00 Benazepril HCl (Lotensin) 40 mg DAILY PO Last administered on 07/11/18 08:53; Admin Dose 40 MG; Start 07/02/18 at 09:00 Diagnostic Test (Pha) (Accu-Chek) 1 ea AC MEALS AND BEDTIME XX Last administered on 07/06/18 17:16; Admin Dose 1 EA; Start 07/01/18 at 17:30 Diagnostic Test (Pha) (Accu-Chek) 1 ea 02 XX Last administered on 07/06/18at 01:13; Admin Dose 1 EA; Start 07/02/18 at 02:00 Insulin Aspart (Novolog Insulin Pen) NOVOLOG *MILD* ALGORITHM WITH MEALS BEDTIME SC Last administered on 07/05/18 20:07; Admin Dose 1 UNIT; Start 07/01/18 at 18:00 Miscellaneous Information 1 ea NOTE XX ; Start 07/01/18 at 17:30 Glucose (Glutose) 15 gm Q15M PRN PO DECREASED GLUCOSE; Start 07/01/18 at 17:30 Glucose (Glutose) 22.5 gm Q15M PRN PO DECREASED GLUCOSE; Start 07/01/18 at 17:30 Dextrose (D50w Syringe) 25 ml Q15M PRN IV DECREASED GLUCOSE; Start 07/01/18 at 17:30 Dextrose (D50w Syringe) 50 ml Q15M PRN IV DECREASED GLUCOSE; Start 07/01/18 at 17:30 Glucagon (Glucagen) 1 mg Q15M PRN IM DECREASED GLUCOSE; Start 07/01/18 at 17:30 Glucose (Glutose) 15 gm Q15M PRN BUCCAL DECREASED GLUCOSE; Start 07/01/18 at 17:30 Tramadol HCl (Ultram) 50 mg Q6H PRN PO MODERATE PAIN LEVEL 4-6 Last administered on 07/10/18 05:12; Admin Dose 50 MG; Start 07/01/18 at 21:00 Enoxaparin Sodium (Lovenox) 40 mg DAILY SC Last administered on 07/11/18 08:55; Admin Dose 40 MG; Start 07/04/18 at 09:00 Acetaminophen (Tylenol Tab) 650 mg Q4 PRN PO MILD PAIN(1-3)OR ELEVATED TEMP Last administered on 07/11/18 15:17; Admin Dose 650 MG; Start 07/04/18 at 15:30 Lactobacillus Acidophilus/ Rhamnosus (Culturelle) 1 cap BID PO Last administere d on 07/11/18 09:01; Admin Dose 1 CAP; Start 07/04/18 at 21:00 Latanoprost (Xalatan) 1 drop QHS BOTH EYES Last administered on 07/10/18 20:38; Admin Dose 1 DROP; Start 07/06/18 at 21:00 Morphine Sulfate (morphine) 2 mg Q4H PRN IV SEVERE PAIN LEVEL 7-10 Last administered on 07/10/18 20:42; Admin Dose 2 MG; Start 07/07/18 at 13:00 Trazodone HCl (Desyrel) 25 mg HS PO Last administered on 07/10/18 20:38; Admin Dose 25 MG; Start 07/09/18 at 23:00 Piperacillin Sod/ Tazobactam Sod 100 ml @ 200 mls/hr Q8 IVPB Last administered on 07/11/18 14:57; Admin Dose 200 MLS/HR; Start 07/11/18 at 14:00 INDERJIT MADDEN NP Jul 11, 2018 17:34
[2018-07-11 20:00] VITALS: BP 111/58; PULSE 75; RESP 18
[2018-07-11] MEDS: LATANOPROST 0.005% 2.5 ML OPH BOTH EYES SCH (21:18)
[2018-07-11] MEDS: ATORVASTATIN 10 MG TAB PO SCH (21:18)
[2018-07-11] MEDS: traZODone 50 MG TAB PO SCH (21:19)
[2018-07-12] MEDS: ACCU-CHEK XX SCH ×5 (01:53→20:29)
[2018-07-12 02:00] VITALS: BP 121/58; PULSE 63; RESP 18
[2018-07-12] MEDS: PIPER-TAZO 3.375 GM IV (PMX) 100 ML IVPB SCH ×3 (05:17→22:01)
--- NOTE | 2018-07-12 07:06 | PN ---
Date/Time of Note Date/Time of Note DATE: 07/12/18 TIME: 07:01 Assessment/Plan VTE Prophylaxis Risk score (from Ns)>0 risk: 7 SCD applied (from Ns): Yes Pharmacological prophylaxis: LMWH Lines/Catheters [facility] [place] Assessment/Plan Hospital Course SUBJECTIVE: The patient had febrile episodes the last evening. OBJECTIVE: Physical Exam General: Adequately build 77 year-old male lying in bed in no apparent distress. HEENT: Normocephalic, atraumatic. Eyes: Anicteric sclerae, conjunctivae clear. ENT: Nasal septum midline, oral mucosa moist. Neck supple. Respiratory: Bilaterally diminished breath sounds. No use of accessory muscles of respiration. No adventitious breath sounds. Cardiovascular: S1, S2 heard. Regular rate and rhythm. Abdomen: Soft, nontender, and nondistended. Bowel sounds positive in all 4 quadrants. Genitourinary: Deferred. Extremities: No cyanosis, no clubbing, no edema. Peripheral pulses palpable. Neurologic: Cranial nerves II through XII grossly intact. The patient is awake, alert, and oriented. Skin: Normal skin turgor. No skin rashes. Labs & Vitals per chart ASSESSMENT & PLAN 77-year-old male with comorbidities including hypertension, diabetes mellitus, dyslipidemia, and erectile dysfunction who came to the emergency room because of fevers and chills over 24 hours. The patient was noticed to have leukocytosis, febrile illness, and tachycardia in the emergency room. The patient was admitted to inpatient setting for further treatment and evaluation. 1. Sepsis with leukocytosis, tachycardia, and febrile illness. -Being followed by infectious diseases. -MRI of the left shoulder reviewed by orthopedic surgery and orthopedic surgeon thinks there is no evidence of any septic joint. -CT showing 6.5 cm circumscribed fluid collection along the right pelvic sidewall. -WBC scan showing area of mildly to moderately increased activity along the right pelvic sidewall corresponding to the circumscribed fluid collection on the CT scan. -West Nile virus IgG antibody positive, although IgM antibody negative. 2. 6.5 cm fluid collection located on the right pelvic sidewall. -Etiology unclear. -Status post CT-guided drainage on 07/07/2018. Status post removal of drain on 07/10/2018. -Cultures showing Staph aureus. 3. Diabetes mellitus type 2. -Continue sliding scale insulin. -A1C 5.9. 4. Dyslipidemia. -Continue statins. 5. Essential hypertension. -Continue antihypertensives. 6. Normocytic, normochromic anemia. -Most probably due to chronic disease. -Monitor H&H closely. 7. Fluids, electrolytes, and nutrition. -Carbohydrate controlled diet. 8. DVT prophylaxis. -SQ Lovenox. 9. Plan. -Continue antimicrobials as per ID. -Repeat blood cultures sent because of febrile episodes. -Repeat CT abdomen and pelvis to evaluate complete drainage of the abscess. The patient was seen in collaboration with Dr. Torrez. Result Diagram: 07/12/18 0510 07/11/18 0535 Results 24hrs Laboratory Tests Test 07/11/18 08:10 07/11/18 12:02 07/11/18 16:57 07/11/18 21:17 Bedside Glucose 96 139 109 114 Test 07/12/18 05:10 White Blood Count 7.6 # Red Blood Count 3.26 L Hemoglobin 9.8 L Hematocrit 30.4 L Mean Corpuscular Volume 93.3 Mean Corpuscular 30.1 Hemoglobin Mean Corpuscular 32.2 Hemoglobin Concent Red Cell Distribution 12.8 Width Platelet Count 477 H Mean Platelet Volume 9.3 Immature Granulocytes % 0.700 H Neutrophils % 75.3 Lymphocytes % 13.0 L Monocytes % 7.1 Eosinophils % 3.5 Basophils % 0.4 Nucleated Red Blood 0.0 Cells % Immature Granulocytes # 0.050 H Neutrophils # 5.8 Lymphocytes # 1.0 Monocytes # 0.5 Eosinophils # 0.3 Basophils # 0.0 Nucleated Red Blood 0.0 Cells # Exam/Review of Systems Exam Vitals Vital Signs Date Temp Pulse Resp B/P (MAP) Pulse Ox O2 O2 Flow FiO2 Time Delivery Rate 07/12/18 98.8 63 18 121/58 98 Room Air 02:00 (79) Intake and Output 07/11/18 07/11/18 07/12/18 1515:00 23:00 07:00 IntakeIntake Total 500 ml 700 ml 500 ml OutputOutput Total 700 ml BalanceBalance 500 ml 700 ml -200 ml Results Results 24hrs Laboratory Tests Test 07/11/18 08:10 07/11/18 12:02 07/11/18 16:57 07/11/18 21:17 Bedside Glucose 96 139 109 114 Test 07/12/18 05:10 White Blood Count 7.6 # Red Blood Count 3.26 L Hemoglobin 9.8 L Hematocrit 30.4 L Mean Corpuscular Volume 93.3 Mean Corpuscular 30.1 Hemoglobin Mean Corpuscular 32.2 Hemoglobin Concent Red Cell Distribution 12.8 Width Platelet Count 477 H Mean Platelet Volume 9.3 Immature Granulocytes % 0.700 H Neutrophils % 75.3 Lymphocytes % 13.0 L Monocytes % 7.1 Eosinophils % 3.5 Basophils % 0.4 Nucleated Red Blood 0.0 Cells % Immature Granulocytes # 0.050 H Neutrophils # 5.8 Lymphocytes # 1.0 Monocytes # 0.5 Eosinophils # 0.3 Basophils # 0.0 Nucleated Red Blood 0.0 Cells # Medications Medication Current Medications Amlodipine Besylate (Norvasc) 10 mg DAILY PO Last administered on 07/11/18at 08 :52; Admin Dose 10 MG; Start 07/02/18 at 09:00 Atorvastatin Calcium (Lipitor) 10 mg QHS PO Last administered on 07/11/18at 21:18; Admin Dose 10 MG; Start 07/01/18 at 21:00 Benazepril HCl (Lotensin) 40 mg DAILY PO Last administered on 07/11/18at 08:53; Admin Dose 40 MG; Start 07/02/18 at 09:00 Diagnostic Test (Pha) (Accu-Chek) 1 ea AC MEALS AND BEDTIME XX Last administered on 07/06/18at 17:16; Admin Dose 1 EA; Start 07/01/18 at 17:30 Diagnostic Test (Pha) (Accu-Chek) 1 ea 02 XX Last administered on 07/06/18at 01:13; Admin Dose 1 EA; Start 07/02/18 at 02:00 Insulin Aspart (Novolog Insulin Pen) NOVOLOG *MILD* ALGORITHM WITH MEALS BEDTIME SC Last administered on 07/05/18at 20:07; Admin Dose 1 UNIT; Start 07/01/18 at 18:00 Miscellaneous Information 1 ea NOTE XX ; Start 07/01/18 at 17:30 Glucose (Glutose) 15 gm Q15M PRN PO DECREASED GLUCOSE; Start 07/01/18 at 17:30 Glucose (Glutose) 22.5 gm Q15M PRN PO DECREASED GLUCOSE; Start 07/01/18 at 17:30 Dextrose (D50w Syringe) 25 ml Q15M PRN IV DECREASED GLUCOSE; Start 07/01/18 at 17:30 Dextrose (D50w Syringe) 50 ml Q15M PRN IV DECREASED GLUCOSE; Start 07/01/18 at 17:30 Glucagon (Glucagen) 1 mg Q15M PRN IM DECREASED GLUCOSE; Start 07/01/18 at 17:30 Glucose (Glutose) 15 gm Q15M PRN BUCCAL DECREASED GLUCOSE; Start 07/01/18 at 17:30 Tramadol HCl (Ultram) 50 mg Q6H PRN PO MODERATE PAIN LEVEL 4-6 Last administered on 07/10/18 05:12; Admin Dose 50 MG; Start 07/01/18 at 21:00 Enoxaparin Sodium (Lovenox) 40 mg DAILY SC Last administered on 07/11/18 08:55; Admin Dose 40 MG; Start 07/04/18 at 09:00 Acetaminophen (Tylenol Tab) 650 mg Q4 PRN PO MILD PAIN(1-3)OR ELEVATED TEMP Last administered on 07/11/18 15:17; Admin Dose 650 MG; Start 07/04/18 at 15:30 Lactobacillus Acidophilus/ Rhamnosus (Culturelle) 1 cap BID PO Last administered on 07/11/18 21:18; Admin Dose 1 CAP; Start 07/04/18 at 21:00 Latanoprost (Xalatan) 1 drop QHS BOTH EYES Last administered on 07/11/18 21:18; Admin Dose 1 DROP; Start 07/06/18 at 21:00 Morphine Sulfate (morphine) 2 mg Q4H PRN IV SEVERE PAIN LEVEL 7-10 Last administered on 07/10/18at 20:42; Admin Dose 2 MG; Start 07/07/18 at 13:00 Trazodone HCl (Desyrel) 25 mg HS PO Last administered on 07/11/18 21:19; Admin Dose 25 MG; Start 07/09/18 at 23:00 Piperacillin Sod/ Tazobactam Sod 100 ml @ 200 mls/hr Q8 IVPB Last administered on 07/12/18 05:17; Admin Dose 200 MLS/HR; Start 07/11/18 at 14:00 MAHI TRIPATHI NP Jul 12, 2018 07:06
[2018-07-12] MEDS ORDERED: SOD CHLORIDE 0.9% 1,000 ML IV SCH (07:30)
[2018-07-12] MEDS: INSULIN ASPART [NOVOLOG] 3 ML PEN SC SCH ×4 (08:00→20:28)
[2018-07-12 08:10] VITALS: BP 116/58; PULSE 82; RESP 18
[2018-07-12] MEDS: ACETYLCYSTEINE 600 MG CAP PO SCH ×2 (08:31→20:25)
[2018-07-12] MEDS: BENAZEPRIL 40 MG TAB PO SCH (08:32)
[2018-07-12] MEDS: AMLODIPINE 10 MG TAB PO SCH (08:32)
[2018-07-12] MEDS: LACTOBACILLUS RHAMNOSUS CAP PO SCH ×2 (08:32→20:23)
[2018-07-12] MEDS: ENOXAPARIN 40 MG/0.4 ML SYG SC SCH (08:35)
[2018-07-12] MEDS ORDERED: IOHEXOL 14.3 MG(I)/ML (ADULT) BTL PO ONE (10:00)
--- NOTE | 2018-07-12 13:28 | CONS ---
Assessment/Plan Assessment/Plan Hospital Course (Demo Recall) Afebrile, looks comfortable Antimicrobials: Zosyn CT of the chest abdomen and pelvis revealed 6.5 cm fluid collection along the right pelvic sidewall. Please see full report in the chart Physical examination this is a well-developed well-nourished elderly man who is alert in no distress. Head atraumatic normocephalic. Neck is supple chest rise symmetrical breath sounds clear heart S1-S2 abdomen soft bowel sounds present extremities with left upper extremity significantly limited range of motion. No erythema no fluctuance over the left shoulder Assessment: 1. Ongoing fevers/acute inflammation, status post CT guided drainage of pelvic fluid with culture grew coag negative staph 2. Diabetes 3. Glaucoma 4. 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 Plan: Clinically stable, pending repeat blood cultures, pending repeat CT abdomen and cxr, continue abx Consultation Date/Type/Reason Admit Date/Time Jul 01, 2018 at 16:52 Initial Consult Date Type of Consult id Date/Time of Note DATE: 07/12/18 TIME: 13:27 Exam/Review of Systems Exam Vitals Vital Signs Date Temp Pulse Resp B/P (MAP) Pulse Ox O2 O2 Flow FiO2 Time Delivery Rate 07/12/18 98.8 82 18 116/58 95 Room Air 08:10 (77) Intake and Output 07/11/18 07/11/18 07/12/18 1515:00 23:00 07:00 IntakeIntake Total 500 ml 700 ml 500 ml OutputOutput Total 700 ml BalanceBalance 500 ml 700 ml -200 ml Results Result Diagram: 07/12/18 0510 07/12/18 0510 Results 24hrs Laboratory Tests Test 07/11/18 16:57 07/11/18 21:17 07/12/18 05:10 07/12/18 08:06 Bedside Glucose 109 114 111 White Blood Count 7.6 # Red Blood Count 3.26 L Hemoglobin 9.8 L Hematocrit 30.4 L Mean Corpuscular Volume 93.3 Mean Corpuscular 30.1 Hemoglobin Mean Corpuscular 32.2 Hemoglobin Concent Red Cell Distribution 12.8 Width Platelet Count 477 H Mean Platelet Volume 9.3 Immature Granulocytes % 0.700 H Neutrophils % 75.3 Lymphocytes % 13.0 L Monocytes % 7.1 Eosinophils % 3.5 Basophils % 0.4 Nucleated Red Blood 0.0 Cells % Immature Granulocytes # 0.050 H Neutrophils # 5.8 Lymphocytes # 1.0 Monocytes # 0.5 Eosinophils # 0.3 Basophils # 0.0 Nucleated Red Blood 0.0 Cells # Erythrocyte 75 H Sedimentation Rate Sodium Level 142 Potassium Level 4.2 Chloride Level 105 Carbon Dioxide Level 29 Anion Gap 8 Blood Urea Nitrogen 16 Creatinine 1.30 H Est Glomerular Filtrat Rate mL/min Glucose Level 98 Calcium Level 9.3 Phosphorus Level 4.3 Magnesium Level 2.5 Test 07/12/18 12:26 Bedside Glucose 151 Medications Medication Current Medications Amlodipine Besylate (Norvasc) 10 mg DAILY PO Last administered on 07/12/18 08:32; Admin Dose 10 MG; Start 07/02/18 at 09:00 Atorvastatin Calcium (Lipitor) 10 mg QHS PO Last administered on 07/11/18 21:18; Admin Dose 10 MG; Start 07/01/18 at 21:00 Benazepril HCl (Lotensin) 40 mg DAILY PO Last administered on 07/12/18 08:32; Admin Dose 40 MG; Start 07/02/18 at 09:00 Diagnostic Test (Pha) (Accu-Chek) 1 ea AC MEALS AND BEDTIME XX Last administered on 07/12/18 12:25; Admin Dose 1 EA; Start 07/01/18 at 17:30 Diagnostic Test (Pha) (Accu-Chek) 1 ea 02 XX Last administered on 07/06/18at 01:13; Admin Dose 1 EA; Start 07/02/18 at 02:00 Insulin Aspart (Novolog Insulin Pen) NOVOLOG *MILD* ALGORITHM WITH MEALS BEDTIME SC Last administered on 07/05/18at 20:07; Admin Dose 1 UNIT; Start 07/01/18 at 18:00 Miscellaneous Information 1 ea NOTE XX ; Start 07/01/18 at 17:30 Glucose (Glutose) 15 gm Q15M PRN PO DECREASED GLUCOSE; Start 07/01/18 at 17:30 Glucose (Glutose) 22.5 gm Q15M PRN PO DECREASED GLUCOSE; Start 07/01/18 at 17:30 Dextrose (D50w Syringe) 25 ml Q15M PRN IV DECREASED GLUCOSE; Start 07/01/18 at 17:30 Dextrose (D50w Syringe) 50 ml Q15M PRN IV DECREASED GLUCOSE; Start 07/01/18 at 17:30 Glucagon (Glucagen) 1 mg Q15M PRN IM DECREASED GLUCOSE; Start 07/01/18 at 17:30 Glucose (Glutose) 15 gm Q15M PRN BUCCAL DECREASED GLUCOSE; Start 07/01/18 at 17:30 Tramadol HCl (Ultram) 50 mg Q6H PRN PO MODERATE PAIN LEVEL 4-6 Last administered on 07/10/18 05:12; Admin Dose 50 MG; Start 07/01/18 at 21:00 Enoxaparin Sodium (Lovenox) 40 mg DAILY SC Last administered on 07/12/18 08:35; Admin Dose 40 MG; Start 07/04/18 at 09:00 Acetaminophen (Tylenol Tab) 650 mg Q4 PRN PO MILD PAIN(1-3)OR ELEVATED TEMP Last administered on 07/11/18 15:17; Admin Dose 650 MG; Start 07/04/18 at 15:30 Lactobacillus Acidophilus/ Rhamnosus (Culturelle) 1 cap BID PO Last administered on 07/12/18 08:32; Admin Dose 1 CAP; Start 07/04/18 at 21:00 Latanoprost (Xalatan) 1 drop QHS BOTH EYES Last administered on 07/11/18 21:18; Admin Dose 1 DROP; Start 07/06/18 at 21:00 Morphine Sulfate (morphine) 2 mg Q4H PRN IV SEVERE PAIN LEVEL 7-10 Last administered on 07/10/18 20:42; Admin Dose 2 MG; Start 07/07/18 at 13:00 Trazodone HCl (Desyrel) 25 mg HS PO Last administered on 07/11/18 21:19; Admin Dose 25 MG; Start 07/09/18 at 23:00 Piperacillin Sod/ Tazobactam Sod 100 ml @ 200 mls/hr Q8 IVPB Last administered on 07/12/18 05:17; Admin Dose 200 MLS/HR; Start 07/11/18 at 14:00 Sodium Chloride 1,000 ml @ 100 mls/hr Q10H IV Last administered on 07/12/18 08:31; Admin Dose 100 MLS/HR; Start 07/12/18 at 07:30; Stop 07/12/18 at 17:29 Acetylcysteine (Nac) 600 mg BID PO Last administered on 07/12/18at 08:31; Admin Dose 600 MG; Start 07/12/18 at 09:00; Stop 07/13/18 at 09:00 INDERJIT MADDEN NP Jul 12, 2018 13:28
[2018-07-12] MEDS ORDERED: IODIXANOL LOCM 100 ML BTL ONE (13:54)
[2018-07-12] MEDS ORDERED: SOD CHLORIDE 0.9% 100 ML ONE (13:54)
[2018-07-12 14:46] VITALS: BP 141/64; PULSE 78; RESP 18
[2018-07-12 20:01] VITALS: BP 130/61; PULSE 74; RESP 18
[2018-07-12] MEDS: LATANOPROST 0.005% 2.5 ML OPH BOTH EYES SCH (20:24)
[2018-07-12] MEDS: ATORVASTATIN 10 MG TAB PO SCH (20:25)
[2018-07-12] MEDS: traZODone 50 MG TAB PO SCH (20:25)
[2018-07-12] MEDS: ACETAMINOPHEN 325 MG TAB PO PRN (22:52)
[2018-07-13] MEDS: ACCU-CHEK XX SCH ×5 (01:30→20:55)
[2018-07-13 02:05] VITALS: BP 104/51; PULSE 57; RESP 18
[2018-07-13] MEDS: PIPER-TAZO 3.375 GM IV (PMX) 100 ML IVPB SCH ×3 (06:35→22:31)
[2018-07-13] MEDS: INSULIN ASPART [NOVOLOG] 3 ML PEN SC SCH ×4 (07:56→20:55)
[2018-07-13 08:41] VITALS: BP 136/61; PULSE 73; RESP 18
[2018-07-13] MEDS: BENAZEPRIL 40 MG TAB PO SCH (09:06)
[2018-07-13] MEDS: AMLODIPINE 10 MG TAB PO SCH (09:06)
[2018-07-13] MEDS: LACTOBACILLUS RHAMNOSUS CAP PO SCH ×2 (09:06→20:49)
[2018-07-13] MEDS: ACETYLCYSTEINE 600 MG CAP PO SCH (09:06)
[2018-07-13] MEDS: ENOXAPARIN 40 MG/0.4 ML SYG SC SCH (09:09)
--- NOTE | 2018-07-13 13:28 | CONS ---
Assessment/Plan Assessment/Plan Hospital Course (Demo Recall) No fevers, looks comfortable Antimicrobials: Zosyn CT of the chest abdomen and pelvis revealed 6.5 cm fluid collection along the right pelvic sidewall. Please see full report in the chart Repeat CT 07/12/18: Right lateral pelvic side wall fluid collection is again seen measuring approximately 5.1 x 2.8 cm. Please see full report in chart Physical examination this is a well-developed well-nourished elderly man who is alert in no distress. Head atraumatic normocephalic. Neck is supple chest rise symmetrical breath sounds clear heart S1-S2 abdomen soft bowel sounds present extremities with left upper extremity significantly limited range of motion. No erythema no fluctuance over the left shoulder Assessment: 1. Ongoing fevers/acute inflammation 2 to pelvic fluid collection, status post CT guided drainage of pelvic fluid with culture grew coag negative staph 2. Diabetes 3. Glaucoma 4. 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 CT guided drainage with leaving catheter in place Consultation Date/Type/Reason Admit Date/Time Jul 01, 2018 at 16:52 Initial Consult Date Type of Consult id Date/Time of Note DATE: 07/13/18 TIME: 13:25 Exam/Review of Systems Exam Vitals Vital Signs Date Temp Pulse Resp B/P (MAP) Pulse Ox O2 O2 Flow FiO2 Time Delivery Rate 07/13/18 99.0 73 18 136/61 95 Room Air 08:41 (86) Intake and Output 07/12/18 07/12/18 07/13/18 1515:00 23:00 07:00 IntakeIntake Total 240 ml 2560 ml 400 ml BalanceBalance 240 ml 2560 ml 400 ml Results Result Diagram: 07/13/18 0602 07/13/18 0602 Results 24hrs Laboratory Tests Test 07/12/18 17:25 07/12/18 20:23 07/13/18 06:02 07/13/18 07:54 Bedside Glucose 146 126 110 White Blood Count 6.4 Red Blood Count 3.24 L Hemoglobin 9.8 L Hematocrit 30.0 L Mean Corpuscular Volume 92.6 Mean Corpuscular 30.2 Hemoglobin Mean Corpuscular 32.7 Hemoglobin Concent Red Cell Distribution 12.7 Width Platelet Count 494 H Mean Platelet Volume 9.1 Immature Granulocytes % 0.600 H Neutrophils % 76.6 Lymphocytes % 10.9 L Monocytes % 6.6 Eosinophils % 4.7 Basophils % 0.6 Nucleated Red Blood 0.0 Cells % Immature Granulocytes # 0.040 H Neutrophils # 4.9 Lymphocytes # 0.7 L Monocytes # 0.4 Eosinophils # 0.3 Basophils # 0.0 Nucleated Red Blood 0.0 Cells # Sodium Level 141 Potassium Level 3.9 Chloride Level 109 Carbon Dioxide Level 26 Anion Gap 6 Blood Urea Nitrogen 15 Creatinine 1.20 Est Glomerular Filtrat Rate mL/min Glucose Level 104 Calcium Level 8.9 Phosphorus Level 3.9 Magnesium Level 2.2 Test 07/13/18 12:05 Bedside Glucose 108 Medications Medication Current Medications Amlodipine Besylate (Norvasc) 10 mg DAILY PO Last administered on 07/13/18 09:06; Admin Dose 10 MG; Start 07/02/18 at 09:00 Atorvastatin Calcium (Lipitor) 10 mg QHS PO Last administered on 07/12/18at 20:2 5; Admin Dose 10 MG; Start 07/01/18 at 21:00 Benazepril HCl (Lotensin) 40 mg DAILY PO Last administered on 07/13/18 09:06; Admin Dose 40 MG; Start 07/02/18 at 09:00 Diagnostic Test (Pha) (Accu-Chek) 1 ea AC MEALS AND BEDTIME XX Last administered on 07/13/18at 12:06; Admin Dose 1 EA; Start 07/01/18 at 17:30 Diagnostic Test (Pha) (Accu-Chek) 1 ea 02 XX Last administered on 07/06/18at 01:13; Admin Dose 1 EA; Start 07/02/18 at 02:00 Insulin Aspart (Novolog Insulin Pen) NOVOLOG *MILD* ALGORITHM WITH MEALS BEDTIME SC Last administered on 07/12/18 18:01; Admin Dose 1 UNIT; Start 07/01/18 at 18:00 Miscellaneous Information 1 ea NOTE XX ; Start 07/01/18 at 17:30 Glucose (Glutose) 15 gm Q15M PRN PO DECREASED GLUCOSE; Start 07/01/18 at 17:30 Glucose (Glutose) 22.5 gm Q15M PRN PO DECREASED GLUCOSE; Start 07/01/18 at 17:30 Dextrose (D50w Syringe) 25 ml Q15M PRN IV DECREASED GLUCOSE; Start 07/01/18 at 17:30 Dextrose (D50w Syringe) 50 ml Q15M PRN IV DECREASED GLUCOSE; Start 07/01/18 at 17:30 Glucagon (Glucagen) 1 mg Q15M PRN IM DECREASED GLUCOSE; Start 07/01/18 at 17:30 Glucose (Glutose) 15 gm Q15M PRN BUCCAL DECREASED GLUCOSE; Start 07/01/18 at 17:30 Tramadol HCl (Ultram) 50 mg Q6H PRN PO MODERATE PAIN LEVEL 4-6 Last administered on 07/10/18 05:12; Admin Dose 50 MG; Start 07/01/18 at 21:00 Enoxaparin Sodium (Lovenox) 40 mg DAILY SC Last administered on 07/13/18 09:09; Admin Dose 40 MG; Start 07/04/18 at 09:00 Acetaminophen (Tylenol Tab) 650 mg Q4 PRN PO MILD PAIN(1-3)OR ELEVATED TEMP Last administered on 07/12/18 22:52; Admin Dose 650 MG; Start 07/04/18 at 15:30 Lactobacillus Acidophilus/ Rhamnosus (Culturelle) 1 cap BID PO Last administered on 07/13/18 09:06; Admin Dose 1 CAP; Start 07/04/18 at 21:00 Latanoprost (Xalatan) 1 drop QHS BOTH EYES Last administered on 07/12/18 20:24; Admin Dose 1 DROP; Start 07/06/18 at 21:00 Morphine Sulfate (morphine) 2 mg Q4H PRN IV SEVERE PAIN LEVEL 7-10 Last administered on 07/10/18 20:42; Admin Dose 2 MG; Start 07/07/18 at 13:00 Trazodone HCl (Desyrel) 25 mg HS PO Last administered on 07/12/18 20:25; Admin Dose 25 MG; Start 07/09/18 at 23:00 Piperacillin Sod/ Tazobactam Sod 100 ml @ 200 mls/hr Q8 IVPB Last administered on 07/13/18 06:35; Admin Dose 200 MLS/HR; Start 07/11/18 at 14:00 INDERJIT MADDEN NP Jul 13, 2018 13:28
[2018-07-13 14:11] VITALS: BP 138/62; PULSE 85; RESP 18
--- NOTE | 2018-07-13 14:30 | PN ---
Date/Time of Note Date/Time of Note DATE: 07/13/18 TIME: 14:27 Assessment/Plan VTE Prophylaxis Risk score (from Ns)>0 risk: 7 [place] [facility] [place] contraindicated: low risk/ambulating Pharmacological prophylaxis: LMWH Lines/Catheters [facility] Saline Lock Urinary Cath still in place: No Assessment/Plan Hospital Course Assessment and plan 1. Fever, etio? No evidence of flu or shoulder abscess. Subacute Fluid collection. Ruled out endocarditis. s/p cultures/ echo/ peripheral smear. Viral process? 2. II Dm 3. Dyslipidemia/anabolic syndrome 4. Hypertension 5. CKD 6. History of hepatitis B viremia? 7. Left shoulder DJD; sp injury 8. Abd/pelvic fluid collection ~seroma? sp IR guided drainage. rule out infected hematoma. Consult general surgery. May need another drain, responding to Zosyn 9. Past tobacco 10. Poor oral hygiene. Denies any recent dental work, or toothaches. Subjective: 07/04 intermittent fever no chills no Reiger. No abdominal pain dysuria 07/05 fever appears improved but is on antibiotics 07/13: No distress wants to go home. Unfortunately the diagnostic/ therapeutic dilemma of his fluid collection is still concerning. This was discussed with patient and family at bedside. O: vss PE No pallor. Poor oral hygiene Regular no mrg Clear Bs+ nt nd no RRG No edema Result Diagram: 07/13/18 0602 07/13/18 0602 Results 24hrs Laboratory Tests Test 07/12/18 17:25 07/12/18 20:23 07/13/18 06:02 07/13/18 07:54 Bedside Glucose 146 126 110 White Blood Count 6.4 Red Blood Count 3.24 L Hemoglobin 9.8 L Hematocrit 30.0 L Mean Corpuscular Volume 92.6 Mean Corpuscular 30.2 Hemoglobin Mean Corpuscular 32.7 Hemoglobin Concent Red Cell Distribution 12.7 Width Platelet Count 494 H Mean Platelet Volume 9.1 Immature Granulocytes % 0.600 H Neutrophils % 76.6 Lymphocytes % 10.9 L Monocytes % 6.6 Eosinophils % 4.7 Basophils % 0.6 Nucleated Red Blood 0.0 Cells % Immature Granulocytes # 0.040 H Neutrophils # 4.9 Lymphocytes # 0.7 L Monocytes # 0.4 Eosinophils # 0.3 Basophils # 0.0 Nucleated Red Blood 0.0 Cells # Sodium Level 141 Potassium Level 3.9 Chloride Level 109 Carbon Dioxide Level 26 Anion Gap 6 Blood Urea Nitrogen 15 Creatinine 1.20 Est Glomerular Filtrat Rate mL/min Glucose Level 104 Calcium Level 8.9 Phosphorus Level 3.9 Magnesium Level 2.2 Test 07/13/18 12:05 Bedside Glucose 108 Exam/Review of Systems Exam Vitals Vital Signs Date Temp Pulse Resp B/P (MAP) Pulse Ox O2 O2 Flow FiO2 Time Delivery Rate 07/13/18 98.7 85 18 138/62 97 Room Air 14:11 (87) Intake and Output 07/12/18 07/12/18 07/13/18 1515:00 23:00 07:00 IntakeIntake Total 240 ml 2560 ml 400 ml BalanceBalance 240 ml 2560 ml 400 ml Results Results 24hrs Laboratory Tests Test 07/12/18 17:25 07/12/18 20:23 07/13/18 06:02 07/13/18 07:54 Bedside Glucose 146 126 110 White Blood Count 6.4 Red Blood Count 3.24 L Hemoglobin 9.8 L Hematocrit 30.0 L Mean Corpuscular Volume 92.6 Mean Corpuscular 30.2 Hemoglobin Mean Corpuscular 32.7 Hemoglobin Concent Red Cell Distribution 12.7 Width Platelet Count 494 H Mean Platelet Volume 9.1 Immature Granulocytes % 0.600 H Neutrophils % 76.6 Lymphocytes % 10.9 L Monocytes % 6.6 Eosinophils % 4.7 Basophils % 0.6 Nucleated Red Blood 0.0 Cells % Immature Granulocytes # 0.040 H Neutrophils # 4.9 Lymphocytes # 0.7 L Monocytes # 0.4 Eosinophils # 0.3 Basophils # 0.0 Nucleated Red Blood 0.0 Cells # Sodium Level 141 Potassium Level 3.9 Chloride Level 109 Carbon Dioxide Level 26 Anion Gap 6 Blood Urea Nitrogen 15 Creatinine 1.20 Est Glomerular Filtrat Rate mL/min Glucose Level 104 Calcium Level 8.9 Phosphorus Level 3.9 Magnesium Level 2.2 Test 07/13/18 12:05 Bedside Glucose 108 Medications Medication Current Medications Amlodipine Besylate (Norvasc) 10 mg DAILY PO Last administered on 07/13/18at 09:06; Admin Dose 10 MG; Start 07/02/18 at 09:00 Atorvastatin Calcium (Lipitor) 10 mg QHS PO Last administered on 07/12/18 20:25; Admin Dose 10 MG; Start 07/01/18 at 21:00 Benazepril HCl (Lotensin) 40 mg DAILY PO Last administered on 07/13/18 09:06; Admin Dose 40 MG; Start 07/02/18 at 09:00 Diagnostic Test (Pha) (Accu-Chek) 1 ea AC MEALS AND BEDTIME XX Last administer ed on 07/13/18 12:06; Admin Dose 1 EA; Start 07/01/18 at 17:30 Diagnostic Test (Pha) (Accu-Chek) 1 ea 02 XX Last administered on 07/06/18 01:13; Admin Dose 1 EA; Start 07/02/18 at 02:00 Insulin Aspart (Novolog Insulin Pen) NOVOLOG *MILD* ALGORITHM WITH MEALS BEDTIME SC Last administered on 07/12/18 18:01; Admin Dose 1 UNIT; Start 07/01/18 at 18:00 Miscellaneous Information 1 ea NOTE XX ; Start 07/01/18 at 17:30 Glucose (Glutose) 15 gm Q15M PRN PO DECREASED GLUCOSE; Start 07/01/18 at 17:30 Glucose (Glutose) 22.5 gm Q15M PRN PO DECREASED GLUCOSE; Start 07/01/18 at 17:30 Dextrose (D50w Syringe) 25 ml Q15M PRN IV DECREASED GLUCOSE; Start 07/01/18 at 17:30 Dextrose (D50w Syringe) 50 ml Q15M PRN IV DECREASED GLUCOSE; Start 07/01/18 at 17:30 Glucagon (Glucagen) 1 mg Q15M PRN IM DECREASED GLUCOSE; Start 07/01/18 at 17:30 Glucose (Glutose) 15 gm Q15M PRN BUCCAL DECREASED GLUCOSE; Start 07/01/18 at 17:30 Tramadol HCl (Ultram) 50 mg Q6H PRN PO MODERATE PAIN LEVEL 4-6 Last administered on 07/10/18 05:12; Admin Dose 50 MG; Start 07/01/18 at 21:00 Enoxaparin Sodium (Lovenox) 40 mg DAILY SC Last administered on 07/13/18 09:09; Admin Dose 40 MG; Start 07/04/18 at 09:00 Acetaminophen (Tylenol Tab) 650 mg Q4 PRN PO MILD PAIN(1-3)OR ELEVATED TEMP Last administered on 07/12/18 22:52; Admin Dose 650 MG; Start 07/04/18 at 15:30 Lactobacillus Acidophilus/ Rhamnosus (Culturelle) 1 cap BID PO Last administered on 07/13/18 09:06; Admin Dose 1 CAP; Start 07/04/18 at 21:00 Latanoprost (Xalatan) 1 drop QHS BOTH EYES Last administered on 07/12/18 20:24; Admin Dose 1 DROP; Start 07/06/18 at 21:00 Morphine Sulfate (morphine) 2 mg Q4H PRN IV SEVERE PAIN LEVEL 7-10 Last administered on 07/10/18 20:42; Admin Dose 2 MG; Start 07/07/18 at 13:00 Trazodone HCl (Desyrel) 25 mg HS PO Last administered on 07/12/18 20:25; Admin Dose 25 MG; Start 07/09/18 at 23:00 Piperacillin Sod/ Tazobactam Sod 100 ml @ 200 mls/hr Q8 IVPB Last administered on 07/13/18 06:35; Admin Dose 200 MLS/HR; Start 07/11/18 at 14:00 JUSTYNA ROGERS MD Jul 13, 2018 14:30
[2018-07-13 20:02] VITALS: BP 124/57; PULSE 88; RESP 20
[2018-07-13] MEDS: traZODone 50 MG TAB PO SCH (20:49)
[2018-07-13] MEDS: LATANOPROST 0.005% 2.5 ML OPH BOTH EYES SCH (20:49)
[2018-07-13] MEDS: ATORVASTATIN 10 MG TAB PO SCH (20:49)
[2018-07-14] MEDS: ACCU-CHEK XX SCH ×5 (02:00→21:00)
[2018-07-14 02:23] VITALS: BP 140/68; PULSE 77; RESP 18
[2018-07-14] MEDS: PIPER-TAZO 3.375 GM IV (PMX) 100 ML IVPB SCH ×3 (05:36→21:49)
[2018-07-14] MEDS: INSULIN ASPART [NOVOLOG] 3 ML PEN SC SCH ×4 (07:58→21:00)
[2018-07-14 08:00] VITALS: BP 121/61; PULSE 76; RESP 20
[2018-07-14] MEDS: AMLODIPINE 10 MG TAB PO SCH (09:05)
[2018-07-14] MEDS: LACTOBACILLUS RHAMNOSUS CAP PO SCH ×2 (09:05→21:49)
[2018-07-14] MEDS: BENAZEPRIL 40 MG TAB PO SCH (09:05)
[2018-07-14] MEDS: ENOXAPARIN 40 MG/0.4 ML SYG SC SCH (09:06)
[2018-07-14 14:00] VITALS: BP 121/64; PULSE 76; RESP 18
--- NOTE | 2018-07-14 14:06 | PN ---
Date/Time of Note Date/Time of Note DATE: 07/14/18 TIME: 14:02 Assessment/Plan VTE Prophylaxis Risk score (from Ns)>0 risk: 3 SCD applied (from [facility] [place]): No SCD contraindicated: low risk/ambulating Pharmacological prophylaxis: LMWH Lines/Catheters IV Catheter Type (from [facility]): Saline Lock Urinary Cath still in place: No Assessment/Plan Hospital Course Assessment and plan 1. Fever, etio? No evidence of flu or shoulder abscess. Abd Fluid collection? Ruled out endocarditis. s/p cultures/ echo/ peripheral smear. Viral process? 2. II Dm 3. Dyslipidemia/anabolic syndrome 4. Hypertension 5. CKD 6. 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 Lt shoulder DJD; sp injury 8. Abd/pelvic fluid collection ~seroma? sp IR guided drainage. r/o infected hematoma. Consulted gen surgery. May need another drain, responding to Zosyn 9. Past tobacco 10. Poor oral hygiene. Denies any recent dental work, or toothaches. S: 07/04 intermittent fever no chills no Reiger. No abdominal pain dysuria 07/05 fever appears improved but is on antibiotics 07/13: No distress wants to go home. Unfortunately the diagnostic/ therapeutic dilemma of his fluid collection is still concerning. This was discussed with patient and family at bedside. 07/14: No distress. Awaiting surgical opinion. May need IR/repeat drain placement O: vss PE No pallor. Regular no mrg Clear Bs+ nt nd no RRG No edema Result Diagram: 07/14/18 0539 07/14/18 0539 Results 24hrs Laboratory Tests Test 07/13/18 17:25 07/13/18 20:47 07/14/18 05:39 07/14/18 07:58 Bedside Glucose 108 137 90 White Blood Count 6.6 Red Blood Count 3.40 L Hemoglobin 10.2 L Hematocrit 31.6 L Mean Corpuscular Volume 92.9 Mean Corpuscular 30.0 Hemoglobin Mean Corpuscular 32.3 Hemoglobin Concent Red Cell Distribution 12.8 Width Platelet Count 567 H Mean Platelet Volume 9.0 Immature Granulocytes % 0.300 Neutrophils % 71.4 Lymphocytes % 15.0 Monocytes % 7.8 Eosinophils % 5.0 Basophils % 0.5 Nucleated Red Blood 0.0 Cells % Immature Granulocytes # 0.020 Neutrophils # 4.7 Lymphocytes # 1.0 Monocytes # 0.5 Eosinophils # 0.3 Basophils # 0.0 Nucleated Red Blood 0.0 Cells # Prothrombin Time 15.0 H Prothrombin Time Ratio 1.2 INR International 1.17 Normalized Ratio Activated 35.5 H Partial Thromboplast Time Sodium Level 142 Potassium Level 4.2 Chloride Level 106 Carbon Dioxide Level 27 Anion Gap 9 Blood Urea Nitrogen 16 Creatinine 1.21 Est Glomerular Filtrat Rate mL/min Glucose Level 99 Calcium Level 9.3 Total Bilirubin 0.2 Direct Bilirubin 0.00 Indirect Bilirubin 0.2 Aspartate Amino 37 Transf (AST/SGOT) Alanine 49 Aminotransferase (ALT/SG PT) Alkaline Phosphatase 72 Total Protein 6.9 Albumin 3.3 Globulin 3.60 H Albumin/Globulin Ratio 0.91 Test 07/14/18 12:04 Bedside Glucose 112 Exam/Review of Systems Exam Vitals Vital Signs Date Temp Pulse Resp B/P (MAP) Pulse Ox O2 O2 Flow FiO2 Time Delivery Rate 07/14/18 98.6 76 20 121/61 96 08:00 (81) 07/14/18 Room Air 02:23 Intake and Output 07/13/18 07/13/18 07/14/18 1515:00 23:00 07:00 IntakeIntake Total 700 ml 460 ml 440 ml BalanceBalance 700 ml 460 ml 440 ml Results Results 24hrs Laboratory Tests Test 07/13/18 17:25 07/13/18 20:47 07/14/18 05:39 07/14/18 07:58 Bedside Glucose 108 137 90 White Blood Count 6.6 Red Blood Count 3.40 L Hemoglobin 10.2 L Hematocrit 31.6 L Mean Corpuscular Volume 92.9 Mean Corpuscular 30.0 Hemoglobin Mean Corpuscular 32.3 Hemoglobin Concent Red Cell Distribution 12.8 Width Platelet Count 567 H Mean Platelet Volume 9.0 Immature Granulocytes % 0.300 Neutrophils % 71.4 Lymphocytes % 15.0 Monocytes % 7.8 Eosinophils % 5.0 Basophils % 0.5 Nucleated Red Blood 0.0 Cells % Immature Granulocytes # 0.020 Neutrophils # 4.7 Lymphocytes # 1.0 Monocytes # 0.5 Eosinophils # 0.3 Basophils # 0.0 Nucleated Red Blood 0.0 Cells # Prothrombin Time 15.0 H Prothrombin Time Ratio 1.2 INR International 1.17 Normalized Ratio Activated 35.5 H Partial Thromboplast Time Sodium Level 142 Potassium Level 4.2 Chloride Level 106 Carbon Dioxide Level 27 Anion Gap 9 Blood Urea Nitrogen 16 Creatinine 1.21 Est Glomerular Filtrat Rate mL/min Glucose Level 99 Calcium Level 9.3 Total Bilirubin 0.2 Direct Bilirubin 0.00 Indirect Bilirubin 0.2 Aspartate Amino 37 Transf (AST/SGOT) Alanine 49 Aminotransferase (ALT/SG PT) Alkaline Phosphatase 72 Total Protein 6.9 Albumin 3.3 Globulin 3.60 H Albumin/Globulin Ratio 0.91 Test 07/14/18 12:04 Bedside Glucose 112 Medications Medication Current Medications Amlodipine Besylate (Norvasc) 10 mg DAILY PO Last administered on 07/14/18 09:05; Admin Dose 10 MG; Start 07/02/18 at 09:00 Atorvastatin Calcium (Lipitor) 10 mg QHS PO Last administered on 07/13/18 20:49; Admin Dose 10 MG; Start 07/01/18 at 21:00 Benazepril HCl (Lotensin) 40 mg DAILY PO Last administered on 07/14/18 09:05; Admin Dose 40 MG; Start 07/02/18 at 09:00 Diagnostic Test (Pha) (Accu-Chek) 1 ea AC MEALS AND BEDTIME XX Last administer ed on 07/13/18 17:51; Admin Dose 1 EA; Start 07/01/18 at 17:30 Diagnostic Test (Pha) (Accu-Chek) 1 ea 02 XX Last administered on 07/06/18at 01:13; Admin Dose 1 EA; Start 07/02/18 at 02:00 Insulin Aspart (Novolog Insulin Pen) NOVOLOG *MILD* ALGORITHM WITH MEALS BEDTIME SC Last administered on 07/12/18 18:01; Admin Dose 1 UNIT; Start 07/01/18 at 18:00 Miscellaneous Information 1 ea NOTE XX ; Start 07/01/18 at 17:30 Glucose (Glutose) 15 gm Q15M PRN PO DECREASED GLUCOSE; Start 07/01/18 at 17:30 Glucose (Glutose) 22.5 gm Q15M PRN PO DECREASED GLUCOSE; Start 07/01/18 at 17:30 Dextrose (D50w Syringe) 25 ml Q15M PRN IV DECREASED GLUCOSE; Start 07/01/18 at 17:30 Dextrose (D50w Syringe) 50 ml Q15M PRN IV DECREASED GLUCOSE; Start 07/01/18 at 17:30 Glucagon (Glucagen) 1 mg Q15M PRN IM DECREASED GLUCOSE; Start 07/01/18 at 17:30 Glucose (Glutose) 15 gm Q15M PRN BUCCAL DECREASED GLUCOSE; Start 07/01/18 at 17:30 Tramadol HCl (Ultram) 50 mg Q6H PRN PO MODERATE PAIN LEVEL 4-6 Last administered on 07/10/18 05:12; Admin Dose 50 MG; Start 07/01/18 at 21:00 Enoxaparin Sodium (Lovenox) 40 mg DAILY SC Last administered on 07/14/18 09:06; Admin Dose 40 MG; Start 07/04/18 at 09:00 Acetaminophen (Tylenol Tab) 650 mg Q4 PRN PO MILD PAIN(1-3)OR ELEVATED TEMP Last administered on 07/12/18 22:52; Admin Dose 650 MG; Start 07/04/18 at 15:30 Lactobacillus Acidophilus/ Rhamnosus (Culturelle) 1 cap BID PO Last administered on 07/14/18 09:05; Admin Dose 1 CAP; Start 07/04/18 at 21:00 Latanoprost (Xalatan) 1 drop QHS BOTH EYES Last administered on 07/13/18 20:49; Admin Dose 1 DROP; Start 07/06/18 at 21:00 Morphine Sulfate (morphine) 2 mg Q4H PRN IV SEVERE PAIN LEVEL 7-10 Last administered on 07/10/18 20:42; Admin Dose 2 MG; Start 07/07/18 at 13:00 Trazodone HCl (Desyrel) 25 mg HS PO Last administered on 07/13/18 20:49; Admin Dose 25 MG; Start 07/09/18 at 23:00 Piperacillin Sod/ Tazobactam Sod 100 ml @ 200 mls/hr Q8 IVPB Last administered on 07/14/18 13:49; Admin Dose 200 MLS/HR; Start 07/11/18 at 14:00 JUSTYNA ROGERS MD Jul 14, 2018 14:06
--- NOTE | 2018-07-14 16:57 | CONS ---
Assessment/Plan Assessment/Plan Hospital Course (Demo Recall) Alert feels good no fevers, repeated blood cultures negative, patient remains on Zosyn day #4 CT of the chest abdomen and pelvis revealed 6.5 cm fluid collection along the right pelvic sidewall. Please see full report in the chart Repeat CT 07/12/18: Right lateral pelvic side wall fluid collection is again seen measuring approximately 5.1 x 2.8 cm. Please see full report in chart Physical examination this is a well-developed well-nourished elderly man who is alert in no distress. Head atraumatic normocephalic. Neck is supple chest rise symmetrical breath sounds clear heart S1-S2 abdomen soft bowel sounds present extremities with left upper extremity significantly limited range of motion. No erythema no fluctuance over the left shoulder Assessment: 1. Ongoing fevers/acute inflammation 2 to pelvic fluid collection, status post CT guided drainage of pelvic fluid with culture grew coag negative staph 2. Diabetes 3. Glaucoma 4. 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 Plan: Remains stable, afebrile for 48 hours, continue on current antibiotics, likely will need another 7 days of Zosyn with repeat CT after that Consultation Date/Type/Reason Admit Date/Time Jul 01, 2018 at 16:52 Initial Consult Date Type of Consult id Date/Time of Note DATE: 07/14/18 TIME: 16:56 Exam/Review of Systems Exam Vitals Vital Signs Date Temp Pulse Resp B/P (MAP) Pulse Ox O2 O2 Flow FiO2 Time Delivery Rate 07/14/18 98.6 76 18 121/64 96 14:00 (83) 07/14/18 Room Air 02:23 Intake and Output 07/13/18 07/13/18 07/14/18 1414:59 22:59 06:59 IntakeIntake Total 700 ml 460 ml 440 ml BalanceBalance 700 ml 460 ml 440 ml Results Result Diagram: 07/14/18 0539 07/14/18 0539 Results 24hrs Laboratory Tests Test 07/13/18 17:25 07/13/18 20:47 07/14/18 05:39 07/14/18 07:58 Bedside Glucose 108 137 90 White Blood Count 6.6 Red Blood Count 3.40 L Hemoglobin 10.2 L Hematocrit 31.6 L Mean Corpuscular Volume 92.9 Mean Corpuscular 30.0 Hemoglobin Mean Corpuscular 32.3 Hemoglobin Concent Red Cell Distribution 12.8 Width Platelet Count 567 H Mean Platelet Volume 9.0 Immature Granulocytes % 0.300 Neutrophils % 71.4 Lymphocytes % 15.0 Monocytes % 7.8 Eosinophils % 5.0 Basophils % 0.5 Nucleated Red Blood 0.0 Cells % Immature Granulocytes # 0.020 Neutrophils # 4.7 Lymphocytes # 1.0 Monocytes # 0.5 Eosinophils # 0.3 Basophils # 0.0 Nucleated Red Blood 0.0 Cells # Prothrombin Time 15.0 H Prothrombin Time Ratio 1.2 INR International 1.17 Normalized Ratio Activated 35.5 H Partial Thromboplast Time Sodium Level 142 Potassium Level 4.2 Chloride Level 106 Carbon Dioxide Level 27 Anion Gap 9 Blood Urea Nitrogen 16 Creatinine 1.21 Est Glomerular Filtrat Rate mL/min Glucose Level 99 Calcium Level 9.3 Total Bilirubin 0.2 Direct Bilirubin 0.00 Indirect Bilirubin 0.2 Aspartate Amino 37 Transf (AST/SGOT) Alanine 49 Aminotransferase (ALT/SG PT) Alkaline Phosphatase 72 Total Protein 6.9 Albumin 3.3 Globulin 3.60 H Albumin/Globulin Ratio 0.91 Test 07/14/18 12:04 Bedside Glucose 112 Medications Medication Current Medications Amlodipine Besylate (Norvasc) 10 mg DAILY PO Last administered on 07/14/18 09:05; Admin Dose 10 MG; Start 07/02/18 at 09:00 Atorvastatin Calcium (Lipitor) 10 mg QHS PO Last administered on 07/13/18 20:49; Admin Dose 10 MG; Start 07/01/18 at 21:00 Benazepril HCl (Lotensin) 40 mg DAILY PO Last administered on 07/14/18 09:05; Admin Dose 40 MG; Start 07/02/18 at 09:00 Diagnostic Test (Pha) (Accu-Chek) 1 ea AC MEALS AND BEDTIME XX Last administered on 07/13/18 17:51; Admin Dose 1 EA; Start 07/01/18 at 17:30 Diagnostic Test (Pha) (Accu-Chek) 1 ea 02 XX Last administered on 07/06/18 01:13; Admin Dose 1 EA; Start 07/02/18 at 02:00 Insulin Aspart (Novolog Insulin Pen) NOVOLOG *MILD* ALGORITHM WITH MEALS BEDTIME SC Last administered on 07/12/18 18:01; Admin Dose 1 UNIT; Start 07/01/18 at 18:00 Miscellaneous Information 1 ea NOTE XX ; Start 07/01/18 at 17:30 Glucose (Glutose) 15 gm Q15M PRN PO DECREASED GLUCOSE; Start 07/01/18 at 17:30 Glucose (Glutose) 22.5 gm Q15M PRN PO DECREASED GLUCOSE; Start 07/01/18 at 17:30 Dextrose (D50w Syringe) 25 ml Q15M PRN IV DECREASED GLUCOSE; Start 07/01/18 at 17:30 Dextrose (D50w Syringe) 50 ml Q15M PRN IV DECREASED GLUCOSE; Start 07/01/18 at 17:30 Glucagon (Glucagen) 1 mg Q15M PRN IM DECREASED GLUCOSE; Start 07/01/18 at 17:30 Glucose (Glutose) 15 gm Q15M PRN BUCCAL DECREASED GLUCOSE; Start 07/01/18 at 17:30 Tramadol HCl (Ultram) 50 mg Q6H PRN PO MODERATE PAIN LEVEL 4-6 Last administered on 07/10/18 05:12; Admin Dose 50 MG; Start 07/01/18 at 21:00 Enoxaparin Sodium (Lovenox) 40 mg DAILY SC Last administered on 07/14/18 09:06; Admin Dose 40 MG; Start 07/04/18 at 09:00 Acetaminophen (Tylenol Tab) 650 mg Q4 PRN PO MILD PAIN(1-3)OR ELEVATED TEMP Last administered on 07/12/18 22:52; Admin Dose 650 MG; Start 07/04/18 at 15:30 Lactobacillus Acidophilus/ Rhamnosus (Culturelle) 1 cap BID PO Last administered on 07/14/18 09:05; Admin Dose 1 CAP; Start 07/04/18 at 21:00 Latanoprost (Xalatan) 1 drop QHS BOTH EYES Last administered on 07/13/18 20:49; Admin Dose 1 DROP; Start 07/06/18 at 21:00 Morphine Sulfate (morphine) 2 mg Q4H PRN IV SEVERE PAIN LEVEL 7-10 Last administered on 07/10/18 20:42; Admin Dose 2 MG; Start 07/07/18 at 13:00 Trazodone HCl (Desyrel) 25 mg HS PO Last administered on 07/13/18 20:49; Admin Dose 25 MG; Start 07/09/18 at 23:00 Piperacillin Sod/ Tazobactam Sod 100 ml @ 200 mls/hr Q8 IVPB Last administered on 07/14/18at 13:49; Admin Dose 200 MLS/HR; Start 07/11/18 at 14:00 INDERJIT MADDEN NP Jul 14, 2018 16:57
[2018-07-14 20:00] VITALS: BP 118/58; PULSE 84; RESP 18
[2018-07-14] MEDS: ATORVASTATIN 10 MG TAB PO SCH (21:49)
[2018-07-14] MEDS: traZODone 50 MG TAB PO SCH (21:49)
[2018-07-14] MEDS: LATANOPROST 0.005% 2.5 ML OPH BOTH EYES SCH (21:52)
[2018-07-15 02:00] VITALS: BP 122/60; PULSE 66; RESP 17
[2018-07-15] MEDS: ACCU-CHEK XX SCH ×5 (02:00→20:35)
[2018-07-15] MEDS: PIPER-TAZO 3.375 GM IV (PMX) 100 ML IVPB SCH ×3 (06:33→21:49)
[2018-07-15 08:00] VITALS: BP 127/68; PULSE 80; RESP 18
[2018-07-15] MEDS: INSULIN ASPART [NOVOLOG] 3 ML PEN SC SCH ×4 (08:00→20:35)
[2018-07-15] MEDS: LACTOBACILLUS RHAMNOSUS CAP PO SCH ×2 (08:50→20:33)
[2018-07-15] MEDS: AMLODIPINE 10 MG TAB PO SCH (08:51)
[2018-07-15] MEDS: BENAZEPRIL 40 MG TAB PO SCH (08:52)
[2018-07-15] MEDS: ENOXAPARIN 40 MG/0.4 ML SYG SC SCH (08:55)
--- NOTE | 2018-07-15 13:10 | CONS ---
Assessment/Plan Assessment/Plan Hospital Course (Demo Recall) No events, no fevers CT of the chest abdomen and pelvis revealed 6.5 cm fluid collection along the right pelvic sidewall. Please see full report in the chart Repeat CT 07/12/18: Right lateral pelvic side wall fluid collection is again seen measuring approximately 5.1 x 2.8 cm. Please see full report in chart Abx: Misael #5 Physical examination this is a well-developed well-nourished elderly man who is alert in no distress. Head atraumatic normocephalic. Neck is supple chest rise symmetrical breath sounds clear heart S1-S2 abdomen soft bowel sounds present extremities with left upper extremity significantly limited range of motion. No erythema no fluctuance over the left shoulder Assessment: 1. Ongoing fevers/acute inflammation 2 to pelvic fluid collection, status post CT guided drainage of pelvic fluid with culture grew coag negative staph 2. Diabetes 3. Glaucoma 4. 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 Plan: Remains stable, afebrile, recommend to continue on current antibiotics 8 more days with repeat CT at the end of therapy Consultation Date/Type/Reason Admit Date/Time Jul 01, 2018 at 16:52 Initial Consult Date Type of Consult id Date/Time of Note DATE: 07/15/18 TIME: 13:09 Exam/Review of Systems Exam Vitals Vital Signs Date Temp Pulse Resp B/P (MAP) Pulse Ox O2 O2 Flow FiO2 Time Delivery Rate 07/15/18 98.6 80 18 127/68 96 08:00 (87) 07/14/18 Room Air 02:23 Intake and Output 07/14/18 07/14/18 07/15/18 1515:00 23:00 07:00 IntakeIntake Total 340 ml 550 ml BalanceBalance 340 ml 550 ml Results Result Diagram: 07/14/18 0539 07/14/18 0539 Results 24hrs Laboratory Tests Test 07/14/18 17:17 07/14/18 21:45 07/15/18 07:58 07/15/18 11:58 Bedside Glucose 121 100 88 111 Medications Medication Current Medications Amlodipine Besylate (Norvasc) 10 mg DAILY PO Last administered on 07/15/18at 08:51; Admin Dose 10 MG; Start 07/02/18 at 09:00 Atorvastatin Calcium (Lipitor) 10 mg QHS PO Last administered on 07/14/18 21:49; Admin Dose 10 MG; Start 07/01/18 at 21:00 Benazepril HCl (Lotensin) 40 mg DAILY PO Last administered on 07/15/18 08:52; Admin Dose 40 MG; Start 07/02/18 at 09:00 Diagnostic Test (Pha) (Accu-Chek) 1 ea AC MEALS AND BEDTIME XX Last administered on 07/13/18 17:51; Admin Dose 1 EA; Start 07/01/18 at 17:30 Diagnostic Test (Pha) (Accu-Chek) 1 ea 02 XX Last administered on 07/06/18 01:13; Admin Dose 1 EA; Start 07/02/18 at 02:00 Insulin Aspart (Novolog Insulin Pen) NOVOLOG *MILD* ALGORITHM WITH MEALS BEDTIME SC Last administered on 07/12/18 18:01; Admin Dose 1 UNIT; Start 07/01/18 at 18:00 Miscellaneous Information 1 ea NOTE XX ; Start 07/01/18 at 17:30 Glucose (Glutose) 15 gm Q15M PRN PO DECREASED GLUCOSE; Start 07/01/18 at 17:30 Glucose (Glutose) 22.5 gm Q15M PRN PO DECREASED GLUCOSE; Start 07/01/18 at 17:30 Dextrose (D50w Syringe) 25 ml Q15M PRN IV DECREASED GLUCOSE; Start 07/01/18 at 17:30 Dextrose (D50w Syringe) 50 ml Q15M PRN IV DECREASED GLUCOSE; Start 07/01/18 at 17:30 Glucagon (Glucagen) 1 mg Q15M PRN IM DECREASED GLUCOSE; Start 07/01/18 at 17:30 Glucose (Glutose) 15 gm Q15M PRN BUCCAL DECREASED GLUCOSE; Start 07/01/18 at 17:30 Tramadol HCl (Ultram) 50 mg Q6H PRN PO MODERATE PAIN LEVEL 4-6 Last administered on 07/10/18 05:12; Admin Dose 50 MG; Start 07/01/18 at 21:00 Enoxaparin Sodium (Lovenox) 40 mg DAILY SC Last administered on 07/15/18 08:55; Admin Dose 40 MG; Start 07/04/18 at 09:00 Acetaminophen (Tylenol Tab) 650 mg Q4 PRN PO MILD PAIN(1-3)OR ELEVATED TEMP Last administered on 07/12/18 22:52; Admin Dose 650 MG; Start 07/04/18 at 15:30 Lactobacillus Acidophilus/ Rhamnosus (Culturelle) 1 cap BID PO Last administered on 07/15/18 08:50; Admin Dose 1 CAP; Start 07/04/18 at 21:00 Latanoprost (Xalatan) 1 drop QHS BOTH EYES Last administered on 07/14/18 21:52; Admin Dose 1 DROP; Start 07/06/18 at 21:00 Morphine Sulfate (morphine) 2 mg Q4H PRN IV SEVERE PAIN LEVEL 7-10 Last administered on 07/10/18 20:42; Admin Dose 2 MG; Start 07/07/18 at 13:00 Trazodone HCl (Desyrel) 25 mg HS PO Last administered on 07/14/18 21:49; Admin Dose 25 MG; Start 07/09/18 at 23:00 Piperacillin Sod/ Tazobactam Sod 100 ml @ 200 mls/hr Q8 IVPB Last administered on 07/15/18 06:33; Admin Dose 200 MLS/HR; Start 07/11/18 at 14:00 INDERJIT MADDEN NP Jul 15, 2018 13:10
[2018-07-15 14:00] VITALS: BP 110/64; PULSE 72; RESP 18
--- NOTE | 2018-07-15 17:18 | PN ---
Date/Time of Note Date/Time of Note DATE: 07/15/18 TIME: 17:16 Assessment/Plan VTE Prophylaxis Risk score (from Ns)>0 risk: 3 SCD applied (from [facility] [place]): No SCD contraindicated: low risk/ambulating Pharmacological prophylaxis: NA/contraindicated Pharm contraindication: surgical contra Lines/Catheters IV [facility]ter Type (from [facility] Saline Lock Urinary Cath still in place: No Assessment/Plan Hospital Course Assessment and plan 1. Fever, etio? No evidence of flu or shoulder abscess. Ruled out endocarditis. s/p peripheral smear. Viral process? Abd Fluid collection? -appreciate surgical opinion. may need repeat IR drainage 2. II Dm 3. Dyslipidemia/anabolic syndrome 4. Hypertension 5. CKD 6. 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 Lt shoulder DJD; sp injury 8. Abd/pelvic fluid collection ~seroma? sp IR guided drainage. r/o infected hematoma. Consulted gen surgery. May need another drain, responding to Zosyn 9. Past tobacco 10. Poor oral hygiene. Denies any recent dental work, or toothaches. S: 07/04 intermittent fever no chills no Reiger. No abdominal pain dysuria 07/05 fever appears improved but is on antibiotics 07/13: No distress wants to go home. Unfortunately the diagnostic/ therapeutic dilemma of his fluid collection is still concerning. This was discussed with patient and family at bedside. 07/14: No distress. Awaiting surgical opinion. May need IR/repeat drain placement 07/15 no distress. Updated son as well regarding the challenges of assisting this fluid collection resolved. O: vss PE No pallor. Regular no mrg Clear Bs+ nt nd no RRG No edema Result Diagram: 07/14/18 0539 07/14/18 0539 Results 24hrs Laboratory Tests Test 07/14/18 17:17 07/14/18 21:45 07/15/18 07:58 07/15/18 11:58 Bedside Glucose 121 100 88 111 Exam/Review of Systems Exam Vitals Vital Signs Date Temp Pulse Resp B/P (MAP) Pulse Ox O2 O2 Flow FiO2 Time Delivery Rate 07/15/18 98.0 72 18 110/64 96 14:00 (79) 07/14/18 Room Air 02:23 Intake and Output 07/14/18 07/14/18 07/15/18 1414:59 22:59 06:59 IntakeIntake Total 340 ml 550 ml BalanceBalance 340 ml 550 ml Results Results 24hrs Laboratory Tests Test 07/14/18 17:17 07/14/18 21:45 07/15/18 07:58 07/15/18 11:58 Bedside Glucose 121 100 88 111 Medications Medication Current Medications Amlodipine Besylate (Norvasc) 10 mg DAILY PO Last administered on 07/15/18at 08:51; Admin Dose 10 MG; Start 07/02/18 at 09:00 Atorvastatin Calcium (Lipitor) 10 mg QHS PO Last administered on 07/14/18 21:4 9; Admin Dose 10 MG; Start 07/01/18 at 21:00 Benazepril HCl (Lotensin) 40 mg DAILY PO Last administered on 07/15/18 08:52; Admin Dose 40 MG; Start 07/02/18 at 09:00 Diagnostic Test (Pha) (Accu-Chek) 1 ea AC MEALS AND BEDTIME XX Last administered on 07/13/18at 17:51; Admin Dose 1 EA; Start 07/01/18 at 17:30 Diagnostic Test (Pha) (Accu-Chek) 1 ea 02 XX Last administered on 07/06/18at 01:13; Admin Dose 1 EA; Start 07/02/18 at 02:00 Insulin Aspart (Novolog Insulin Pen) NOVOLOG *MILD* ALGORITHM WITH MEALS BEDTIME SC Last administered on 07/12/18 18:01; Admin Dose 1 UNIT; Start 07/01/18 at 18:00 Miscellaneous Information 1 ea NOTE XX ; Start 07/01/18 at 17:30 Glucose (Glutose) 15 gm Q15M PRN PO DECREASED GLUCOSE; Start 07/01/18 at 17:30 Glucose (Glutose) 22.5 gm Q15M PRN PO DECREASED GLUCOSE; Start 07/01/18 at 17:30 Dextrose (D50w Syringe) 25 ml Q15M PRN IV DECREASED GLUCOSE; Start 07/01/18 at 17:30 Dextrose (D50w Syringe) 50 ml Q15M PRN IV DECREASED GLUCOSE; Start 07/01/18 at 17:30 Glucagon (Glucagen) 1 mg Q15M PRN IM DECREASED GLUCOSE; Start 07/01/18 at 17:30 Glucose (Glutose) 15 gm Q15M PRN BUCCAL DECREASED GLUCOSE; Start 07/01/18 at 17:30 Tramadol HCl (Ultram) 50 mg Q6H PRN PO MODERATE PAIN LEVEL 4-6 Last administered on 07/10/18 05:12; Admin Dose 50 MG; Start 07/01/18 at 21:00 Enoxaparin Sodium (Lovenox) 40 mg DAILY SC Last administered on 07/15/18 08:55; Admin Dose 40 MG; Start 07/04/18 at 09:00 Acetaminophen (Tylenol Tab) 650 mg Q4 PRN PO MILD PAIN(1-3)OR ELEVATED TEMP Last administered on 07/12/18 22:52; Admin Dose 650 MG; Start 07/04/18 at 15:30 Lactobacillus Acidophilus/ Rhamnosus (Culturelle) 1 cap BID PO Last administered on 07/15/18 08:50; Admin Dose 1 CAP; Start 07/04/18 at 21:00 Latanoprost (Xalatan) 1 drop QHS BOTH EYES Last administered on 07/14/18 21:52; Admin Dose 1 DROP; Start 07/06/18 at 21:00 Morphine Sulfate (morphine) 2 mg Q4H PRN IV SEVERE PAIN LEVEL 7-10 Last administered on 07/10/18 20:42; Admin Dose 2 MG; Start 07/07/18 at 13:00 Trazodone HCl (Desyrel) 25 mg HS PO Last administered on 07/14/18 21:49; Admin Dose 25 MG; Start 07/09/18 at 23:00 Piperacillin Sod/ Tazobactam Sod 100 ml @ 200 mls/hr Q8 IVPB Last administered on 07/15/18 13:51; Admin Dose 200 MLS/HR; Start 07/11/18 at 14:00 JUSTYNA ROGERS MD Jul 15, 2018 17:18
[2018-07-15 20:00] VITALS: BP 146/67; PULSE 73; RESP 18
[2018-07-15] MEDS: LATANOPROST 0.005% 2.5 ML OPH BOTH EYES SCH (20:33)
[2018-07-15] MEDS: ATORVASTATIN 10 MG TAB PO SCH (20:33)
[2018-07-15] MEDS: traZODone 50 MG TAB PO SCH (20:33)
[2018-07-16 02:00] VITALS: BP 125/61; PULSE 60; RESP 18
[2018-07-16] MEDS: ACCU-CHEK XX SCH ×5 (02:00→20:32)
[2018-07-16] MEDS: PIPER-TAZO 3.375 GM IV (PMX) 100 ML IVPB SCH ×3 (06:24→21:48)
[2018-07-16] MEDS: INSULIN ASPART [NOVOLOG] 3 ML PEN SC SCH ×4 (08:00→20:32)
[2018-07-16 08:12] VITALS: BP 126/59; PULSE 77; RESP 18
[2018-07-16] MEDS: AMLODIPINE 10 MG TAB PO SCH (08:50)
[2018-07-16] MEDS: BENAZEPRIL 40 MG TAB PO SCH (08:51)
[2018-07-16] MEDS: LACTOBACILLUS RHAMNOSUS CAP PO SCH ×2 (09:00→20:32)
[2018-07-16] MEDS: ENOXAPARIN 40 MG/0.4 ML SYG SC SCH (09:00)
--- NOTE | 2018-07-16 11:43 | PN ---
Date/Time of Note Date/Time of Note DATE: 07/16/18 TIME: 11:43 Assessment/Plan VTE Prophylaxis Risk score (from Ns)>0 risk: 4 SCD applied (from [facility] [place]): Yes SCD contraindicated: low risk/ambulating Pharmacological prophylaxis: NA/contraindicated Pharm contraindication: surgical contra Lines/Catheters IV Catheter Type (from [facility]): Saline Lock Urinary Cath still in place: No Assessment/Plan Hospital Course Assessment and plan 1. Fever, etio? No evidence of flu or shoulder abscess. Ruled out endocarditis. s/p peripheral smear. Viral process? Abd Fluid collection? -appreciate surgical opinion. may need repeat IR drainage 2. II Dm 3. Dyslipidemia/anabolic syndrome 4. Hypertension 5. CKD 6. 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 Lt shoulder DJD; sp injury 8. Abd/pelvic fluid collection ~seroma? sp IR guided drainage. r/o infected hematoma. Consulted gen surgery. May need another drain, responding to Zosyn 9. Past tobacco 10. Poor oral hygiene. Denies any recent dental work, or toothaches. S: 07/04 intermittent fever no chills no Reiger. No abdominal pain dysuria 07/05 fever appears improved but is on antibiotics 07/13: No distress wants to go home. Unfortunately the diagnostic/ therapeutic dilemma of his fluid collection is still concerning. This was discussed with patient and family at bedside. 07/14: No distress. Awaiting surgical opinion. May need IR/repeat drain placement 07/15 no distress. Updated son as well regarding the challenges of assisting this fluid collection resolved. 07/16: No distress. No fever diarrhea. Agrees to IR drainage. O: vss PE No pallor. Regular no mrg Clear Bs+ nt nd no RRG No edema Result Diagram: 07/14/18 0539 07/14/18 0539 Results 24hrs Laboratory Tests Test 07/15/18 11:58 07/15/18 17:36 07/15/18 20:31 07/16/18 07:58 Bedside Glucose 111 98 121 94 Exam/Review of Systems Exam Vitals Vital Signs Date Temp Pulse Resp B/P (MAP) Pulse Ox O2 O2 Flow FiO2 Time Delivery Rate 07/16/18 97.8 77 18 126/59 98 08:12 (81) 07/14/18 Room Air 02:23 Intake and Output 07/15/18 07/15/18 07/16/18 1515:00 23:00 07:00 IntakeIntake Total 1000 ml 450 ml BalanceBalance 1000 ml 450 ml Results Results 24hrs Laboratory Tests Test 07/15/18 11:58 07/15/18 17:36 07/15/18 20:31 07/16/18 07:58 Bedside Glucose 111 98 121 94 Medications Medication Current Medications Amlodipine Besylate (Norvasc) 10 mg DAILY PO Last administered on 07/16/18at 08:50; Admin Dose 10 MG; Start 07/02/18 at 09:00 Atorvastatin Calcium (Lipitor) 10 mg QHS PO Last administered on 07/15/18at 20:33; Admin Dose 10 MG; Start 07/01/18 at 21:00 Benazepril HCl (Lotensin) 40 mg DAILY PO Last administered on 07/16/18 08:51; Admin Dose 40 MG; Start 07/02/18 at 09:00 Diagnostic Test (Pha) (Accu-Chek) 1 ea AC MEALS AND BEDTIME XX Last administered on 07/13/18at 17:51; Admin Dose 1 EA; Start 07/01/18 at 17:30 Diagnostic Test (Pha) (Accu-Chek) 1 ea 02 XX Last administered on 07/06/18at 01:13; Admin Dose 1 EA; Start 07/02/18 at 02:00 Insulin Aspart (Novolog Insulin Pen) NOVOLOG *MILD* ALGORITHM WITH MEALS BEDTIME SC Last administered on 07/12/18at 18:01; Admin Dose 1 UNIT; Start 07/01/18 at 18:00 Miscellaneous Information 1 ea NOTE XX ; Start 07/01/18 at 17:30 Glucose (Glutose) 15 gm Q15M PRN PO DECREASED GLUCOSE; Start 07/01/18 at 17:30 Glucose (Glutose) 22.5 gm Q15M PRN PO DECREASED GLUCOSE; Start 07/01/18 at 17:30 Dextrose (D50w Syringe) 25 ml Q15M PRN IV DECREASED GLUCOSE; Start 07/01/18 at 17:30 Dextrose (D50w Syringe) 50 ml Q15M PRN IV DECREASED GLUCOSE; Start 07/01/18 at 17:30 Glucagon (Glucagen) 1 mg Q15M PRN IM DECREASED GLUCOSE; Start 07/01/18 at 17:30 Glucose (Glutose) 15 gm Q15M PRN BUCCAL DECREASED GLUCOSE; Start 07/01/18 at 17:30 Tramadol HCl (Ultram) 50 mg Q6H PRN PO MODERATE PAIN LEVEL 4-6 Last administered on 07/10/18 05:12; Admin Dose 50 MG; Start 07/01/18 at 21:00 Enoxaparin Sodium (Lovenox) 40 mg DAILY SC Last administered on 07/15/18 08:55; Admin Dose 40 MG; Start 07/04/18 at 09:00 Acetaminophen (Tylenol Tab) 650 mg Q4 PRN PO MILD PAIN(1-3)OR ELEVATED TEMP Last administered on 07/12/18 22:52; Admin Dose 650 MG; Start 07/04/18 at 15:30 Lactobacillus Acidophilus/ Rhamnosus (Culturelle) 1 cap BID PO Last administered on 07/15/18 20:33; Admin Dose 1 CAP; Start 07/04/18 at 21:00 Latanoprost (Xalatan) 1 drop QHS BOTH EYES Last administered on 07/15/18 20:33; Admin Dose 1 DROP; Start 07/06/18 at 21:00 Morphine Sulfate (morphine) 2 mg Q4H PRN IV SEVERE PAIN LEVEL 7-10 Last administered on 07/10/18 20:42; Admin Dose 2 MG; Start 07/07/18 at 13:00 Trazodone HCl (Desyrel) 25 mg HS PO Last administered on 07/15/18 20:33; Admin Dose 25 MG; Start 07/09/18 at 23:00 Piperacillin Sod/ Tazobactam Sod 100 ml @ 200 mls/hr Q8 IVPB Last administered on 07/16/18 06:24; Admin Dose 200 MLS/HR; Start 07/11/18 at 14:00 JUSTYNA ROGERS MD Jul 16, 2018 11:43
[2018-07-16] MEDS ORDERED: LIDOCAINE 1% (MDV) 20 ML INJ ONE (12:05)
[2018-07-16] MEDS ORDERED: FENTAnyl 50 MCG/ML VIAL ONE (12:33)
--- NOTE | 2018-07-16 12:47 | CONS ---
Assessment/Plan Assessment/Plan Hospital Course (Demo Recall) No events per report, no fevers CT of the chest abdomen and pelvis revealed 6.5 cm fluid collection along the right pelvic sidewall. Please see full report in the chart Repeat CT 07/12/18: Right lateral pelvic side wall fluid collection is again seen measuring approximately 5.1 x 2.8 cm. Please see full report in chart Abx: Misael #6 Physical examination this is a well-developed well-nourished elderly man who is alert in no distress. Head atraumatic normocephalic. Neck is supple chest rise symmetrical breath sounds clear heart S1-S2 abdomen soft bowel sounds present extremities with left upper extremity significantly limited range of motion. No erythema no fluctuance over the left shoulder Assessment: 1. Ongoing fevers/acute inflammation 2 to pelvic fluid collection, status post CT guided drainage of pelvic fluid with culture grew coag negative staph 2. Diabetes 3. Glaucoma 4. 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 Plan: Remains stable, pending CT guided cath placement, continue abx Consultation Date/Type/Reason Admit Date/Time Jul 01, 2018 at 16:52 Initial Consult Date Type of Consult id Date/Time of Note DATE: 07/16/18 TIME: 12:47 Exam/Review of Systems Exam Vitals Vital Signs Date Temp Pulse Resp B/P (MAP) Pulse Ox O2 O2 Flow FiO2 Time Delivery Rate 07/16/18 97.8 77 18 126/59 98 08:12 (81) 07/14/18 Room Air 02:23 Intake and Output 07/15/18 07/15/18 07/16/18 1515:00 23:00 07:00 IntakeIntake Total 1000 ml 450 ml BalanceBalance 1000 ml 450 ml Results Result Diagram: 07/14/18 0539 07/14/18 0539 Results 24hrs Laboratory Tests Test 07/15/18 17:36 07/15/18 20:31 07/16/18 07:58 Bedside Glucose 98 121 94 Medications Medication Current Medications Amlodipine Besylate (Norvasc) 10 mg DAILY PO Last administered on 07/16/18at 08:50; Admin Dose 10 MG; Start 07/02/18 at 09:00 Atorvastatin Calcium (Lipitor) 10 mg QHS PO Last administered on 07/15/18at 20:33; Admin Dose 10 MG; Start 07/01/18 at 21:00 Benazepril HCl (Lotensin) 40 mg DAILY PO Last administered on 07/16/18 08:51; Admin Dose 40 MG; Start 07/02/18 at 09:00 Diagnostic Test (Pha) (Accu-Chek) 1 ea AC MEALS AND BEDTIME XX Last administered on 07/13/18 17:51; Admin Dose 1 EA; Start 07/01/18 at 17:30 Diagnostic Test (Pha) (Accu-Chek) 1 ea 02 XX Last administered on 07/06/18at 01:13; Admin Dose 1 EA; Start 07/02/18 at 02:00 Insulin Aspart (Novolog Insulin Pen) NOVOLOG *MILD* ALGORITHM WITH MEALS BEDTIME SC Last administered on 07/12/18 18:01; Admin Dose 1 UNIT; Start 07/01/18 at 18:00 Miscellaneous Information 1 ea NOTE XX ; Start 07/01/18 at 17:30 Glucose (Glutose) 15 gm Q15M PRN PO DECREASED GLUCOSE; Start 07/01/18 at 17:30 Glucose (Glutose) 22.5 gm Q15M PRN PO DECREASED GLUCOSE; Start 07/01/18 at 17:30 Dextrose (D50w Syringe) 25 ml Q15M PRN IV DECREASED GLUCOSE; Start 07/01/18 at 17:30 Dextrose (D50w Syringe) 50 ml Q15M PRN IV DECREASED GLUCOSE; Start 07/01/18 at 17:30 Glucagon (Glucagen) 1 mg Q15M PRN IM DECREASED GLUCOSE; Start 07/01/18 at 17:30 Glucose (Glutose) 15 gm Q15M PRN BUCCAL DECREASED GLUCOSE; Start 07/01/18 at 17:30 Tramadol HCl (Ultram) 50 mg Q6H PRN PO MODERATE PAIN LEVEL 4-6 Last administered on 07/10/18 05:12; Admin Dose 50 MG; Start 07/01/18 at 21:00 Enoxaparin Sodium (Lovenox) 40 mg DAILY SC Last administered on 07/15/18 08:55; Admin Dose 40 MG; Start 07/04/18 at 09:00 Acetaminophen (Tylenol Tab) 650 mg Q4 PRN PO MILD PAIN(1-3)OR ELEVATED TEMP Last administered on 07/12/18 22:52; Admin Dose 650 MG; Start 07/04/18 at 15:30 Lactobacillus Acidophilus/ Rhamnosus (Culturelle) 1 cap BID PO Last administered on 07/15/18 20:33; Admin Dose 1 CAP; Start 07/04/18 at 21:00 Latanoprost (Xalatan) 1 drop QHS BOTH EYES Last administered on 07/15/18 20:33; Admin Dose 1 DROP; Start 07/06/18 at 21:00 Morphine Sulfate (morphine) 2 mg Q4H PRN IV SEVERE PAIN LEVEL 7-10 Last administered on 07/10/18at 20:42; Admin Dose 2 MG; Start 07/07/18 at 13:00 Trazodone HCl (Desyrel) 25 mg HS PO Last administered on 07/15/18 20:33; Admin Dose 25 MG; Start 07/09/18 at 23:00 Piperacillin Sod/ Tazobactam Sod 100 ml @ 200 mls/hr Q8 IVPB Last administered on 07/16/18 06:24; Admin Dose 200 MLS/HR; Start 07/11/18 at 14:00 INDERJIT MADDEN ROOF MECH[employer]IC Jul 16, 2018 12:47
--- NOTE | 2018-07-16 12:59 | HPN ---
Date/Time of Note Date/Time of Note DATE: 07/16/18 TIME: 12:58 Interval H&P Admission Note Pt. seen H&P reviewed: No system changes KARLENE CLAIRE MD Jul 16, 2018 12:59
[2018-07-16 14:28] VITALS: BP 137/64; PULSE 83; RESP 19
[2018-07-16] MEDS: traZODone 50 MG TAB PO SCH (20:32)
[2018-07-16] MEDS: traMADol 50 MG TAB PO PRN (20:32)
[2018-07-16] MEDS: LATANOPROST 0.005% 2.5 ML OPH BOTH EYES SCH (20:32)
[2018-07-16] MEDS: ATORVASTATIN 10 MG TAB PO SCH (20:32)
[2018-07-16 20:33] VITALS: BP 137/76; PULSE 77; RESP 18
[2018-07-17 02:00] VITALS: BP 122/71; PULSE 61; RESP 18
[2018-07-17] MEDS: ACCU-CHEK XX SCH ×5 (02:00→21:00)
[2018-07-17] MEDS: PIPER-TAZO 3.375 GM IV (PMX) 100 ML IVPB SCH ×3 (06:00→22:27)
[2018-07-17] MEDS: INSULIN ASPART [NOVOLOG] 3 ML PEN SC SCH ×4 (07:41→20:58)
[2018-07-17 07:59] VITALS: BP 129/61; PULSE 69; RESP 18
[2018-07-17] MEDS: AMLODIPINE 10 MG TAB PO SCH (08:14)
[2018-07-17] MEDS: BENAZEPRIL 40 MG TAB PO SCH (08:15)
[2018-07-17] MEDS: LACTOBACILLUS RHAMNOSUS CAP PO SCH ×2 (08:15→20:59)
[2018-07-17] MEDS: ENOXAPARIN 40 MG/0.4 ML SYG SC SCH (08:16)
--- NOTE | 2018-07-17 11:32 | CONS ---
Assessment/Plan Assessment/Plan Hospital Course (Demo Recall) No acute events per report, no fevers CT of the chest abdomen and pelvis revealed 6.5 cm fluid collection along the right pelvic sidewall. Please see full report in the chart Repeat CT 07/12/18: Right lateral pelvic side wall fluid collection is again seen measuring approximately 5.1 x 2.8 cm. Please see full report in chart Abx: Edilsonn #7 Physical examination this is a well-developed well-nourished elderly man who is alert in no distress. Head atraumatic normocephalic. Neck is supple chest rise symmetrical breath sounds clear heart S1-S2 abdomen soft bowel sounds present extremities with left upper extremity significantly limited range of motion. No erythema no fluctuance over the left shoulder Assessment: 1. Ongoing fevers/acute inflammation 2 to pelvic fluid collection, status post CT guided drainage of pelvic fluid with culture grew coag negative staph 2. Diabetes 3. Glaucoma 4. 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 Plan: Stable, s/p CT guided cath placement, continue abx, f/u fluid cx Consultation Date/Type/Reason Admit Date/Time Jul 01, 2018 at 16:52 Initial Consult Date Type of Consult id Date/Time of Note DATE: 07/17/18 TIME: 11:31 Exam/Review of Systems Exam Vitals Vital Signs Date Temp Pulse Resp B/P (MAP) Pulse Ox O2 O2 Flow FiO2 Time Delivery Rate 07/17/18 98.9 69 18 129/61 96 Room Air 07:59 (83) Intake and Output 07/16/18 07/16/18 07/17/18 1515:00 23:00 07:00 IntakeIntake Total 360 ml 560 ml 400 ml OutputOutput Total 20 ml 25 ml BalanceBalance 360 ml 540 ml 375 ml Results Result Diagram: 07/14/18 0539 07/14/18 0539 Results 24hrs Laboratory Tests Test 07/16/18 17:33 07/16/18 20:30 07/17/18 07:38 Bedside Glucose 115 141 99 Medications Medication Current Medications Amlodipine Besylate (Norvasc) 10 mg DAILY PO Last administered on 07/17/18at 08:14; Admin Dose 10 MG; Start 07/02/18 at 09:00 Atorvastatin Calcium (Lipitor) 10 mg QHS PO Last administered on 07/16/18at 20:32; Admin Dose 10 MG; Start 07/01/18 at 21:00 Benazepril HCl (Lotensin) 40 mg DAILY PO Last administered on 07/17/18 08:15; Admin Dose 40 MG; Start 07/02/18 at 09:00 Diagnostic Test (Pha) (Accu-Chek) 1 ea AC MEALS AND BEDTIME XX Last administered on 07/13/18 17:51; Admin Dose 1 EA; Start 07/01/18 at 17:30 Diagnostic Test (Pha) (Accu-Chek) 1 ea 02 XX Last administered on 07/06/18 01:13; Admin Dose 1 EA; Start 07/02/18 at 02:00 Insulin Aspart (Novolog Insulin Pen) NOVOLOG *MILD* ALGORITHM WITH MEALS BEDTIME SC Last administered on 07/12/18 18:01; Admin Dose 1 UNIT; Start 07/01/18 at 18:00 Miscellaneous Information 1 ea NOTE XX ; Start 07/01/18 at 17:30 Glucose (Glutose) 15 gm Q15M PRN PO DECREASED GLUCOSE; Start 07/01/18 at 17:30 Glucose (Glutose) 22.5 gm Q15M PRN PO DECREASED GLUCOSE; Start 07/01/18 at 17:30 Dextrose (D50w Syringe) 25 ml Q15M PRN IV DECREASED GLUCOSE; Start 07/01/18 at 17:30 Dextrose (D50w Syringe) 50 ml Q15M PRN IV DECREASED GLUCOSE; Start 07/01/18 at 17:30 Glucagon (Glucagen) 1 mg Q15M PRN IM DECREASED GLUCOSE; Start 07/01/18 at 17:30 Glucose (Glutose) 15 gm Q15M PRN BUCCAL DECREASED GLUCOSE; Start 07/01/18 at 17:30 Tramadol HCl (Ultram) 50 mg Q6H PRN PO MODERATE PAIN LEVEL 4-6 Last administered on 07/16/18 20:32; Admin Dose 50 MG; Start 07/01/18 at 21:00 Enoxaparin Sodium (Lovenox) 40 mg DAILY SC Last administered on 07/17/18 08:16; Admin Dose 40 MG; Start 07/04/18 at 09:00 Acetaminophen (Tylenol Tab) 650 mg Q4 PRN PO MILD PAIN(1-3)OR ELEVATED TEMP Last administered on 07/12/18 22:52; Admin Dose 650 MG; Start 07/04/18 at 15:30 Lactobacillus Acidophilus/ Rhamnosus (Culturelle) 1 cap BID PO Last administered on 07/17/18 08:15; Admin Dose 1 CAP; Start 07/04/18 at 21:00 Latanoprost (Xalatan) 1 drop QHS BOTH EYES Last administered on 07/16/18 20:32; Admin Dose 1 DROP; Start 07/06/18 at 21:00 Morphine Sulfate (morphine) 2 mg Q4H PRN IV SEVERE PAIN LEVEL 7-10 Last administered on 07/10/18 20:42; Admin Dose 2 MG; Start 07/07/18 at 13:00 Trazodone HCl (Desyrel) 25 mg HS PO Last administered on 07/16/18 20:32; Admin Dose 25 MG; Start 07/09/18 at 23:00 Piperacillin Sod/ Tazobactam Sod 100 ml @ 200 mls/hr Q8 IVPB Last administered on 07/17/18 06:00; Admin Dose 200 MLS/HR; Start 07/11/18 at 14:00 INDERJIT MADDEN NP Jul 17, 2018 11:32
[2018-07-17 15:19] VITALS: BP 111/56; PULSE 71; RESP 18
[2018-07-17] MEDS: ACETAMINOPHEN 325 MG TAB PO PRN (17:57)
[2018-07-17 20:00] VITALS: BP 115/63; PULSE 80; RESP 18
--- NOTE | 2018-07-17 20:26 | PN ---
Date/Time of Note Date/Time of Note DATE: 07/17/18 TIME: 20:25 Assessment/Plan VTE Prophylaxis Risk score (from Ns)>0 risk: 4 SCD applied (from [facility] [place]): Yes SCD contraindicated: low risk/ambulating Pharmacological prophylaxis: NA/contraindicated Pharm contraindication: surgical contra, other Lines/Catheters IV C[facility]ter Type (from [facility] Peripheral IV Urinary Cath still in place: No Assessment/Plan Hospital Course Assessment and plan 1. Fever, etio? No evidence of flu or shoulder abscess. Ruled out endocarditis. s/p peripheral smear. Viral process? Abd Fluid collection? -appreciate surgical opinion. 2. II Dm 3. Dyslipidemia/anabolic syndrome 4. Hypertension 5. CKD 6. 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 Lt shoulder DJD; sp injury 8. Abd/pelvic fluid collection ~seroma? sp IR guided drainage. r/o infected hematoma. Consulted gen surgery. s/p 2nd; on zosyn. home soon 9. Past tobacco 10. Poor oral hygiene. Denies any recent dental work, or toothaches. S: 07/04 intermittent fever no chills no Reiger. No abdominal pain dysuria 07/05 fever appears improved but is on antibiotics 07/13: No distress wants to go home. Unfortunately the diagnostic/ therapeutic dilemma of his fluid collection is still concerning. This was discussed with patient and family at bedside. 07/14: No distress. Awaiting surgical opinion. May need IR/repeat drain placement 07/15 no distress. Updated son as well regarding the challenges of assisting this fluid collection resolved. 07/16: No distress. No fever diarrhea. Agrees to IR drainage. 07/17: Status post accordion drain placement. Drain may be intermittently kinked? O: vss PE No pallor. Regular no mrg Clear Bs+ nt nd no RRG No edema Result Diagram: 07/14/18 0539 07/14/18 0539 Results 24hrs Laboratory Tests Test 07/16/18 20:30 07/17/18 07:38 07/17/18 12:03 07/17/18 17:06 Bedside Glucose 141 99 120 124 Exam/Review of Systems Exam Vitals Vital Signs Date Temp Pulse Resp B/P (MAP) Pulse Ox O2 O2 Flow FiO2 Time Delivery Rate 07/17/18 98.3 80 18 115/63 98 Room Air 20:00 (80) Intake and Output 07/16/18 07/16/18 07/17/18 1414:59 22:59 06:59 IntakeIntake Total 360 ml 560 ml 400 ml OutputOutput Total 20 ml 25 ml BalanceBalance 360 ml 540 ml 375 ml Results Results 24hrs Laboratory Tests Test 07/16/18 20:30 07/17/18 07:38 07/17/18 12:03 07/17/18 17:06 Bedside Glucose 141 99 120 124 Medications Medication Current Medications Amlodipine Besylate (Norvasc) 10 mg DAILY PO Last administered on 07/17/18 08:14; Admin Dose 10 MG; Start 07/02/18 at 09:00 Atorvastatin Calcium (Lipitor) 10 mg QHS PO Last administered on 07/16/18at 20:32; Admin Dose 10 MG; Start 07/01/18 at 21:00 Benazepril HCl (Lotensin) 40 mg DAILY PO Last administered on 07/17/18 08:15; Admin Dose 40 MG; Start 07/02/18 at 09:00 Diagnostic Test (Pha) (Accu-Chek) 1 ea AC MEALS AND BEDTIME XX Last administered on 07/13/18at 17:51; Admin Dose 1 EA; Start 07/01/18 at 17:30 Diagnostic Test (Pha) (Accu-Chek) 1 ea 02 XX Last administered on 07/06/18at 01:13; Admin Dose 1 EA; Start 07/02/18 at 02:00 Insulin Aspart (Novolog Insulin Pen) NOVOLOG *MILD* ALGORITHM WITH MEALS BEDTIME SC Last administered on 07/12/18at 18:01; Admin Dose 1 UNIT; Start 07/01/18 at 18:00 Miscellaneous Information 1 ea NOTE XX ; Start 07/01/18 at 17:30 Glucose (Glutose) 15 gm Q15M PRN PO DECREASED GLUCOSE; Start 07/01/18 at 17:30 Glucose (Glutose) 22.5 gm Q15M PRN PO DECREASED GLUCOSE; Start 07/01/18 at 17:30 Dextrose (D50w Syringe) 25 ml Q15M PRN IV DECREASED GLUCOSE; Start 07/01/18 at 17:30 Dextrose (D50w Syringe) 50 ml Q15M PRN IV DECREASED GLUCOSE; Start 07/01/18 at 17:30 Glucagon (Glucagen) 1 mg Q15M PRN IM DECREASED GLUCOSE; Start 07/01/18 at 17:30 Glucose (Glutose) 15 gm Q15M PRN BUCCAL DECREASED GLUCOSE; Start 07/01/18 at 17:30 Tramadol HCl (Ultram) 50 mg Q6H PRN PO MODERATE PAIN LEVEL 4-6 Last administered on 07/16/18 20:32; Admin Dose 50 MG; Start 07/01/18 at 21:00 Enoxaparin Sodium (Lovenox) 40 mg DAILY SC Last administered on 07/17/18 08:16; Admin Dose 40 MG; Start 07/04/18 at 09:00 Acetaminophen (Tylenol Tab) 650 mg Q4 PRN PO MILD PAIN(1-3)OR ELEVATED TEMP Last administered on 07/17/18 17:57; Admin Dose 650 MG; Start 07/04/18 at 15:30 Lactobacillus Acidophilus/ Rhamnosus (Culturelle) 1 cap BID PO Last admin istered on 07/17/18 08:15; Admin Dose 1 CAP; Start 07/04/18 at 21:00 Latanoprost (Xalatan) 1 drop QHS BOTH EYES Last administered on 07/16/18 20:32; Admin Dose 1 DROP; Start 07/06/18 at 21:00 Morphine Sulfate (morphine) 2 mg Q4H PRN IV SEVERE PAIN LEVEL 7-10 Last administered on 07/10/18 20:42; Admin Dose 2 MG; Start 07/07/18 at 13:00 Trazodone HCl (Desyrel) 25 mg HS PO Last administered on 07/16/18 20:32; Admin Dose 25 MG; Start 07/09/18 at 23:00 Piperacillin Sod/ Tazobactam Sod 100 ml @ 200 mls/hr Q8 IVPB Last administered on 07/17/18 14:32; Admin Dose 200 MLS/HR; Start 07/11/18 at 14:00 JUSTYNA ROGERS MD Jul 17, 2018 20:26
[2018-07-17] MEDS ORDERED: LIDOCAINE 1% (MPF) 5 ML VIAL SC ONE (20:30)
[2018-07-17] MEDS: LATANOPROST 0.005% 2.5 ML OPH BOTH EYES SCH (20:59)
[2018-07-17] MEDS: traZODone 50 MG TAB PO SCH (20:59)
[2018-07-17] MEDS: ATORVASTATIN 10 MG TAB PO SCH (20:59)
[2018-07-18 02:00] VITALS: BP 135/65; PULSE 69; RESP 18
[2018-07-18] MEDS: ACCU-CHEK XX SCH ×5 (02:00→21:00)
[2018-07-18] MEDS: traMADol 50 MG TAB PO PRN (03:56)
[2018-07-18] MEDS: PIPER-TAZO 3.375 GM IV (PMX) 100 ML IVPB SCH ×3 (05:46→21:14)
[2018-07-18] MEDS: INSULIN ASPART [NOVOLOG] 3 ML PEN SC SCH ×4 (08:00→21:00)
[2018-07-18 08:22] VITALS: BP 147/69; PULSE 73; RESP 20
[2018-07-18] MEDS: LACTOBACILLUS RHAMNOSUS CAP PO SCH ×2 (08:55→21:10)
[2018-07-18] MEDS: BENAZEPRIL 40 MG TAB PO SCH (08:55)
[2018-07-18] MEDS: AMLODIPINE 10 MG TAB PO SCH (08:56)
[2018-07-18] MEDS: ENOXAPARIN 40 MG/0.4 ML SYG SC SCH (09:00)
--- NOTE | 2018-07-18 12:47 | PN ---
Date/Time of Note Date/Time of Note DATE: 07/18/18 TIME: 12:45 Assessment/Plan VTE Prophylaxis Risk score (from Ns)>0 risk: 3 SCD applied (from Ns): No SCD contraindicated: low risk/ambulating Pharmacological prophylaxis: LMWH Lines/Catheters IV [facility] Type [facility]from [facility] [place] Urinary Cath still in place: No Assessment/Plan Hospital Course Assessment and plan 1. Fever, etio? No evidence of flu or shoulder abscess. Ruled out endocarditis. s/p peripheral smear. Viral process? Abd Fluid collection? appreciate surgical opinion. 2. II Dm 3. Dyslipidemia/anabolic syndrome 4. Hypertension 5. CKD 6. 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 Lt shoulder DJD; sp injury 8. Abd/pelvic fluid collection ~seroma? sp IR guided drainage. r/o infected hematoma. Consulted gen surgery. s/p 2nd; on zosyn. home soon 9. Past tobacco 10. Poor oral hygiene. Denies any recent dental work, or toothaches. S: 07/04 intermittent fever no chills no Reiger. No abdominal pain dysuria 07/05 fever appears improved but is on antibiotics 07/13: No distress wants to go home. Unfortunately the diagnostic/ therapeutic dilemma of his fluid collection is still concerning. This was discussed with patient and family at bedside. 07/14: No distress. Awaiting surgical opinion. May need IR/repeat drain placement 07/15 no distress. Updated son as well regarding the challenges of assisting this fluid collection resolved. 07/16: No distress. No fever diarrhea. Agrees to IR drainage. 07/17: Status post accordion drain placement. Drain may be intermittently kink ed? 07/18 no fever diarrhea. Wants to go home. Drain not functioning O: vss PE No pallor. Regular no mrg Clear Bs+ nt nd no RRG No edema Result Diagram: 07/14/18 0539 07/14/18 0539 Results 24hrs Laboratory Tests Test 07/17/18 17:06 07/17/18 20:57 07/18/18 08:05 Bedside Glucose 124 99 95 Exam/Review of Systems Exam Vitals Vital Signs Date Temp Pulse Resp B/P (MAP) Pulse Ox O2 O2 Flow FiO2 Time Delivery Rate 07/18/18 98.6 73 20 147/69 98 Room Air 08:22 (95) Intake and Output 07/17/18 07/17/18 07/18/18 1515:00 23:00 07:00 IntakeIntake Total 720 ml 1000 ml 100 ml OutputOutput Total 20 ml 0 ml 0 ml BalanceBalance 700 ml 1000 ml 100 ml Results Results 24hrs Laboratory Tests Test 07/17/18 17:06 07/17/18 20:57 07/18/18 08:05 Bedside Glucose 124 99 95 Medications Medication Current Medications Amlodipine Besylate (Norvasc) 10 mg DAILY PO Last administered on 07/18/18 08:56; Admin Dose 10 MG; Start 07/02/18 at 09:00 Atorvastatin Calcium (Lipitor) 10 mg QHS PO Last administered on 07/17/18 20:59; Admin Dose 10 MG; Start 07/01/18 at 21:00 Benazepril HCl (Lotensin) 40 mg DAILY PO Last administered on 07/18/18 08:55; Admin Dose 40 MG; Start 07/02/18 at 09:00 Diagnostic Test (Pha) (Accu-Chek) 1 ea AC MEALS AND BEDTIME XX Last administered on 07/13/18 17:51; Admin Dose 1 EA; Start 07/01/18 at 17:30 Diagnostic Test (Pha) (Accu-Chek) 1 ea 02 XX Last administered on 07/06/18at 01:13; Admin Dose 1 EA; Start 07/02/18 at 02:00 Insulin Aspart (Novolog Insulin Pen) NOVOLOG *MILD* ALGORITHM WITH MEALS BEDTIME SC Last administered on 07/12/18 18:01; Admin Dose 1 UNIT; Start 07/01/18 at 18:00 Miscellaneous Information 1 ea NOTE XX ; Start 07/01/18 at 17:30 Glucose (Glutose) 15 gm Q15M PRN PO DECREASED GLUCOSE; Start 07/01/18 at 17:30 Glucose (Glutose) 22.5 gm Q15M PRN PO DECREASED GLUCOSE; Start 07/01/18 at 1 7:30 Dextrose (D50w Syringe) 25 ml Q15M PRN IV DECREASED GLUCOSE; Start 07/01/18 at 17:30 Dextrose (D50w Syringe) 50 ml Q15M PRN IV DECREASED GLUCOSE; Start 07/01/18 at 17:30 Glucagon (Glucagen) 1 mg Q15M PRN IM DECREASED GLUCOSE; Start 07/01/18 at 17:30 Glucose (Glutose) 15 gm Q15M PRN BUCCAL DECREASED GLUCOSE; Start 07/01/18 at 17:30 Tramadol HCl (Ultram) 50 mg Q6H PRN PO MODERATE PAIN LEVEL 4-6 Last administered on 07/18/18 03:56; Admin Dose 50 MG; Start 07/01/18 at 21:00 Enoxaparin Sodium (Lovenox) 40 mg DAILY SC Last administered on 07/17/18 08:16; Admin Dose 40 MG; Start 07/04/18 at 09:00 Acetaminophen (Tylenol Tab) 650 mg Q4 PRN PO MILD PAIN(1-3)OR ELEVATED TEMP Last administered on 07/17/18 17:57; Admin Dose 650 MG; Start 07/04/18 at 15:30 Lactobacillus Acidophilus/ Rhamnosus (Culturelle) 1 cap BID PO Last administered on 07/18/18 08:55; Admin Dose 1 CAP; Start 07/04/18 at 21:00 Latanoprost (Xalatan) 1 drop QHS BOTH EYES Last administered on 07/17/18 20:59; Admin Dose 1 DROP; Start 07/06/18 at 21:00 Morphine Sulfate (morphine) 2 mg Q4H PRN IV SEVERE PAIN LEVEL 7-10 Last administered on 07/10/18 20:42; Admin Dose 2 MG; Start 07/07/18 at 13:00 Trazodone HCl (Desyrel) 25 mg HS PO Last administered on 07/17/18 20:59; Admin Dose 25 MG; Start 07/09/18 at 23:00 Piperacillin Sod/ Tazobactam Sod 100 ml @ 200 mls/hr Q8 IVPB Last administered on 07/18/18 05:46; Admin Dose 200 MLS/HR; Start 07/11/18 at 14:00 JUSTYNA ROGERS MD Jul 18, 2018 12:47
[2018-07-18 14:27] VITALS: BP 122/62; PULSE 58; RESP 18
[2018-07-18 15:29] VITALS: PULSE 66
--- NOTE | 2018-07-18 16:37 | CONS ---
Assessment/Plan Assessment/Plan Hospital Course (Demo Recall) ID PROGRESS NOTE CURRENT ABX: DAY # => Zosyn s/p Vanco IV + MERREM s/p Cefepime 24H INTERVAL SUMMARY * Feeling better, no fever, VSS, NAD * No lab today DIAGNOSTIC IMAGING * 07/18/18 CXR: Left basilar airspace opacity may represent atelectasis or pneumonia. Right PICC line in appropriate addition. Aortic atherosclerotic calcifications. MICRO/OTHER * 07/16/18 ABD Fluid (-) to date * 07/07/18 ABD FLUID: BODY FLUID CULTURE Final Organism 1 COAGULASE NEGATIVE STAPH QUANTITY SCANT GROWTH COAG NEG M.I.C. RX --------- --- CEFAZOLIN S CIPROFLOXACIN <=0.5 S CLINDAMYCIN >=8 R DOXYCYCLINE S ERYTHROMYCIN >=8 R LEVOFLOXACIN 0.25 S OXACILLIN 2 S PENICILLIN-G R RIFAMPIN <=0.5 S VANCOMYCIN 1 S TRIMETHOPRIM/SULFAMETHOXAZOLE <=10 S * 07/04/18 BCx (-) 24H * 07/03/18 URINE CX (-) 24H * 07/03/18 BCX (-) * 07/03/18 BLOOD SMEAR: MALARIA SMEAR,THICK & THIN Preliminary Organism 1 NO MALARIAL PARASITE SEEN * 07/01/18 URINE CX: URINE CULTURE Final Organism 1 MIXED GRAM POSITIVE ORGANISMS COLONY COUNT 20,000 - 30,000 CFU/ml PHYSICAL EXAMINATION: GENERAL: VSS, NAD HEENT: AT, NC, anicteric, NECK: Supple, CHEST: Equal chest rise bilaterally, without dyspnea on observation HEART: Pulse RRR ABDOMEN: Soft / NT = benign EXTREMITIES: Warm, dry == not able to move left shoulder w/(+)left shoulder pain SKIN: No rash, no diaphoresis ID ASSESSMENT 77 yo M admit with: 1. SIRS vs sepsis w/high fevers, leukocytosis ==>Pelvic abscess 2. RIGHT PELVIC WALL on abscess -> s/p CT Guided drainage x2 on 07/07/18 and again on * CT guided drainage of pelvic fluid with culture grew coag negative staph 3. Mild to moderate sigmoid colon diverticulosis. 4. Hx of Prostate CANCER --> s/p Prostatectomy was done on October [address]Soroush Mason at [facility]. * PSA is normal range (Hx of prostate cancer and mixed pathogen UTI) 5. Severe rotator cuff pathology. Shoulder with possible synovitis which could be causing #1. * ==> no active infectious process in left shoulder per ortho note = low clinical suspicion per ORTHO 6. Moderate atherosclerotic calcifications. 7. Diabetes 8. Glaucoma 9. 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 10. 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 Mixed pathogen bacteruria = NO SIGNIFICANT = not compelling for acute vs chronic prostatitis * PSA is normal range (Hx of prostate cancer and mixed pathogen bacteruria) (-)MRSA Nares ABX ALLERGIES: None to ABX INVASIVES: PIV CURRENT ABX: DAY # => Zosyn s/p Vanco IV + MERREM s/p Cefepime ID RECOMMENDATIONS/PLAN: 1. Awaiting final micro from 07/16/18 2. Will f./u tomorrow -- covering for Gail/Dr. Martin over the weekend. Consultation Date/Type/Reason Admit Date/Time Jul 01, 2018 at 16:52 Initial Consult Date 07/02/18 Date/Time of Note DATE: 07/18/18 TIME: 16:37 Exam/Review of Systems Exam Vitals Vital Signs Date Temp Pulse Resp B/P (MAP) Pulse Ox O2 O2 Flow FiO2 Time Delivery Rate 07/18/18 66 15:29 07/18/18 97.4 18 122/62 100 Room Air 14:27 (82) Intake and Output 07/17/18 07/17/18 07/18/18 1515:00 23:00 07:00 IntakeIntake Total 720 ml 1000 ml 100 ml OutputOutput Total 20 ml 0 ml 0 ml BalanceBalance 700 ml 1000 ml 100 ml Results Result Diagram: 07/14/18 0539 07/14/18 0539 Results 24hrs Laboratory Tests Test 07/17/18 17:06 07/17/18 20:57 07/18/18 08:05 07/18/18 13:04 Bedside Glucose 124 99 95 83 Medications Medication Current Medications Amlodipine Besylate (Norvasc) 10 mg DAILY PO Last administered on 07/18/18at 08:56; Admin Dose 10 MG; Start 07/02/18 at 09:00 Atorvastatin Calcium (Lipitor) 10 mg QHS PO Last administered on 07/17/18at 20:59; Admin Dose 10 MG; Start 07/01/18 at 21:00 Benazepril HCl (Lotensin) 40 mg DAILY PO Last administered on 07/18/18 08:55; Admin Dose 40 MG; Start 07/02/18 at 09:00 Diagnostic Test (Pha) (Accu-Chek) 1 ea AC MEALS AND BEDTIME XX Last administer ed on 07/13/18 17:51; Admin Dose 1 EA; Start 07/01/18 at 17:30 Diagnostic Test (Pha) (Accu-Chek) 1 ea 02 XX Last administered on 07/06/18 01:13; Admin Dose 1 EA; Start 07/02/18 at 02:00 Insulin Aspart (Novolog Insulin Pen) NOVOLOG *MILD* ALGORITHM WITH MEALS BEDTIME SC Last administered on 07/12/18 18:01; Admin Dose 1 UNIT; Start 07/01/18 at 18:00 Miscellaneous Information 1 ea NOTE XX ; Start 07/01/18 at 17:30 Glucose (Glutose) 15 gm Q15M PRN PO DECREASED GLUCOSE; Start 07/01/18 at 17:30 Glucose (Glutose) 22.5 gm Q15M PRN PO DECREASED GLUCOSE; Start 07/01/18 at 17:30 Dextrose (D50w Syringe) 25 ml Q15M PRN IV DECREASED GLUCOSE; Start 07/01/18 at 17:30 Dextrose (D50w Syringe) 50 ml Q15M PRN IV DECREASED GLUCOSE; Start 07/01/18 at 17:30 Glucagon (Glucagen) 1 mg Q15M PRN IM DECREASED GLUCOSE; Start 07/01/18 at 17:30 Glucose (Glutose) 15 gm Q15M PRN BUCCAL DECREASED GLUCOSE; Start 07/01/18 at 17:30 Tramadol HCl (Ultram) 50 mg Q6H PRN PO MODERATE PAIN LEVEL 4-6 Last administered on 07/18/18 03:56; Admin Dose 50 MG; Start 07/01/18 at 21:00 Enoxaparin Sodium (Lovenox) 40 mg DAILY SC Last administered on 07/17/18at 08:16; Admin Dose 40 MG; Start 07/04/18 at 09:00 Acetaminophen (Tylenol Tab) 650 mg Q4 PRN PO MILD PAIN(1-3)OR ELEVATED TEMP Last administered on 07/17/18 17:57; Admin Dose 650 MG; Start 07/04/18 at 15:30 Lactobacillus Acidophilus/ Rhamnosus (Culturelle) 1 cap BID PO Last administered on 07/18/18at 08:55; Admin Dose 1 CAP; Start 07/04/18 at 21:00 Latanoprost (Xalatan) 1 drop QHS BOTH EYES Last administered on 07/17/18 20:59; Admin Dose 1 DROP; Start 07/06/18 at 21:00 Morphine Sulfate (morphine) 2 mg Q4H PRN IV SEVERE PAIN LEVEL 7-10 Last administered on 07/10/18 20:42; Admin Dose 2 MG; Start 07/07/18 at 13:00 Trazodone HCl (Desyrel) 25 mg HS PO Last administered on 07/17/18 20:59; Admin Dose 25 MG; Start 07/09/18 at 23:00 Piperacillin Sod/ Tazobactam Sod 100 ml @ 200 mls/hr Q8 IVPB Last administered on 07/18/18 14:57; Admin Dose 200 MLS/HR; Start 07/11/18 at 14:00 IV Flush (NS 10 ml) 10 ml MORNING AND EVENING IV ; Start 07/18/18 at 21:00 ANGELITO ZHONG NP Jul 18, 2018 16:37
[2018-07-18 20:00] VITALS: BP 109/58; PULSE 78; RESP 18
[2018-07-18] MEDS: ATORVASTATIN 10 MG TAB PO SCH (21:10)
[2018-07-18] MEDS: traZODone 50 MG TAB PO SCH (21:13)
[2018-07-18] MEDS: LATANOPROST 0.005% 2.5 ML OPH BOTH EYES SCH (21:44)
[2018-07-19 02:00] VITALS: BP 135/70; PULSE 75; RESP 17
[2018-07-19] MEDS: ACCU-CHEK XX SCH ×5 (02:00→21:04)
[2018-07-19] MEDS: PIPER-TAZO 3.375 GM IV (PMX) 100 ML IVPB SCH ×3 (06:00→20:59)
[2018-07-19] MEDS: INSULIN ASPART [NOVOLOG] 3 ML PEN SC SCH ×4 (07:58→21:00)
[2018-07-19 08:18] VITALS: BP 129/63; PULSE 73; RESP 17
[2018-07-19] MEDS: BENAZEPRIL 40 MG TAB PO SCH (08:38)
[2018-07-19] MEDS: LACTOBACILLUS RHAMNOSUS CAP PO SCH ×2 (08:38→20:59)
[2018-07-19] MEDS: AMLODIPINE 10 MG TAB PO SCH (08:38)
[2018-07-19] MEDS: ENOXAPARIN 40 MG/0.4 ML SYG SC SCH (08:39)
--- NOTE | 2018-07-19 09:04 | PN ---
Date/Time of Note Date/Time of Note DATE: 07/19/18 TIME: 08:59 Subjective Unclear etiology of pelvic fluid collection . Appears to be abscess by CT with gas bubbles . Cultures negative so far . No output since yesterday .. Denies pain . Objective Vitals Vital Signs Date Temp Pulse Resp B/P (MAP) Pulse Ox O2 O2 Flow FiO2 Time Delivery Rate 07/19/18 98.7 73 17 129/63 99 Room Air 08:18 (85) Intake and Output 07/18/18 07/18/18 07/19/18 1515:00 23:00 07:00 IntakeIntake Total 760 ml 660 ml 100 ml OutputOutput Total 0 ml 0 ml BalanceBalance 760 ml 660 ml 100 ml No distress Lungs clear Cor reg rate rhythm Abdomen soft , nondistended , non tender Results Result Diagram: 07/19/18 0600 07/19/18 0600 Medications Medications Current Medications Amlodipine Besylate (Norvasc) 10 mg DAILY PO Last administered on 07/19/18 08:38; Admin Dose 10 MG; Start 07/02/18 at 09:00 Atorvastatin Calcium (Lipitor) 10 mg QHS PO Last administered on 07/18/18at 21:10; Admin Dose 10 MG; Start 07/01/18 at 21:00 Benazepril HCl (Lotensin) 40 mg DAILY PO Last administered on 07/19/18 08:38; Admin Dose 40 MG; Start 07/02/18 at 09:00 Diagnostic Test (Pha) (Accu-Chek) 1 ea AC MEALS AND BEDTIME XX Last administered on 07/13/18 17:51; Admin Dose 1 EA; Start 07/01/18 at 17:30 Diagnostic Test (Pha) (Accu-Chek) 1 ea 02 XX Last administered on 07/06/18 01:13; Admin Dose 1 EA; Start 07/02/18 at 02:00 Insulin Aspart (Novolog Insulin Pen) NOVOLOG *MILD* ALGORITHM WITH MEALS BEDTIME SC Last administered on 07/12/18 18:01; Admin Dose 1 UNIT; Start 07/01/18 at 18:00 Miscellaneous Information 1 ea NOTE XX ; Start 07/01/18 at 17:30 Glucose (Glutose) 15 gm Q15M PRN PO DECREASED GLUCOSE; Start 07/01/18 at 17:30 Glucose (Glutose) 22.5 gm Q15M PRN PO DECREASED GLUCOSE; Start 07/01/18 at 17:30 Dextrose (D50w Syringe) 25 ml Q15M PRN IV DECREASED GLUCOSE; Start 07/01/18 at 17:30 Dextrose (D50w Syringe) 50 ml Q15M PRN IV DECREASED GLUCOSE; Start 07/01/18 at 17:30 Glucagon (Glucagen) 1 mg Q15M PRN IM DECREASED GLUCOSE; Start 07/01/18 at 17:30 Glucose (Glutose) 15 gm Q15M PRN BUCCAL DECREASED GLUCOSE; Start 07/01/18 at 17:30 Tramadol HCl (Ultram) 50 mg Q6H PRN PO MODERATE PAIN LEVEL 4-6 Last administered on 07/18/18 03:56; Admin Dose 50 MG; Start 07/01/18 at 21:00 Enoxaparin Sodium (Lovenox) 40 mg DAILY SC Last administered on 07/19/18 08:39; Admin Dose 40 MG; Start 07/04/18 at 09:00 Acetaminophen (Tylenol Tab) 650 mg Q4 PRN PO MILD PAIN(1-3)OR ELEVATED TEMP Last administered on 07/17/18 17:57; Admin Dose 650 MG; Start 07/04/18 at 15:30 Lactobacillus Acidophilus/ Rhamnosus (Culturelle) 1 cap BID PO Last administered on 07/19/18 08:38; Admin Dose 1 CAP; Start 07/04/18 at 21:00 Latanoprost (Xalatan) 1 drop QHS BOTH EYES Last administered on 07/18/18 21:44; Admin Dose 1 DROP; Start 07/06/18 at 21:00 Morphine Sulfate (morphine) 2 mg Q4H PRN IV SEVERE PAIN LEVEL 7-10 Last administered on 07/10/18 20:42; Admin Dose 2 MG; Start 07/07/18 at 13:00 Trazodone HCl (Desyrel) 25 mg HS PO Last administered on 07/18/18 21:13; Admin Dose 25 MG; Start 07/09/18 at 23:00 Piperacillin Sod/ Tazobactam Sod 100 ml @ 200 mls/hr Q8 IVPB Last administered on 07/19/18 06:00; Admin Dose 200 MLS/HR; Start 07/11/18 at 14:00 IV Flush (NS 10 ml) 10 ml MORNING AND EVENING IV Last administered on 07/19/18at 08:38; Admin Dose 10 ML; Start 07/18/18 at 21:00 [place] [facility] [place]: 7 [place] [facility] [place] Yes VTE Confirmed-Overlap Tx Rcvd Pt Rcvd Overlap Therapy: Yes Lines/Catheters IV Catheter Type: Peripheral IV Central line still needed: No Mejia in Place: No Assessment/Plan Assessment/Plan Fevers unclear origin , Fluid collection pelvis rule out abscess , drain placed by IR , No output now History prostatectomy one year ago Repeat CT Abd / Pelvis to assess fluid collection and drain position STEPHANIE PUGH MD Jul 19, 2018 09:04
[2018-07-19] MEDS ORDERED: SOD CHLORIDE 0.9% 100 ML ONE (12:09)
[2018-07-19] MEDS ORDERED: IODIXANOL LOCM 100 ML BTL ONE (12:09)
[2018-07-19 14:05] VITALS: BP 120/58; PULSE 80; RESP 17
--- NOTE | 2018-07-19 17:00 | CONS ---
Assessment/Plan Assessment/Plan Hospital Course (Demo Recall) ID PROGRESS NOTE CURRENT ABX: DAY # => Zosyn s/p Vanco IV + MERREM s/p Cefepime 07/19/18 0600 07/19/18 0600 24H INTERVAL SUMMARY * Clinically stable, no fevers, drain in place with NO OUTPUT with (-)Micro Cx from drainage * POST CT GUIDED PELVIC FLUID DRAINAGE 07/16/18: Approximately 10 ml of serous fluid was aspirated. * POST CT GUIDED PELVIC FLUID DRAINAGE 07/07/18: Approximately 30 ml of serous fluid was aspirated. DIAGNOSTIC IMAGING * 07/18/18 CXR: Left basilar airspace opacity may represent atelectasis or pneumonia. Right PICC line in appropriate addition. Aortic atherosclerotic calcifications. MICRO/OTHER * 07/16/18 ABD Fluid (-) * WOUND CULTURE Final NO GROWTH AFTER 3 DAYS * ANAEROBIC CULTURE Final NO GROWTH AFTER 3 DAYS * 07/07/18 ABD FLUID: BODY FLUID CULTURE Final Organism 1 COAGULASE NEGATIVE STAPH QUANTITY SCANT GROWTH COAG NEG M.I.C. RX --------- --- CEFAZOLIN S CIPROFLOXACIN <=0.5 S CLINDAMYCIN >=8 R DOXYCYCLINE S ERYTHROMYCIN >=8 R LEVOFLOXACIN 0.25 S OXACILLIN 2 S PENICILLIN-G R RIFAMPIN <=0.5 S VANCOMYCIN 1 S TRIMETHOPRIM/SULFAMETHOXAZOLE <=10 S * 07/04/18 BCx (-) 24H * 07/03/18 URINE CX (-) 24H * 07/03/18 BCX (-) * 07/03/18 BLOOD SMEAR: MALARIA SMEAR,THICK & THIN Preliminary Organism 1 NO MALARIAL PARASITE SEEN * 07/01/18 URINE CX: URINE CULTURE Final Organism 1 MIXED GRAM POSITIVE ORGANISMS COLONY COUNT 20,000 - 30,000 CFU/ml PHYSICAL EXAMINATION: GENERAL: VSS, NAD HEENT: AT, NC, anicteric, NECK: Supple, CHEST: Equal chest rise bilaterally, without dyspnea on observation HEART: Pulse RRR ABDOMEN: Soft / NT = benign EXTREMITIES: Warm, dry == not able to move left shoulder w/(+)left shoulder pain SKIN: No rash, no diaphoresis ID ASSESSMENT 77 yo M admit with: 1. SIRS --> S/P sepsis w/high fevers, leukocytosis ==>Pelvic abscess => RESOLVED 2. RIGHT PELVIC WALL on abscess -> s/p CT Guided drainage x2 on 07/07/18 and again on * CT GUIDED PELVIC FLUID DRAIN 07/16/18: ~ 10 ml of serous fluid aspirated= MICRO (-) * CT GUIDED PELVIC FLUID DRAIN 07/07/18: ~ 30 ml of serous fluid aspirated= MICRO (+)CoNS 3. Mild to moderate sigmoid colon diverticulosis. 4. Hx of Prostate CANCER --> s/p Prostatectomy was done on October [address]Soroush Mason at [facility] [place]. * PSA is normal range (Hx of prostate cancer and mixed pathogen UTI) 5. Severe rotator cuff pathology. * ==> no active infectious process in left shoulder per ortho note = low clinical suspicion per ORTHO 6. Moderate atherosclerotic calcifications. 7. Diabetes 8. Glaucoma 9. 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 10. 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 Mixed pathogen bacteruria = NO SIGNIFICANT = not compelling for acute vs chronic prostatitis * PSA is normal range (Hx of prostate cancer and mixed pathogen bacteruria) (-)MRSA Nares ABX ALLERGIES: None to ABX INVASIVES: PIV CURRENT ABX: DAY # => Zosyn s/p Vanco IV + MERREM s/p Cefepime ID RECOMMENDATIONS/PLAN: 1. Continue Zosyn IV while inpatient status 2. Anticipate DC on PO Augmentin 875mg BID x 5 days (vs Levaquin 500mg po daily) when cleared by primary . Consultation Date/Type/Reason Admit Date/Time Jul 01, 2018 at 16:52 Initial Consult Date 07/02/18 Date/Time of Note DATE: 07/19/18 TIME: 16:50 Exam/Review of Systems Exam Vitals Vital Signs Date Temp Pulse Resp B/P (MAP) Pulse Ox O2 O2 Flow FiO2 Time Delivery Rate 07/19/18 98.9 80 17 120/58 100 Room Air 14:05 (78) Intake and Output 07/18/18 07/18/18 07/19/18 1515:00 23:00 07:00 IntakeIntake Total 760 ml 660 ml 100 ml OutputOutput Total 0 ml 0 ml BalanceBalance 760 ml 660 ml 100 ml Results Result Diagram: 07/19/18 0600 07/19/18 0600 Results 24hrs Laboratory Tests Test 07/18/18 17:23 07/18/18 21:09 07/19/18 06:00 07/19/18 07:56 Bedside Glucose 98 112 93 White Blood Count 5.6 Red Blood Count 3.26 L Hemoglobin 9.8 L Hematocrit 30.2 L Mean Corpuscular 92.6 Volume Mean Corpuscular 30.1 Hemoglobin Mean Corpuscular 32.5 Hemoglobin Concent Red Cell 13.0 Distribution Width Platelet Count 466 H Mean Platelet Volume 9.0 Immature 0.400 Granulocytes % Neutrophils % 64.9 Lymphocytes % 20.5 Monocytes % 9.0 Eosinophils % 4.3 Basophils % 0.9 Nucleated Red Blood 0.0 Cells % Immature 0.020 Granulocytes # Neutrophils # 3.6 Lymphocytes # 1.1 Monocytes # 0.5 Eosinophils # 0.2 Basophils # 0.1 Nucleated Red Blood 0.0 Cells # Sodium Level 143 Potassium Level 4.1 Chloride Level 109 Carbon Dioxide Level 26 Anion Gap 8 Blood Urea Nitrogen 17 Creatinine 1.26 H Est Glomerular Filtrat Rate mL/min Glucose Level 90 Calcium Level 9.6 Phosphorus Level 3.8 Magnesium Level 2.3 Total Bilirubin 0.3 Direct Bilirubin 0.00 Indirect Bilirubin 0.3 Aspartate Amino 19 Transf (AST/SGOT) Alanine 27 Aminotransferase (AL T/SGPT) Alkaline Phosphatase 59 Total Protein 7.1 Albumin 3.5 Globulin 3.60 H Albumin/Globulin 0.97 Ratio Test 07/19/18 12:05 Bedside Glucose 96 Medications Medication Current Medications Amlodipine Besylate (Norvasc) 10 mg DAILY PO Last administered on 07/19/18 08:38; Admin Dose 10 MG; Start 07/02/18 at 09:00 Atorvastatin Calcium (Lipitor) 10 mg QHS PO Last administered on 07/18/18at 21:10; Admin Dose 10 MG; Start 07/01/18 at 21:00 Benazepril HCl (Lotensin) 40 mg DAILY PO Last administered on 07/19/18 08:38; Admin Dose 40 MG; Start 07/02/18 at 09:00 Diagnostic Test (Pha) (Accu-Chek) 1 ea AC MEALS AND BEDTIME XX Last administered on 07/13/18at 17:51; Admin Dose 1 EA; Start 07/01/18 at 17:30 Diagnostic Test (Pha) (Accu-Chek) 1 ea 02 XX Last administered on 07/06/18at 01:13; Admin Dose 1 EA; Start 07/02/18 at 02:00 Insulin Aspart (Novolog Insulin Pen) NOVOLOG *MILD* ALGORITHM WITH MEALS BEDTIME SC Last administered on 07/12/18 18:01; Admin Dose 1 UNIT; Start 07/01/18 at 18:00 Miscellaneous Information 1 ea NOTE XX ; Start 07/01/18 at 17:30 Glucose (Glutose) 15 gm Q15M PRN PO DECREASED GLUCOSE; Start 07/01/18 at 17:30 Glucose (Glutose) 22.5 gm Q15M PRN PO DECREASED GLUCOSE; Start 07/01/18 at 17:30 Dextrose (D50w Syringe) 25 ml Q15M PRN IV DECREASED GLUCOSE; Start 07/01/18 at 17:30 Dextrose (D50w Syringe) 50 ml Q15M PRN IV DECREASED GLUCOSE; Start 07/01/18 at 17:30 Glucagon (Glucagen) 1 mg Q15M PRN IM DECREASED GLUCOSE; Start 07/01/18 at 17:30 Glucose (Glutose) 15 gm Q15M PRN BUCCAL DECREASED GLUCOSE; Start 07/01/18 at 17:30 Tramadol HCl (Ultram) 50 mg Q6H PRN PO MODERATE PAIN LEVEL 4-6 Last administered on 07/18/18 03:56; Admin Dose 50 MG; Start 07/01/18 at 21:00 Enoxaparin Sodium (Lovenox) 40 mg DAILY SC Last administered on 07/19/18 08:39; Admin Dose 40 MG; Start 07/04/18 at 09:00 Acetaminophen (Tylenol Tab) 650 mg Q4 PRN PO MILD PAIN(1-3)OR ELEVATED TEMP Last administered on 07/17/18 17:57; Admin Dose 650 MG; Start 07/04/18 at 15:30 Lactobacillus Acidophilus/ Rhamnosus (Culturelle) 1 cap BID PO Last administered on 07/19/18 08:38; Admin Dose 1 CAP; Start 07/04/18 at 21:00 Latanoprost (Xalatan) 1 drop QHS BOTH EYES Last administered on 07/18/18 21:44; Admin Dose 1 DROP; Start 07/06/18 at 21:00 Morphine Sulfate (morphine) 2 mg Q4H PRN IV SEVERE PAIN LEVEL 7-10 Last administered on 07/10/18 20:42; Admin Dose 2 MG; Start 07/07/18 at 13:00 Trazodone HCl (Desyrel) 25 mg HS PO Last administered on 07/18/18 21:13; Admin Dose 25 MG; Start 07/09/18 at 23:00 Piperacillin Sod/ Tazobactam Sod 100 ml @ 200 mls/hr Q8 IVPB Last administered on 07/19/18 14:21; Admin Dose 200 MLS/HR; Start 07/11/18 at 14:00 IV Flush (NS 10 ml) 10 ml MORNING AND EVENING IV Last administered on 07/19/18 08:38; Admin Dose 10 ML; Start 07/18/18 at 21:00 ANGELITO ZHONG NP Jul 19, 2018 17:00
--- NOTE | 2018-07-19 18:31 | PN ---
Date/Time of Note Date/Time of Note DATE: 07/19/18 TIME: 18:29 Assessment/Plan VTE Prophylaxis Risk score (from Ns)>0 risk: 7 SCD applied (from [facility]): Yes SCD contraindicated: low risk/ambulating Pharmacological prophylaxis: NA/contraindicated, LMWH Pharm contraindication: low risk/ambulating Lines/Catheters IV Catheter Type (from [facility]): PICC Line Central line still needed: Yes Urinary Cath still in place: No Assessment/Plan Hospital Course Assessment and plan 1. Fever, etio? No evidence of flu or shoulder abscess. Ruled out endocarditis. s/p peripheral smear. Viral process? Abd Fluid collection? appreciate surgical opinion. 2. II Dm 3. Dyslipidemia/anabolic syndrome 4. Hypertension 5. CKD 6. 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 Lt shoulder DJD; sp injury 8. Abd/pelvic fluid collection ~seroma? sp IR guided drainage. r/o infected hematoma. Consulted gen surgery. s/p 2nd drain; on zosyn. home functioning drain and home health soon. Due to ~drain malfunction, repeat CT to evaluate drain position ordered 9. Past tobacco 10. Poor oral hygiene. Denies any recent dental work, or toothaches. S: 07/04 intermittent fever no chills no Reiger. No abdominal pain dysuria 07/05 fever appears improved but is on antibiotics 07/13: No distress wants to go home. Unfortunately the diagnostic/ therapeutic dilemma of his fluid collection is still concerning. This was discussed with patient and family at bedside. 07/14: No distress. Awaiting surgical opinion. May need IR/repeat drain placemen t 07/15 no distress. Updated son as well regarding the challenges of assisting this fluid collection resolved. 07/16: No distress. No fever diarrhea. Agrees to IR drainage. 07/17: Status post accordion drain placement. Drain may be intermittently kinked? 07/18 no fever diarrhea. Wants to go home. Drain not functioning 07/19: No events. sp PICC. Drain still not functioning O: vss PE No pallor. Regular no mrg Clear Bs+ nt nd no RRG No edema Result Diagram: 07/19/18 0600 07/19/18 0600 Results 24hrs Laboratory Tests Test 07/18/18 21:09 07/19/18 06:00 4/14/19 07:56 07/19/18 12:05 Bedside Glucose 112 93 96 White Blood Count 5.6 Red Blood Count 3.26 L Hemoglobin 9.8 L Hematocrit 30.2 L Mean Corpuscular 92.6 Volume Mean Corpuscular 30.1 Hemoglobin Mean Corpuscular 32.5 Hemoglobin Concent Red Cell 13.0 Distribution Width Platelet Count 466 H Mean Platelet Volume 9.0 Immature 0.400 Granulocytes % Neutrophils % 64.9 Lymphocytes % 20.5 Monocytes % 9.0 Eosinophils % 4.3 Basophils % 0.9 Nucleated Red Blood 0.0 Cells % Immature 0.020 Granulocytes # Neutrophils # 3.6 Lymphocytes # 1.1 Monocytes # 0.5 Eosinophils # 0.2 Basophils # 0.1 Nucleated Red Blood 0.0 Cells # Sodium Level 143 Potassium Level 4.1 Chloride Level 109 Carbon Dioxide Level 26 Anion Gap 8 Blood Urea Nitrogen 17 Creatinine 1.26 H Est Glomerular Filtrat Rate mL/min Glucose Level 90 Calcium Level 9.6 Phosphorus Level 3.8 Magnesium Level 2.3 Total Bilirubin 0.3 Direct Bilirubin 0.00 Indirect Bilirubin 0.3 Aspartate Amino 19 Transf (AST/SGOT) Alanine 27 Aminotransferase (AL T/SGPT) Alkaline Phosphatase 59 Total Protein 7.1 Albumin 3.5 Globulin 3.60 H Albumin/Globulin 0.97 Ratio Test 07/19/18 17:30 Bedside Glucose 160 Exam/Review of Systems Exam Vitals Vital Signs Date Temp Pulse Resp B/P (MAP) Pulse Ox O2 O2 Flow FiO2 Time Delivery Rate 07/19/18 98.9 80 17 120/58 100 Room Air 14:05 (78) Intake and Output 07/18/18 07/18/18 07/19/18 1515:00 23:00 07:00 IntakeIntake Total 760 ml 660 ml 100 ml OutputOutput Total 0 ml 0 ml BalanceBalance 760 ml 660 ml 100 ml Results Results 24hrs Laboratory Tests Test 07/18/18 21:09 07/19/18 06:00 07/19/18 07:56 07/19/18 12:05 Bedside Glucose 112 93 96 White Blood Count 5.6 Red Blood Count 3.26 L Hemoglobin 9.8 L Hematocrit 30.2 L Mean Corpuscular 92.6 Volume Mean Corpuscular 30.1 Hemoglobin Mean Corpuscular 32.5 Hemoglobin Concent Red Cell 13.0 Distribution Width Platelet Count 466 H Mean Platelet Volume 9.0 Immature 0.400 Granulocytes % Neutrophils % 64.9 Lymphocytes % 20.5 Monocytes % 9.0 Eosinophils % 4.3 Basophils % 0.9 Nucleated Red Blood 0.0 Cells % Immature 0.020 Granulocytes # Neutrophils # 3.6 Lymphocytes # 1.1 Monocytes # 0.5 Eosinophils # 0.2 Basophils # 0.1 Nucleated Red Blood 0.0 Cells # Sodium Level 143 Potassium Level 4.1 Chloride Level 109 Carbon Dioxide Level 26 Anion Gap 8 Blood Urea Nitrogen 17 Creatinine 1.26 H Est Glomerular Filtrat Rate mL/min Glucose Level 90 Calcium Level 9.6 Phosphorus Level 3.8 Magnesium Level 2.3 Total Bilirubin 0.3 Direct Bilirubin 0.00 Indirect Bilirubin 0.3 Aspartate Amino 19 Transf (AST/SGOT) Alanine 27 Aminotransferase (AL T/SGPT) Alkaline Phosphatase 59 Total Protein 7.1 Albumin 3.5 Globulin 3.60 H Albumin/Globulin 0.97 Ratio Test 07/19/18 17:30 Bedside Glucose 160 Medications Medication Current Medications Amlodipine Besylate (Norvasc) 10 mg DAILY PO Last administered on 07/19/18 08:38; Admin Dose 10 MG; Start 07/02/18 at 09:00 Atorvastatin Calcium (Lipitor) 10 mg QHS PO Last administered on 07/18/18 21:10; Admin Dose 10 MG; Start 07/01/18 at 21:00 Benazepril HCl (Lotensin) 40 mg DAILY PO Last administered on 07/19/18 08:38; Admin Dose 40 MG; Start 07/02/18 at 09:00 Diagnostic Test (Pha) (Accu-Chek) 1 ea AC MEALS AND BEDTIME XX Last administered on 07/13/18at 17:51; Admin Dose 1 EA; Start 07/01/18 at 17:30 Diagnostic Test (Pha) (Accu-Chek) 1 ea 02 XX Last administered on 07/06/18 01:13; Admin Dose 1 EA; Start 07/02/18 at 02:00 Insulin Aspart (Novolog Insulin Pen) NOVOLOG *MILD* ALGORITHM WITH MEALS BEDTIME SC Last administered on 07/19/18 17:33; Admin Dose 1 UNIT; Start 07/01/18 at 18:00 Miscellaneous Information 1 ea NOTE XX ; Start 07/01/18 at 17:30 Glucose (Glutose) 15 gm Q15M PRN PO DECREASED GLUCOSE; Start 07/01/18 at 17:30 Glucose (Glutose) 22.5 gm Q15M PRN PO DECREASED GLUCOSE; Start 07/01/18 at 17:30 Dextrose (D50w Syringe) 25 ml Q15M PRN IV DECREASED GLUCOSE; Start 07/01/18 at 17:30 Dextrose (D50w Syringe) 50 ml Q15M PRN IV DECREASED GLUCOSE; Start 07/01/18 at 17:30 Glucagon (Glucagen) 1 mg Q15M PRN IM DECREASED GLUCOSE; Start 07/01/18 at 17:30 Glucose (Glutose) 15 gm Q15M PRN BUCCAL DECREASED GLUCOSE; Start 07/01/18 at 17:30 Tramadol HCl (Ultram) 50 mg Q6H PRN PO MODERATE PAIN LEVEL 4-6 Last administered on 07/18/18 03:56; Admin Dose 50 MG; Start 07/01/18 at 21:00 Enoxaparin Sodium (Lovenox) 40 mg DAILY SC Last administered on 07/19/18 08:39; Admin Dose 40 MG; Start 07/04/18 at 09:00 Acetaminophen (Tylenol Tab) 650 mg Q4 PRN PO MILD PAIN(1-3)OR ELEVATED TEMP Last administered on 07/17/18 17:57; Admin Dose 650 MG; Start 07/04/18 at 15:30 Lactobacillus Acidophilus/ Rhamnosus (Culturelle) 1 cap BID PO Last administered on 07/19/18 08:38; Admin Dose 1 CAP; Start 07/04/18 at 21:00 Latanoprost (Xalatan) 1 drop QHS BOTH EYES Last administered on 07/18/18 21:44; Admin Dose 1 DROP; Start 07/06/18 at 21:00 Morphine Sulfate (morphine) 2 mg Q4H PRN IV SEVERE PAIN LEVEL 7-10 Last administered on 07/10/18 20:42; Admin Dose 2 MG; Start 07/07/18 at 13:00 Trazodone HCl (Desyrel) 25 mg HS PO Last administered on 07/18/18 21:13; Admin Dose 25 MG; Start 07/09/18 at 23:00 Piperacillin Sod/ Tazobactam Sod 100 ml @ 200 mls/hr Q8 IVPB Last administered on 4/14/19at 14:21; Admin Dose 200 MLS/HR; Start 07/11/18 at 14:00 IV Flush (NS 10 ml) 10 ml MORNING AND EVENING IV Last administered on 07/19/18at 08:38; Admin Dose 10 ML; Start 07/18/18 at 21:00 JUSTYNA ROGERS MD Jul 19, 2018 18:31
[2018-07-19 20:00] VITALS: BP 130/66; PULSE 77; RESP 17
[2018-07-19] MEDS: ATORVASTATIN 10 MG TAB PO SCH (20:59)
[2018-07-19] MEDS: traZODone 50 MG TAB PO SCH (20:59)
[2018-07-19] MEDS: LATANOPROST 0.005% 2.5 ML OPH BOTH EYES SCH (20:59)
[2018-07-19] MEDS: DIPHENHYDRAMINE 25 MG CAP PO PRN (22:04)
[2018-07-20] MEDS: ACCU-CHEK XX SCH ×5 (01:43→21:00)
[2018-07-20 02:00] VITALS: BP 128/63; PULSE 94; RESP 18
[2018-07-20] MEDS: DIPHENHYDRAMINE 25 MG CAP PO PRN (06:10)
[2018-07-20] MEDS: PIPER-TAZO 3.375 GM IV (PMX) 100 ML IVPB SCH (06:11)
[2018-07-20 07:55] VITALS: BP 113/62; PULSE 94; RESP 17
[2018-07-20] MEDS: INSULIN ASPART [NOVOLOG] 3 ML PEN SC SCH ×4 (08:00→21:00)
[2018-07-20 08:42] VITALS: BP 157/106; PULSE 60
[2018-07-20] MEDS: AMLODIPINE 10 MG TAB PO SCH (09:14)
[2018-07-20] MEDS: BENAZEPRIL 40 MG TAB PO SCH (09:15)
[2018-07-20] MEDS: LACTOBACILLUS RHAMNOSUS CAP PO SCH ×2 (09:17→21:53)
--- NOTE | 2018-07-20 14:09 | CONS ---
Assessment/Plan Assessment/Plan Hospital Course (Demo Recall) Patient is alert feels good denies pain no fevers overnight. WBC 5.5 no shift no bands BUN 20 creatinine 1.38 Abx: Zosyn #10 Physical examination this is a well-developed well-nourished elderly man who is alert in no distress. Head atraumatic normocephalic. Neck is supple chest rise symmetrical breath sounds clear heart S1-S2 abdomen soft bowel sounds present, patient has right-sided accordion catheter. Skin: Generalized maculopapular rash, mostly on the back and chest Assessment: 1. Ongoing fevers/acute inflammation 2 to pelvic fluid collection, status post CT guided drainage of pelvic fluid with culture grew coag negative staph 2. Diabetes 3. Glaucoma 4. 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 Skin rash, likely allergic reaction to Zosyn Plan: Stable, s/p CT guided cath placement 07/17/18, no fevers, will discontinue antibiotics, start antihistamines Consultation Date/Type/Reason Admit Date/Time Jul 01, 2018 at 16:52 Initial Consult Date Type of Consult id Date/Time of Note DATE: 07/20/18 TIME: 14:06 Exam/Review of Systems Exam Vitals Vital Signs Date Temp Pulse Resp B/P (MAP) Pulse Ox O2 O2 Flow FiO2 Time Delivery Rate 07/20/18 98.2 94 17 113/62 99 Room Air 07:55 (79) Intake and Output 07/19/18 07/19/18 07/20/18 1515:00 23:00 07:00 IntakeIntake Total 400 ml 600 ml 100 ml OutputOutput Total 0 ml 0 ml BalanceBalance 400 ml 600 ml 100 ml Results Result Diagram: 07/20/18 0602 07/20/18 0602 Results 24hrs Laboratory Tests Test 07/19/18 17:30 07/19/18 20:57 07/20/18 06:02 07/20/18 08:28 Bedside Glucose 160 103 95 White Blood Count 5.5 Red Blood Count 3.37 L Hemoglobin 10.2 L Hematocrit 31.4 L Mean Corpuscular 93.2 Volume Mean Corpuscular 30.3 Hemoglobin Mean Corpuscular 32.5 Hemoglobin Concent Red Cell 13.1 Distribution Width Platelet Count 473 H Mean Platelet Volume 9.2 Immature 0.200 Granulocytes % Neutrophils % 69.5 Lymphocytes % 17.0 Monocytes % 7.5 Eosinophils % 4.9 Basophils % 0.9 Nucleated Red Blood 0.0 Cells % Immature 0.010 Granulocytes # Neutrophils # 3.8 Lymphocytes # 0.9 Monocytes # 0.4 Eosinophils # 0.3 Basophils # 0.1 Nucleated Red Blood 0.0 Cells # Prothrombin Time 15.3 H Prothrombin Time 1.2 Ratio INR International 1.20 Normalized Ratio Activated 32.6 Partial Thromboplast Time Sodium Level 143 Potassium Level 3.9 Chloride Level 109 Carbon Dioxide Level 26 Anion Gap 8 Blood Urea Nitrogen 20 Creatinine 1.38 H Est Glomerular Filtrat Rate mL/min Glucose Level 93 Calcium Level 9.5 Total Bilirubin 0.3 Direct Bilirubin 0.00 Indirect Bilirubin 0.3 Aspartate Amino 23 Transf (AST/SGOT) Alanine 25 Aminotransferase (AL T/SGPT) Alkaline Phosphatase 59 Total Protein 7.2 Albumin 3.6 Globulin 3.60 H Albumin/Globulin 1.00 Ratio Test 07/20/18 12:17 Bedside Glucose 100 Medications Medication Current Medications Amlodipine Besylate (Norvasc) 10 mg DAILY PO Last administered on 07/20/18 09:14; Admin Dose 10 MG; Start 07/02/18 at 09:00 Atorvastatin Calcium (Lipitor) 10 mg QHS PO Last administered on 07/19/18at 20:59; Admin Dose 10 MG; Start 07/01/18 at 21:00 Benazepril HCl (Lotensin) 40 mg DAILY PO Last administered on 07/20/18 09:15; Admin Dose 40 MG; Start 07/02/18 at 09:00 Diagnostic Test (Pha) (Accu-Chek) 1 ea AC MEALS AND BEDTIME XX Last administered on 07/20/18at 12:25; Admin Dose 1 EA; Start 07/01/18 at 17:30 Diagnostic Test (Pha) (Accu-Chek) 1 ea 02 XX Last administered on 07/06/18at 01:13; Admin Dose 1 EA; Start 07/02/18 at 02:00 Insulin Aspart (Novolog Insulin Pen) NOVOLOG *MILD* ALGORITHM WITH MEALS BEDTIME SC Last administered on 07/19/18at 17:33; Admin Dose 1 UNIT; Start 07/01/18 at 18:00 Miscellaneous Information 1 ea NOTE XX ; Start 07/01/18 at 17:30 Glucose (Glutose) 15 gm Q15M PRN PO DECREASED GLUCOSE; Start 07/01/18 at 17:30 Glucose (Glutose) 22.5 gm Q15M PRN PO DECREASED GLUCOSE; Start 07/01/18 at 17:30 Dextrose (D50w Syringe) 25 ml Q15M PRN IV DECREASED GLUCOSE; Start 07/01/18 at 17:30 Dextrose (D50w Syringe) 50 ml Q15M PRN IV DECREASED GLUCOSE; Start 07/01/18 at 17:30 Glucagon (Glucagen) 1 mg Q15M PRN IM DECREASED GLUCOSE; Start 07/01/18 at 17:30 Glucose (Glutose) 15 gm Q15M PRN BUCCAL DECREASED GLUCOSE; Start 07/01/18 at 17:30 Tramadol HCl (Ultram) 50 mg Q6H PRN PO MODERATE PAIN LEVEL 4-6 Last administered on 07/18/18 03:56; Admin Dose 50 MG; Start 07/01/18 at 21:00 Acetaminophen (Tylenol Tab) 650 mg Q4 PRN PO MILD PAIN(1-3)OR ELEVATED TEMP Last administered on 07/17/18 17:57; Admin Dose 650 MG; Start 07/04/18 at 15:30 Lactobacillus Acidophilus/ Rhamnosus (Culturelle) 1 cap BID PO Last administered on 07/20/18 09:17; Admin Dose 1 CAP; Start 07/04/18 at 21:00 Latanoprost (Xalatan) 1 drop QHS BOTH EYES Last administered on 07/19/18 20:59; Admin Dose 1 DROP; Start 07/06/18 at 21:00 Morphine Sulfate (morphine) 2 mg Q4H PRN IV SEVERE PAIN LEVEL 7-10 Last administered on 07/10/18 20:42; Admin Dose 2 MG; Start 07/07/18 at 13:00 Trazodone HCl (Desyrel) 25 mg HS PO Last administered on 07/19/18 20:59; Admin Dose 25 MG; Start 07/09/18 at 23:00 Piperacillin Sod/ Tazobactam Sod 100 ml @ 200 mls/hr Q8 IVPB Last administered on 07/20/18 06:11; Admin Dose 200 MLS/HR; Start 07/11/18 at 14:00 IV Flush (NS 10 ml) 10 ml MORNING AND EVENING IV Last administered on 07/20/18at 09:12; Admin Dose 10 ML; Start 07/18/18 at 21:00 Enoxaparin Sodium (Lovenox) 40 mg DAILY SC ; Start 07/21/18 at 09:00 Diphenhydramine HCl (Benadryl) 25 mg Q6H PRN PO ITCHING Last administered on 07/20/18at 06:10; Admin Dose 25 MG; Start 07/19/18 at 22:00; Stop 07/20/18 at 22:01 INDERJIT MADDEN NP Jul 20, 2018 14:09
[2018-07-20 15:01] VITALS: BP 111/60; PULSE 78; RESP 17
[2018-07-20] MEDS: LORATADINE 10 MG TAB PO SCH (15:39)
--- NOTE | 2018-07-20 18:08 | PN ---
Date/Time of Note Date/Time of Note DATE: 07/20/18 TIME: 18:03 Assessment/Plan VTE Prophylaxis Risk score (from Ns)>0 risk: 4 SCD applied (from [facility]): No SCD contraindicated: other Pharmacological prophylaxis: LMWH Lines/Catheters IV Catheter Type (from [facility]): PICC Line Central line still needed: Yes Urinary Cath still in place: No Assessment/Plan Hospital Course SUBJECTIVE: Remains afebrile. Pelvic drain unable to be flushed.. Had a generalized rash today. Therefore, Zosyn was discontinued. OBJECTIVE: Physical Exam General: Adequately build 77 year-old male lying in bed in no apparent distress. HEENT: Normocephalic, atraumatic. Eyes: Anicteric sclerae, conjunctivae clear. ENT: Nasal septum midline, oral mucosa moist. Neck supple. Respiratory: Bilaterally diminished breath sounds. No use of accessory muscles of respiration. No adventitious breath sounds. Cardiovascular: S1, S2 heard. Regular rate and rhythm. Abdomen: Soft, nontender, and nondistended. Bowel sounds positive in all 4 quadrants. Genitourinary: Deferred. Extremities: No cyanosis, no clubbing, no edema. Peripheral pulses palpable. Neurologic: Cranial nerves II through XII grossly intact. The patient is awake, alert, and oriented. Skin: Normal skin turgor. No skin rashes. Labs & Vitals per chart ASSESSMENT & PLAN 77-year-old male with comorbidities including hypertension, diabetes mellitus, dyslipidemia, and erectile dysfunction who came to the emergency room because of fevers and chills over 24 hours. The patient was noticed to have leukocytosis, febrile illness, and tachycardia in the emergency room. The patient was admitted to inpatient setting for further treatment and evaluation. 1. Status post sepsis with leukocytosis, tachycardia, and febrile illness. -Being followed by infectious diseases. -MRI of the left shoulder reviewed by orthopedic surgery and orthopedic surgeon thinks there is no evidence of any septic joint. -CT showing 6.5 cm circumscribed fluid collection along the right pelvic sidewall. -WBC scan showing area of mildly to moderately increased activity along the right pelvic sidewall corresponding to the circumscribed fluid collection on the CT scan. -West Nile virus IgG antibody positive, although IgM antibody negative. 2. 6.5 cm fluid collection located on the right pelvic sidewall. -Etiology unclear. -Status post CT-guided drainage on 07/07/2018. Status post removal of drain on 07/10/2018. Status post CT-guided drain on 07/16/2018. -Cultures from 07/07/2018 showing Staph aureus. 3. Diabetes mellitus type 2. -Continue sliding scale insulin. -A1C 5.9. 4. Dyslipidemia. -Continue statins. 5. Essential hypertension. -Continue antihypertensives. 6. Normocytic, normochromic anemia. -Most probably due to chronic disease. -Monitor H&H closely. 7. Acute kidney injury. -Monitor BUN and creatinine closely. -Use nephrotoxic drugs with caution. -Nonoliguric. 8. Fluids, electrolytes, and nutrition. -Carbohydrate controlled diet. 9. DVT prophylaxis. -SQ Lovenox. 10. Plan. -Antimicrobial management as per ID. -Contact interventional radiology on 07/21/2018 to address the drain issue. The patient was seen in collaboration with Dr. Staton. Result Diagram: 07/20/18 0602 07/20/18 0602 Results 24hrs Laboratory Tests Test 07/19/18 20:57 07/20/18 06:02 07/20/18 08:28 07/20/18 12:17 Bedside Glucose 103 95 100 White Blood Count 5.5 Red Blood Count 3.37 L Hemoglobin 10.2 L Hematocrit 31.4 L Mean Corpuscular 93.2 Volume Mean Corpuscular 30.3 Hemoglobin Mean Corpuscular 32.5 Hemoglobin Concent Red Cell 13.1 Distribution Width Platelet Count 473 H Mean Platelet Volume 9.2 Immature 0.200 Granulocytes % Neutrophils % 69.5 Lymphocytes % 17.0 Monocytes % 7.5 Eosinophils % 4.9 Basophils % 0.9 Nucleated Red Blood 0.0 Cells % Immature 0.010 Granulocytes # Neutrophils # 3.8 Lymphocytes # 0.9 Monocytes # 0.4 Eosinophils # 0.3 Basophils # 0.1 Nucleated Red Blood 0.0 Cells # Prothrombin Time 15.3 H Prothrombin Time 1.2 Ratio INR International 1.20 Normalized Ratio Activated 32.6 Partial Thromboplast Time Sodium Level 143 Potassium Level 3.9 Chloride Level 109 Carbon Dioxide Level 26 Anion Gap 8 Blood Urea Nitrogen 20 Creatinine 1.38 H Est Glomerular Filtrat Rate mL/min Glucose Level 93 Calcium Level 9.5 Total Bilirubin 0.3 Direct Bilirubin 0.00 Indirect Bilirubin 0.3 Aspartate Amino 23 Transf (AST/SGOT) Alanine 25 Aminotransferase (AL T/SGPT) Alkaline Phosphatase 59 Total Protein 7.2 Albumin 3.6 Globulin 3.60 H Albumin/Globulin 1.00 Ratio Test 07/20/18 17:49 Bedside Glucose 109 Exam/Review of Systems Exam Vitals Vital Signs Date Temp Pulse Resp B/P (MAP) Pulse Ox O2 O2 Flow FiO2 Time Delivery Rate 07/20/18 99.2 78 17 111/60 98 Room Air 15:01 (77) Intake and Output 07/19/18 07/19/18 07/20/18 1414:59 22:59 06:59 IntakeIntake Total 300 ml 700 ml 100 ml OutputOutput Total 0 ml 0 ml BalanceBalance 300 ml 700 ml 100 ml Results Results 24hrs Laboratory Tests Test 07/19/18 20:57 07/20/18 06:02 07/20/18 08:28 07/20/18 12:17 Bedside Glucose 103 95 100 White Blood Count 5.5 Red Blood Count 3.37 L Hemoglobin 10.2 L Hematocrit 31.4 L Mean Corpuscular 93.2 Volume Mean Corpuscular 30.3 Hemoglobin Mean Corpuscular 32.5 Hemoglobin Concent Red Cell 13.1 Distribution Width Platelet Count 473 H Mean Platelet Volume 9.2 Immature 0.200 Granulocytes % Neutrophils % 69.5 Lymphocytes % 17.0 Monocytes % 7.5 Eosinophils % 4.9 Basophils % 0.9 Nucleated Red Blood 0.0 Cells % Immature 0.010 Granulocytes # Neutrophils # 3.8 Lymphocytes # 0.9 Monocytes # 0.4 Eosinophils # 0.3 Basophils # 0.1 Nucleated Red Blood 0.0 Cells # Prothrombin Time 15.3 H Prothrombin Time 1.2 Ratio INR International 1.20 Normalized Ratio Activated 32.6 Partial Thromboplast Time Sodium Level 143 Potassium Level 3.9 Chloride Level 109 Carbon Dioxide Level 26 Anion Gap 8 Blood Urea Nitrogen 20 Creatinine 1.38 H Est Glomerular Filtrat Rate mL/min Glucose Level 93 Calcium Level 9.5 Total Bilirubin 0.3 Direct Bilirubin 0.00 Indirect Bilirubin 0.3 Aspartate Amino 23 Transf (AST/SGOT) Alanine 25 Aminotransferase (AL T/SGPT) Alkaline Phosphatase 59 Total Protein 7.2 Albumin 3.6 Globulin 3.60 H Albumin/Globulin 1.00 Ratio Test 07/20/18 17:49 Bedside Glucose 109 Medications Medication Current Medications Amlodipine Besylate (Norvasc) 10 mg DAILY PO Last administered on 07/20/18 09:14; Admin Dose 10 MG; Start 07/02/18 at 09:00 Atorvastatin Calcium (Lipitor) 10 mg QHS PO Last administered on 07/19/18 20:59; Admin Dose 10 MG; Start 07/01/18 at 21:00 Benazepril HCl (Lotensin) 40 mg DAILY PO Last administered on 07/20/18 09:15; Admin Dose 40 MG; Start 07/02/18 at 09:00 Diagnostic Test (Pha) (Accu-Chek) 1 ea AC MEALS AND BEDTIME XX Last ad ministered on 07/20/18 17:47; Admin Dose 1 EA; Start 07/01/18 at 17:30 Diagnostic Test (Pha) (Accu-Chek) 1 ea 02 XX Last administered on 07/06/18 01:13; Admin Dose 1 EA; Start 07/02/18 at 02:00 Insulin Aspart (Novolog Insulin Pen) NOVOLOG *MILD* ALGORITHM WITH MEALS BEDTIME SC Last administered on 07/19/18 17:33; Admin Dose 1 UNIT; Start 07/01/18 at 18:00 Miscellaneous Information 1 ea NOTE XX ; Start 07/01/18 at 17:30 Glucose (Glutose) 15 gm Q15M PRN PO DECREASED GLUCOSE; Start 07/01/18 at 17:30 Glucose (Glutose) 22.5 gm Q15M PRN PO DECREASED GLUCOSE; Start 07/01/18 at 17:30 Dextrose (D50w Syringe) 25 ml Q15M PRN IV DECREASED GLUCOSE; Start 07/01/18 at 17:30 Dextrose (D50w Syringe) 50 ml Q15M PRN IV DECREASED GLUCOSE; Start 07/01/18 at 17:30 Glucagon (Glucagen) 1 mg Q15M PRN IM DECREASED GLUCOSE; Start 07/01/18 at 17:30 Glucose (Glutose) 15 gm Q15M PRN BUCCAL DECREASED GLUCOSE; Start 07/01/18 at 17:30 Tramadol HCl (Ultram) 50 mg Q6H PRN PO MODERATE PAIN LEVEL 4-6 Last admi nistered on 07/18/18 03:56; Admin Dose 50 MG; Start 07/01/18 at 21:00 Acetaminophen (Tylenol Tab) 650 mg Q4 PRN PO MILD PAIN(1-3)OR ELEVATED TEMP Last administered on 07/17/18 17:57; Admin Dose 650 MG; Start 07/04/18 at 15:30 Lactobacillus Acidophilus/ Rhamnosus (Culturelle) 1 cap BID PO Last ad ministered on 07/20/18 09:17; Admin Dose 1 CAP; Start 07/04/18 at 21:00 Latanoprost (Xalatan) 1 drop QHS BOTH EYES Last administered on 07/19/18 20:59; Admin Dose 1 DROP; Start 07/06/18 at 21:00 Morphine Sulfate (morphine) 2 mg Q4H PRN IV SEVERE PAIN LEVEL 7-10 Last administered on 07/10/18 20:42; Admin Dose 2 MG; Start 07/07/18 at 13:00 Trazodone HCl (Desyrel) 25 mg HS PO Last administered on 07/19/18 20:59; Admin Dose 25 MG; Start 07/09/18 at 23:00 IV Flush (NS 10 ml) 10 ml MORNING AND EVENING IV Last administered on 07/20/18 09:12; Admin Dose 10 ML; Start 07/18/18 at 21:00 Enoxaparin Sodium (Lovenox) 40 mg DAILY SC ; Start 07/21/18 at 09:00 Diphenhydramine HCl (Benadryl) 25 mg Q6H PRN PO ITCHING Last administered on 07/20/18 06:10; Admin Dose 25 MG; Start 07/19/18 at 22:00; Stop 07/20/18 at 22:01 Loratadine (Claritin) 10 mg DAILY PO Last administered on 07/20/18 15:39; Admin Dose 10 MG; Start 07/20/18 at 14:30 MAHI TRIPATHI NP Jul 20, 2018 18:08
[2018-07-20 20:00] VITALS: BP 101/72; PULSE 103; RESP 18
[2018-07-20] MEDS: traZODone 50 MG TAB PO SCH (21:53)
[2018-07-20] MEDS: ATORVASTATIN 10 MG TAB PO SCH (21:53)
[2018-07-20] MEDS: LATANOPROST 0.005% 2.5 ML OPH BOTH EYES SCH (21:56)
[2018-07-21 02:00] VITALS: BP 128/59; PULSE 85; RESP 17
[2018-07-21] MEDS: ACCU-CHEK XX SCH ×5 (02:00→21:00)
[2018-07-21 07:51] VITALS: BP 107/62; PULSE 89; RESP 18
[2018-07-21] MEDS: INSULIN ASPART [NOVOLOG] 3 ML PEN SC SCH ×4 (08:00→21:00)
[2018-07-21] MEDS: LACTOBACILLUS RHAMNOSUS CAP PO SCH ×2 (08:39→21:45)
[2018-07-21] MEDS: BENAZEPRIL 40 MG TAB PO SCH (08:39)
[2018-07-21] MEDS: ENOXAPARIN 40 MG/0.4 ML SYG SC SCH (08:39)
[2018-07-21] MEDS: AMLODIPINE 10 MG TAB PO SCH (08:40)
[2018-07-21] MEDS: LORATADINE 10 MG TAB PO SCH (08:40)
[2018-07-21] MEDS ORDERED: LIDOCAINE 100 MG SYRINGE ONE (11:17)
[2018-07-21] MEDS ORDERED: morphine 2 MG INJ ONE (11:22)
[2018-07-21 14:00] VITALS: BP 111/56; PULSE 80; RESP 18
[2018-07-21] MEDS: traMADol 50 MG TAB PO PRN ×2 (14:04→21:45)
--- NOTE | 2018-07-21 14:13 | CONS ---
Assessment/Plan Assessment/Plan Hospital Course (Demo Recall) Patient is alert feels good denies pain no fevers overnight. Physical examination this is a well-developed well-nourished elderly man who is alert in no distress. Head atraumatic normocephalic. Neck is supple chest rise symmetrical breath sounds clear heart S1-S2 abdomen soft bowel sounds present, patient has right-sided accordion catheter. Skin: Generalized maculopapular rash, mostly on the back and chest Assessment: 1. Ongoing fevers/acute inflammation 2 to pelvic fluid collection, status post CT guided drainage of pelvic fluid with culture grew coag negative staph 2. Diabetes 3. Glaucoma 4. 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 Skin rash, likely allergic reaction to Zosyn Plan: Stable, off antibiotics Consultation Date/Type/Reason Admit Date/Time Jul 01, 2018 at 16:52 Initial Consult Date Type of Consult id Date/Time of Note DATE: 07/21/18 TIME: 14:11 Exam/Review of Systems Exam Vitals Vital Signs Date Temp Pulse Resp B/P (MAP) Pulse Ox O2 O2 Flow FiO2 Time Delivery Rate 07/21/18 98.3 89 18 107/62 99 Room Air 07:51 (77) Intake and Output 07/20/18 07/20/18 07/21/18 1414:59 22:59 06:59 IntakeIntake Total 300 ml OutputOutput Total 0 ml BalanceBalance 300 ml 0 ml Results Result Diagram: 07/21/18 0600 07/21/18 0600 Results 24hrs Laboratory Tests Test 07/20/18 17:49 07/20/18 21:51 07/21/18 06:00 07/21/18 08:06 Bedside Glucose 109 107 102 White Blood Count 5.3 Red Blood Count 3.30 L Hemoglobin 9.9 L Hematocrit 30.5 L Mean Corpuscular 92.4 Volume Mean Corpuscular 30.0 Hemoglobin Mean Corpuscular 32.5 Hemoglobin Concent Red Cell 13.1 Distribution Width Platelet Count 437 H Mean Platelet Volume 9.3 Immature 0.400 Granulocytes % Neutrophils % 67.6 Lymphocytes % 16.5 Monocytes % 8.5 Eosinophils % 6.1 Basophils % 0.9 Nucleated Red Blood 0.0 Cells % Immature 0.020 Granulocytes # Neutrophils # 3.6 Lymphocytes # 0.9 Monocytes # 0.5 Eosinophils # 0.3 Basophils # 0.1 Nucleated Red Blood 0.0 Cells # Sodium Level 142 Potassium Level 4.1 Chloride Level 107 Carbon Dioxide Level 26 Anion Gap 9 Blood Urea Nitrogen 21 H Creatinine 1.26 H Est Glomerular Filtrat Rate mL/min Glucose Level 88 Calcium Level 9.3 Phosphorus Level 4.0 Magnesium Level 2.2 Test 07/21/18 12:17 Bedside Glucose 106 Medications Medication Current Medications Amlodipine Besylate (Norvasc) 10 mg DAILY PO Last administered on 07/21/18at 08:40; Admin Dose 10 MG; Start 07/02/18 at 09:00 Atorvastatin Calcium (Lipitor) 10 mg QHS PO Last administered on 07/20/18at 21:53; Admin Dose 10 MG; Start 07/01/18 at 21:00 Benazepril HCl (Lotensin) 40 mg DAILY PO Last administered on 07/21/18 08:39; Admin Dose 40 MG; Start 07/02/18 at 09:00 Diagnostic Test (Pha) (Accu-Chek) 1 ea AC MEALS AND BEDTIME XX Last administered on 07/20/18at 17:47; Admin Dose 1 EA; Start 07/01/18 at 17:30 Diagnostic Test (Pha) (Accu-Chek) 1 ea 02 XX Last administered on 07/06/18at 01:13; Admin Dose 1 EA; Start 07/02/18 at 02:00 Insulin Aspart (Novolog Insulin Pen) NOVOLOG *MILD* ALGORITHM WITH MEALS BEDTIME SC Last administered on 07/19/18at 17:33; Admin Dose 1 UNIT; Start 07/01/18 at 18:00 Miscellaneous Information 1 ea NOTE XX ; Start 07/01/18 at 17:30 Glucose (Glutose) 15 gm Q15M PRN PO DECREASED GLUCOSE; Start 07/01/18 at 17:30 Glucose (Glutose) 22.5 gm Q15M PRN PO DECREASED GLUCOSE; Start 07/01/18 at 17:30 Dextrose (D50w Syringe) 25 ml Q15M PRN IV DECREASED GLUCOSE; Start 07/01/18 at 17:30 Dextrose (D50w Syringe) 50 ml Q15M PRN IV DECREASED GLUCOSE; Start 07/01/18 at 17:30 Glucagon (Glucagen) 1 mg Q15M PRN IM DECREASED GLUCOSE; Start 07/01/18 at 17:30 Glucose (Glutose) 15 gm Q15M PRN BUCCAL DECREASED GLUCOSE; Start 07/01/18 at 17:30 Tramadol HCl (Ultram) 50 mg Q6H PRN PO MODERATE PAIN LEVEL 4-6 Last administered on 07/21/18 14:04; Admin Dose 50 MG; Start 07/01/18 at 21:00 Acetaminophen (Tylenol Tab) 650 mg Q4 PRN PO MILD PAIN(1-3)OR ELEVATED TEMP Last administered on 07/17/18 17:57; Admin Dose 650 MG; Start 07/04/18 at 15:30 Lactobacillus Acidophilus/ Rhamnosus (Culturelle) 1 cap BID PO Last administered on 07/21/18 08:39; Admin Dose 1 CAP; Start 07/04/18 at 21:00 Latanoprost (Xalatan) 1 drop QHS BOTH EYES Last administered on 07/20/18 21:56; Admin Dose 1 DROP; Start 07/06/18 at 21:00 Morphine Sulfate (morphine) 2 mg Q4H PRN IV SEVERE PAIN LEVEL 7-10 Last administered on 07/10/18 20:42; Admin Dose 2 MG; Start 07/07/18 at 13:00 Trazodone HCl (Desyrel) 25 mg HS PO Last administered on 07/20/18 21:53; Admin Dose 25 MG; Start 07/09/18 at 23:00 IV Flush (NS 10 ml) 10 ml MORNING AND EVENING IV Last administered on 07/21/18 08:41; Admin Dose 10 ML; Start 07/18/18 at 21:00 Enoxaparin Sodium (Lovenox) 40 mg DAILY SC Last administered on 07/21/18 08: 39; Admin Dose 40 MG; Start 07/21/18 at 09:00 Loratadine (Claritin) 10 mg DAILY PO Last administered on 07/21/18 08:40; Admin Dose 10 MG; Start 07/20/18 at 14:30 INDERJIT MADDEN NP Jul 21, 2018 14:13
--- NOTE | 2018-07-21 14:34 | PN ---
Date/Time of Note Date/Time of Note DATE: 07/21/18 TIME: 14:32 Assessment/Plan VTE Prophylaxis Risk score (from Ns)>0 risk: 4 SCD applied (from Ns): No SCD contraindicated: other Pharmacological prophylaxis: LMWH Lines/Catheters IV Catheter Type (from [facility]): PICC Line Central line still needed: Yes Urinary Cath still in place: No Assessment/Plan Hospital Course SUBJECTIVE: Remains afebrile. Pelvic drain was replaced by radiology today. OBJECTIVE: Physical Exam General: Adequately build 77 year-old male lying in bed in no apparent distress. HEENT: Normocephalic, atraumatic. Eyes: Anicteric sclerae, conjunctivae clear. ENT: Nasal septum midline, oral mucosa moist. Neck supple. Respiratory: Bilaterally diminished breath sounds. No use of accessory muscles of respiration. No adventitious breath sounds. Cardiovascular: S1, S2 heard. Regular rate and rhythm. Abdomen: Soft, nontender, and nondistended. Bowel sounds positive in all 4 quadrants. Pelvic drain in place, draining clear fluid. Genitourinary: Deferred. Extremities: No cyanosis, no clubbing, no edema. Peripheral pulses palpable. Neurologic: Cranial nerves II through XII grossly intact. The patient is awake, alert, and oriented. Skin: Normal skin turgor. No skin rashes. Labs & Vitals per chart ASSESSMENT & PLAN 77-year-old male with comorbidities including hypertension, diabetes mellitus, dyslipidemia, and erectile dysfunction who came to the emergency room because of fevers and chills over 24 hours. The patient was noticed to have leukocytosis, febrile illness, and tachycardia in the emergency room. The patient was admitted to inpatient setting for further treatment and evaluation. 1. Status post sepsis with leukocytosis, tachycardia, and febrile illness. -Being followed by infectious diseases. -MRI of the left shoulder reviewed by orthopedic surgery and orthopedic surgeon thinks there is no evidence of any septic joint. -CT showing 6.5 cm circumscribed fluid collection along the right pelvic sidewall. -WBC scan showing area of mildly to moderately increased activity along the right pelvic sidewall corresponding to the circumscribed fluid collection on the CT scan. -West Nile virus IgG antibody positive, although IgM antibody negative. 2. 6.5 cm fluid collection located on the right pelvic sidewall. -Etiology unclear. -Status post CT-guided drainage on 07/07/2018. Status post removal of drain on 07/10/2018. Status post CT-guided drain on 07/16/2018. S/P replacement of the drain on 07/21/2018. -Cultures from 07/07/2018 showing Staph aureus. 3. Diabetes mellitus type 2. -Continue sliding scale insulin. -A1C 5.9. 4. Dyslipidemia. -Continue statins. 5. Essential hypertension. -Continue antihypertensives. 6. Normocytic, normochromic anemia. -Most probably due to chronic disease. -Monitor H&H closely. 7. Acute kidney injury. -Monitor BUN and creatinine closely. -Use nephrotoxic drugs with caution. -Nonoliguric. 8. Fluids, electrolytes, and nutrition. -Carbohydrate controlled diet. 9. DVT prophylaxis. -SQ Lovenox. 10. Plan. -Off antimicrobials. -The patient can be discharged home once the drain is removed by IR. The patient was seen in collaboration with Dr. Staton. Result Diagram: 07/21/18 0600 07/21/18 0600 Results 24hrs Laboratory Tests Test 07/20/18 17:49 07/20/18 21:51 07/21/18 06:00 07/21/18 08:06 Bedside Glucose 109 107 102 White Blood Count 5.3 Red Blood Count 3.30 L Hemoglobin 9.9 L Hematocrit 30.5 L Mean Corpuscular 92.4 Volume Mean Corpuscular 30.0 Hemoglobin Mean Corpuscular 32.5 Hemoglobin Concent Red Cell 13.1 Distribution Width Platelet Count 437 H Mean Platelet Volume 9.3 Immature 0.400 Granulocytes % Neutrophils % 67.6 Lymphocytes % 16.5 Monocytes % 8.5 Eosinophils % 6.1 Basophils % 0.9 Nucleated Red Blood 0.0 Cells % Immature 0.020 Granulocytes # Neutrophils # 3.6 Lymphocytes # 0.9 Monocytes # 0.5 Eosinophils # 0.3 Basophils # 0.1 Nucleated Red Blood 0.0 Cells # Sodium Level 142 Potassium Level 4.1 Chloride Level 107 Carbon Dioxide Level 26 Anion Gap 9 Blood Urea Nitrogen 21 H Creatinine 1.26 H Est Glomerular Filtrat Rate mL/min Glucose Level 88 Calcium Level 9.3 Phosphorus Level 4.0 Magnesium Level 2.2 Test 07/21/18 12:17 Bedside Glucose 106 Exam/Review of Systems Exam Vitals Vital Signs Date Temp Pulse Resp B/P (MAP) Pulse Ox O2 O2 Flow FiO2 Time Delivery Rate 07/21/18 98.3 89 18 107/62 99 Room Air 07:51 (77) Intake and Output 07/20/18 07/20/18 07/21/18 1515:00 23:00 07:00 IntakeIntake Total 300 ml OutputOutput Total 0 ml BalanceBalance 300 ml 0 ml Results Results 24hrs Laboratory Tests Test 07/20/18 17:49 07/20/18 21:51 07/21/18 06:00 07/21/18 08:06 Bedside Glucose 109 107 102 White Blood Count 5.3 Red Blood Count 3.30 L Hemoglobin 9.9 L Hematocrit 30.5 L Mean Corpuscular 92.4 Volume Mean Corpuscular 30.0 Hemoglobin Mean Corpuscular 32.5 Hemoglobin Concent Red Cell 13.1 Distribution Width Platelet Count 437 H Mean Platelet Volume 9.3 Immature 0.400 Granulocytes % Neutrophils % 67.6 Lymphocytes % 16.5 Monocytes % 8.5 Eosinophils % 6.1 Basophils % 0.9 Nucleated Red Blood 0.0 Cells % Immature 0.020 Granulocytes # Neutrophils # 3.6 Lymphocytes # 0.9 Monocytes # 0.5 Eosinophils # 0.3 Basophils # 0.1 Nucleated Red Blood 0.0 Cells # Sodium Level 142 Potassium Level 4.1 Chloride Level 107 Carbon Dioxide Level 26 Anion Gap 9 Blood Urea Nitrogen 21 H Creatinine 1.26 H Est Glomerular Filtrat Rate mL/min Glucose Level 88 Calcium Level 9.3 Phosphorus Level 4.0 Magnesium Level 2.2 Test 07/21/18 12:17 Bedside Glucose 106 Medications Medication Current Medications Amlodipine Besylate (Norvasc) 10 mg DAILY PO Last administered on 07/21/18at 08:40; Admin Dose 10 MG; Start 07/02/18 at 09:00 Atorvastatin Calcium (Lipitor) 10 mg QHS PO Last administered on 07/20/18at 21:53; Admin Dose 10 MG; Start 07/01/18 at 21:00 Benazepril HCl (Lotensin) 40 mg DAILY PO Last administered on 07/21/18at 08:39; Admin Dose 40 MG; Start 07/02/18 at 09:00 Diagnostic Test (Pha) (Accu-Chek) 1 ea AC MEALS AND BEDTIME XX Last administered on 07/20/18at 17:47; Admin Dose 1 EA; Start 07/01/18 at 17:30 Diagnostic Test (Pha) (Accu-Chek) 1 ea 02 XX Last administered on 07/06/18at 01:13; Admin Dose 1 EA; Start 07/02/18 at 02:00 Insulin Aspart (Novolog Insulin Pen) NOVOLOG *MILD* ALGORITHM WITH MEALS BE DTIME SC Last administered on 07/19/18at 17:33; Admin Dose 1 UNIT; Start 07/01/18 at 18:00 Miscellaneous Information 1 ea NOTE XX ; Start 07/01/18 at 17:30 Glucose (Glutose) 15 gm Q15M PRN PO DECREASED GLUCOSE; Start 07/01/18 at 17:30 Glucose (Glutose) 22.5 gm Q15M PRN PO DECREASED GLUCOSE; Start 07/01/18 at 17:30 Dextrose (D50w Syringe) 25 ml Q15M PRN IV DECREASED GLUCOSE; Start 07/01/18 at 17:30 Dextrose (D50w Syringe) 50 ml Q15M PRN IV DECREASED GLUCOSE; Start 07/01/18 at 17:30 Glucagon (Glucagen) 1 mg Q15M PRN IM DECREASED GLUCOSE; Start 07/01/18 at 17:30 Glucose (Glutose) 15 gm Q15M PRN BUCCAL DECREASED GLUCOSE; Start 07/01/18 at 17:30 Tramadol HCl (Ultram) 50 mg Q6H PRN PO MODERATE PAIN LEVEL 4-6 Last administered on 07/21/18at 14:04; Admin Dose 50 MG; Start 07/01/18 at 21:00 Acetaminophen (Tylenol Tab) 650 mg Q4 PRN PO MILD PAIN(1-3)OR ELEVATED TEMP Last administered on 07/17/18at 17:57; Admin Dose 650 MG; Start 07/04/18 at 15:30 Lactobacillus Acidophilus/ Rhamnosus (Culturelle) 1 cap BID PO Last administered on 07/21/18 08:39; Admin Dose 1 CAP; Start 07/04/18 at 21:00 Latanoprost (Xalatan) 1 drop QHS BOTH EYES Last administered on 07/20/18 21:56; Admin Dose 1 DROP; Start 07/06/18 at 21:00 Morphine Sulfate (morphine) 2 mg Q4H PRN IV SEVERE PAIN LEVEL 7-10 Last ad ministered on 07/10/18at 20:42; Admin Dose 2 MG; Start 07/07/18 at 13:00 Trazodone HCl (Desyrel) 25 mg HS PO Last administered on 07/20/18at 21:53; Admin Dose 25 MG; Start 07/09/18 at 23:00 IV Flush (NS 10 ml) 10 ml MORNING AND EVENING IV Last administered on 07/21/18at 08:41; Admin Dose 10 ML; Start 07/18/18 at 21:00 Enoxaparin Sodium (Lovenox) 40 mg DAILY SC Last administered on 07/21/18at 08:39; Admin Dose 40 MG; Start 07/21/18 at 09:00 Loratadine (Claritin) 10 mg DAILY PO Last administered on 07/21/18 08:40; Admin Dose 10 MG; Start 07/20/18 at 14:30 MAHI TRIPATHI TELEMETRY TECH Jul 21, 2018 14:34
[2018-07-21 20:00] VITALS: BP 133/62; PULSE 81; RESP 18
[2018-07-21] MEDS: LATANOPROST 0.005% 2.5 ML OPH BOTH EYES SCH (21:44)
[2018-07-21] MEDS: ATORVASTATIN 10 MG TAB PO SCH (21:45)
[2018-07-21] MEDS: traZODone 50 MG TAB PO SCH (21:45)
[2018-07-22 02:00] VITALS: BP 118/67; PULSE 74; RESP 17
[2018-07-22] MEDS: ACCU-CHEK XX SCH ×5 (02:00→21:00)
[2018-07-22 07:49] VITALS: BP 138/63; PULSE 87; RESP 18
[2018-07-22] MEDS: INSULIN ASPART [NOVOLOG] 3 ML PEN SC SCH ×4 (08:00→21:00)
[2018-07-22] MEDS: LACTOBACILLUS RHAMNOSUS CAP PO SCH ×2 (09:52→21:04)
[2018-07-22] MEDS: BENAZEPRIL 40 MG TAB PO SCH (09:52)
[2018-07-22] MEDS: AMLODIPINE 10 MG TAB PO SCH (09:53)
[2018-07-22] MEDS: LORATADINE 10 MG TAB PO SCH (09:53)
[2018-07-22] MEDS: ENOXAPARIN 40 MG/0.4 ML SYG SC SCH (09:56)
--- NOTE | 2018-07-22 12:30 | CONS ---
Assessment/Plan Assessment/Plan Hospital Course (Demo Recall) Patient is alert feels good no fevers Physical examination this is a well-developed well-nourished elderly man who is alert in no distress. Head atraumatic normocephalic. Neck is supple chest rise symmetrical breath sounds clear heart S1-S2 abdomen soft bowel sounds present, patient has right-sided accordion catheter. Skin: Generalized maculopapular rash, mostly on the back and chest Assessment: 1. Ongoing fevers/acute inflammation 2 to pelvic fluid collection, status post CT guided drainage of pelvic fluid with culture grew coag negative staph 2. Diabetes 3. Glaucoma 4. 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 Skin rash, likely allergic reaction to Zosyn Plan: Remains stable off antibiotics Consultation Date/Type/Reason Admit Date/Time Jul 01, 2018 at 16:52 Initial Consult Date Type of Consult id Date/Time of Note DATE: 07/22/18 TIME: 12:30 Exam/Review of Systems Exam Vitals Vital Signs Date Temp Pulse Resp B/P (MAP) Pulse Ox O2 O2 Flow FiO2 Time Delivery Rate 07/22/18 98.3 87 18 138/63 98 Nasal 07:49 (88) Cannula Intake and Output 07/21/18 07/21/18 07/22/18 1515:00 23:00 07:00 IntakeIntake Total 120 ml 900 ml OutputOutput Total 0 ml 10 ml BalanceBalance 120 ml 900 ml -10 ml Results Result Diagram: 07/22/18 0758 07/22/18 0758 Results 24hrs Laboratory Tests Test 07/21/18 17:10 07/21/18 21:39 07/22/18 07:58 07/22/18 08:12 Bedside Glucose 107 107 97 White Blood Count 5.6 Red Blood Count 3.57 L Hemoglobin 10.8 L Hematocrit 33.3 L Mean Corpuscular 93.3 Volume Mean Corpuscular 30.3 Hemoglobin Mean Corpuscular 32.4 Hemoglobin Concent Red Cell 13.0 Distribution Width Platelet Count 451 H Mean Platelet Volume 9.6 Immature 0.400 Granulocytes % Neutrophils % 58.3 Lymphocytes % 24.4 Monocytes % 8.9 Eosinophils % 6.8 Basophils % 1.2 Nucleated Red Blood 0.0 Cells % Immature 0.020 Granulocytes # Neutrophils # 3.3 Lymphocytes # 1.4 Monocytes # 0.5 Eosinophils # 0.4 Basophils # 0.1 Nucleated Red Blood 0.0 Cells # Sodium Level 141 Potassium Level 4.2 Chloride Level 104 Carbon Dioxide Level 25 Anion Gap 12 Blood Urea Nitrogen 20 Creatinine 1.28 H Est Glomerular Filtrat Rate mL/min Glucose Level 94 Calcium Level 9.6 Phosphorus Level 4.2 Magnesium Level 2.1 Test 07/22/18 11:56 Bedside Glucose 104 Medications Medication Current Medications Amlodipine Besylate (Norvasc) 10 mg DAILY PO Last administered on 07/22/18at 09:53; Admin Dose 10 MG; Start 07/02/18 at 09:00 Atorvastatin Calcium (Lipitor) 10 mg QHS PO Last administered on 07/21/18at 2 1:45; Admin Dose 10 MG; Start 07/01/18 at 21:00 Benazepril HCl (Lotensin) 40 mg DAILY PO Last administered on 07/22/18at 09:52; Admin Dose 40 MG; Start 07/02/18 at 09:00 Diagnostic Test (Pha) (Accu-Chek) 1 ea AC MEALS AND BEDTIME XX Last administered on 07/20/18at 17:47; Admin Dose 1 EA; Start 07/01/18 at 17:30 Diagnostic Test (Pha) (Accu-Chek) 1 ea 02 XX Last administered on 07/06/18at 01:13; Admin Dose 1 EA; Start 07/02/18 at 02:00 Insulin Aspart (Novolog Insulin Pen) NOVOLOG *MILD* ALGORITHM WITH MEALS BEDTIME SC Last administered on 07/19/18at 17:33; Admin Dose 1 UNIT; Start 07/01/18 at 18:00 Miscellaneous Information 1 ea NOTE XX ; Start 07/01/18 at 17:30 Glucose (Glutose) 15 gm Q15M PRN PO DECREASED GLUCOSE; Start 07/01/18 at 17:30 Glucose (Glutose) 22.5 gm Q15M PRN PO DECREASED GLUCOSE; Start 07/01/18 at 17:30 Dextrose (D50w Syringe) 25 ml Q15M PRN IV DECREASED GLUCOSE; Start 07/01/18 at 17:30 Dextrose (D50w Syringe) 50 ml Q15M PRN IV DECREASED GLUCOSE; Start 07/01/18 at 17:30 Glucagon (Glucagen) 1 mg Q15M PRN IM DECREASED GLUCOSE; Start 07/01/18 at 17:30 Glucose (Glutose) 15 gm Q15M PRN BUCCAL DECREASED GLUCOSE; Start 07/01/18 at 17:30 Tramadol HCl (Ultram) 50 mg Q6H PRN PO MODERATE PAIN LEVEL 4-6 Last administered on 07/21/18 21:45; Admin Dose 50 MG; Start 07/01/18 at 21:00 Acetaminophen (Tylenol Tab) 650 mg Q4 PRN PO MILD PAIN(1-3)OR ELEVATED TEMP Last administered on 07/17/18 17:57; Admin Dose 650 MG; Start 07/04/18 at 15:30 Lactobacillus Acidophilus/ Rhamnosus (Culturelle) 1 cap BID PO Last administered on 07/22/18 09:52; Admin Dose 1 CAP; Start 07/04/18 at 21:00 Latanoprost (Xalatan) 1 drop QHS BOTH EYES Last administered on 07/21/18 21:44; Admin Dose 1 DROP; Start 07/06/18 at 21:00 Morphine Sulfate (morphine) 2 mg Q4H PRN IV SEVERE PAIN LEVEL 7-10 Last administered on 07/10/18 20:42; Admin Dose 2 MG; Start 07/07/18 at 13:00 Trazodone HCl (Desyrel) 25 mg HS PO Last administered on 07/21/18 21:45; Admin Dose 25 MG; Start 07/09/18 at 23:00 IV Flush (NS 10 ml) 10 ml MORNING AND EVENING IV Last administered on 07/22/18 10:00; Admin Dose 10 ML; Start 07/18/18 at 21:00 Enoxaparin Sodium (Lovenox) 40 mg DAILY SC Last administered on 07/22/18 09:56; Admin Dose 40 MG; Start 07/21/18 at 09:00 Loratadine (Claritin) 10 mg DAILY PO Last administered on 07/22/18 09:53; Admin Dose 10 MG; Start 07/20/18 at 14:30 INDERJIT MADDEN NP Jul 22, 2018 12:30
[2018-07-22 14:07] VITALS: BP 120/68; PULSE 78; RESP 18
--- NOTE | 2018-07-22 15:22 | PN ---
Date/Time of Note Date/Time of Note DATE: 07/22/18 TIME: 15:22 Assessment/Plan VTE Prophylaxis Risk score (from Ns)>0 risk: 3 SCD applied (from Ns): No SCD contraindicated: other Pharmacological prophylaxis: LMWH Lines/Catheters IV Catheter Type (from [facility], [place]): PICC Line Central line still needed: Yes Urinary Cath still in place: No Assessment/Plan Hospital Course SUBJECTIVE: Remains afebrile. Drain functioning well. OBJECTIVE: Physical Exam General: Adequately build 77 year-old male lying in bed in no apparent distress. HEENT: Normocephalic, atraumatic. Eyes: Anicteric sclerae, conjunctivae clear. ENT: Nasal septum midline, oral mucosa moist. Neck supple. Respiratory: Bilaterally diminished breath sounds. No use of accessory muscles of respiration. No adventitious breath sounds. Cardiovascular: S1, S2 heard. Regular rate and rhythm. Abdomen: Soft, nontender, and nondistended. Bowel sounds positive in all 4 quadrants. Pelvic drain in place, draining clear fluid. Genitourinary: Deferred. Extremities: No cyanosis, no clubbing, no edema. Peripheral pulses palpable. Neurologic: Cranial nerves II through XII grossly intact. The patient is awake, alert, and oriented. Skin: Normal skin turgor. No skin rashes. Labs & Vitals per chart ASSESSMENT & PLAN 77-year-old male with comorbidities including hypertension, diabetes mellitus, dyslipidemia, and erectile dysfunction who came to the emergency room because of fevers and chills over 24 hours. The patient was noticed to have leukocytosis, febrile illness, and tachycardia in the emergency room. The patient was admitted to inpatient setting for further treatment and evaluation. 1. Status post sepsis with leukocytosis, tachycardia, and febrile illness. -Being followed by infectious diseases. -MRI of the left shoulder reviewed by orthopedic surgery and orthopedic surgeon thinks there is no evidence of any septic joint. -CT showing 6.5 cm circumscribed fluid collection along the right pelvic sidewall. -WBC scan showing area of mildly to moderately increased activity along the right pelvic sidewall corresponding to the circumscribed fluid collection on the CT scan. -West Nile virus IgG antibody positive, although IgM antibody negative. 2. 6.5 cm fluid collection located on the right pelvic sidewall. -Etiology unclear. -Status post CT-guided drainage on 07/07/2018. Status post removal of drain on 07/10/2018. Status post CT-guided drain on 07/16/2018. S/P replacement of the drain on 07/21/2018. -Cultures from 07/07/2018 showing Staph aureus. 3. Diabetes mellitus type 2. -Continue sliding scale insulin. -A1C 5.9. 4. Dyslipidemia. -Continue statins. 5. Essential hypertension. -Continue antihypertensives. 6. Normocytic, normochromic anemia. -Most probably due to chronic disease. -Monitor H&H closely. 7. Acute kidney injury. -Monitor BUN and creatinine closely. -Use nephrotoxic drugs with caution. -Nonoliguric. 8. Fluids, electrolytes, and nutrition. -Carbohydrate controlled diet. 9. DVT prophylaxis. -SQ Lovenox. 10. Plan. -Off antimicrobials. -The patient can be discharged home once the drain is removed by IR. The patient was seen in collaboration with Dr. Staton. Result Diagram: 07/22/18 0758 07/22/18 0758 Results 24hrs Laboratory Tests Test 07/21/18 17:10 07/21/18 21:39 07/22/18 07:58 07/22/18 08:12 Bedside Glucose 107 107 97 White Blood Count 5.6 Red Blood Count 3.57 L Hemoglobin 10.8 L Hematocrit 33.3 L Mean Corpuscular 93.3 Volume Mean Corpuscular 30.3 Hemoglobin Mean Corpuscular 32.4 Hemoglobin Concent Red Cell 13.0 Distribution Width Platelet Count 451 H Mean Platelet Volume 9.6 Immature 0.400 Granulocytes % Neutrophils % 58.3 Lymphocytes % 24.4 Monocytes % 8.9 Eosinophils % 6.8 Basophils % 1.2 Nucleated Red Blood 0.0 Cells % Immature 0.020 Granulocytes # Neutrophils # 3.3 Lymphocytes # 1.4 Monocytes # 0.5 Eosinophils # 0.4 Basophils # 0.1 Nucleated Red Blood 0.0 Cells # Sodium Level 141 Potassium Level 4.2 Chloride Level 104 Carbon Dioxide Level 25 Anion Gap 12 Blood Urea Nitrogen 20 Creatinine 1.28 H Est Glomerular Filtrat Rate mL/min Glucose Level 94 Calcium Level 9.6 Phosphorus Level 4.2 Magnesium Level 2.1 Test 07/22/18 11:56 Bedside Glucose 104 Exam/Review of Systems Exam Vitals Vital Signs Date Temp Pulse Resp B/P (MAP) Pulse Ox O2 O2 Flow FiO2 Time Delivery Rate 07/22/18 98.8 78 18 120/68 99 Room Air 14:07 (85) Intake and Output 07/21/18 07/21/18 07/22/18 1515:00 23:00 07:00 IntakeIntake Total 120 ml 900 ml OutputOutput Total 0 ml 10 ml BalanceBalance 120 ml 900 ml -10 ml Results Results 24hrs Laboratory Tests Test 07/21/18 17:10 07/21/18 21:39 07/22/18 07:58 07/22/18 08:12 Bedside Glucose 107 107 97 White Blood Count 5.6 Red Blood Count 3.57 L Hemoglobin 10.8 L Hematocrit 33.3 L Mean Corpuscular 93.3 Volume Mean Corpuscular 30.3 Hemoglobin Mean Corpuscular 32.4 Hemoglobin Concent Red Cell 13.0 Distribution Width Platelet Count 451 H Mean Platelet Volume 9.6 Immature 0.400 Granulocytes % Neutrophils % 58.3 Lymphocytes % 24.4 Monocytes % 8.9 Eosinophils % 6.8 Basophils % 1.2 Nucleated Red Blood 0.0 Cells % Immature 0.020 Granulocytes # Neutrophils # 3.3 Lymphocytes # 1.4 Monocytes # 0.5 Eosinophils # 0.4 Basophils # 0.1 Nucleated Red Blood 0.0 Cells # Sodium Level 141 Potassium Level 4.2 Chloride Level 104 Carbon Dioxide Level 25 Anion Gap 12 Blood Urea Nitrogen 20 Creatinine 1.28 H Est Glomerular Filtrat Rate mL/min Glucose Level 94 Calcium Level 9.6 Phosphorus Level 4.2 Magnesium Level 2.1 Test 07/22/18 11:56 Bedside Glucose 104 Medications Medication Current Medications Amlodipine Besylate (Norvasc) 10 mg DAILY PO Last administered on 07/22/18at 09:53; Admin Dose 10 MG; Start 07/02/18 at 09:00 Atorvastatin Calcium (Lipitor) 10 mg QHS PO Last administered on 07/21/18at 21:45; Admin Dose 10 MG; Start 07/01/18 at 21:00 Benazepril HCl (Lotensin) 40 mg DAILY PO Last administered on 07/22/18at 09:52; Admin Dose 40 MG; Start 07/02/18 at 09:00 Diagnostic Test (Pha) (Accu-Chek) 1 ea AC MEALS AND BEDTIME XX Last administered on 07/20/18at 17:47; Admin Dose 1 EA; Start 07/01/18 at 17:30 Diagnostic Test (Pha) (Accu-Chek) 1 ea 02 XX Last administered on 07/06/18at 01:13; Admin Dose 1 EA; Start 07/02/18 at 02:00 Insulin Aspart (Novolog Insulin Pen) NOVOLOG *MILD* ALGORITHM WITH MEALS BEDTIM E SC Last administered on 07/19/18at 17:33; Admin Dose 1 UNIT; Start 07/01/18 at 18:00 Miscellaneous Information 1 ea NOTE XX ; Start 07/01/18 at 17:30 Glucose (Glutose) 15 gm Q15M PRN PO DECREASED GLUCOSE; Start 07/01/18 at 17:30 Glucose (Glutose) 22.5 gm Q15M PRN PO DECREASED GLUCOSE; Start 07/01/18 at 17:30 Dextrose (D50w Syringe) 25 ml Q15M PRN IV DECREASED GLUCOSE; Start 07/01/18 at 17:30 Dextrose (D50w Syringe) 50 ml Q15M PRN IV DECREASED GLUCOSE; Start 07/01/18 at 17:30 Glucagon (Glucagen) 1 mg Q15M PRN IM DECREASED GLUCOSE; Start 07/01/18 at 17:30 Glucose (Glutose) 15 gm Q15M PRN BUCCAL DECREASED GLUCOSE; Start 07/01/18 at 17:30 Tramadol HCl (Ultram) 50 mg Q6H PRN PO MODERATE PAIN LEVEL 4-6 Last administered on 07/21/18at 21:45; Admin Dose 50 MG; Start 07/01/18 at 21:00 Acetaminophen (Tylenol Tab) 650 mg Q4 PRN PO MILD PAIN(1-3)OR ELEVATED TEMP Last administered on 07/17/18at 17:57; Admin Dose 650 MG; Start 07/04/18 at 15:30 Lactobacillus Acidophilus/ Rhamnosus (Culturelle) 1 cap BID PO Last administered on 07/22/18 09:52; Admin Dose 1 CAP; Start 07/04/18 at 21:00 Latanoprost (Xalatan) 1 drop QHS BOTH EYES Last administered on 07/21/18 21:44; Admin Dose 1 DROP; Start 07/06/18 at 21:00 Morphine Sulfate (morphine) 2 mg Q4H PRN IV SEVERE PAIN LEVEL 7-10 Last admini stered on 07/10/18at 20:42; Admin Dose 2 MG; Start 07/07/18 at 13:00 Trazodone HCl (Desyrel) 25 mg HS PO Last administered on 07/21/18at 21:45; Admin Dose 25 MG; Start 07/09/18 at 23:00 IV Flush (NS 10 ml) 10 ml MORNING AND EVENING IV Last administered on 07/22/18at 10:00; Admin Dose 10 ML; Start 07/18/18 at 21:00 Enoxaparin Sodium (Lovenox) 40 mg DAILY SC Last administered on 07/22/18at 09:56; Admin Dose 40 MG; Start 07/21/18 at 09:00 Loratadine (Claritin) 10 mg DAILY PO Last administered on 07/22/18at 09:53; Admin Dose 10 MG; Start 07/20/18 at 14:30 MAHI TRIPATHI [employer] Jul 22, 2018 15:22
[2018-07-22] MEDS: traMADol 50 MG TAB PO PRN (16:44)
[2018-07-22 19:57] VITALS: BP 138/63; PULSE 82; RESP 20
[2018-07-22] MEDS: ATORVASTATIN 10 MG TAB PO SCH (21:04)
[2018-07-22] MEDS: traZODone 50 MG TAB PO SCH (21:04)
[2018-07-22] MEDS: LATANOPROST 0.005% 2.5 ML OPH BOTH EYES SCH (21:05)
[2018-07-22] MEDS: ACETAMINOPHEN 325 MG TAB PO PRN (21:09)
[2018-07-23] MEDS: ACCU-CHEK XX SCH ×5 (01:10→21:00)
[2018-07-23 02:07] VITALS: BP 116/58; PULSE 63; RESP 18
[2018-07-23] MEDS: INSULIN ASPART [NOVOLOG] 3 ML PEN SC SCH ×4 (08:00→20:56)
[2018-07-23 08:07] VITALS: BP 100/60; PULSE 93; RESP 18
[2018-07-23] MEDS: LORATADINE 10 MG TAB PO SCH (08:26)
[2018-07-23] MEDS: LACTOBACILLUS RHAMNOSUS CAP PO SCH ×2 (08:26→20:56)
[2018-07-23] MEDS: BENAZEPRIL 40 MG TAB PO SCH (08:27)
[2018-07-23] MEDS: AMLODIPINE 10 MG TAB PO SCH (08:28)
[2018-07-23] MEDS: ENOXAPARIN 40 MG/0.4 ML SYG SC SCH (08:29)
--- NOTE | 2018-07-23 11:47 | CONS ---
Assessment/Plan Assessment/Plan Hospital Course (Demo Recall) No acute changes, looks comfortable Physical examination this is a well-developed well-nourished elderly man who is alert in no distress. Head atraumatic normocephalic. Neck is supple chest rise symmetrical breath sounds clear heart S1-S2 abdomen soft bowel sounds present, patient has right-sided accordion catheter. Skin: Generalized maculopapular rash, mostly on the back and chest Assessment: 1. Ongoing fevers/acute inflammation 2 to pelvic fluid collection, status post CT guided drainage of pelvic fluid with culture grew coag negative staph 2. Diabetes 3. Glaucoma 4. 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 Skin rash, likely allergic reaction to Zosyn==> improved Plan: Stable off antibiotics, will monitor Consultation Date/Type/Reason Admit Date/Time Jul 01, 2018 at 16:52 Initial Consult Date Type of Consult id Date/Time of Note DATE: 07/23/18 TIME: 11:46 Exam/Review of Systems Exam Vitals Vital Signs Date Temp Pulse Resp B/P (MAP) Pulse Ox O2 O2 Flow FiO2 Time Delivery Rate 07/23/18 97.8 93 18 100/60 97 08:07 (73) 07/22/18 Room Air 19:57 Intake and Output 07/22/18 07/22/18 07/23/18 1414:59 22:59 06:59 IntakeIntake Total 1000 ml 600 ml OutputOutput Total 10 ml 10 ml BalanceBalance 990 ml 590 ml Results Result Diagram: 07/23/18 0655 07/23/18 0655 Results 24hrs Laboratory Tests Test 07/22/18 11:56 07/22/18 17:41 07/22/18 21:12 07/23/18 06:55 Bedside Glucose 104 124 105 White Blood Count 8.2 # Red Blood Count 3.64 L Hemoglobin 10.8 L Hematocrit 33.8 L Mean Corpuscular 92.9 Volume Mean Corpuscular 29.7 Hemoglobin Mean Corpuscular 32.0 Hemoglobin Concent Red Cell 12.9 Distribution Width Platelet Count 449 H Mean Platelet Volume 9.5 Immature 0.200 Granulocytes % Neutrophils % 67.9 Lymphocytes % 19.5 Monocytes % 7.5 Eosinophils % 4.1 Basophils % 0.8 Nucleated Red Blood 0.0 Cells % Immature 0.020 Granulocytes # Neutrophils # 5.6 Lymphocytes # 1.6 Monocytes # 0.6 Eosinophils # 0.3 Basophils # 0.1 Nucleated Red Blood 0.0 Cells # Sodium Level 141 Potassium Level 4.0 Chloride Level 103 Carbon Dioxide Level 26 Anion Gap 12 Blood Urea Nitrogen 22 H Creatinine 1.30 H Est Glomerular Filtrat Rate mL/min Glucose Level 95 Calcium Level 9.7 Phosphorus Level 4.2 Magnesium Level 2.2 Test 07/23/18 08:24 Bedside Glucose 92 Medications Medication Current Medications Amlodipine Besylate (Norvasc) 10 mg DAILY PO Last administered on 07/23/18at 08:28; Admin Dose 10 MG; Start 07/02/18 at 09:00 Atorvastatin Calcium (Lipitor) 10 mg QHS PO Last administered on 07/22/18at 21:04; Admin Dose 10 MG; Start 07/01/18 at 21:00 Benazepril HCl (Lotensin) 40 mg DAILY PO Last administered on 07/23/18 08:27; Admin Dose 40 MG; Start 07/02/18 at 09:00 Diagnostic Test (Pha) (Accu-Chek) 1 ea AC MEALS AND BEDTIME XX Last administered on 07/20/18at 17:47; Admin Dose 1 EA; Start 07/01/18 at 17:30 Diagnostic Test (Pha) (Accu-Chek) 1 ea 02 XX Last administered on 07/06/18at 01:13; Admin Dose 1 EA; Start 07/02/18 at 02:00 Insulin Aspart (Novolog Insulin Pen) NOVOLOG *MILD* ALGORITHM WITH MEALS BEDTIME SC Last administered on 07/19/18at 17:33; Admin Dose 1 UNIT; Start 07/01/18 at 18:00 Miscellaneous Information 1 ea NOTE XX ; Start 07/01/18 at 17:30 Glucose (Glutose) 15 gm Q15M PRN PO DECREASED GLUCOSE; Start 07/01/18 at 17:30 Glucose (Glutose) 22.5 gm Q15M PRN PO DECREASED GLUCOSE; Start 07/01/18 at 17:30 Dextrose (D50w Syringe) 25 ml Q15M PRN IV DECREASED GLUCOSE; Start 07/01/18 at 17:30 Dextrose (D50w Syringe) 50 ml Q15M PRN IV DECREASED GLUCOSE; Start 07/01/18 at 17:30 Glucagon (Glucagen) 1 mg Q15M PRN IM DECREASED GLUCOSE; Start 07/01/18 at 17:30 Glucose (Glutose) 15 gm Q15M PRN BUCCAL DECREASED GLUCOSE; Start 07/01/18 at 17:30 Tramadol HCl (Ultram) 50 mg Q6H PRN PO MODERATE PAIN LEVEL 4-6 Last administered on 07/22/18 16:44; Admin Dose 50 MG; Start 07/01/18 at 21:00 Acetaminophen (Tylenol Tab) 650 mg Q4 PRN PO MILD PAIN(1-3)OR ELEVATED TEMP Last administered on 07/22/18 21:09; Admin Dose 650 MG; Start 07/04/18 at 15:30 Lactobacillus Acidophilus/ Rhamnosus (Culturelle) 1 cap BID PO Last administered on 07/23/18 08:26; Admin Dose 1 CAP; Start 07/04/18 at 21:00 Latanoprost (Xalatan) 1 drop QHS BOTH EYES Last administered on 07/22/18 21:05; Admin Dose 1 DROP; Start 07/06/18 at 21:00 Morphine Sulfate (morphine) 2 mg Q4H PRN IV SEVERE PAIN LEVEL 7-10 Last administered on 07/10/18 20:42; Admin Dose 2 MG; Start 07/07/18 at 13:00 Trazodone HCl (Desyrel) 25 mg HS PO Last administered on 07/22/18 21:04; Admin Dose 25 MG; Start 07/09/18 at 23:00 IV Flush (NS 10 ml) 10 ml MORNING AND EVENING IV Last administered on 07/22/18 21:05; Admin Dose 10 ML; Start 07/18/18 at 21:00 Enoxaparin Sodium (Lovenox) 40 mg DAILY SC Last administered on 07/23/18 08:29; Admin Dose 40 MG; Start 07/21/18 at 09:00 Loratadine (Claritin) 10 mg DAILY PO Last administered on 07/23/18 08:26; Admin Dose 10 MG; Start 07/20/18 at 14:30 INDERJIT MADDEN NP Jul 23, 2018 11:47
--- NOTE | 2018-07-23 13:37 | PN ---
Date/Time of Note Date/Time of Note DATE: 07/23/18 TIME: 13:36 Assessment/Plan VTE Prophylaxis Risk score (from Ns)>0 risk: 6 SCD applied (from Ns): No SCD contraindicated: other Pharmacological prophylaxis: LMWH Lines/Catheters IV Catheter Type (from [email or web address] PICC Line Central line still needed: Yes Urinary Cath still in place: No Assessment/Plan Hospital Course SUBJECTIVE: Remains afebrile. Drain functioning well. OBJECTIVE: Physical Exam General: Adequately build 77 year-old male lying in bed in no apparent distress. HEENT: Normocephalic, atraumatic. Eyes: Anicteric sclerae, conjunctivae clear. ENT: Nasal septum midline, oral mucosa moist. Neck supple. Respiratory: Bilaterally diminished breath sounds. No use of accessory muscles of respiration. No adventitious breath sounds. Cardiovascular: S1, S2 heard. Regular rate and rhythm. Abdomen: Soft, nontender, and nondistended. Bowel sounds positive in all 4 quadrants. Pelvic drain in place, draining clear fluid. Genitourinary: Deferred. Extremities: No cyanosis, no clubbing, no edema. Peripheral pulses palpable. Neurologic: Cranial nerves II through XII grossly intact. The patient is awake, alert, and oriented. Skin: Normal skin turgor. No skin rashes. Labs & Vitals per chart ASSESSMENT & PLAN 77-year-old male with comorbidities including hypertension, diabetes mellitus, dyslipidemia, and erectile dysfunction who came to the emergency room because of fevers and chills over 24 hours. The patient was noticed to have leukocytosis, febrile illness, and tachycardia in the emergency room. The patient was admitted to inpatient setting for further treatment and evaluation. 1. Status post sepsis with leukocytosis, tachycardia, and febrile illness. -Being followed by infectious diseases. -MRI of the left shoulder reviewed by orthopedic surgery and orthopedic surgeon thinks there is no evidence of any septic joint. -CT showing 6.5 cm circumscribed fluid collection along the right pelvic sidewall. -WBC scan showing area of mildly to moderately increased activity along the right pelvic sidewall corresponding to the circumscribed fluid collection on the CT scan. -West Nile virus IgG antibody positive, although IgM antibody negative. 2. 6.5 cm fluid collection located on the right pelvic sidewall. -Etiology unclear. -Status post CT-guided drainage on 07/07/2018. Status post removal of drain on 07/10/2018. Status post CT-guided drain on 07/16/2018. S/P replacement of the drain on 07/21/2018. -Cultures from 07/07/2018 showing Staph aureus. 3. Diabetes mellitus type 2. -Continue sliding scale insulin. -A1C 5.9. 4. Dyslipidemia. -Continue statins. 5. Essential hypertension. -Continue antihypertensives. 6. Normocytic, normochromic anemia. -Most probably due to chronic disease. -Monitor H&H closely. 7. Acute kidney injury. -Monitor BUN and creatinine closely. -Use nephrotoxic drugs with caution. -Nonoliguric. 8. Fluids, electrolytes, and nutrition. -Carbohydrate controlled diet. 9. DVT prophylaxis. -SQ Lovenox. 10. Plan. -Off antimicrobials. -The patient can be discharged home once the drain is removed by IR. -Talked to interventional radiology on 07/23/2018 who agreed on removing the drain. The patient was seen in collaboration with Dr. Staton. Result Diagram: 07/23/18 0655 07/23/18 0655 Results 24hrs Laboratory Tests Test 07/22/18 17:41 07/22/18 21:12 07/23/18 06:55 07/23/18 08:24 Bedside Glucose 124 105 92 White Blood Count 8.2 # Red Blood Count 3.64 L Hemoglobin 10.8 L Hematocrit 33.8 L Mean Corpuscular 92.9 Volume Mean Corpuscular 29.7 Hemoglobin Mean Corpuscular 32.0 Hemoglobin Concent Red Cell 12.9 Distribution Width Platelet Count 449 H Mean Platelet Volume 9.5 Immature 0.200 Granulocytes % Neutrophils % 67.9 Lymphocytes % 19.5 Monocytes % 7.5 Eosinophils % 4.1 Basophils % 0.8 Nucleated Red Blood 0.0 Cells % Immature 0.020 Granulocytes # Neutrophils # 5.6 Lymphocytes # 1.6 Monocytes # 0.6 Eosinophils # 0.3 Basophils # 0.1 Nucleated Red Blood 0.0 Cells # Sodium Level 141 Potassium Level 4.0 Chloride Level 103 Carbon Dioxide Level 26 Anion Gap 12 Blood Urea Nitrogen 22 H Creatinine 1.30 H Est Glomerular Filtrat Rate mL/min Glucose Level 95 Calcium Level 9.7 Phosphorus Level 4.2 Magnesium Level 2.2 Test 07/23/18 12:04 Bedside Glucose 100 Exam/Review of Systems Exam Vitals Vital Signs Date Temp Pulse Resp B/P (MAP) Pulse Ox O2 O2 Flow FiO2 Time Delivery Rate 07/23/18 97.8 93 18 100/60 97 08:07 (73) 07/22/18 Room Air 19:57 Intake and Output 07/22/18 07/22/18 07/23/18 1515:00 23:00 07:00 IntakeIntake Total 1000 ml 600 ml OutputOutput Total 10 ml 10 ml BalanceBalance 990 ml 590 ml Results Results 24hrs Laboratory Tests Test 07/22/18 17:41 07/22/18 21:12 07/23/18 06:55 07/23/18 08:24 Bedside Glucose 124 105 92 White Blood Count 8.2 # Red Blood Count 3.64 L Hemoglobin 10.8 L Hematocrit 33.8 L Mean Corpuscular 92.9 Volume Mean Corpuscular 29.7 Hemoglobin Mean Corpuscular 32.0 Hemoglobin Concent Red Cell 12.9 Distribution Width Platelet Count 449 H Mean Platelet Volume 9.5 Immature 0.200 Granulocytes % Neutrophils % 67.9 Lymphocytes % 19.5 Monocytes % 7.5 Eosinophils % 4.1 Basophils % 0.8 Nucleated Red Blood 0.0 Cells % Immature 0.020 Granulocytes # Neutrophils # 5.6 Lymphocytes # 1.6 Monocytes # 0.6 Eosinophils # 0.3 Basophils # 0.1 Nucleated Red Blood 0.0 Cells # Sodium Level 141 Potassium Level 4.0 Chloride Level 103 Carbon Dioxide Level 26 Anion Gap 12 Blood Urea Nitrogen 22 H Creatinine 1.30 H Est Glomerular Filtrat Rate mL/min Glucose Level 95 Calcium Level 9.7 Phosphorus Level 4.2 Magnesium Level 2.2 Test 07/23/18 12:04 Bedside Glucose 100 Medications Medication Current Medications Amlodipine Besylate (Norvasc) 10 mg DAILY PO Last administered on 07/23/18at 08:28; Admin Dose 10 MG; Start 07/02/18 at 09:00 Atorvastatin Calcium (Lipitor) 10 mg QHS PO Last administered on 07/22/18at 21:04; Admin Dose 10 MG; Start 07/01/18 at 21:00 Benazepril HCl (Lotensin) 40 mg DAILY PO Last administered on 07/23/18at 08:27; Admin Dose 40 MG; Start 07/02/18 at 09:00 Diagnostic Test (Pha) (Accu-Chek) 1 ea AC MEALS AND BEDTIME XX Last administered on 07/20/18at 17:47; Admin Dose 1 EA; Start 07/01/18 at 17:30 Diagnostic Test (Pha) (Accu-Chek) 1 ea 02 XX Last administered on 07/06/18at 01:13; Admin Dose 1 EA; Start 07/02/18 at 02:00 Insulin Aspart (Novolog Insulin Pen) NOVOLOG *MILD* ALGORITHM WITH MEALS BEDTIME SC Last administered on 07/19/18at 17:33; Admin Dose 1 UNIT; Start 07/01/18 at 18:00 Miscellaneous Information 1 ea NOTE XX ; Start 07/01/18 at 17:30 Glucose (Glutose) 15 gm Q15M PRN PO DECREASED GLUCOSE; Start 07/01/18 at 17:30 Glucose (Glutose) 22.5 gm Q15M PRN PO DECREASED GLUCOSE; Start 07/01/18 at 17:30 Dextrose (D50w Syringe) 25 ml Q15M PRN IV DECREASED GLUCOSE; Start 07/01/18 at 17:30 Dextrose (D50w Syringe) 50 ml Q15M PRN IV DECREASED GLUCOSE; Start 07/01/18 at 17:30 Glucagon (Glucagen) 1 mg Q15M PRN IM DECREASED GLUCOSE; Start 07/01/18 at 17:30 Glucose (Glutose) 15 gm Q15M PRN BUCCAL DECREASED GLUCOSE; Start 07/01/18 at 17:30 Tramadol HCl (Ultram) 50 mg Q6H PRN PO MODERATE PAIN LEVEL 4-6 Last administered on 07/22/18at 16:44; Admin Dose 50 MG; Start 07/01/18 at 21:00 Acetaminophen (Tylenol Tab) 650 mg Q4 PRN PO MILD PAIN(1-3)OR ELEVATED TEMP Last administered on 07/22/18at 21:09; Admin Dose 650 MG; Start 07/04/18 at 15:30 Lactobacillus Acidophilus/ Rhamnosus (Culturelle) 1 cap BID PO Last administered on 07/23/18at 08:26; Admin Dose 1 CAP; Start 07/04/18 at 21:00 Latanoprost (Xalatan) 1 drop QHS BOTH EYES Last administered on 07/22/18at 21:05; Admin Dose 1 DROP; Start 07/06/18 at 21:00 Morphine Sulfate (morphine) 2 mg Q4H PRN IV SEVERE PAIN LEVEL 7-10 Last administered on 07/10/18 20:42; Admin Dose 2 MG; Start 07/07/18 at 13:00 Trazodone HCl (Desyrel) 25 mg HS PO Last administered on 07/22/18 21:04; Admin Dose 25 MG; Start 07/09/18 at 23:00 IV Flush (NS 10 ml) 10 ml MORNING AND EVENING IV Last administered on 07/22/18at 21:05; Admin Dose 10 ML; Start 07/18/18 at 21:00 Enoxaparin Sodium (Lovenox) 40 mg DAILY SC Last administered on 07/23/18 08:29 ; Admin Dose 40 MG; Start 07/21/18 at 09:00 Loratadine (Claritin) 10 mg DAILY PO Last administered on 07/23/18 08:26; Admin Dose 10 MG; Start 07/20/18 at 14:30 MAHI TRIPATHI NP Jul 23, 2018 13:37
[2018-07-23 14:38] VITALS: BP 118/59; PULSE 83; RESP 18
[2018-07-23 20:14] VITALS: BP 135/63; PULSE 90; RESP 20
[2018-07-23] MEDS: traZODone 50 MG TAB PO SCH (20:55)
[2018-07-23] MEDS: ATORVASTATIN 10 MG TAB PO SCH (20:56)
[2018-07-23] MEDS: ACETAMINOPHEN 325 MG TAB PO PRN (20:56)
[2018-07-23] MEDS: LATANOPROST 0.005% 2.5 ML OPH BOTH EYES SCH (23:16)
[2018-07-24] MEDS: ACCU-CHEK XX SCH ×3 (02:00→10:49)
[2018-07-24 02:37] VITALS: BP 118/66; PULSE 94; RESP 18
[2018-07-24] MEDS: INSULIN ASPART [NOVOLOG] 3 ML PEN SC SCH ×2 (08:00→11:39)
[2018-07-24] MEDS: LACTOBACILLUS RHAMNOSUS CAP PO SCH (08:14)
[2018-07-24] MEDS: ACETAMINOPHEN 325 MG TAB PO PRN (08:14)
[2018-07-24] MEDS: ENOXAPARIN 40 MG/0.4 ML SYG SC SCH (08:16)
[2018-07-24] MEDS: LORATADINE 10 MG TAB PO SCH (08:16)
[2018-07-24] MEDS: BENAZEPRIL 40 MG TAB PO SCH (08:18)
[2018-07-24] MEDS: AMLODIPINE 10 MG TAB PO SCH (08:18)
[2018-07-24 08:39] VITALS: BP 127/61; PULSE 100; RESP 17
--- NOTE | 2018-07-24 11:18 | PDOCDIS ---
Discharge Instructions CONDITION [id number] Patient Condition: [id number] Stable HOME CARE INSTRUCTIONS: [id number] Diet Instructions: [id number] Low Fat /Cholesterol FOLLOW UP/APPOINTMENTS Follow-up Plan Delfin Weaver MD Specialty: Internal Medicine Office Address: [address] [place] [address] [place], [place] [id number] Office OTHER ORDERS: Other Orders: 1. Take a low-cholesterol, low carbohydrate diet. 2. Resume home medications. Stop taking metformin, hydrochlorothiazide, and benazepril. Check your kidney function with your primary care physician in 1 week and if the kidney function is normal, resume taking benazepril, Metformin, and hydrochlorothiazide. 3. Resume activities as tolerated. 4. Please follow-up with your primary care physician in 1 week. If you do not have a primary care physician, please call Dr. Delfin Weaver's office. 5. Please go to the nearest emergency room if you have any fevers significant abdominal pain, persistent nausea/vomiting, or any other unusual signs/symptoms., MAHI TRIPATHI NP Jul 24, 2018 11:18
--- NOTE | 2018-07-24 13:14 | CONS ---
Assessment/Plan Assessment/Plan Hospital Course (Demo Recall) S/p pigtail removed, alert, feels good, no fevers Physical examination this is a well-developed well-nourished elderly man who is alert in no distress. Head atraumatic normocephalic. Neck is supple chest rise symmetrical breath sounds clear heart S1-S2 abdomen soft bowel sounds present Assessment: 1. Ongoing fevers/acute inflammation 2 to pelvic fluid collection, status post CT guided drainage of pelvic fluid with culture grew coag negative staph 2. Diabetes 3. Glaucoma 4. 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 Skin rash, likely allergic reaction to Zosyn==> improved Plan: Stable off antibiotics, s/p catheter removed Consultation Date/Type/Reason Admit Date/Time Jul 01, 2018 at 16:52 Initial Consult Date Type of Consult id Date/Time of Note DATE: 07/24/18 TIME: 13:13 Exam/Review of Systems Exam Vitals Vital Signs Date Temp Pulse Resp B/P (MAP) Pulse Ox O2 O2 Flow FiO2 Time Delivery Rate 07/24/18 99.1 100 17 127/61 98 Room Air 08:39 (83) Intake and Output 07/23/18 07/23/18 07/24/18 1515:00 23:00 07:00 IntakeIntake Total 600 ml 240 ml 320 ml OutputOutput Total 15 ml BalanceBalance 585 ml 240 ml 320 ml Results Result Diagram: 07/24/18 0536 07/24/18 0536 Results 24hrs Laboratory Tests Test 07/23/18 17:26 07/23/18 20:55 07/24/18 05:36 07/24/18 08:08 Bedside Glucose 99 96 103 White Blood Count 9.3 Red Blood Count 3.28 L Hemoglobin 9.9 L Hematocrit 30.5 L Mean Corpuscular 93.0 Volume Mean Corpuscular 30.2 Hemoglobin Mean Corpuscular 32.5 Hemoglobin Concent Red Cell 13.1 Distribution Width Platelet Count 362 Mean Platelet Volume 9.8 Immature 0.300 Granulocytes % Neutrophils % 83.2 H Lymphocytes % 8.1 L Monocytes % 6.1 Eosinophils % 1.8 Basophils % 0.5 Nucleated Red Blood 0.0 Cells % Immature 0.030 Granulocytes # Neutrophils # 7.7 H Lymphocytes # 0.8 Monocytes # 0.6 Eosinophils # 0.2 Basophils # 0.1 Nucleated Red Blood 0.0 Cells # Sodium Level 141 Potassium Level 3.9 Chloride Level 105 Carbon Dioxide Level 26 Anion Gap 10 Blood Urea Nitrogen 21 H Creatinine 1.40 H Est Glomerular Filtrat Rate mL/min Glucose Level 90 Calcium Level 9.3 Phosphorus Level 3.7 Magnesium Level 2.0 Test 07/24/18 11:38 Bedside Glucose 114 Medications Medication Current Medications Amlodipine Besylate (Norvasc) 10 mg DAILY PO Last administered on 07/24/18at 08: 18; Admin Dose 10 MG; Start 07/02/18 at 09:00 Atorvastatin Calcium (Lipitor) 10 mg QHS PO Last administered on 07/23/18at 20:56; Admin Dose 10 MG; Start 07/01/18 at 21:00 Benazepril HCl (Lotensin) 40 mg DAILY PO Last administered on 07/24/18at 08:18; Admin Dose 40 MG; Start 07/02/18 at 09:00 Diagnostic Test (Pha) (Accu-Chek) 1 ea AC MEALS AND BEDTIME XX Last administered on 07/20/18at 17:47; Admin Dose 1 EA; Start 07/01/18 at 17:30 Diagnostic Test (Pha) (Accu-Chek) 1 ea 02 XX Last administered on 07/06/18at 01:13; Admin Dose 1 EA; Start 07/02/18 at 02:00 Insulin Aspart (Novolog Insulin Pen) NOVOLOG *MILD* ALGORITHM WITH MEALS BEDTIME SC Last administered on 07/19/18at 17:33; Admin Dose 1 UNIT; Start 07/01/18 at 18:00 Miscellaneous Information 1 ea NOTE XX ; Start 07/01/18 at 17:30 Glucose (Glutose) 15 gm Q15M PRN PO DECREASED GLUCOSE; Start 07/01/18 at 17:30 Glucose (Glutose) 22.5 gm Q15M PRN PO DECREASED GLUCOSE; Start 07/01/18 at 17:30 Dextrose (D50w Syringe) 25 ml Q15M PRN IV DECREASED GLUCOSE; Start 07/01/18 at 17:30 Dextrose (D50w Syringe) 50 ml Q15M PRN IV DECREASED GLUCOSE; Start 07/01/18 at 17:30 Glucagon (Glucagen) 1 mg Q15M PRN IM DECREASED GLUCOSE; Start 07/01/18 at 17:30 Glucose (Glutose) 15 gm Q15M PRN BUCCAL DECREASED GLUCOSE; Start 07/01/18 at 17:30 Tramadol HCl (Ultram) 50 mg Q6H PRN PO MODERATE PAIN LEVEL 4-6 Last administered on 07/22/18 16:44; Admin Dose 50 MG; Start 07/01/18 at 21:00 Acetaminophen (Tylenol Tab) 650 mg Q4 PRN PO MILD PAIN(1-3)OR ELEVATED TEMP Last administered on 07/24/18 08:14; Admin Dose 650 MG; Start 07/04/18 at 15:30 Lactobacillus Acidophilus/ Rhamnosus (Culturelle) 1 cap BID PO Last administered on 07/24/18 08:14; Admin Dose 1 CAP; Start 07/04/18 at 21:00 Latanoprost (Xalatan) 1 drop QHS BOTH EYES Last administered on 07/23/18 23:16; Admin Dose 1 DROP; Start 07/06/18 at 21:00 Morphine Sulfate (morphine) 2 mg Q4H PRN IV SEVERE PAIN LEVEL 7-10 Last administered on 07/10/18 20:42; Admin Dose 2 MG; Start 07/07/18 at 13:00 Trazodone HCl (Desyrel) 25 mg HS PO Last administered on 07/23/18 20:55; Admin Dose 25 MG; Start 07/09/18 at 23:00 IV Flush (NS 10 ml) 10 ml MORNING AND EVENING IV Last administered on 08:19; Admin Dose 10 ML; Start 07/18/18 at 21:00 Enoxaparin Sodium (Lovenox) 40 mg DAILY SC Last administered on 07/24/18 08:16; Admin Dose 40 MG; Start 07/21/18 at 09:00 Loratadine (Claritin) 10 mg DAILY PO Last administered on 07/24/18 08:16; Admin Dose 10 MG; Start 07/20/18 at 14:30 INDERJIT MADDEN NP Jul 24, 2018 13:14
--- NOTE | 2018-07-24 15:28 | DS ---
Date/Time of Note Date/Time of Note DATE: 07/24/18 TIME: 15:28 Discharge Summary Admission/Discharge Info Admit Date/Time Jul 01, 2018 at 16:52 Discharge Date/Time Jul 24, 2018 at 13:30 Discharge Diagnosis 1. Status post sepsis with leukocytosis, tachycardia, and febrile illness. 2. 6.5 cm fluid collection located on the right pelvic sidewall. S/P IR guided drainage. 3. Diabetes mellitus type 2. A1C 5.9. 4. Dyslipidemia. 5. Essential hypertension. 6. Normocytic, normochromic anemia. 7. Acute kidney injury. 8. Obesity. BMI of 31 kg/m. 9. Erectile dysfunction. Patient Condition: Stable Consults 1. Tom Martin MD, Infectious Diseases. 2. Jonny Lehman MD, General Surgery. 3. Adrien Rea MD, Orthopedic Surgery. Procedures CT Guided Right Pelvic Fluid Collection Drainage on 07/16/2018. IMPRESSION: 1. Successful CT guided right lateral pelvic fluid collection drainage. CT Guided Right Pelvic Fluid Collection Drainage on 07/07/2018. IMPRESSION: 1. Successful CT guided right lateral pelvic fluid collection drainage. CT of the Chest, Abdomen, & Pelvis 07/03/2018 IMPRESSION: 6.5 cm circumscribed fluid collection along the right pelvic sidewall, leading directly posteromedial to the right external iliac vessels. Mild fat infiltration is seen adjacent to this collection. Differential considerations for this collection include an abscess, seroma, or resolving hematoma. Irregular urinary bladder wall thickening, asymmetric to the right, thought to represent cystitis. This may reflect a primary urinary bladder infection versus secondary inflammation related to the adjacent collection. Correlation with urinalysis and CBC is recommended. A urinary bladder neoplasm is considered less likely but cannot be excluded. This could further evaluated with cystoscopy if clinically warranted. Mild to moderate sigmoid colon diverticulosis. Moderate atherosclerotic calcifications. CT Abdomen & Pelvis on 07/12/2018 IMPRESSION: 1. Right lateral pelvic side wall fluid collection is again seen measuring approximately 5.1 x 2.8 cm with mild increased wall thickening and a few gas locules that may be related to the recent drainage procedure or reflect abscess. 2. Mild colonic wall thickening versus under distension may reflect a nonspecific colitis in the appropriate setting. 3. Moderate bladder wall thickening is again seen with trabeculated appearance. Correlation is suggested for signs of cystitis or bladder wall hypertrophy/outlet obstruction. CT Abdomen & Pelvis on 07/19/2018 IMPRESSION: 1. Right pelvic sidewall gas and fluid collection is again noted, demonstrating mild interval decrease in size. Percutaneous drainage catheter tip remains located within this collection. 2. Urinary bladder wall appears circumferentially thickened, concerning for cystitis, possibly reactive secondary to adjacent right pelvic sidewall collection. 3. Coronary arterial and aortoiliac atherosclerotic calcifications. 4. Mild retained fecal material may indicate constipation. 5. Sigmoid diverticulosis, without diverticulitis. 2D Echocardiogram Conclusions: Normal left ventricular systolic function. Normal left ventricular cavity size. Mild concentric left ventricular hypertrophy. Ejection fraction is visually estimated at 60 %. Tissue Doppler/Mitral Doppler indices are consistent with impaired relaxation (Stage I diastolic dysfunction). Normal right ventricular size. Normal right ventricular systolic function. The left atrium is normal in size. The right atrium is normal in size. No significant valvular stenosis or regurgitation seen. Normal pericardium with no significant pericardial effusion. Hx of Present Illness This is a 77-year-old male with comorbidities including hypertension, diabetes mellitus, dyslipidemia, and erectile dysfunction who came to the emergency room because of fevers and chills over 24 hours. The patient was noticed to have leukocytosis, febrile illness, and tachycardia in the emergency room. The patient was admitted to inpatient setting for further treatment and evaluation. Hospital Course Etiology of the patient's underlying sepsis remained unclear. Infectious disease consult was obtained. The patient underwent a CT scan of the chest, abdomen, and pelvis. This was showing a 6.5 cm circumscribed fluid in collec tion along the right pelvic wall. 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 The patient was evaluated by orthopedic surgeon and the orthopedic surgeon conveyed that there is no evidence of any septic joint. The patient underwent a WBC scan that showed mildly to moderately increased activity along the right pelvic sidewall corresponding to circumscribed fluid collection on the CT scan. The patient's West Nile virus IgG antibody was positive. However, the IgM antibody was negative. Therefore, it was concluded that the patient's sepsis could have been most probably secondary to the fluid collection the pelvis. The patient underwent a CT-guided drainage of the right sided pelvic fluid collection on 07/07/2018. The patient's fluid was positive for Staph aureus. Etiology of the patient's right-sided pelvic fluid collection/abscess remains unclear. The patient's drain was removed on 07/10/2018 by interventional radiology. Status post drain removal, the patient started having fevers and chills. Therefore, the patient had the drain reinserted by interventional radiology on 07/16/2018. The second drainage showed negative growth. Later, the patient's drain nonfunctional. Therefore, the drain was replaced on 07/21/2018. Status post drain replacement on 07/21/2018, the patient's drainage was very minimal and it was almost less than 30 cc over 24 hours. Therefore, a decision was made to discontinue the drain after talking to the interventional radiologist on 07/23/2018. The patient was maintained on antimicrobials as per infectious di seases for the recommended duration. The patient has underlying diabetes mellitus type 2. The patient was maintained on sliding scale insulin. The patient's hemoglobin A1c was found to be 5.9. The patient has underlying dyslipidemia. He was maintained on statins for the same. The patient has underlying hypertension. The patient was maintained on antihypertensives for the same. The patient was noticed to have normocytic, normochromic anemia. The patient's H&H remained stable. The patient is also obe se with a BMI of more than 31 kg/m. The patient was advised on weight reduction. Patient had acute kidney injury on the day of admission and this resolved during the patient's hospital stay. Nevertheless, the patient's renal function started getting worse starting 07/19/2018 with a creatinine of 1.40 on 07/24/2018. Therefore, the patient's nephrotoxic drugs including ANUJ inhibitors and thiazide diuretics were withheld. The patient will not be resumed on metformin upon discharge. The patient was specifically instructed to hold the metformin, hydrochlorothiazide, and ACEIs and to recheck his renal function in 1 week with his primary care physician and to resume these drugs as per the discretion of the primary care physician. The patient had a prolonged hospital course because of the complexity of the patient's clinical condition, difficulty in identifying the source of infection, and multiple procedures that needed to be done for addressing the patient's pelvic abscess. Discharge Instructions 1. Take a low-cholesterol, low carbohydrate diet. 2. Resume home medications. Stop taking metformin, hydrochlorothiazide, and benazepril. Check your kidney function with your primary care physician in 1 week and if the kidney function is normal, resume taking benazepril, Metformin, and hydrochlorothiazide. 3. Resume activities as tolerated. 4. Please follow-up with your primary care physician in 1 week. If you do not have a primary care physician, please call Dr. Delfin Weaver's office. 5. Please go to the nearest emergency room if you have any fevers significant abdominal pain, persistent nausea/vomiting, or any other unusual signs/symptoms., The patient verbalized understanding of discharge instructions. The patient's son was informed about the discharge instructions specifically the necessity to hold metformin, hydrochlorothiazide, and benazepril.. At this time I would like to thank all the consultants for seeing the patient, doing the necessary procedures, and providing clinical recommendations. The patient was seen in collaboration with Dr. Staton. Home Meds Reported Medications Triamcinolone Acetonide* (Kenalog*) 0.5%-15GM Cr, TOP BID 07/01/18 Sildenafil Citrate (Sildenafil Citrate) 100 Mg Tablet, 1 TAB ORAL DAILY PRN for NEEDED 07/01/18 Atorvastatin Calcium (Atorvastatin Calcium) 10 Mg Tablet, 10 MG PO QHS, #30 TAB 10/17/17 Amlodipine Besylate* (Amlodipine Besylate*) 10 Mg Tablet, 10 MG PO DAILY, #30 TAB 10/17/17 Bimatoprost* (Lumigan*) 0.01%-2.5 Ml Opht Drops, 1 DROP BOTH EYES HS, EA 10/17/17 Discontinued Reported Medications Meloxicam* (Meloxicam*) 7.5 Mg Tablet, 1 TAB ORAL DAILY PRN for PAIN LEVEL 4-6 07/01/18 Benazepril Hcl* (Benazepril Hcl*) 40 Mg Tablet, 40 MG PO DAILY, #30 TAB 07/01/18 Hydrochlorothiazide* (Hydrochlorothiazide*) 25 Mg Tab, 25 MG PO DAILY, #30 TAB 10/17/17 Metformin* (Glucophage*) 500 Mg Tab, 500 MG PO BID, #30 TAB 10/17/17 Follow-up Plan Delfin Weaver MD Specialty: Internal Medicine Office Address: [address] [place] [address] [address] [place] [address] Office Primary Care Provider Not On Staff Doctor Time spent on discharge: > 30 minutes Pending Labs Laboratory Tests Test 07/23/18 17:26 07/23/18 20:55 07/24/18 05:36 07/24/18 08:08 Bedside 99 96 103 Glucose mg/dL (70-220) mg/dL (70-220) mg/dL (70-220) White Blood 9.3 Count 10^3/ul (4.8-1 0.8) Red Blood 3.28 Count 10^6/ul (4.70- 6.10) Hemoglobin 9.9 g/dl (14.0-18. 0) Hematocrit 30.5 % (42.0-52.0) Mean 93.0 Corpuscular fl (82.0-101.0 Volume ) Mean 30.2 Corpuscular pg (29.0-33.0) Hemoglobin Mean 32.5 Corpuscular g/dl (32.0-37. Hemoglobin Conc 0) ent Red Cell 13.1 Distribution % (11.5-14.5) Width Platelet Count 362 10^3/UL (140-4 15) Mean Platelet 9.8 Volume fl (7.4-10.4) Immature 0.300 Granulocytes % % (0.001-0.429 ) Neutrophils % 83.2 % (39.0-77.0) Lymphocytes % 8.1 % (15.0-51.0) Monocytes % 6.1 % (0.0-11.0) Eosinophils % 1.8 % (0.0-7.0) Basophils % 0.5 % (0.0-2.0) Nucleated Red 0.0 Blood Cells % /100WBC (0.0-0 .0) Immature 0.030 Granulocytes # 10^3/ul (0.0-0 .031) Neutrophils # 7.7 10^3/ul (1.6-7 .5) Lymphocytes # 0.8 10^3/ul (0.8-2 .9) Monocytes # 0.6 10^3/ul (0.3-0 .9) Eosinophils # 0.2 10^3/ul (0.0-0 .5) Basophils # 0.1 10^3/ul (0.0-0 .1) Nucleated Red 0.0 Blood Cells # 10^3/ul (0.0-0 .0) Sodium Level 141 mmol/L (135-14 4) Potassium 3.9 Level mmol/L (3.5-5. 1) Chloride Level 105 mmol/L (97-110 ) Carbon Dioxide 26 Level mmol/L (21-31) Anion Gap 10 (5-13) Blood Urea 21 Nitrogen mg/dl (7-20) Creatinine 1.40 mg/dl (0.61-1. 24) Est Glomerular mL/min (>60) Filtrat Rate mL/min Glucose Level 90 mg/dl (70-220) Calcium Level 9.3 mg/dl (8.4-10. 2) Phosphorus 3.7 Level mg/dl (2.5-4.9 ) Magnesium 2.0 Level mg/dl (1.7-2.5 ) Test 07/24/18 11:38 Bedside 114 Glucose mg/dL (70-220) MAHI TRIPATHI NP Jul 24, 2018 15:28
== END 2018-07-24 13:30 | disposition home or self-care (01) | DRG 872 ==
LOC: E/R 09:39 → 5EC 16:39 → PP2 07-07 23:45
PROVIDERS: ADMIT Family Medicine; ATTEND Internal Medicine
PROC: 0W9F30Z Drainage of Abdominal Wall with Drainage Device, Percutaneous Approach (ICD-10-PCS; principal; 2018-07-07)
PROC: 0WPFX0Z Removal of Drainage Device from Abdominal Wall, External Approach (ICD-10-PCS; 2018-07-10)
PROC: 0W9F30Z Drainage of Abdominal Wall with Drainage Device, Percutaneous Approach (ICD-10-PCS; 2018-07-16)
PROC: 02HV33Z Insertion of Infusion Device into Superior Vena Cava, Percutaneous Approach (ICD-10-PCS; 2018-07-18)
PROC: 0WPFX0Z Removal of Drainage Device from Abdominal Wall, External Approach (ICD-10-PCS; 2018-07-21)
PROC: 0W9F30Z Drainage of Abdominal Wall with Drainage Device, Percutaneous Approach (ICD-10-PCS; 2018-07-21)
PROC: 0WPFX0Z Removal of Drainage Device from Abdominal Wall, External Approach (ICD-10-PCS; 2018-07-23)
DX: A41.9 Sepsis, unspecified organism (principal); N17.9 Acute kidney failure, unspecified; L02.211 Cutaneous abscess of abdominal wall; D64.9 Anemia, unspecified; E11.22 Type 2 diabetes mellitus with diabetic chronic kidney disease; E66.9 Obesity, unspecified; E78.5 Hyperlipidemia, unspecified; H40.9 Unspecified glaucoma; I12.9 Hypertensive chronic kidney disease with stage 1 through stage 4 chronic kidney disease, or unspecified chronic kidney disease; N18.9 Chronic kidney disease, unspecified; N52.9 Male erectile dysfunction, unspecified; M75.102 Unspecified rotator cuff tear or rupture of left shoulder, not specified as traumatic; M19.012 Primary osteoarthritis, left shoulder; L27.0 Generalized skin eruption due to drugs and medicaments taken internally; T36.0X5A Adverse effect of penicillins, initial encounter; B95.61 Methicillin susceptible Staphylococcus aureus infection as the cause of diseases classified elsewhere; Z96.651 Presence of right artificial knee joint; Z68.31 Body mass index [BMI] 31.0-31.9, adult; Z87.891 Personal history of nicotine dependence; Z85.46 Personal history of malignant neoplasm of prostate; Z90.79 Acquired absence of other genital organ(s); Z90.49 Acquired absence of other specified parts of digestive tract; Z79.84 Long term (current) use of oral hypoglycemic drugs
CPT/HCPCS: 36415; 36569; 36589; 71045; 71250; 73030; 73221; 74018; 74176; 74177; 75989; 76775; 76937; 77012; 78806; 80048; 80053; 80061; 80202; 81003; 82962; 83036; 83605; 83735; 84100; 84145; 84153; 84154; 84443; 84484; 85025; 85378; 85610; 85651; 85730; 86140; 86703; 86704; 86709; 86788; 86789; 86803; 87070; 87075; 87086; 87207; 87340; 87400; 89051; 93005; 93306; 93971; 96374; A4310; A9570; C1729; J0692; J0696; J1650; J1815; J1956; J2001; J2185; J2270; J2543; J3010; J3370; J7030; J7040; J7050; Q9967

== ENCOUNTER 2018-09-30 22:08 | Emergency (ER) | payer MEDICARE, OTHER ==
[~2018-09-30] VITALS: Ht 165.1 cm; Wt 76.1 kg
[~2018-09-30 22:08] MED LIST changes: -CEPH-443 PO; -DOCU-144 PO; -HYDR-4011 PO; -HYDR25TA6 PO; -METF-849 PO; +TRIA15CR52 TOP; +[UNRECOGNIZED DRUG - CODE] ORAL
[2018-09-30 22:10] VITALS: Ht 165.1 cm; Wt 76.1 kg
--- NOTE | 2018-09-30 22:42 | ERD ---
ER Documentation Chief Complaint Chief Complaint GL mechanical slip&fall today, facial abrasions/injuries now HPI This is a 77-year-old male with a past medical history of hypertension, hyp erlipidemia who is presenting with facial trauma after a mechanical fall. The patient was reportedly shuffling his slippers when he lost his balance and fell forward. He reports landing on his left knee and hitting his face on the floor. He denies any loss of consciousness. He denies any vision changes. He does endorse facial abrasions and a small superficial laceration to the bridge of the nose. He endorses pain to the bridge of the nose. He also endorses aching left knee pain. The patient is ambulatory without difficulty. He is able to range his knee without difficulty. He does have a bruise to the left knee. The patient does not endorse any other trauma or injury. The patient denies any neck or back pain. He denies any cardiothoracic or abdominal trauma. He denies chest pain or trouble breathing. He denies abdominal pain. He denies saddle anesthesia. He denies incontinence or retention of urine or stool. The patient was not lightheaded or dizzy when this occurred. He does not endorse any presyncopal symptoms. He did not pass out. ROS All systems reviewed and are negative except as per history of present illness. Medications Home Meds Reported Medications Triamcinolone Acetonide* (Kenalog*) 0.5%-15GM Cr, TOP BID 07/01/18 Sildenafil Citrate (Sildenafil Citrate) 100 Mg Tablet, 1 TAB ORAL DAILY PRN for NEEDED 07/01/18 Atorvastatin Calcium (Atorvastatin Calcium) 10 Mg Tablet, 10 MG PO QHS, #30 TAB 10/17/17 Amlodipine Besylate* (Amlodipine Besylate*) 10 Mg Tablet, 10 MG PO DAILY, #30 TAB 10/17/17 Bimatoprost* (Lumigan*) 0.01%-2.5 Ml Opht Drops, 1 DROP BOTH EYES HS, EA 10/17/17 Allergies Allergies: Coded Allergies: piperacillin (Verified Allergy, Unknown, rash, 07/20/18) Rash and itchiness tazobactam (Verified Allergy, Unknown, rash, 07/20/18) Rash and itchiness PMhx/Soc History of Surgery: Yes (Right knee replacement 2009, back sx 2009, prostectomy 10/06/17) Anesthesia Reaction: No Hx Neurological Disorder: No Hx Respiratory Disorders: No Hx Cardiac Disorders: Yes (HTN, high cholesterol) Hx Psychiatric Problems: No Hx Miscellaneous Medical Probl: No Hx Alcohol Use: No Hx Substance Use: No Hx Tobacco Use: No Smoking Status: Never smoker Physical Exam Vitals Vital Signs Date Temp Pulse Resp B/P (MAP) Pulse Ox O2 O2 Flow FiO2 Time Delivery Rate 09/30/18 97.3 74 20 227/88 98 22:10 (134) Physical Exam Const: No apparent distress, well-developed, well-nourished Head: Normocephalic. No thomas sign. Abrasions to the left side of the face. Superficial 1 cm laceration to the bridge of the nose. Eyes: Normal Conjunctiva. Extraocular movements intact. Pupils equal, round and reactive to light. No raccoon eyes. ENT: Normal External Ears, Nose and Mouth. No hemotympanum. Normal oropharynx. Neck: No midline cervical spine tenderness. Full range of motion without tenderness. No meningismus. Resp: Clear to auscultation bilaterally, No wheezes, rales or rhonchi Cardio: Regular rate and rhythm. No murmurs, rubs or gallops Abd: Soft, non tender, non distended. Normal bowel sounds Skin: No petechiae or rashes Back: No midline tenderness. No step-offs or deformities. No CVA tenderness Ext: No cyanosis, or edema Neur: Awake and alert, oriented 4. Cranial nerves intact. No facial droop. Normal strength, sensation and coordination. Psych: Normal Mood and Affect Procedures/MDM MDM The patient's presentation warrants further investigation. Previous medical records, if available, were reviewed. IMAGING Imaging and Radiology interpretation reviewed. CT head FINDINGS: There is normal higgins-white matter differentiation. There is mild enlargement of the ventricles and subarachnoid spaces consistent with atrophy. There is mild decreased attenuation of the periventricular white matter consistent with microangiopathic ischemic change. There is no intracranial hemorrhage or space-occupying lesion. There are vascular calcifications consistent with atherosclerosis. There is no skull fracture or lytic lesion. IMPRESSION: 1. Mild atrophy. 2. Mild microangiopathic ischemic change. 3. Atherosclerosis. 4. No intracranial hemorrhage. 5. Otherwise unremarkable noncontrast CT scan of the brain. Electronically viewed and signed by .Rk Dorsey MD, on 09/30/2018 22:43 CT cervical spine FINDINGS: There is normal stature and alignment of the vertebrae. There is no fracture. There are degenerative changes with disc space narrowing and osteophytes at C2-3, C4-5, C5-6, and C6-7. At C3-4, there is bilateral bony foraminal stenosis. At C4-5, there is posterior disc/osteophyte complex with mild central stenosis and there is right-sided bony foraminal stenosis. At C5-6, there is a right-sided bony foraminal stenosis. At C6-7, there is left-sided bony foraminal stenosis. There is no lytic or blastic lesion. The paravertebral soft tissues are normal. IMPRESSION: 1. Degenerative changes as described above. 2. No fracture or malalignment. 3. Otherwise unremarkable study. Electronically viewed and signed by .Rk Dorsey MD, on 09/30/2018 22:47 TREATMENT/DISPOSITION The patient presents after a trauma. The patient was evaluated fully without evidence of emergent posttraumatic pathology. [The patient's CT imaging of the head and cervical spine are unremarkable.] The patient has no focal deficits. I've low suspicion for intracranial pathology. I have low suspicion for cerebral ischemia or intracranial hemorrhage. The patient has no cervical spine tenderness. He can move his neck in all directions without any pain. As stated above, he does not have any focal deficits. He is not altered or intoxicated. He does not have any distracting injuries. The patient's cervical spine was clinically cleared using the Nexus C-spine rule. The patient does not have any saddle anesthesia. He has not been incontinent of urine or stool. He has not had any retention of urine or stool. I have low suspicion for spinal cord injury. The patient does not endorse any cardiothoracic or abdominal trauma. I have low suspicion for extremity injury. The patient does endorse soreness to the left knee, but he is ambulatory without issue. There is a small bruise, but there is no other evidence of deformity. I have very low suspicion for fracture dislocation. There is no evidence of any penetrating injuries. The patient does have abrasions to the face. He also has a small superficial laceration to the bridge of the nose. This was repaired with Dermabond without complication. See procedure note below. The patient's last tetanus shot was reportedly greater than 5 years ago. One was provided today. PROCEDURE Laceration Repair by me: Anesthesia: None Location: Bridge of the nose Tendon/Joint/Nerves: No injury Foreign body: None detected after copious irrigation and exploration Technique: Dermabond Complexity: No subcutaneous sutures/mucosal repair/edge excision Post Closure Length: 1 cm Patient's bleeding was easily controlled in the department. No evidence of anemia, compartment syndrome, neurologic injury, vascular injury, open joint, tendon laceration, or foreign body. Patient is appropriate for outpatient follow up. 48 hour wound check recommended. Scar minimization instructions given. DISCHARGE Upon reevaluation of the patient, symptoms have improved. No emergent diagnoses were identified. At this time, I feel that the patient stable for discharge. The patient was instructed to follow-up with a primary care physician in 1-3 days. The patient will be given strict precautions with which to return to the emergency department. Prescriptions: Naproxen The patient's blood pressure was elevated at greater than 120/80 while in the emergency department. The patient was otherwise stable with no evidence of hypertensive urgency or emergency. The patient does not require admission for blood pressure control. I have discussed with the patient the risks of hypertension. I have instructed the patient to return to the ER for any new or worsening symptoms including chest pain, shortness of breath, headache, blurred vision, confusion, nausea, vomiting or LOC. I have advised the patient to follow up with the primary care physician for outpatient monitoring and treatment for hypertension in 1-3 days. Disclaimer: Inadvertent spelling and grammatical errors are likely due to EHR/dictation software use and do not reflect on the overall quality of patient care. Note that the electronic time recorded on this note does not necessarily reflect the actual time of the patient encounter. Departure Diagnosis: Primary Impression: Fall with no significant injury Encounter type: initial encounter Qualified Codes: W19.XXXA - Unspecified fall, initial encounter Additional Impressions: Head trauma Encounter type: initial encounter Qualified Codes: S09.90XA - Unspecified injury of head, initial encounter Laceration of nose without complication Encounter type: initial encounter Qualified Codes: S01.21XA - Laceration without foreign body of nose, initial encounter Facial abrasion Encounter type: initial encounter Qualified Codes: S00.81XA - Abrasion of other part of head, initial encounter Left anterior knee pain Condition: Stable Patient Instructions: Fall Prevention, Head Trauma (Traumatic Brain Injury), Knee Sprain Additional Instructions: Thank you for for coming to [facility] for your care today. Please ask your nurse or provider if you have questions about your care today and do not leave until all your questions have been answered. Please use any medications given as directed and follow-up with your doctor (or the doctor you were referred to) in the next 1-3 days. If you do not have a primary care doctor you may follow up at the [facility] or [facility] (listed below). You may also use motrin and tylenol as needed for fever and/or pain unless instructed otherwise by your provider or nurse. Indications for more urgent follow-up have been discussed, but you may return to the Emergency Department at ANY time for any worrisome or worsening symptoms. If you have abdominal pain, please know that no test or exam you received is perfect and you should follow up within 8 hours for continued pain. If you had any imaging studies today, such as an X-Ray or CT Scan, these studies will be reviewed later by a radiologist. You will be called if there are important findings that were not identified today, so make sure the contact information you provided at registration is correct. If you received any narcotic pain control medicine today, such as Vicodin, Morphine or Dilaudid, your coordination and judgment may be affected for a number of hours. Please do not drive or operate heavy machinery, and you may want someone to assist you at home. If you were given a prescription for narcotic medication, be aware that it is very addictive- use sparingly and only if necessary. PLEASE SEEK FURTHER EVALUATION AND MANAGEMENT AT YOUR DOCTORS OFFICE WITHIN THE NEXT 1-3 DAYS. IT IS YOUR RESPONSIBILITY TO MAKE AN APPOINTMENT FOR FOLOW-UP CARE. IF YOU HAVE A PRIMARY DOCTOR, PLEASE CALL THEIR OFFICE TO SCHEDULE AN APPOINTMENT FOR FOLLOW UP. IF YOU DO NOT HAVE A PRIMARY DOCTOR YOU CAN CALL OUR PHYSICIAN REFERRAL HOTLINE AT IF YOU CAN NOT AFFORD TO SEE A PHYSICIAN YOU CAN CHOSE FROM THE FOLLOWING [facility]: [facility] [address] [facility] [address] [facility]. [facility] [address] [facility] [address] [facility] [address] [facility]. [facility]. [address] JOSE RODAS MD Sep 30, 2018 22:42
[2018-09-30] MEDS ORDERED: KETOROLAC 15 MG INJ IM STA (23:26)
[2018-09-30] MEDS ORDERED: NAPR-985 PO (23:28)
[2018-09-30] MEDS ORDERED: DIPHTH/TET/ACEL PERTUSS (ADULT) 0.5 ML VIAL IM* ONE (23:30)
[2018-10-01 00:14] VITALS: BP 168/72; PULSE 66; RESP 20
== END 2018-10-01 00:20 | disposition home or self-care (01) ==
LOC: E/R 22:08
DX: S01.21XA Laceration without foreign body of nose, initial encounter (principal); S09.90XA Unspecified injury of head, initial encounter; S89.92XA Unspecified injury of left lower leg, initial encounter; I10 Essential (primary) hypertension; W18.30XA Fall on same level, unspecified, initial encounter; Y92.9 Unspecified place or not applicable; Z23 Encounter for immunization
CPT/HCPCS: 12011; 70450; 72125; 90471; 90715; 96372; 99285; J1885